=== PATIENT | male | born 1945 | race Caucasian/White ===

== ENCOUNTER → 2017-01-03 | Outpatient (CLI) | payer MEDICARE ==
--- NOTE | 2017-01-03 09:03 | MR ---
EXAMINATION TYPE: MR shoulder RT wo con DATE OF EXAM: 01/03/2017 7:31 AM COMPARISON: NONE HISTORY: Right shoulder pain TECHNIQUE: Multiplanar multispin echo imaging of the right shoulder was performed. FINDINGS: Rotator cuff : Heterogeneity and abnormal signal within the supraspinatus tendon. Full thickness part ial tear of the supraspinatus tendon near its humeral insertion. Also undersurface tear at the critic al zone. No evidence for retraction. Intrasubstance tear noted of the infraspinatus. Subscapularis te ndon is intact. Bursa: No bursal effusion or thickening is seen. Musculature: There is no muscular tear, contusion, or atrophy. Acromioclavicular joint : There are mild degenerative changes of the acromioclavicular joint. There is no anterior or lateral acromial downsloping. Osseous structures : There are no fractures or regions of abnormal bone marrow signal intensity. Long biceps tendon : The biceps tendon is normally situated within the bicipital groove. No complete or partial biceps tendon tear is present. Glenohumeral Joint fluid : Small effusion noted. Cartilage and Bone : No focal hyaline cartilage defects are noted. No Hill-Sachs, reverse Hill-Sachs, or bony Bankart lesions are seen. Labrum : Glenoid labral tears are noted to involve the superior posterior and inferior posterior rita oid labrum. OTHER FINDINGS : none IMPRESSION: 1. Tendinosis with associated tears of the supraspinatus and infraspinatus tendons. 2. Glenoid labral tears.
== END ==
LOC: RADMRIMAIN 06:28
PROVIDERS: ATTEND Orthopaedic Surgery
DX: M75.101 Unspecified rotator cuff tear or rupture of right shoulder, not specified as traumatic (principal); S43.401A Unspecified sprain of right shoulder joint, initial encounter; M75.91 Shoulder lesion, unspecified, right shoulder

== ENCOUNTER 2017-01-21 06:30 | Day surgery (SDC) | payer MEDICARE ==
[2017-01-18 11:24] VITALS: BMI 32.1
--- NOTE | 2017-01-19 09:02 | HP ---
DATE OF ADMISSION: CHIEF COMPLAINT: Right shoulder pain. HISTORY OF PRESENT ILLNESS: The patient is a 71-year-old right-handed dominant, semi-retired gentleman who presents with progressive right shoulder pain after an injury in October of 2016. He was carrying a table when he felt a pop in his shoulder. He continues to have pain with overhead use and at night, despite conservative measures. He has tried medications along with an injection and therapy. Past medical history is significant for coronary artery disease, hypertension, hyperlipidemia. Past surgical history is significant for cardiac catheterization along with right wrist surgery. CURRENT MEDICATIONS: 1. Aspirin. 2. Cholestyramine. 3. Dyazide. 4. Flomax. 5. Lopressor. 6. Niaspan. 7. Norvasc. 8. Ibuprofen. 9. Crestor. 10. Lisinopril. 11. Plavix. He notes allergies to PENICILLIN and ALEVE. FAMILY HISTORY: Significant for cancer and heart disease. SOCIAL HISTORY: Negative for current tobacco or alcohol use. A 16-point review of systems otherwise reviewed and is noncontributory. On examination, the patient is approximately 5 foot 8, 212 pounds of endomorphic habitus. HEENT exam is nonfocal. Neck is supple. On examination of his right shoulder, he is tender about the anterior subacromial space. He has moderate subacromial crepitus. Active range of motion, forward elevation 160 degrees, external rotation with arm at side 65 degrees, internal rotation to L1. Motor strength is 4+/5 for external rotation with the arm at the side and 4+/5 for abduction. Impingement, Neer and speed tests are positive. His distal neurovascular exam otherwise appears to be intact in the right upper extremity. MRI report from to 01/03/2017 shows evidence of a tear involving the supraspinatus tendon without significant retraction. IMPRESSION: 1. Right shoulder acute rotator cuff tear, symptomatic. 2. Right shoulder bicipital tendinitis. RECOMMENDATIONS: I talked to the patient at length regarding his treatment options. He remains symptomatic despite conservative measures. After thorough discussion, he opts to proceed with surgery. We will plan to proceed with arthroscopic evaluation with probable subacromial decompression, rotator cuff debridement versus repair, and possible biceps tenotomy. We will likely perform that as an outpatient procedure. Risks and benefits are discussed at length in layman's terms. We will have him resume his Plavix after the procedure.
[~2017-01-21 06:30] MED LIST: DEXAMETHASONE SOD PHOSPHATE 10 MG/ML 1 ML VIAL IV ONE; HYDROmorphone 1 MG/ML 1 ML SYRINGE IVP PRN; LACTATED RINGERS 1,000 ML IV SCH; MIDAZOLAM 2 MG/2 ML VIAL IV PRN; ONDANSETRON 4 MG/2 ML VIAL IVP ONE; ceFAZolin 2 GM in SODIUM CHLORIDE 0.9% 100 ML IVPB ONE
[2017-01-21] MEDS ORDERED: LIDOCAINE 1% 20 ML VIAL (10MG/ML) FOR IV START INTRADERMA ONE (07:15)
[2017-01-21] MEDS: fentaNYL (PF) 50 MCG/ML 2 ML AMP IV ONE ×2 (07:20→07:30)
[2017-01-21] MEDS ORDERED: ROCURONIUM BROMIDE 10 MG/ML 10 ML VIAL IV ONE (08:13)
[2017-01-21] MEDS ORDERED: LIDOCAINE 2%-EPI 1:100,000 20 ML VIAL ONE (08:13)
[2017-01-21] MEDS ORDERED: MIDAZOLAM 2 MG/2 ML VIAL ONE (08:13)
[2017-01-21] MEDS ORDERED: PROPOFOL 10 MG/ML 20 ML VIAL IV ONE (08:13)
[2017-01-21] MEDS ORDERED: fentaNYL (PF) 50 MCG/ML 2 ML AMP ONE (08:13)
[2017-01-21] MEDS ORDERED: SUCCINYLCHOLINE CHLORIDE 100 MG/5 ML SYR IV ONE (08:13)
[2017-01-21] MEDS ORDERED: ROPIVACAINE 5 MG/ML 30 ML VIAL ONE (08:13)
[2017-01-21] MEDS ORDERED: LIDOCAINE 1% INJ 10MG/ML (20 ML MDV) ONE (08:13)
[2017-01-21] MEDS ORDERED: GLYCOPYRROLATE 0.2 MG/ML 2 ML VIAL ONE (08:13)
[2017-01-21] MEDS ORDERED: NEOSTIGMINE 1 MG/ML 10 ML VIAL ONE (08:13)
[2017-01-21] MEDS ORDERED: LACTATED RINGERS 1,000 ML IV ONE (09:07)
[2017-01-21 09:45] VITALS: TEMP 98.5
--- NOTE | 2017-01-21 09:49 | P.OP ---
Date of Procedure: 01/21/17 Preoperative Diagnosis: Right shoulder symptomatic rotator cuff tear Postoperative Diagnosis: Right shoulder 1 cm supraspinatus tendon tear/grade 2 chondral injury central humeral head/superior labral tear/high-grade partial-thickness long head of the biceps tear. Procedure(s) Performed: Right shoulder arthroscopic subacromial decompression/rotator cuff repair/ biceps tenotomy/humeral head chondroplasty Implants: Arthrex 4.75 mm swivel lock anchor 1 Anesthesia: JONAS, regional Surgeon: Devan Childers Teacher Early Childhood Development #1: Huseyin Newton Estimated Blood Loss (ml): 20 Pathology: none sent Condition: stable Disposition: PACU Indications for Procedure: The patient's a 71-year-old male who presents with progressive right shoulder pain after previous injury despite conservative measures. A discussion of the risks and benefits of operative intervention versus continued conservative measures was made with the patient. He opted to proceed with surgery. Operative risks to include infection, neurovascular injury, development of blood clots, possible tendon rerupture, possible postoperative stiffness and need for subsequent procedures was discussed. Informed consent was obtained. Operative Findings: As below Description of Procedure: The patient was brought to the operating room, and after induction of general anesthesia was placed into a beachchair position. Bony prominences were appropriately padded. I examined the right shoulder. There is no gross block to passive motion. There was no gross glenohumeral instability. The right upper Jesus was prepped and draped in normal fashion. The bony outlines the acromion, distal clavicle, and coracoid process were outlined with a skin marker. The glenohumeral joint was inflated 50 mL of saline utilizing a spinal needle from posterior approach. A posterior portal was made through a 5 mm skin incision 1 cm medial and inferior to the posterior lateral border of the acromion. Diagnostic arthroscopy was performed. An anterior portal was made entering the joint above the subscapularis tendon just lateral to the coracoid process. The subscapularis tendon appear to be intact. The anterior labrum was intact. A high-grade partial-thickness tear involving the intra-articular portion of the long head of the biceps was noted. It was elected to proceed with tenotomy at this point. This was released from the superior labrum with electrocautery and allowed to retract to the bicipital groove. The superior labral attachment was also torn and debrided back to stable base with a motorized shaver. On inspection of the glenohumeral joint, a grade 2 chondral injury was noted involving the central portion of the humeral head. A loose chondral fragment was debrided back to stable base with a motorized shaver. The inferior recess was inspected. The posterior labrum was intact. The rotator cuff was inspected, and a full-thickness tear involving the anterior aspect the supraspinatus tendon was noted. The posterior portion the cuff was intact. The arthroscope was placed into the subacromial space. A lateral portal was made through a 5 mm skin incision 2 cm inferior to the anterior lateral border of the acromion. The soft tissue on the undersurface of the acromion was debrided with a motorized shaver and with electrocautery clearly defining the anterior medial and lateral borders as well as the distal clavicle. An anterior inferior acromioplasty is performed with a motorized poli starting anterolateral, then extending this posteriorly, then extending this medially. I was able to convert to a flat acromion. This was verified from the posterior and lateral viewing portals. The coracoacromial ligament was detached from the anterior acromion with electrocautery. Attention was then paid towards the rotator cuff. The tear in the supraspinatus was identified and the edges were debrided. The greater tuberosity was lightly decorticated utilizing a motorized poli. The tear measured approximately 1 cm. It was easily mobilized back to its footprint. A scorpion suture passer was then used to pass a #2 fiber tape through the edges of the tear. A #2 fiber link was also placed. A lateral anchor was then placed after appropriate soft tissue tensioning. A 4.75 mm swivel lock anchor was placed with good purchase. Final arthroscopic view showed adequate compression of the rotator cuff on the footprint. The portals were closed with Steri-Strips. A sterile dressing was applied in addition to an abductor brace. The patient was awoken from general anesthesia and transferred to recovery room in good condition. Blood loss was estimated 20 mL. No complications were incurred. Sponge and needle counts were correct at the end the case.
[2017-01-21 11:00] VITALS: RESP 16
[2017-01-21 11:54] VITALS: BP 137/73; PULSE 87
== END 2017-01-21 12:11 | disposition home health service (06) ==
LOC: OR 06:30
PROVIDERS: ATTEND Orthopaedic Surgery
DX: M75.101 Unspecified rotator cuff tear or rupture of right shoulder, not specified as traumatic (principal); S43.431A Superior glenoid labrum lesion of right shoulder, initial encounter; S46.111A Strain of muscle, fascia and tendon of long head of biceps, right arm, initial encounter; M24.111 Other articular cartilage disorders, right shoulder; X58.XXXA Exposure to other specified factors, initial encounter; I25.10 Atherosclerotic heart disease of native coronary artery without angina pectoris; I10 Essential (primary) hypertension; E78.5 Hyperlipidemia, unspecified; G47.33 Obstructive sleep apnea (adult) (pediatric); Z98.61 Coronary angioplasty status; Z79.02 Long term (current) use of antithrombotics/antiplatelets; Z79.82 Long term (current) use of aspirin; Z79.899 Other long term (current) drug therapy; Z88.0 Allergy status to penicillin; Z88.6 Allergy status to analgesic agent
CPT/HCPCS: 64415; 29827; 29826; C1713 ×3; C1894; J2250; J1100; J2710; J0690; J2405; J2001; J3010; J2795; J0330; J2704

== ENCOUNTER 2019-08-08 20:02 | Observation (INO) | payer MEDICARE ==
[2019-08-08 20:29] VITALS: RESP 18
[2019-08-08] MEDS ORDERED: NITROGLYCERIN SL TABS 0.4 MG TAB SUBLINGUAL PRN (21:32)
--- NOTE | 2019-08-08 21:44 | ED ---
Chest Pain HPI - General Chief Complaint: Chest Pain Stated Complaint: Dizziness Time Seen by Provider: 08/08/19 20:18 Source: patient, EMS Mode of arrival: EMS Limitations: no limitations - History of Present Illness Initial Comments: 74-year-old male patient with past history significant for coronary artery disease presents to the emergency department today as a transfer from [facility]. Patient has been having dizziness since awakening this morning. Patient states he becomes dizzy whenever he stands up. Patient states that he has been eating and drinking without difficulty. States it does feel like the room is spinning and he cannot walk straight. Patient denies any headache, blurred vision, or double vision. Patient states that he has had 8 stents placed, states that his symptoms usually include dizziness when they find an artery blockage. He denies any chest pain, shortness of breath, nausea, vomiting, or sweats. Denies any fever or chills. Denies any upper respiratory symptoms. Patient denies any recent rash, abdominal pain, diarrhea, constipation, back pain, numbness, tingling, hematuria, dysuria, urinary urgen cy, urinary frequency, or any other complaints. - Related Data Home Medications Medication Instructions Recorded Confirmed Losartan Potassium [Cozaar] 50 mg PO DAILY 11/20/15 08/08/19 Metoprolol Tartrate [Lopressor] 75 mg PO BID 11/20/15 08/08/19 Ubidecarenone [Co Q-10] 200 mg PO DAILY 11/20/15 08/08/19 amLODIPine [Norvasc] 10 mg PO DAILY 11/20/15 08/08/19 Aspirin EC [Ecotrin Low Dose] 81 mg PO DAILY 04/13/16 08/08/19 Tamsulosin [Flomax] 0.4 mg PO HS 01/18/17 08/08/19 Ezetimibe [Zetia] 10 mg PO DAILY 08/08/19 08/08/19 Furosemide [Lasix] 10 mg PO DAILY 08/08/19 08/08/19 Potassium Chloride [Klor-Con 10] 10 meq PO HS 08/08/19 08/08/19 Previous Rx's Medication Instructions Recorded Clopidogrel [Plavix] 75 mg PO DAILY #90 tab 04/16/16 Nitroglycerin Sl Tabs [Nitrostat] 0.4 mg SUBLINGUAL Q5M PRN #25 tab 04/16/16 Allergies Allergy/AdvReac Type Severity Reaction Status Date / Time naproxen sodium [From Aleve] Allergy Severe Anaphylaxis Verified 08/08/19 21:02 Penicillins Allergy Unknown Rash/Hives Verified 08/08/19 21:02 rosuvastatin [From Crestor] Allergy Rash/Hives Verified 08/08/19 21:02 Review of Systems ROS Statement: Those systems with pertinent positive or pertinent negative responses have been documented in the HPI. ROS Other: All systems not noted in ROS Statement are negative. EKG Findings - EKG Comments: EKG Findings:: EKG obtained at 2019 shows sinus bradycardia with a ventricular rate of 55, OH interval 146, QRS duration 88, QT 462, QTc 441. No evidence of ST elevation or depression. Past Medical History Past Medical History: Diabetes Mellitus, Hyperlipidemia, Hypertension, Sleep Apnea/CPAP/BIPAP Additional Past Medical History / Comment(s): HEMORRHOIDS, HX OF KIDNEY STONES, INNER EAR IMBALANCE, STATES HX OF " OCC BURNING FEELING IN LUNGS", DM type 2 new History of Any Multi-Drug Resistant Organisms: None Reported Past Surgical History: Heart Catheterization With Stent, Orthopedic Surgery Additional Past Surgical History / Comment(s): GANGLION CYST X2 RT WRIST, RIGHT ELBOW SURG, angioplasty and total 8 stents, RIGHT KNEE-ARTHROSCOPIC, , hemorrhoid surgery Past Anesthesia/Blood Transfusion Reactions: Motion Sickness Date of Last Stent Placement:: 04/2016 Past Psychological History: No Psychological Hx Reported Smoking Status: Never smoker Past Alcohol Use History: Occasional Past Drug Use History: None Reported - Past Family History Mother Family Medical History: Coronary Artery Disease (CAD) Additional Family Medical History / Comment(s): ALZHEIMERS Father Family Medical History: Cancer Additional Family Medical History / Comment(s): bone and lung General Exam Limitations: no limitations General appearance: alert, in no apparent distress, other (This is a well- developed, well-nourished elderly male patient in no acute distress. Vital signs upon presentation are temperature 98.2F, pulse 54, respirations 18, blood pressure 157/79, pulse ox 97% on room air.) Eye exam: Present: normal appearance, PERRL, EOMI. Absent: scleral icterus, conjunctival injection, periorbital swelling ENT exam: Present: normal exam, normal oropharynx, mucous membranes moist Respiratory exam: Present: normal lung sounds bilaterally. Absent: respiratory distress, wheezes, rales, rhonchi, stridor Cardiovascular Exam: Present: regular rate, normal rhythm, normal heart sounds. Absent: systolic murmur, diastolic murmur, rubs, gallop, clicks GI/Abdominal exam: Present: soft, normal bowel sounds. Absent: distended, tenderness, guarding, rebound, rigid Neurological exam: Present: alert, oriented X3, CN II-XII intact Psychiatric exam: Present: normal affect, normal mood Skin exam: Present: warm, dry, intact, normal color. Absent: rash Course Vital Signs 08/08/19 08/08/19 20:12 20:37 Pulse Rate 54 L Pulse Rate [ 56 L [employer] ] Respiratory 18 Rate Blood Pressure 157/79 O2 Sat by Pulse 97 Oximetry Chest Pain MDM - MDM 74-year-old male patient presented to the emergency department today for evaluation of dizziness. He was a transfer from [facility] for admission and evaluation by cardiology. Physical examination is unremarkable. He is neurologically intact with no focal deficits. Documents reviewed from [facility] including labs which showed no acute abdomen abnormality is, troponin negative. Did have a potassium of 3.4. Chest x-ray showed a normal chest with no changes read by Dr. Cintron. His EKG at their facility showed sinus bradycardia with a rate of 55. On the classroom monitor here in the emergency department he was between 50 and 55 bpm. Patient states this is a little lower than he usually runs. He will be admitted to the hospital for further evaluation. Dr. Mcneill is his primer supervisor, he has been consulted. Patient is agreeable this plan. Disposition Clinical Impression: Dizziness, Bradycardia Disposition: ADMITTED IP TO THIS [facility] Condition: Serious Referrals: Boni Contreras DO [Primary Care Provider] - 1-2 days Decision to Admit Reason: Admit from EC Decision Date: 08/08/19 Decision Time: 21:43
[2019-08-09] MEDS ORDERED: Potassium Replacement Protocol 1 EACH MISC MISCELLANE PRN ×2 (01:24→02:56)
[2019-08-09] MEDS ORDERED: POTASSIUM CHLORIDE ER 20 MEQ TAB.ER PO SCH (02:00)
[2019-08-09] MEDS: POTASSIUM CHLORIDE ER 20 MEQ TAB.ER PO SCH ×2 (03:31→04:40)
[2019-08-09] MEDS ORDERED: NITROGLYCERIN SL TABS 0.4 MG TAB SUBLINGUAL PRN (05:05)
[2019-08-09 05:10] LABS: Basophils % (A) 1 %; Eosinophils # (A) 0.2 k/uL (0-0.7); Eosinophils % (A) 3 %; HCT 39.7 % (39.0-53.0); HGB 14.2 gm/dL (13.0-17.5); Lymphocytes # (A) 1.4 k/uL (1.0-4.8); Lymphocytes % (A) 22 %; MCH 32.3 pg (25.0-35.0); MCHC 35.8 g/dL (31.0-37.0); MCV 90.2 fL (80.0-100.0); Mean Platelet Volume 7.1; Monocytes # (A) 0.5 k/uL (0-1.0); Monocytes % (A) 9 %; Neutrophils # (A) 3.9 k/uL (1.3-7.7); Neutrophils % (A) 63 %; Platelet Count 193 k/uL (150-450); RDW 14.4 % (11.5-15.5); WBC 6.1 k/uL (3.8-10.6)
[2019-08-09 05:20] LABS: INR 0.9 (<1.2); Partial Thromboplastin Time 23.5 sec (22.0-30.0)
[2019-08-09 05:29] LABS: ALT 13 U/L (21-72); AST 17 U/L (17-59); African American GFR (CKD) >90 (>60 ml/min/1.73 sqM); Albumin 3.9 g/dL (3.5-5.0); Alkaline Phosphatase 56 U/L (38-126); Anion Gap 10 mmol/L; Blood Urea Nitrogen 14 mg/dL (9-20); Calcium 9.4 mg/dL (8.4-10.2); Carbon Dioxide 24 mmol/L (22-30); Chloride 104 mmol/L (98-107); Cholesterol 186 mg/dL (<200); Glucose 127 mg/dL (74-99); HDL Cholesterol 30 mg/dL (40-60); Potassium 3.7 mmol/L (3.5-5.1); Sodium 138 mmol/L (137-145); Total Bilirubin 0.3 mg/dL (0.2-1.3); Triglycerides 416 mg/dL (<150)
[2019-08-09] MEDS ORDERED: MECLIZINE 25 MG TAB PO SCH ×2 (09:00→16:00)
[2019-08-09] MEDS ORDERED: FUROSEMIDE 10 MG TAB PO SCH (09:00)
[2019-08-09] MEDS ORDERED: NON FORMULARY DRUG (Ubidecarenone [Co Q-10] 200 MG) PO SCH (09:00)
[2019-08-09] MEDS ORDERED: ASPIRIN 325 MG TAB PO SCH (09:00)
[2019-08-09] MEDS ORDERED: amLODIPine 10 MG TAB PO SCH (09:00)
[2019-08-09] MEDS ORDERED: LOSARTAN 50 MG TAB PO SCH (09:00)
[2019-08-09] MEDS ORDERED: CLOPIDOGREL 75 MG TAB PO SCH (09:00)
[2019-08-09] MEDS ORDERED: EZETIMIBE 10 MG TAB PO SCH (09:00)
[2019-08-09] MEDS ORDERED: METOPROLOL TARTRATE 25 MG TAB PO SCH (09:00)
[2019-08-09] MEDS ORDERED: ASPIRIN 81 MG PO SCH (09:00)
--- NOTE | 2019-08-09 11:28 | P.CRDCN ---
History of Present Illness History of present illness: This is a pleasant 74-year-old male past medical history significant for coronary artery disease status post multiple angioplasties, hypertension, dyslipidemia intolerant to statins, newly diagnosed diet-controlled diabetes mellitus, sleep apnea and inner ear imbalance. He follows in the office with Dr. Mcneill. We have been asked to see him in consultation secondary to dizzin ess with a history of coronary artery disease and baseline bradycardia. He states yesterday while at work he became acutely dizzy. He states the room was spinning somewhat so that he had to hold onto the wall to brace himself from falling. He denies that he felt lightheaded like he was going to pass out just that the room was spinning. He denies chest discomfort, shortness of breath, palpitations, nausea, vomiting or diaphoresis. He also describes feeling increased fatigue over the previous couple of months. He has had quite an eventful summer suffering a fall causing a left orbital fracture, he had kidney stones and required lithotripsy and a hemorrhoidectomy. At the time of my exam he is seen and examined laying flat in bed in no acute distress. He has no active dizziness until I've asked him to sit up for my examination he starts to feel dizzy. He states earlier this morning he got up to walk to the bathroom and again the room started spinning. EKG on arrival revealed sinus bradycardia heart rate of [address] or T wave abnormalities noted. Laboratory data reviewed, CBC unremarkable, sodium 138, potassium 3.7, creatinine 0.96, cardiac enzymes negative 2, triglycerides 416. Current daily cardiac medications include aspirin 81 mg daily, Plavix 75 mg daily, steady at 10 mg daily, Lasix 10 mg daily, losartan 50 mg daily, Lopressor 75 mg twice a day and amlodipine 10 mg daily. Most recent echocardiogram obtained in the office December 2017 revealed preserved LV systolic function with normal ejection fraction, mild mitral regurgitation and mild tricuspid regurgitation. Most recent cardiac catheterization performed in 2015 at that time he underwent suc cessful stent placement to the mid RCA. Prior to that he underwent stent placement to the mid OM2, proximal OM1 and proximal circumflex in 2015, mid RCA 2005, mid RCA 1996 and proximal OM1 in 1995. At the time of my exam: CONSTITUTIONAL: Denies fever. Denies chills. EYES: Denies blurred vision. Denies vision changes. Denies eye pain. EARS, NOSE, MOUTH & THROAT: Denies headache. Denies sore throat. Denies ear pain. CARDIOVASCULAR: Denies chest pain. Denies shortness of breath. Denies orthopnea. Denies PND. Denies palpitations. RESPIRATORY: Denies cough. GASTROINTESTINAL: Denies abdominal pain. Denies diarrhea. Denies constipation. Denies nausea. Denies vomiting. MUSCULOSKELETAL: Denies myalgias. INTEGUMENTARY: Denies pruitis. Denies rash. NEUROLOGIC: Denies numbness. Denies tingling. Denies weakness. Complains of dizziness exertion or activity. PSYCHIATRIC: Denies anxiety. Denies depression. ENDOCRINE: Denies fatigue. Denies weight change. Denies polydipsia. Denies polyurina. GENITOURINARY: Denies burning, hematuria or urgency with micturation. HEMATOLOGIC: Denies history of anemia. Denies bleeding. Blood pressure 146/71 heart rate 58 afebrile maintaining oxygen saturation on room air GENERAL: This is a 74-year-old male in no apparent distress at the time of my examination. HEENT: Head is atraumatic, normocephalic. Pupils are equal, round. Sclerae anicteric. Conjunctivae are clear. Mucous membranes of the mouth are moist. Neck is supple. There is no jugular venous distention. No carotid bruit is heard. LUNGS: Clear to auscultation no wheezes, rales or rhonchi. No chest wall tenderness is noted on palpation or with deep breathing. HEART: Regular rate and rhythm without murmurs, rubs or gallops. S1 and S2 heard. ABDOMEN: Soft, nontender. Bowel sounds are heard. No organomegaly noted. EXTREMITIES: No evidence of peripheral edema and no calf tenderness noted. VASCULAR: Radial and dorsalis pedis pulses palpated, no evidence of clubbing. NEUROLOGIC: Patient is awake, alert and oriented x3. ASSESSMENT Dizziness suggestive of vertigo, not related to sinus bradycardia. Sinus bradycardia, Asymptomatic. No episodes of profound symptomatic bradycardia on telemetry. Coronary artery disease status post multiple angioplasties in the past Hypertension Dyslipidemia intolerant to statins Diabetes mellitus currently pursuing diet modification Obstructive sleep apnea History of inner ear disturbance in the past has followed with Dr. Finch PLAN Check for orthostatic changes. Suggest Antivert 25 mg 3 times a day. Consider possible evaluation with ENT or neurology. Obtain 2-D echocardiogram and Doppler study to assess cardiac structure and func tion. Ongoing evaluation per primary care team. Follow-up with Dr. Mcneill upon discharge. Thank you kindly for this consultation. Nurse Practitioner note has been reviewed, I agree with a documented findings and plan of care. Patient was seen and examined. Past Medical History Past Medical History: Diabetes Mellitus, Hyperlipidemia, Hypertension, Sleep Ap jhon/CPAP/BIPAP Additional Past Medical History / Comment(s): HEMORRHOIDS, HX OF KIDNEY STONES, INNER EAR IMBALANCE, STATES HX OF " OCC BURNING FEELING IN LUNGS", DM type 2 new History of Any Multi-Drug Resistant Organisms: None Reported Past Surgical History: Heart Catheterization With Stent, Orthopedic Surgery Additional Past Surgical History / Comment(s): GANGLION CYST X2 RT WRIST, RIGHT ELBOW SURG, angioplasty and total 8 stents, RIGHT KNEE-ARTHROSCOPIC, , hemorrhoid surgery Past Anesthesia/Blood Transfusion Reactions: Motion Sickness Date of Last Stent Placement:: 04/2016 Past Psychological History: No Psychological Hx Reported Smoking Status: Never smoker Past Alcohol Use History: Occasional Past Drug Use History: None Reported - Past Family History Mother Family Medical History: Coronary Artery Disease (CAD) Additional Family Medical History / Comment(s): ALZHEIMERS Father Family Medical History: Cancer Additional Family Medical History / Comment(s): bone and lung Medications and Allergies Home Medications Medication Instructions Recorded Confirmed Type Losartan Potassium [Cozaar] 50 mg PO DAILY 11/20/15 08/08/19 History Metoprolol Tartrate [Lopressor] 75 mg PO BID 11/20/15 08/08/19 History Ubidecarenone [Co Q-10] 200 mg PO DAILY 11/20/15 08/08/19 History amLODIPine [Norvasc] 10 mg PO DAILY 11/20/15 08/08/19 History Aspirin EC [Ecotrin Low Dose] 81 mg PO DAILY 04/13/16 08/08/19 History Clopidogrel [Plavix] 75 mg PO DAILY #90 tab 04/16/16 08/08/19 Rx Nitroglycerin Sl Tabs [Nitrostat] 0.4 mg SUBLINGUAL Q5M PRN #25 tab 04/16/16 08/08/19 Rx Tamsulosin [Flomax] 0.4 mg PO HS 01/18/17 08/08/19 History Ezetimibe [Zetia] 10 mg PO DAILY 08/08/19 08/08/19 History Furosemide [Lasix] 10 mg PO DAILY 08/08/19 08/08/19 History Potassium Chloride [Klor-Con 10] 10 meq PO HS 08/08/19 08/08/19 History Allergies Allergy/AdvReac Type Severity Reaction Status Date / Time naproxen sodium [From Aleve] Allergy Severe Anaphylaxis Verified 08/08/19 21:02 Penicillins Allergy Unknown Rash/Hives Verified 08/08/19 21:02 rosuvastatin [From Crestor] Allergy Rash/Hives Verified 08/08/19 21:02 Physical Exam Vitals: Vital Signs Temp Pulse Pulse Pulse Resp BP BP 08/09/19 09:00 18 08/09/19 07:54 98.6 F 50 L 18 102/78 08/09/19 04:40 98.3 F 48 L 18 113/61 08/09/19 03:30 18 08/08/19 22:47 98.4 F 53 L 18 163/84 08/08/19 21:30 50 L 18 138/74 08/08/19 21:00 52 L 18 159/82 08/08/19 20:37 56 L 08/08/19 20:30 58 L 18 139/94 08/08/19 20:12 54 L 18 157/79 Pulse Ox 08/09/19 09:00 08/09/19 07:54 96 08/09/19 04:40 97 08/09/19 03:30 08/08/19 22:47 98 08/08/19 21:30 99 08/08/19 21:00 98 08/08/19 20:37 08/08/19 20:30 99 08/08/19 20:12 97 Intake and Output 08/08/19 08/09/19 08/09/19 22:59 06:59 14:59 Intake Total 480 Balance 480 Intake: Oral 480 Other: Voiding Method Toilet # Voids 1 1 Weight 95.254 kg Results 08/09/19 04:25 08/09/19 04:25 Cardiac Enzymes 08/08/19 08/09/19 08/09/19 Range/Units 23:40 04:25 04:25 AST 17 (17-59) U/L Troponin I <0.012 <0.012 (0.000-0.034) ng/mL Coagulation 08/09/19 Range/Units 04:25 PT 10.0 (9.0-12.0) sec APTT 23.5 (22.0-30.0) sec Lipids 08/09/19 Range/Units 04:25 Triglycerides 416 H (<150) mg/dL Cholesterol 186 (<200) mg/dL HDL Cholesterol 30 L (40-60) mg/dL CBC 08/09/19 Range/Units 04:25 WBC 6.1 (3.8-10.6) k/uL RBC 4.40 (4.30-5.90) m/uL Hgb 14.2 (13.0-17.5) gm/dL Hct 39.7 (39.0-53.0) % Plt Count 193 (150-450) k/uL Comprehensive Metabolic Panel 08/09/19 Range/Units 04:25 Sodium 138 (137-145) mmol/L Potassium 3.7 (3.5-5.1) mmol/L Chloride 104 (98-107) mmol/L Carbon Dioxide 24 (22-30) mmol/L BUN 14 (9-20) mg/dL Creatinine 0.96 (0.66-1.25) mg/dL Glucose 127 H (74-99) mg/dL Calcium 9.4 (8.4-10.2) mg/dL AST 17 (17-59) U/L ALT 13 L (21-72) U/L Alkaline Phosphatase 56 (38-126) U/L Total Protein 6.0 L (6.3-8.2) g/dL Albumin 3.9 (3.5-5.0) g/dL Current Medications Generic Name Dose Route Start Last Admin Trade Name Freq PRN Reason Stop Dose Admin Amlodipine Besylate 10 mg 08/09/19 09:00 Norvasc PO DAILY COUNT INCLUDES THE [facility] Aspirin 81 mg 08/09/19 09:00 Aspirin PO DAILY COUNT INCLUDES THE [facility] Clopidogrel Bisulfate 75 mg 08/09/19 09:00 Plavix PO DAILY COUNT INCLUDES THE [facility] Ezetimibe 10 mg 08/09/19 09:00 Zetia PO DAILY COUNT INCLUDES THE [facility] Furosemide 10 mg 08/09/19 09:00 Lasix PO DAILY COUNT INCLUDES THE [facility] Losartan Potassium 50 mg 08/09/19 09:00 Cozaar PO DAILY COUNT INCLUDES THE [facility] Meclizine HCl 25 mg 08/09/19 09:00 Antivert PO DAILY [place] Metoprolol Tartrate 75 mg 08/09/19 09:00 Lopressor PO BID [place] Miscellaneous Information 1 each 08/09/19 02:56 Potassium Per Protocol MISCELLANE DAILY PRN Per Protocol Protocol Nitroglycerin 0.4 mg 08/08/19 21:32 Nitrostat SUBLINGUAL Q5M PRN Chest Pain Potassium Chloride 10 meq 08/10/19 09:00 K-Dur 10 PO HS [place] Tamsulosin HCl 0.4 mg 08/09/19 21:00 Flomax PO HS [place] Intake and Output 08/08/19 08/09/19 08/09/19 22:59 06:59 14:59 Intake Total 480 Balance 480 Intake: Oral 480 Other: Voiding Method Toilet # Voids 1 1 Weight 95.254 kg 08/09/19 04:25 08/09/19 04:25
--- NOTE | 2019-08-09 12:00 | ECHOF ---
Referral Reason: MEASUREMENTS -------- HEIGHT: 172.7 cm WEIGHT: 95.3 kg BP: 102/78 RVIDd: 2.9 cm (< 3.3) IVSd: 1.2 cm (0.6 - 1.1) LVIDd: 4.3 cm (3.9 - 5.3) LVPWd: 1.2 cm (0.6 - 1.1) IVSs: 1.8 cm LVIDs: 3.0 cm LVPWs: 1.6 cm LA Diam: 3.8 cm (2.7 - 3.8) LAESV Index (A-L): 28.27 ml/m Ao Diam: 3.2 cm (2.0 - 3.7) AV Cusp: 2.1 cm (1.5 - 2.6) MV EXCURSION: 14.967 mm (> 18.000) MV EF SLOPE: 109 mm/s (70 - 150) EPSS: 0.5 cm MV E Gerard: 0.77 m/s MV DecT: 244 ms MV A Gerard: 0.87 m/s MV E/A Ratio: 0.88 RAP: 5.00 mmHg RVSP: 28.84 mmHg TAPSE: 24.99 mm FINDINGS -------- Sinus rhythm. This was a technically adequate study. The left ventricular size is normal. There is borderline concentric left ventricular hypertrophy. Overall left ventricular systolic function is normal with, an EF between 60 - 65 %. The diastolic filling pattern is normal for the age of the patient 11.50. The right ventricle is normal in size. LA is midly dilated 29-33ml/m2. The right atrium is normal in size. 2 ml of Lumason was utilized for enhancement of images. Interatrial and interventricular septum intact. There is mild aortic valve sclerosis. Mild mitral annular calcification present. There is trace mitral regurgitation. Trace tricuspid regurgitation present. The aortic root size is normal. Normal inferior vena cava with normal inspiratory collapse consistent with estimated right atrial pre ssure of 5 mmHg. There is no pericardial effusion. CONCLUSIONS -------- 1. Sinus rhythm. 2. This was a technically adequate study. 3. The left ventricular size is normal. 4. There is borderline concentric left ventricular hypertrophy. 5. Overall left ventricular systolic function is normal with, an EF between 60 - 65 %. 6. The diastolic filling pattern is normal for the age of the patient 11.50 7. The right ventricle is normal in size. 8. LA is midly dilated 29-33ml/m2. 9. The right atrium is normal in size. 10. 2 ml of Lumason was utilized for enhancement of images. 11. Interatrial and interventricular septum intact. 12. There is mild aortic valve sclerosis. 13. Mild mitral annular calcification present. 14. There is trace mitral regurgitation. 15. Trace tricuspid regurgitation present. 16. The aortic root size is normal. 17. Normal inferior vena cava with normal inspiratory collapse consistent with estimated right atrial pressure of 5 mmHg. 18. There is no pericardial effusion. PHOTOGRAPHIC LABORATORY TECHNICIAN: Melissa Garcia RDCS
[2019-08-09 12:13] VITALS: BP 135/82; PULSE 51; TEMP 98.2
[2019-08-09 12:42] VITALS: BMI 31.9
[2019-08-09] MEDS ORDERED: TAMSULOSIN 0.4 MG CAP.ER.24H PO SCH (21:00)
[2019-08-10] MEDS ORDERED: POTASSIUM CHLORIDE ER 10 MEQ TAB.ER.PRT PO SCH (09:00)
--- NOTE | 2019-08-11 22:38 | P.HPIM ---
History of Present Illness H&P Date: 08/09/19 Chief Complaint: Dizzy with moving History of presenting complaint: This is a very pleasant [address] Auguste. Chronic stable medical conditions include diabetes, hypertension, hyperlipidemia, obstructive sleep apnea, coronary artery disease with a history of stent. 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 He had to sit down. He notices that every time he moved his head was spinning would occur. No change in vision. No nausea vomiting. No weakness on the pedicle side. No change in speech. No headache. The symptoms persisted and decided to come in. In the past patient had an episode of BPPV and had a maneuver done in Dr. Anguiano's office. After which he got better. No chest pain no palpitation. No new ear symptoms Review of systems: GEN.: None EYES: None HEENT: None NECK: None RESPIRATORY: None CARDIOVASCULAR: None GASTROINTESTINAL: None GENITOURINARY: None MUSCULOSKELETAL: Joint pains LYMPHATICS: None HEMATOLOGICAL: None PSYCHIATRY: None NEUROLOGICAL: As above Social history: Does not smoke. Alcohol occasionally. . Employed. Physical examination: VITAL SIGNS: Afebrile, 54, 18, 157/79, 97% room air GENERAL: BMI 31.9, laying in bed comfortable. EYES: Pupils equal. Conjunctiva normal. HEENT: External appearance of nose and ears normal, oral cavity grossly normal. NECK: JVD not raised; masses not palpable. HEART: First and second heart sounds are normal; no edema. LUNGS: Respiratory rate normal; clear to auscultation. ABDOMEN: Soft, nontender, liver spleen not palpable, no masses palpable. PSYCH: Alert and oriented x3; mood and affect normal. NEUROLOGICAL: Cranial nerves grossly intact; no facial asymmetry, power and sensation grossly intact, no nystagmus. LYMPHATICS: No lymph nodes palpable in the axilla and neck INVESTIGATIONS, reviewed in the clinical context: White count 6.1 hemoglobin 14.2 platelets 193 potassium 3.7 creatinine 0.96 EKG tracing personally reviewed by me-sinus bradycardia Assessment: -Patient presenting with classical symptoms of BPPV. Room is spinning. Very positional. No associated cerebellar signs. No other central size. No nystagmus. -Diabetes mellitus type 2 -Hyperlipidemia -Essential hypertension -Obstructive sleep apnea uses CPAP -Coronary artery disease and history of total of 8 stents stent - Plan: College he was consulted to make sure nothing else is causing her symptoms. Patient put on telemetry. Home medications resumed. Accu-Cheks are l followed. Care was discussed the patient at the bedside. Symptoms are not related to her bradycardia. Cardiology did order 2-D echocardiogram. Past Medical History Past Medical History: Diabetes Mellitus, Hyperlipidemia, Hypertension, Sleep Apnea/CPAP/BIPAP Additional Past Medical History / Comment(s): HEMORRHOIDS, HX OF KIDNEY STONES, INNER EAR IMBALANCE, STATES HX OF " OCC BURNING FEELING IN LUNGS", DM type 2 new History of Any Multi-Drug Resistant Organisms: None Reported Past Surgical History: Heart Catheterization With Stent, Orthopedic Surgery Additional Past Surgical History / Comment(s): GANGLION CYST X2 RT WRIST, RIGHT ELBOW SURG, angioplasty and total 8 stents, RIGHT KNEE-ARTHROSCOPIC, , hemorrhoid surgery Past Anesthesia/Blood Transfusion Reactions: Motion Sickness Date of Last Stent Placement:: 04/2016 Past Psychological History: No Psychological Hx Reported Smoking Status: Never smoker Past Alcohol Use History: Occasional Past Drug Use History: None Reported - Past Family History Mother Family Medical History: Coronary Artery Disease (CAD) Additional Family Medical History / Comment(s): ALZHEIMERS Father Family Medical History: Cancer Additional Family Medical History / Comment(s): bone and lung Medications and Allergies Home Medications Medication Instructions Recorded Confirmed Type Losartan Potassium [Cozaar] 50 mg PO DAILY 11/20/15 08/08/19 History Metoprolol Tartrate [Lopressor] 75 mg PO BID 11/20/15 08/08/19 History Ubidecarenone [Co Q-10] 200 mg PO DAILY 11/20/15 08/08/19 History amLODIPine [Norvasc] 10 mg PO DAILY 11/20/15 08/08/19 History Aspirin EC [Ecotrin Low Dose] 81 mg PO DAILY 04/13/16 08/08/19 History Clopidogrel [Plavix] 75 mg PO DAILY #90 tab 04/16/16 08/08/19 Rx Nitroglycerin Sl Tabs [Nitrostat] 0.4 mg SUBLINGUAL Q5M PRN #25 tab 04/16/16 08/08/19 Rx Tamsulosin [Flomax] 0.4 mg PO HS 01/18/17 08/08/19 History Ezetimibe [Zetia] 10 mg PO DAILY 08/08/19 08/08/19 History Furosemide [Lasix] 10 mg PO DAILY 08/08/19 08/08/19 History Potassium Chloride [Klor-Con 10] 10 meq PO HS 08/08/19 08/08/19 History Allergies Allergy/AdvReac Type Severity Reaction Status Date / Time naproxen sodium [From Aleve] Allergy Severe Anaphylaxis Verified 08/08/19 21:02 Penicillins Allergy Unknown Rash/Hives Verified 08/08/19 21:02 rosuvastatin [From Crestor] Allergy Rash/Hives Verified 08/08/19 21:02 Physical Exam Vitals: Vital Signs Temp Pulse Pulse Pulse Resp BP BP 08/09/19 09:00 18 08/09/19 07:54 98.6 F 50 L 18 102/78 08/09/19 04:40 98.3 F 48 L 18 113/61 08/09/19 03:30 18 08/08/19 22:47 98.4 F 53 L 18 163/84 08/08/19 21:30 50 L 18 138/74 08/08/19 21:00 52 L 18 159/82 08/08/19 20:37 56 L 08/08/19 20:30 58 L 18 139/94 08/08/19 20:12 54 L 18 157/79 Pulse Ox 08/09/19 09:00 08/09/19 07:54 96 08/09/19 04:40 97 08/09/19 03:30 08/08/19 22:47 98 08/08/19 21:30 99 08/08/19 21:00 98 08/08/19 20:37 08/08/19 20:30 99 08/08/19 20:12 97 Intake and Output 08/08/19 08/09/19 08/09/19 22:59 06:59 14:59 Intake Total 480 Balance 480 Intake: Oral 480 Other: Voiding Method Toilet # Voids 1 1 Weight 95.254 kg Results CBC & Chem 7: 08/09/19 04:25 08/09/19 04:25 Labs: Abnormal Lab Results - Last 24 Hours (Table) 08/09/19 Range/Units 04:25 Glucose 127 H (74-99) mg/dL ALT 13 L (21-72) U/L Total Protein 6.0 L (6.3-8.2) g/dL Triglycerides 416 H (<150) mg/dL HDL Cholesterol 30 L (40-60) mg/dL Thrombosis Risk Factor Assmnt - Choose All That Apply Other Risk Factors: (DM, Hyperlipidemia) Each Risk Factor Represents 2 Points: Age 61-74 years Thrombosis Risk Factor Assessment Total Risk Factor Score: 2 Thrombosis Risk Factor Assessment Level: Low Risk
--- NOTE | 2019-08-11 22:41 | P.DS ---
Providers Date of admission: 08/08/19 21:12 Expected date of discharge: 08/11/19 Attending physician: Rigoberto Ray Consults: 08/08/19 21:32 Consult Physician Urgent Consulting Provider: Tyrone Mcneill Consult Reason/Comments: Dizziness; Hx CAD; Bradycardia Do you want consulting provider notified?: Yes Primary care physician: Boni Aguirre [facility] Course: Chief Complaint: Dizzy with moving Hospital course: This is a very pleasant [address] Auguste . Chronic stable medical conditions include diabetes, hypertension, hyperlipidemia, obstructive sleep apnea, coronary artery disease with a history of stent. 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 He had to sit down. He notices that every time he moved his head was spinning would occur. No change in vision. No nausea vomiting. No weakness on the pedicle side. No change in speech. No headache. The symptoms persisted and decided to come in. In the past patient had an episode of BPPV and had a maneuver done in Dr. Anguiano's office. After which he got better. No chest pain no palpitation. No new ear symptoms Patient is felt to possible symptoms of BPPV. Hallpike maneuver was discussed. Due to the exercises at home. Symptoms are very much improved by the time of berta wheatley. Discussed with the and . Cleared by currently. Consultation: Dr. VC Beckman from cardiology Physical examination: VITAL SIGNS: Afebrile, 54, 18, 157/79, 97% room air GENERAL: BMI 31.9, laying in bed comfortable. EYES: Pupils equal. Conjunctiva normal. HEENT: External appearance of nose and ears normal, oral cavity grossly normal. NECK: JVD not raised; masses not palpable. HEART: First and second heart sounds are normal; no edema. LUNGS: Respiratory rate normal; clear to auscultation. ABDOMEN: Soft, nontender, liver spleen not palpable, no masses palpable. PSYCH: Alert and oriented x3; mood and affect normal. NEUROLOGICAL: Cranial nerves grossly intact; no facial asymmetry, power and sensation grossly intact, no nystagmus. INVESTIGATIONS, reviewed in the clinical context: White count 6.1 hemoglobin 14.2 platelets 193 potassium 3.7 creatinine 0.96 EKG tracing personally reviewed by nm-sinus bradycardia 2-D echo-EF 60-65%. Discharge diagnosis: -Patient presenting with classical symptoms of BPPV.. -Diabetes mellitus type 2 -Hyperlipidemia -Essential hypertension -Obstructive sleep apnea uses CPAP -Coronary artery disease and history of total of 8 stents - Disposition: Home Patient Condition at Discharge: Stable Plan - Discharge Summary Discharge Rx Participant: No New Discharge Prescriptions: Continue amLODIPine [Norvasc] 10 mg PO DAILY Metoprolol Tartrate [Lopressor] 75 mg PO BID Ubidecarenone [Co Q-10] 200 mg PO DAILY Losartan Potassium [Cozaar] 50 mg PO DAILY Aspirin EC [Ecotrin Low Dose] 81 mg PO DAILY Clopidogrel [Plavix] 75 mg PO DAILY #90 tab Nitroglycerin Sl Tabs [Nitrostat] 0.4 mg SUBLINGUAL Q5M PRN #25 tab PRN Reason: Chest Pain Tamsulosin [Flomax] 0.4 mg PO HS Ezetimibe [Zetia] 10 mg PO DAILY Potassium Chloride [Klor-Con 10] 10 meq PO HS Furosemide [Lasix] 10 mg PO DAILY Discharge Medication List Losartan Potassium [Cozaar] 50 mg PO DAILY 11/20/15 [History] Metoprolol Tartrate [Lopressor] 75 mg PO BID 11/20/15 [History] Ubidecarenone [Co Q-10] 200 mg PO DAILY 11/20/15 [History] amLODIPine [Norvasc] 10 mg PO DAILY 11/20/15 [History] Aspirin EC [Ecotrin Low Dose] 81 mg PO DAILY 04/13/16 [History] Clopidogrel [Plavix] 75 mg PO DAILY #90 tab 04/16/16 [Rx] Nitroglycerin Sl Tabs [Nitrostat] 0.4 mg SUBLINGUAL Q5M PRN #25 tab 04/16/16 [Rx] Tamsulosin [Flomax] 0.4 mg PO HS 01/18/17 [History] Ezetimibe [Zetia] 10 mg PO DAILY 08/08/19 [History] Furosemide [Lasix] 10 mg PO DAILY 08/08/19 [History] Potassium Chloride [Klor-Con 10] 10 meq PO HS 08/08/19 [History] Follow up Appointment(s)/Referral(s): Tyrone Mcneill MD [STAFF PHYSICIAN] - 2 Weeks Bacheldor,Boni Timothy, DO [Primary Care Provider] - 1-2 days Activity/Diet/Wound Care/Special Instructions: give print out for self exercise Drew dee
== END 2019-08-09 16:20 ==
LOC: EC 20:02 → 1SOBS 21:12
PROVIDERS: ADMIT Hospitalist; ATTEND Hospitalist
DX: R42 Dizziness and giddiness (principal); R00.1 Bradycardia, unspecified; I25.10 Atherosclerotic heart disease of native coronary artery without angina pectoris; I10 Essential (primary) hypertension; G47.33 Obstructive sleep apnea (adult) (pediatric); E78.5 Hyperlipidemia, unspecified; I08.1 Rheumatic disorders of both mitral and tricuspid valves; E11.9 Type 2 diabetes mellitus without complications; Z79.82 Long term (current) use of aspirin; Z79.02 Long term (current) use of antithrombotics/antiplatelets; Z79.899 Other long term (current) drug therapy; Z88.0 Allergy status to penicillin; Z88.6 Allergy status to analgesic agent; Z88.8 Allergy status to other drugs, medicaments and biological substances; Z99.89 Dependence on other enabling machines and devices; Z87.442 Personal history of urinary calculi; Z95.5 Presence of coronary angioplasty implant and graft; Z86.69 Personal history of other diseases of the nervous system and sense organs; Z87.81 Personal history of (healed) traumatic fracture; Z91.81 History of falling; Z87.19 Personal history of other diseases of the digestive system; Z82.49 Family history of ischemic heart disease and other diseases of the circulatory system; Z82.0 Family history of epilepsy and other diseases of the nervous system; Z80.1 Family history of malignant neoplasm of trachea, bronchus and lung; Z80.8 Family history of malignant neoplasm of other organs or systems
CPT/HCPCS: 99285; 93005; 80061; 80053; 84484 ×2; 85025; 85610; 85730; G0378 ×2; C8929; Q9950; 93306

== ENCOUNTER 2020-07-23 09:36 | Day surgery (SDC) | payer MEDICARE ==
[2020-07-21 11:52] VITALS: BMI 31.9
[~2020-07-23 09:36] MED LIST changes: +ALPRAZolam 0.25 MG TAB PO PRN; +ALPRAZolam 0.5 MG TAB PO PRN; +ASPIRIN 325 MG TAB PO STA; -DEXAMETHASONE SOD PHOSPHATE 10 MG/ML 1 ML VIAL IV ONE; -HYDROmorphone 1 MG/ML 1 ML SYRINGE IVP PRN; -LACTATED RINGERS 1,000 ML IV SCH; -MIDAZOLAM 2 MG/2 ML VIAL IV PRN; +NITROGLYCERIN SL TABS 0.4 MG TAB SUBLINGUAL PRN; -ONDANSETRON 4 MG/2 ML VIAL IVP ONE; +SODIUM CHLORIDE 0.9% 1,000 ML in EMPTY BAG 1 BAG IV ONE; -ceFAZolin 2 GM in SODIUM CHLORIDE 0.9% 100 ML IVPB ONE
[2020-07-23] MEDS ORDERED: SODIUM CHLORIDE 0.9% 1,000 ML IV ONE (10:11)
[2020-07-23 10:49] LABS: Basophils # (A) 0.1 k/uL (0-0.2); Basophils % (A) 1 %; Eosinophils # (A) 0.2 k/uL (0-0.7); Eosinophils % (A) 4 %; HCT 41.3 % (39.0-53.0); HGB 14.1 gm/dL (13.0-17.5); Lymphocytes # (A) 1.1 k/uL (1.0-4.8); Lymphocytes % (A) 20 %; MCH 32.1 pg (25.0-35.0); MCHC 34.3 g/dL (31.0-37.0); MCV 93.8 fL (80.0-100.0); Mean Platelet Volume 8.6; Monocytes # (A) 0.4 k/uL (0-1.0); Monocytes % (A) 8 %; Neutrophils # (A) 3.6 k/uL (1.3-7.7); Neutrophils % (A) 64 %; Platelet Count 189 k/uL (150-450); RDW 13.9 % (11.5-15.5); WBC 5.6 k/uL (3.8-10.6)
[2020-07-23] MEDS ORDERED: fentaNYL (PF) 50 MCG/ML 2 ML AMP ONE (11:58)
[2020-07-23] MEDS ORDERED: LIDOCAINE 1% INJ 10MG/ML (20 ML MDV) ONE (12:01)
[2020-07-23] MEDS ORDERED: fentaNYL (PF) 50 MCG/ML 2 ML AMP IV ONE (12:22)
[2020-07-23] MEDS ORDERED: IOPAMIDOL-370 125ML BTL INJ ONE (12:36)
[2020-07-23] MEDS ORDERED: RX INFO: IV CONTRAST WAS GIVEN 1 EACH MISC MISCELLANE PRN (12:54)
[2020-07-23] MEDS ORDERED: HEPARIN SODIUM,PORCINE 5,000 UNIT/ML 1 ML VIAL IV PRN (12:55)
[2020-07-23] MEDS ORDERED: SODIUM CHLORIDE 0.9% 1,000 ML IV SCH (13:00)
[2020-07-23] MEDS ORDERED: MD COMMUNICATION TO PHARMACY 1 EACH MISC PO ONE (13:02)
[2020-07-23 14:18] LABS: Basophils # (A) 0.1 k/uL (0-0.2); Basophils % (A) 2 %; Eosinophils # (A) 0.2 k/uL (0-0.7); Eosinophils % (A) 4 %; HCT 40.6 % (39.0-53.0); HGB 13.6 gm/dL (13.0-17.5); Lymphocytes # (A) 1.2 k/uL (1.0-4.8); Lymphocytes % (A) 23 %; MCH 31.1 pg (25.0-35.0); MCHC 33.6 g/dL (31.0-37.0); MCV 92.7 fL (80.0-100.0); Mean Platelet Volume 8.8; Monocytes # (A) 0.4 k/uL (0-1.0); Monocytes % (A) 8 %; Neutrophils # (A) 3.1 k/uL (1.3-7.7); Neutrophils % (A) 62 %; Platelet Count 171 k/uL (150-450); RBC 4.38 m/uL (4.30-5.90); RDW 13.6 % (11.5-15.5)
[2020-07-23 14:29] LABS: Partial Thromboplastin Time 22.5 sec (22.0-30.0); Prothrombin Time 10.4 sec (9.0-12.0)
[2020-07-23 14:42] LABS: Albumin 4.1 g/dL (3.5-5.0); Calcium 9.2 mg/dL (8.4-10.2); Total Bilirubin 0.7 mg/dL (0.2-1.3); Total Protein 6.3 g/dL (6.3-8.2)
--- NOTE | 2020-07-23 14:55 | US ---
EXAMINATION TYPE: US carotid duplex BILAT DATE OF EXAM: 07/23/2020 COMPARISON: NONE CLINICAL HISTORY: Pre-Op Cardiac Surgery. EXAM MEASUREMENTS: RIGHT: Peak Sylic Velocity (PSV) cm/sec ----- Right CCA: 77.6 ----- Right ICA: 88.6 ----- Right ECA: 93.0 ICA/CCA ratio: 1.1 RIGHT: End Diastole cm/sec ----- Right CCA: 18.2 ----- Right ICA: 23.7 ----- Right ECA: 11.7 LEFT: Peak Systolic Velocity (PSV) cm/sec ----- Left CCA: 83.1 ----- Left ICA: 99.6 ----- Left ECA: 91.9 ICA/CCA ratio: 1.2 LEFT: End Diastole cm/sec ----- Left CCA: 16.0 ----- Left ICA: 32.5 ----- Left ECA: 9.5 VERTEBRALS (direction of flow): Right Vertebral: Antegrade Left Vertebral: Antegrade Rhythm: Normal No significant stenosis seen. [id number] eccentric atherosclerotic changes bilaterally on the grayscale images. Velocity jorge urements and ratios remain within normal limits. IMPRESSION: No hemodynamically significant stenosis seen in either internal carotid artery. Criteria for Assigning % of Stenosis / Diameter reduction (Estimation based on the indirect measurements of the internal carotid artery velocities (ICA PSV). 1. Normal (no stenosis)=ICA PSV < 125 cm/s: ratio < 2.0: ICA EDV<40 cm/s. 2. Less than 50% stenosis=ICA PSV < 125 cm/s: ratio < 2.0: ICA EDV<40 cm/s. 3. 50 to 69% stenosis=ICA PSV of 125 to 230 cm/s: ration 2.0 ? 4.0: ICA EDV 40-100 cm/s. 4. Greater than 70% stenosis to near occlusion= ICA PSV > 230 cm/s: ratio > 4.0: ICA EDV > 100 cm/s. 5. Near occlusion= ICA PSV velocities may be low or undetectable: variable ratio and ICA EDV. 6. Total occlusion=unable to detect flow.
[2020-07-23] MEDS ORDERED: HEPARIN SOD,PORK IN 0.45% NACL 25,000 UNIT in 0.45% NACL 1 250ML.BAG IV SCH (16:00)
--- NOTE | 2020-07-23 16:01 | P.GSCN ---
<Abraham Ulrich - Last Filed: 07/23/20 15:55> History of Present Illness Consult date: 07/23/20 Reason for Consult: Symptomatic multivessel coronary artery disease, evaluation for myocardial bret scularization surgery. Requesting physician: Tyrone Mcneill History of present illness: This is a 75-year-old gentleman who is followed by Dr. Timothy Conrteras on an outpatient basis. He also follows with Dr. Mcneill from cardiology for his history of coronary artery disease with multiple stent placements. His past medical history is significant for coronary artery disease with multiple stent placements in 1995, 1996, 2005 and 2015, hypertension, hyperlipidemia, recently diagnosed diabetes mellitus type 2 which is diet-controlled and a recent he moglobin A1c of 6.2%, benign prostatic hypertrophy, kidney stones, elevated BUN and creatinine with the most recent BUN 24 and creatinine 1.28, vertigo, obstructive sleep apnea with home CPAP use, he is a never smoker and has a family history of early onset coronary artery disease with his mother having a coronary artery bypass grafting surgery in her 50s. Recently, he has been complaining of burning sensation to his chest with exercise and is associated with shortness of breath. The patient reports that the symptoms he is experiencing are very similar to his past symptoms related to his coronary artery disease. He denies any complaints of fever, nausea, vomiting, orthopnea, presyncope or syncope. He states he sometimes gets some pitting edema to his bilateral lower extremities and was recently started on Lasix 20 mg by mouth daily. Due to the above-mentioned symptoms he was evaluated by Dr. Mcneill and on 06/26/2020 he underwent a transthoracic 2-D echocardiogram which showed the left ventricle to be normal in size with a normal systolic function, with an ejection fraction of 55% with mild concentric hypertrophy, mild to moderate mitral valve regurgitation, mild tricuspid valve regurgitation and trace pulmonic valve regurgitation. Subsequently, because of the patient's history of coronary artery disease, and recent symptoms he was advised to undergo a cardiac catheterization. Today 07/23/2020 the patient underwent a cardiac catheterization which demonstrated a 20% stenosis to his left main coronary artery, a 95% stenosis to his right coronary artery, a 99% stenosis to his circumflex coronary artery and a 95% stenosis to his proximal left anterior descending coronary artery. Due to the findings on the cardiac catheterization a consult was placed to Dr. Yoseph Willett from cardiothoracic surgery for further evaluation and treatment recommendations including myocardial revascularization surgery. Review of Systems A 14 point review of systems was completed and was negative except as mentioned in the HPI. Past Medical History Past Medical History: Coronary Artery Disease (CAD) (History of multiple stent placement, 1995, 1996, 2005 and in April 2016.), Chest Pain / Angina, Diabetes Mellitus (Recently diagnosed in 2019, diet controlled), Hyperlipidemia, Hypertension, Prostate Disorder, Renal Disease (Elevated BUN and creatinine), Sleep Apnea/CPAP/BIPAP Additional Past Medical History / Comment(s): HX OF KIDNEY STONES, INNER EAR IMBALANCE, STATES HX OF " occasional BURNING FEELING to his chest with exercise and is associated with some shortness of breath", DM type 2 DIET CONTROL History of Any Multi-Drug Resistant Organisms: None Reported Past Surgical History: Heart Catheterization With Stent (Multiple cardiac c atheterizations with stent placement, in 1995, 1996, 2005 and 2015.), Orthopedic Surgery Additional Past Surgical History / Comment(s): GANGLION CYST X3 RT WRIST, RIGHT ELBOW SURG, angioplasty and total 8 stents, RIGHT KNEE-ARTHROSCOPIC, , hemorrhoid surgery, COLONOSCOPY Past Anesthesia/Blood Transfusion Reactions: Motion Sickness Date of Last Stent Placement:: 04/2016 with stent placement to his OM 2, circumflex coronary artery & OM1 Past Psychological History: No Psychological Hx Reported Smoking Status: Never smoker Past Alcohol Use History: None Reported Past Drug Use History: None Reported - Past Family History Mother Family Medical History: Coronary Artery Disease (CAD) (Early onset coronary artery disease, CABG surgery in her early 50s.) Additional Family Medical History / Comment(s): ALZHEIMERS Father Family Medical History: Cancer Additional Family Medical History / Comment(s): bone and lung Medications and Allergies Home Medications Medication Instructions Recorded Confirmed Type Losartan Potassium [Cozaar] 50 mg PO DAILY 11/20/15 07/23/20 History Metoprolol Tartrate [Lopressor] 75 mg PO BID 11/20/15 07/23/20 History Ubidecarenone [Co Q-10] 200 mg PO DAILY 11/20/15 07/21/20 History amLODIPine [Norvasc] 10 mg PO DAILY 11/20/15 07/21/20 History Aspirin EC [Ecotrin Low Dose] 81 mg PO DAILY 04/13/16 07/23/20 History Nitroglycerin Sl Tabs [Nitrostat] 0.4 mg SUBLINGUAL Q5M PRN #25 tab 04/16/16 07/21/20 Rx Tamsulosin [Flomax] 0.4 mg PO HS 01/18/17 07/21/20 History Ezetimibe [Zetia] 10 mg PO DAILY 08/08/19 07/23/20 History Furosemide [Lasix] 20 mg PO DAILY 08/08/19 07/23/20 History Potassium Chloride [Klor-Con 10] 10 meq PO HS 08/08/19 07/23/20 History Fenofibrate Nanocrystallized 145 mg PO DAILY 07/21/20 07/23/20 History [Fenofibrate] Psyllium Husk [Metamucil] 0.8 gm PO BID 07/21/20 07/21/20 History Allergies Allergy/AdvReac Type Severity Reaction Status Date / Time naproxen sodium [From Aleve] Allergy Severe Anaphylaxis Verified 07/23/20 10:01 Penicillins Allergy Unknown Rash/Hives Verified 07/23/20 10:01 rosuvastatin [From Crestor] Allergy Rash/Hives Verified 07/23/20 10:01 Surgical - Exam Vital Signs Temp Resp BP Pulse Ox 98.2 F 16 142/70 97 07/23/20 10:18 07/23/20 10:18 07/23/20 10:18 07/23/20 10:18 - General well developed, well nourished, no distress, no pain, obese - Eyes PERRL, normal ocular movement - ENT normal pinna, normal nares, normal mucosa, no hearing loss, no congestion - Neck Neck is supple, no lymphadenopathy. no masses, no bruits, trachea midline, no venous distension - Respiratory Lung sounds essentially clear throughout. No wheezes, rhonchi or crackles. Respirations are symmetrical and nonlabored. - Cardiovascular Regular rhythm and rate. S1 and S2 present, negative for S3, or gallop. Systolic murmur 2/6 heard best at the base. No edema present. - Abdomen Abdomen is soft, nontender and nondistended. No guarding or rigidity. No organomegaly appreciated. - Genitourinary Deferred - Rectum Deferred - Integumentary no rash, no growths, no abnormal pigmentation - Neurologic Cranial nerves II through XII intact. normal coordination, normal sensation - Musculoskeletal normal gait, normal posture - Psychiatric oriented to time, oriented to person, oriented to place, speech is normal, memory intact Results - Labs 07/23/20 13:59 07/23/20 13:59 - Imaging Additional studies: Carotid duplex study results reviewed which showed no hemodynamically significant stenosis seen in either internal carotid artery. Vein mapping results reviewed. Assessment and Plan Assessment: 1. Multivessel coronary artery disease 2. Chest pain on exertion, suggestive of angina 3. Hypertension 4. History of coronary artery disease with multiple stent placement in 1995, 1996, 2005 and in April 2016 5. Hyperlipidemia 6. Recently diagnosed diabetes mellitus type 2, diet-controlled and recent hemoglobin A1c of 6.2% 7. Elevated BUN and creatinine, on 07/12/2020 BUN 24, creatinine 1.28 8. Obstructive sleep apnea with home CPAP use 9. History of kidney stones 10. Family history of early onset coronary artery disease with his mother having a coronary artery bypass grafting surgery in her early 50s 11. History of vertigo 12. Benign prostatic hypertrophy Plan: The patient was seen and examined at his bedside on the cardiac observation unit. His chart and diagnostics were reviewed. The usual preoperative course of myocardial revascularization surgery was discussed in detail with the patient, his and his friend accompanying him at his bedside, all questions were answered. His case was discussed in detail with Dr. Yoseph Willett from cardiothoracic surgery. Preoperative testing was initiated as well as preoperat porsha teaching, the patient was given a binder heart surgery: Road to a healthy heart for further teaching. Due to the findings of mild to moderate mitral valve regurgitation on his transthoracic 2-D echocardiogram, recommend the patient to undergo a transesophageal echocardiogram to further evaluate his mitral valve. This was discussed with Dr. Mcneill from cardiology and the patient will be scheduled by Dr. Mcneill. Continue to maximize medical therapy with aspirin, statin, ARB, fenofibrate and ezetimibe. Once the patient is able to ambulate we will complete a 5 meter walk test. Once his preoperative testing has been completed a STS risk score will be calculated and discussed with the patient. Timing of surgery to be determined once preoperative testing has been completed. Thank you Dr. Mcneill for this consult, we look for to working with you in the care of this patient. Time with Patient: Greater than 30 <Rafi Logan - Last Filed: 07/24/20 08:29> Surgical - Exam Vital Signs Temp Resp BP Pulse Ox 98.2 F 16 142/70 97 07/23/20 10:18 07/23/20 10:18 07/23/20 10:18 07/23/20 10:18 Results - Labs 07/24/20 06:21 07/24/20 06:21 Abnormal Lab Results - Last 24 Hours (Table) 07/23/20 07/23/20 07/24/20 Range/Units 13:59 13:59 06:21 RBC 4.23 L (4.30-5.90) m/uL Plt Count 148 L (150-450) k/uL APTT (22.0-30.0) sec Sodium (137-145) mmol/L Chloride (98-107) mmol/L Carbon Dioxide (22-30) mmol/L Glucose 102 H (74-99) mg/dL Hemoglobin A1c 6.4 H (4.0-6.0) % Triglycerides 210 H (<150) mg/dL LDL Cholesterol, Calc 104 H (0-99) mg/dL HDL Cholesterol 39 L (40-60) mg/dL 07/24/20 07/24/20 Range/Units 06:21 06:21 RBC (4.30-5.90) m/uL Plt Count (150-450) k/uL APTT 45.9 H (22.0-30.0) sec Sodium 136 L (137-145) mmol/L Chloride 109 H (98-107) mmol/L Carbon Dioxide 20 L (22-30) mmol/L Glucose 118 H (74-99) mg/dL Hemoglobin A1c (4.0-6.0) % Triglycerides (<150) mg/dL LDL Cholesterol, Calc (0-99) mg/dL HDL Cholesterol (40-60) mg/dL Microbiology - Last 24 Hours (Table) 07/23/20 16:10 Nasal Screen MRSA/MSSA - Preliminary Nasopharyngeal Swab Diabetes panel 07/23/20 07/23/20 07/24/20 Range/Units 13:59 13:59 06:21 Sodium 138 136 L (137-145) mmol/L Potassium 4.0 4.3 (3.5-5.1) mmol/L Chloride 106 109 H (98-107) mmol/L Carbon Dioxide 25 20 L (22-30) mmol/L BUN 20 18 (9-20) mg/dL Creatinine 1.05 1.02 (0.66-1.25) mg/dL Glucose 102 H 118 H (74-99) mg/dL Hemoglobin A1c 6.4 H (4.0-6.0) % Calcium 9.2 9.2 (8.4-10.2) mg/dL AST 21 (17-59) U/L ALT 18 (4-49) U/L Alkaline Phosphatase 41 (38-126) U/L Total Protein 6.3 (6.3-8.2) g/dL Albumin 4.1 (3.5-5.0) g/dL Triglycerides 210 H (<150) mg/dL HDL Cholesterol 39 L (40-60) mg/dL Thyroid panel 07/23/20 Range/Units 13:59 TSH 3.010 (0.465-4.680) mIU/L Calcium panel 07/23/20 07/24/20 Range/Units 13:59 06:21 Calcium 9.2 9.2 (8.4-10.2) mg/dL Albumin 4.1 (3.5-5.0) g/dL Pituitary panel 07/23/20 07/24/20 Range/Units 13:59 06:21 Sodium 138 136 L (137-145) mmol/L Potassium 4.0 4.3 (3.5-5.1) mmol/L Chloride 106 109 H (98-107) mmol/L Carbon Dioxide 25 20 L (22-30) mmol/L BUN 20 18 (9-20) mg/dL Creatinine 1.05 1.02 (0.66-1.25) mg/dL Glucose 102 H 118 H (74-99) mg/dL Calcium 9.2 9.2 (8.4-10.2) mg/dL TSH 3.010 (0.465-4.680) mIU/L Adrenal panel 07/23/20 07/24/20 Range/Units 13:59 06:21 Sodium 138 136 L (137-145) mmol/L Potassium 4.0 4.3 (3.5-5.1) mmol/L Chloride 106 109 H (98-107) mmol/L Carbon Dioxide 25 20 L (22-30) mmol/L BUN 20 18 (9-20) mg/dL Creatinine 1.05 1.02 (0.66-1.25) mg/dL Glucose 102 H 118 H (74-99) mg/dL Calcium 9.2 9.2 (8.4-10.2) mg/dL Total Bilirubin 0.7 (0.2-1.3) mg/dL AST 21 (17-59) U/L ALT 18 (4-49) U/L Alkaline Phosphatase 41 (38-126) U/L Total Protein 6.3 (6.3-8.2) g/dL Albumin 4.1 (3.5-5.0) g/dL Assessment and Plan Assessment: Class 1 exertional AP. CP with heavy exertion, relieved with rest. Mild dyspnea associated with CP episodes. ZEKE reveals max 2+ central MR c/w ischemic/functional MR. No prolapse/flail present. Recommend CABG. Plan surgery Jul [address] Shields. Indications for surgery, risks vs benefits, possible complications outlined, us ual post operative course reviewed. STS mortality risk <1%.
--- NOTE | 2020-07-23 17:35 | CC ---
CARDIAC CATHETERIZATION REPORT Mr. Cisneros is a 75-year-old male with a known history of coronary artery disease, status post multivessel stenting on multiple occasions, history of hypertension, hyperlipidemia and diabetes mellitus who has been complaining of recent onset of exertional chest discomfort. In view of that, recommendation was made regarding cardiac catheterization. The procedure, its risks and complications were discussed with the patient, who was in full understanding and agreement. PROCEDURE DESCRIPTION: The patient was brought to the slab polisher in a fasting, semi-sedated state after receiving fentanyl and Benadryl and achieving a moderate conscious sedated state. Using Xylocaine anesthesia and Seldinger technique, a 6-Jamaican sheath was introduced in the right femoral artery. Selective right and left coronary angiography was performed using 6-Jamaican right and left Umair catheters. Multiple views were taken of the coronary arteries, including hemiaxial views. Following that, a 6-Jamaican tight pigtail catheter was introduced in the left ventricle and pressures were calculated. Following that, catheter and sheath were removed. Hemostasis was obtained with deployment of an Angio-Seal. There was no immediate complication. Patient was returned to his room in stable condition. There was no immediate complication. FINDINGS: FLUOROSCOPY: There was severe calcification involving all the coronary arteries. LEFT MAIN: This is a short-sized vessel bifurcating into left anterior descending coronary artery and left circumflex. Left main coronary artery has a 10% to 20% stenosis. LEFT ANTERIOR DESCENDING CORONARY ARTERY: This is a large-sized vessel reaching toward the apex with a wrap around the apex segment. At the takeoff of the first diagonal branch there is a 95% lesion. The rest of the vessel has no high-grade stenosis. The first diagonal branch has a 90% tubular lesion proximally. LEFT CIRCUMFLEX: This is a nondominant vessel giving rise to 2 obtuse marginal branches. The stented segment in the first obtuse marginal branch is patent. After the stented segment, there is a 99% stenosis. The rest of the vessel has no high-grade stenosis. RIGHT CORONARY ARTERY: This is a large dominant vessel bifurcating distally into PDA and posterolateral segment and branches, heavily calcified. The stented segment in the mid right coronary artery is patent. After the takeoff of the acute marginal branch and after the stented segment, there is an eccentric 95% to 99% stenosis. The rest of the vessel has no high-grade stenosis. LEFT VENTRICULOGRAM: Left ventriculogram was not performed. HEMODYNAMICS: There was no gradient across the aortic valve. The left ventricular end- diastolic pressure was 10-12 mmHg. CONCLUSION: 1. Calcified coronary arteries. 2. Severe triple-vessel coronary artery disease. RECOMMENDATIONS: In view of findings and anatomy, I have recommended proceeding with angioplasty and stenting. In view of his history of diabetes and his anatomy, the findings as well as recommendations were discussed with the patient and his family. They are in full understanding and agreement. Duration of the sedation was 17 minutes. MMODL / IJN: [id number] /
--- NOTE | 2020-07-23 19:12 | XR ---
EXAMINATION TYPE: XR chest 2V DATE OF EXAM: 07/23/2020 COMPARISON: NONE HISTORY: Cardiac surgery TECHNIQUE: 2 views FINDINGS: Heart is normal. Lungs are clear of infiltrate. There is no heart failure. There are no hil ar masses. IMPRESSION: No active cardiopulmonary disease. Normal heart.
[2020-07-23 20:15] LABS: Hemoglobin A1C 6.4 % (4.0-6.0)
[2020-07-23] MEDS: METOPROLOL TARTRATE 25 MG TAB PO SCH (20:20)
[2020-07-23] MEDS: PSYLLIUM HUSK 100% 6 GM PACKET PO SCH (20:20)
[2020-07-23] MEDS ORDERED: TAMSULOSIN 0.4 MG CAP.ER.24H PO SCH (21:00)
[2020-07-23] MEDS ORDERED: POTASSIUM CHLORIDE ER 10 MEQ TAB.ER.PRT PO SCH (21:00)
[2020-07-23 22:23] LABS: Hepatitis A Antibody IgM Non-Reactive (Non-Reactive); Hepatitis B Core IgM Non-Reactive (Non-Reactive); Hepatitis B Surface Antigen Non-Reactive (Non-Reactive); Hepatitis C IgG Antibody Non-Reactive (Non-Reactive)
[2020-07-24 06:46] LABS: Basophils % (A) 1 %; Eosinophils # (A) 0.2 k/uL (0-0.7); Eosinophils % (A) 3 %; HCT 39.7 % (39.0-53.0); HGB 13.2 gm/dL (13.0-17.5); Lymphocytes # (A) 1.2 k/uL (1.0-4.8); Lymphocytes % (A) 24 %; MCH 31.3 pg (25.0-35.0); MCHC 33.3 g/dL (31.0-37.0); MCV 93.9 fL (80.0-100.0); Mean Platelet Volume 8.5; Monocytes # (A) 0.5 k/uL (0-1.0); Monocytes % (A) 9 %; Neutrophils # (A) 2.9 k/uL (1.3-7.7); Neutrophils % (A) 60 %; Platelet Count 148 k/uL (150-450); RBC 4.23 m/uL (4.30-5.90); RDW 13.7 % (11.5-15.5); WBC 4.8 k/uL (3.8-10.6)
[2020-07-24] MEDS ORDERED: IV FLUID CONTINUATION 1,000 ML IV ONE (07:00)
[2020-07-24] MEDS ORDERED: fentaNYL (PF) 50 MCG/ML 2 ML AMP ONE (07:03)
[2020-07-24 07:12] VITALS: RESP 16
[2020-07-24] MEDS ORDERED: BENZOCAINE SPRAY 1 CAN MUCOUS MEM ONE (07:12)
[2020-07-24] MEDS ORDERED: fentaNYL (PF) 50 MCG/ML 2 ML AMP IVP ONE (07:14)
[2020-07-24] MEDS ORDERED: MIDAZOLAM 2 MG/2 ML VIAL IVP ONE ×2 (07:14→07:16)
[2020-07-24 07:26] LABS: Calcium 9.2 mg/dL (8.4-10.2); Potassium 4.3 mmol/L (3.5-5.1)
[2020-07-24] MEDS ORDERED: SODIUM CHLORIDE 0.9% 1,000 ML IV SCH (07:45)
[2020-07-24 08:20] VITALS: TEMP 97.7
[2020-07-24] MEDS ORDERED: ASPIRIN 81 MG PO SCH (09:00)
[2020-07-24] MEDS ORDERED: FENOFIBRATE 160 MG TAB PO SCH (09:00)
[2020-07-24] MEDS ORDERED: FUROSEMIDE 20 MG TAB PO SCH (09:00)
[2020-07-24] MEDS ORDERED: amLODIPine 10 MG TAB PO SCH (09:00)
[2020-07-24] MEDS ORDERED: EZETIMIBE 10 MG TAB PO SCH (09:00)
[2020-07-24] MEDS ORDERED: ISOSORBIDE MONONITRATE ER 30 MG TAB.ER.24H PO SCH (09:00)
[2020-07-24] MEDS ORDERED: LOSARTAN 50 MG TAB PO SCH (09:00)
[2020-07-24] MEDS: METOPROLOL TARTRATE 25 MG TAB PO SCH (09:02)
[2020-07-24] MEDS: PSYLLIUM HUSK 100% 6 GM PACKET PO SCH (09:03)
--- NOTE | 2020-07-24 09:22 | ECHOT ---
TRANSESOPHAGEAL ECHOCARDIOGRAM INDICATION: Evaluation of mitral valve. PROCEDURE: After explaining the procedure to the patient, its risks and complications, his blood pressure, heart rate, O2 saturation was monitored. The throat was sprayed with Cetacaine. He received 3 mg intravenous Versed, 50 mcg intravenous fentanyl. The probe was introduced into the esophagus without difficulty. Images were obtained. From that, the probe was removed. There was no immediate complication. FINDINGS: Left atrial size is mildly dilated. Left atrial appendage is normal. Left ventricular size and systolic function normal. The aortic valve and the mitral valve and tricuspid valve are normal. Descending thoracic aorta revealed mild atherosclerotic changes. No pericardial effusion was noted. Contrast bubble study revealed no evidence of shunting across the interatrial septum with Valsalva maneuver. Doppler pulse wave and color Doppler obtained, revealed moderate central and mitral regurgitation with mild tricuspid regurgitation. There was no shunting by color Doppler study. CONCLUSION: 1. Mildly dilated left atrium with normal appearance left atrial appendage. 2. Moderate central mitral regurgitation. 3. Normal left ventricular size and systolic function. 4. Mild tricuspid regurgitation. 5. Mild atherosclerotic changes of the descending thoracic aorta. 6. No shunting across the interatrial septum. MMODL / IJN: [id number] /
--- NOTE | 2020-07-24 09:31 | PN ---
PROGRESS NOTE Mr. Cisneros is a 75-year-old male with a known history of coronary artery disease, history of hypertension, hyperlipidemia, diabetes mellitus, who presented with symptoms of new onset angina pectoris, underwent cardiac catheterization, was found to have severe triple coronary artery disease. He underwent a transthoracic echocardiogram today to evaluate his left atrial flutter his mitral valve apparatus and was found to have moderate regurgitation with normal left ventricular size and systolic function. He has been evaluated by the surgical team for coronary bypass grafting. He denies any symptoms of chest pain. He denies any dizziness, palpitation. He denies any nausea and vomiting. He continues to be at this time on aspirin once a day, heparin, amlodipine 10 mg daily, Zetia 10 mg daily, fenofibrate 1 tab daily, Lasix 20 mg daily, losartan 50 mg daily, metoprolol tartrate 75 mg twice a day. PHYSICAL EXAMINATION: Blood pressure 113/60 with a heart rate in the 50s. LUNGS: Clear, regular rate and rhythm. HEART: S1, S2. No S3. No rub with a systolic murmur. ABDOMEN: Soft, nontender. EXTREMITIES: No edema. RIGHT GROIN: No hematoma. LAB DATA: Revealed BUN and creatinine 18 and 1.02, potassium 4.3. Hemoglobin of 13.2. IMPRESSION: 1. Coronary artery disease. Triple-vessel coronary disease with new onset angina pectoris. 2. Moderate mitral regurgitation. 3. Hypertension. 4. Hyperlipidemia. 5. Diabetes mellitus. RECOMMENDATION: Patient will be evaluated by the surgical team to undergo coronary bypass grafting hopefully soon. Those findings and recommendations were discussed with the patient who is in full understanding and agreement. MMODL / IJN: [id number] /
[2020-07-24 09:56] LABS: Appearance,Urine Clear (Clear); Bilirubin,Urine Negative (Negative); Blood,Urine Negative (Negative); Color,Urine Yellow; Glucose,Urine (UA) Negative (Negative); Ketones,Urine Negative (Negative); Leukocyte Esterase,Urine Negative (Negative); Nitrite,Urine Negative (Negative); Protein,Urine Negative (Negative); Specific Gravity,Urine 1.018 (1.001-1.035); Urobilinogen,Urine <2.0 mg/dL (<2.0)
--- NOTE | 2020-07-24 11:16 | P.PN ---
Subjective Progress Note Date: 07/24/20 Principal diagnosis: Symptomatic multivessel coronary artery disease. Past medical history is significant for coronary artery disease with multiple stent placements in 1995, 1996, 2005 and 2016, hypertension, hyperlipidemia, recently diagnosed diabetes mellitus type 2 which is diet-controlled and a recent hemoglobin A1c of 6.2%, benign prostatic hypertrophy, kidney stones, history of elevated BUN and creatinine with the recent BUN 24 and creatinine 1.28 July 12/2020, vertigo, obstructive sleep apnea with home CPAP use, he is a never smoker and has a family history of early onset coronary artery disease with his mother having a coronary artery bypass grafting surgery in her 50s. The patient was seen in follow up today on 07/24/2020 at his bedside on the cardiac observation unit. He is sitting up to his bedside edge, he is alert, oriented x 3, and is in no acute distress. Denies and further complaints of chest pain/burning or shortness of breath. A transesophageal echocardiogram was completed this morning, performed by Dr. Mcneill which demonstrated moderate cent ral mitral valve regurgitstion, mild tricuspid valve regurgitation and normal left vertricular size and systolic function. Dr. Logan from cardiothoracic surgery evaluated the patient at his bedside, discussed the findings on the cardiac cath films and ZEKE results. Treatment options were discussed with the patient, risks and benefits of myocardial revascularization surgery, including the STS risk score. Understanding the risks and benefits of the surgical option, the patient wishes to proceed with surgery and will be scheduled for myocardial revascularization surgery on Tuesday, July 28, 2020 to be performed by Dr. Rylan Shields. Objective - Vital Signs Vital signs: Vital Signs Temp 97.7 F 07/24/20 08:17 Pulse 69 07/24/20 08:45 Resp 16 07/24/20 09:00 BP 144/68 07/24/20 08:45 Pulse Ox 97 07/24/20 08:17 Intake & Output 07/23/20 07/24/20 07/24/20 18:59 06:59 18:59 Intake Total 300 514.5 381 Output Total 700 Balance -400 514.5 381 Weight 95.9 kg Intake: IV 300 281 Heparin Sod,Pork in 0.45% 96 NaCl 25,000 unit In 0.45 % NaCl 1 250ml.bag @ 10. 428 UNITS/KG/HR 10 mls/hr IV .Q24H [facility] Rx#: [id number] Sodium Chloride 0.9% 1, 160 000 ml @ 20 mls/hr IV . Q24H [facility] Rx#:[id number] Intake, IV Titration 64.5 Amount Heparin Sod,Pork in 0.45% 64.5 NaCl 25,000 unit In 0.45 % NaCl 1 250ml.bag @ 10. 428 UNITS/KG/HR 10 mls/hr IV .Q24H [facility] Rx#: [id number] Oral 450 100 Output: Urine 700 Other: Voiding Method Toilet Toilet # Voids 2 - Constitutional General appearance: Present: cooperative, no acute distress, obese - EENT Eyes: Present: PERRLA, dentition normal, normal appearance. Absent: scleral icterus ENT: Present: hearing grossly normal - Neck Details: Neck is supple, no JVD. - Respiratory Details: Lung sounds essentially clear throughout. No wheezes, rhonchi, or crackles. Respirations even and unlabored. - Cardiovascular Details: regular rhythm and rate. S1, S2 present, negative for S3 or gallop. positive systolic murmur 2/6 to the base. No edema present. - Gastrointestinal Gastrointestinal Comment(s): Abdomen is soft, nontender and nondistended. Active bowel sounds to all four abdominal quadrants. No guarding or rigidity. - Genitourinary Genitourinary Comment(s): Continues to void - Integumentary Integumentary Comment(s): Skin is warm and dry. No clubbing or cyanosis. Integumentary: Present: normal, normal turgor. Absent: cellulitis, cyanotic, jaundiced, rash - Neurologic Neurologic: Present: CNII-XII intact - Musculoskeletal Musculoskeletal: Present: gait normal, strength equal bilaterally - Psychiatric Psychiatric: Present: A&O x's 3, appropriate affect, intact judgment & insight - Allied health notes Allied health notes reviewed: nursing - Labs CBC & Chem 7: 07/24/20 06:21 07/24/20 06:21 Labs: Abnormal Lab Results - Last 24 Hours (Table) 07/23/20 07/23/20 07/23/20 Range/Units 13:59 13:59 13:59 RBC (4.30-5.90) m/uL Plt Count (150-450) k/uL APTT (22.0-30.0) sec Sodium (137-145) mmol/L Chloride (98-107) mmol/L Carbon Dioxide (22-30) mmol/L Glucose 102 H (74-99) mg/dL Hemoglobin A1c 6.4 H (4.0-6.0) % Triglycerides 210 H (<150) mg/dL LDL Cholesterol, Calc 104 H (0-99) mg/dL HDL Cholesterol 39 L (40-60) mg/dL Crossmatch See Detail 07/24/20 07/24/20 07/24/20 Range/Units 06:21 06:21 06:21 RBC 4.23 L (4.30-5.90) m/uL Plt Count 148 L (150-450) k/uL APTT 45.9 H (22.0-30.0) sec Sodium 136 L (137-145) mmol/L Chloride 109 H (98-107) mmol/L Carbon Dioxide 20 L (22-30) mmol/L Glucose 118 H (74-99) mg/dL Hemoglobin A1c (4.0-6.0) % Triglycerides (<150) mg/dL LDL Cholesterol, Calc (0-99) mg/dL HDL Cholesterol (40-60) mg/dL Crossmatch Microbiology - Last 24 Hours (Table) 07/23/20 16:10 Nasal Screen MRSA/MSSA - Preliminary Nasopharyngeal Swab - Imaging and Cardiology Chest x-ray: report reviewed, image reviewed Assessment and Plan Assessment: 1. Multivessel coronary artery disease 2. Chest pain on exertion, suggestive of angina 3. Hypertension 4. History of coronary artery disease with multiple stent placement in 1995, 1996, 2005 and in April 2016 5. Hyperlipidemia 6. Recently diagnosed diabetes mellitus type 2, diet-controlled and recent hemoglobin A1c of 6.2% 7. History of elevated with BUN and creatinine, on 07/12/2020 BUN 24, creatinine 1.28 8. Obstructive sleep apnea with home CPAP use 9. History of kidney stones 10. Family history of early onset coronary artery disease with his mother having a coronary artery bypass grafting surgery in her early 50s 11. History of vertigo 12. Benign prostatic hypertrophy Plan: 1. The patient will be scheduled for myocardial revascularization surgery, with left internal mammary artery, endoscopic vein harvest, and intraoperative ZEKE on Tuesday, July 28, 2020 to be performed by Dr. Rylan Shields. 2. The STS risk score was calculated and discussed with the patient by Dr. Rafi Logan. 3. 5 M walk test was completed by cardiac rehab. Time 1: 3.53 seconds, Time 2: 3.63 seconds, Time 3: 3.74 seconds. 4. Continue to maximize medical therapy with aspirin, beta cleopatra, fenofibrate and ezetimibe. 5. Preoperative teaching reinforced with the patient, questions were answered to the best of my ability. 6. Per the cardiothoracic surgery standpoint, the patient can be discharged home when ok with Dr. Mcneill and be admitted on Tuesday, July 28/2020 for an elective myocardial revascularization surgery. Time with Patient: Greater than 30
[2020-07-24 11:35] VITALS: BP 107/65
[2020-07-24 11:37] VITALS: PULSE 54
== END 2020-07-24 12:16 | disposition home or self-care (01) ==
LOC: CATHCVL 09:36 → 3NCARDOBS 13:02 → CATHCVL 07-24 12:16
PROVIDERS: ATTEND Internal Medicine Interventional Cardiology
DX: I25.110 Atherosclerotic heart disease of native coronary artery with unstable angina pectoris (principal); I08.1 Rheumatic disorders of both mitral and tricuspid valves; I70.0 Atherosclerosis of aorta; I10 Essential (primary) hypertension; E11.9 Type 2 diabetes mellitus without complications; E78.2 Mixed hyperlipidemia; G47.33 Obstructive sleep apnea (adult) (pediatric); N40.0 Benign prostatic hyperplasia without lower urinary tract symptoms; Z79.82 Long term (current) use of aspirin; Z79.899 Other long term (current) drug therapy; Z95.5 Presence of coronary angioplasty implant and graft; Z87.442 Personal history of urinary calculi; Z82.49 Family history of ischemic heart disease and other diseases of the circulatory system; Z88.0 Allergy status to penicillin; Z88.6 Allergy status to analgesic agent; Z88.8 Allergy status to other drugs, medicaments and biological substances; Z87.19 Personal history of other diseases of the digestive system
CPT/HCPCS: 94150; 93312; 93325; 93458; 80061; 80053; 80048; 80074; 84443; 83735; 85025 ×3; 85610; 85730 ×4; 81003; 87070; 83036; 71046; 93930; 93970; 93922 ×2; 93880; C1769 ×2; C1760; C1894; U0003; J2250; J1644 ×2; J3010 ×2; Q9967

== ENCOUNTER 2020-07-28 08:00 | Inpatient (IN) | payer MEDICARE ==
[2020-07-29] MEDS ORDERED: ALBUMIN HUMAN 25% 50 ML IV ONE (05:00)
[2020-07-29] MEDS ORDERED: ASPIRIN 325 MG TAB PO ONE (05:00)
[2020-07-29] MEDS ORDERED: NITROGLYCERIN-D5W PMX 50 MG in DEXTROSE/WATER 1 250ML.BAG IV ONE (05:00)
[2020-07-29] MEDS ORDERED: propofoL 1,000 MG/100 ML VIAL IV ONE (05:00)
[2020-07-29] MEDS ORDERED: CHLORHEXIDINE GLUCONATE 15 ML CUP MUCOUS MEM ONE (05:00)
[2020-07-29] MEDS ORDERED: HEPARIN SODIUM,PORCINE 5,000 UNIT in SODIUM CHLORIDE 0.9% 500 ML 500 ML IV ONE (05:00)
[2020-07-29] MEDS ORDERED: NITROGLYCERIN-D5W PMX 25 MG/250 ML BTL IV ONE (05:00)
[2020-07-29] MEDS ORDERED: VANCOMYCIN 1,000 MG VIAL MISCELLANE ONE (05:00)
[2020-07-29] MEDS ORDERED: LACTATED RINGERS 1,000 ML IV ONE (05:00)
[2020-07-29] MEDS ORDERED: DEXTROSE 5% IN WATER 1,000 ML with POTASSIUM CHLORIDE 110 MEQ, MAGNESIUM SULFATE 16 MEQ... IV ONE ×5 (05:00)
[2020-07-29] MEDS ORDERED: CLEVIDIPINE BUTYRATE 25 MG in EMPTY BAG 1 BAG IV ONE (05:00)
[2020-07-29] MEDS ORDERED: SODIUM CHLORIDE 0.9% 1,000 ML IV ONE (05:00)
[2020-07-29] MEDS ORDERED: NOREPINEPHRINE 4 MG in SODIUM CHLORIDE 0.9% 250 ML IV ONE (05:00)
[2020-07-29] MEDS ORDERED: PROTAMINE SULFATE 250 MG in EMPTY BAG 1 BAG IV ONE (05:00)
[2020-07-29] MEDS ORDERED: ceFAZolin 1,000 MG in SODIUM CHLORIDE 0.9% IRRIGATIO 1,000 ML IRRIGATION ONE (05:00)
[2020-07-29] MEDS ORDERED: METOPROLOL TARTRATE 12.5 MG TAB PO ONE (05:00)
[2020-07-29] MEDS ORDERED: HEPARIN SODIUM 1,000 UN/ML (10ML VL) IV ONE (05:00)
[2020-07-29] MEDS ORDERED: TRANEXAMIC ACID 2,000 MG in SODIUM CHLORIDE 0.9% 80 ML IV ONE (05:00)
[2020-07-29] MEDS ORDERED: INSULIN REGULAR 100 UNIT in SODIUM CHLORIDE 0.9% 100 ML IV ONE (05:00)
[2020-07-29] MEDS ORDERED: DILTIAZEM 125 MG in SODIUM CHLORIDE 0.9% 100 ML IV SCH (05:00)
[2020-07-29] MEDS ORDERED: SODIUM BICARB 8.4% 50 ML SYR (1 MEQ/ML) IV ONE (05:00)
[2020-07-29] MEDS ORDERED: ceFAZolin 2,000 MG in SODIUM CHLORIDE 0.9% 30 ML IVPB ONE ×4 (05:00)
[2020-07-29] MEDS ORDERED: PHENYLEPHRINE 40 MG in SODIUM CHLORIDE 0.9% 250 ML IV ONE (05:00)
[2020-07-29] MEDS ORDERED: MANNITOL 25% 12.5 GM/50 ML VIAL IV ONE (05:00)
[2020-07-29] MEDS ORDERED: PHENYLEPHRINE 10 MG/ML VIAL IV ONE (05:00)
[2020-07-29] MEDS ORDERED: CALCIUM CHLORIDE 100 MG/ML 10 ML SYRINGE IV ONE (05:00)
[2020-07-29] MEDS ORDERED: DEXTROSE 5% IN WATER 1,000 ML with POTASSIUM CHLORIDE 25 MEQ, SODIUM CHLORIDE 2.5MEQ/ML... IRRIGATION ONE ×6 (05:00)
[2020-07-29] MEDS ORDERED: MAGNESIUM SULFATE MG 500 MG/ML IV ONE (05:00)
[2020-07-29] MEDS ORDERED: PAPAVERINE 360 MG in SODIUM CHLORIDE 0.9% 90 ML IV ONE (05:00)
[2020-07-29] MEDS ORDERED: ATORVASTATIN 10 MG TAB PO ONE (05:00)
[2020-07-29] MEDS ORDERED: PROTAMINE SULFATE 10 MG/ML 25 ML VIAL IV ONE ×2 (05:00→07:47)
[2020-07-29] MEDS ORDERED: ALBUMIN HUMAN 5% 500 ML IVPB ONE (05:00)
[2020-07-29 06:21] LABS: Glucose,Whole Blood 134 mg/dL (75-99)
[2020-07-29] MEDS ORDERED: MIDAZOLAM 2 MG/2 ML VIAL ONE (07:47)
[2020-07-29] MEDS ORDERED: CALCIUM CHLORIDE 100 MG/ML 10 ML SYRINGE ONE (07:47)
[2020-07-29] MEDS ORDERED: LIDOCAINE 2% SYG (PF) 100 MG/5 ML ONE (07:47)
[2020-07-29] MEDS ORDERED: SODIUM CHLORIDE 0.9% 250 ML BAG ONE (07:47)
[2020-07-29] MEDS ORDERED: GLYCOPYRROLATE 0.2 MG/ML 2 ML VIAL ONE (07:47)
[2020-07-29] MEDS ORDERED: SUCCINYLCHOLINE CHLORIDE 100 MG/5 ML SYR IV ONE (07:47)
[2020-07-29] MEDS ORDERED: TRANEXAMIC ACID 1,000 MG/10 ML VIAL ONE (07:47)
[2020-07-29] MEDS ORDERED: SUFentanil 50 MCG/ML 1 ML AMP IV ONE (07:47)
[2020-07-29] MEDS ORDERED: HEPARIN SODIUM,PORCINE 10,000 UNIT/ML 1 ML VIAL ONE (07:47)
[2020-07-29] MEDS ORDERED: SODIUM CHLORIDE 0.9% IRRIG 1,000 ML BTL IRRIGATION ONE (07:47)
[2020-07-29] MEDS ORDERED: fentaNYL (PF) 50 MCG/ML 50 ML VIAL ONE (07:47)
[2020-07-29] MEDS ORDERED: INSULIN REGULAR 100 UNIT/ML VIAL ONE (07:47)
[2020-07-29] MEDS ORDERED: MAGNESIUM SULFATE 4 MEQ/ML 10ML VIAL ONE (07:47)
[2020-07-29] MEDS ORDERED: ALBUMIN HUMAN 5% (25gm) 500 ML VIAL IVPB ONE (07:47)
[2020-07-29] MEDS ORDERED: VECURONIUM 10 MG VIAL IV ONE (07:47)
[2020-07-29] MEDS ORDERED: ELECTROLYTE-R (PH 7.4) 1,000 ML IV.SOLN IV ONE (07:47)
[2020-07-29] MEDS ORDERED: PROPOFOL 10 MG/ML 20 ML VIAL IV ONE (07:47)
[2020-07-29] MEDS ORDERED: NITROGLYCERIN-D5W PMX 50 MG/250 ML BOTTLE IV ONE (07:47)
[2020-07-29 08:52] LABS: ABG Base Excess -1.2 mmol/L; ABG Glucose Whole Blood 105 mg/dL (75-99); ABG HCO3 24 mmol/L (21-25); ABG Hematocrit 39 % (34.0-46.0); ABG Ionized Calcium 4.6 mg/dL (4.5-5.3); ABG Oxygen Saturation 99.1 % (94-97); ABG PCO2 39 mmHg (35-45); ABG PH 7.39 (7.35-7.45); ABG PO2 139 mmHg (83-108); ABG Potassium Whole Blood 3.9 mmol/L (3.4-4.5); ABG TCO2 25 mmol/L (19-24)
--- NOTE | 2020-07-29 09:54 | P.ANPRN ---
Procedure Note - Anesthesia - ZEKE Intraop Pre Bypass ZEKE Intraop - Anesthesia Indication: CABG Date of Procedure: 07/29/20 Pre-operative Diagnosis: CAD Post-operative Diagnosis: CAD Ejection Fraction: Normal Regional Wall Motion Abnormalities: None Left Ventricle Hypertrophy: No R. Ventricle Function: Normal Anatomy: Trileaflet Aortic Stenosis: None Aortic Regurgitation: None Mitral Stenosis: None Mitral Regurgitation: Moderate Tricuspid Stenosis: None Tricuspid Regurgitation: None Pulmonic Stenosis: None Pulmonic Regurgitation: None R. Atrial Dilation: No L. Atrial Dilation: No Aortic Dissection: No Aortic Calcification: None Plural Effusion: None
[2020-07-29 11:00] LABS: ABG Base Excess -1.9 mmol/L; ABG Glucose Whole Blood 115 mg/dL (75-99); ABG HCO3 24 mmol/L (21-25); ABG Hematocrit 35 % (34.0-46.0); ABG Ionized Calcium 4.7 mg/dL (4.5-5.3); ABG Lactic Acid Whole Blood 1.3 mmol/L (0.5-1.6); ABG Oxygen Saturation 99.1 % (94-97); ABG PCO2 47 mmHg (35-45); ABG PH 7.32 (7.35-7.45); ABG PO2 149 mmHg (83-108); ABG Sodium Whole Blood 137 mmol/L (135-146); ABG TCO2 26 mmol/L (19-24)
[2020-07-29 12:35] LABS: ABG Base Excess 0.4 mmol/L; ABG Glucose Whole Blood 170 mg/dL (75-99); ABG HCO3 26 mmol/L (21-25); ABG Hematocrit 25 % (34.0-46.0); ABG Ionized Calcium 4.2 mg/dL (4.5-5.3); ABG Oxygen Saturation 99.9 % (94-97); ABG PCO2 42 mmHg (35-45); ABG PH 7.39 (7.35-7.45); ABG PO2 269 mmHg (83-108); ABG Potassium Whole Blood 4.7 mmol/L (3.4-4.5); ABG Sodium Whole Blood 136 mmol/L (135-146); ABG TCO2 27 mmol/L (19-24)
[2020-07-29 13:04] LABS: ABG Base Excess 0.1 mmol/L; ABG Glucose Whole Blood 190 mg/dL (75-99); ABG HCO3 25 mmol/L (21-25); ABG Hematocrit 25 % (34.0-46.0); ABG Ionized Calcium 4.2 mg/dL (4.5-5.3); ABG Oxygen Saturation 99.9 % (94-97); ABG PCO2 41 mmHg (35-45); ABG PO2 268 mmHg (83-108); ABG Potassium Whole Blood 4.3 mmol/L (3.4-4.5); ABG Sodium Whole Blood 136 mmol/L (135-146); ABG TCO2 26 mmol/L (19-24)
[2020-07-29 13:35] LABS: ABG Glucose Whole Blood 182 mg/dL (75-99); ABG HCO3 25 mmol/L (21-25); ABG Hematocrit 26 % (34.0-46.0); ABG Ionized Calcium 4.3 mg/dL (4.5-5.3); ABG Oxygen Saturation 99.7 % (94-97); ABG PCO2 41 mmHg (35-45); ABG PH 7.39 (7.35-7.45); ABG PO2 209 mmHg (83-108); ABG Sodium Whole Blood 136 mmol/L (135-146); ABG TCO2 26 mmol/L (19-24)
[2020-07-29 15:09] LABS: ABG Base Excess 0.2 mmol/L; ABG Glucose Whole Blood 120 mg/dL (75-99); ABG HCO3 25 mmol/L (21-25); ABG Hematocrit 29 % (34.0-46.0); ABG Ionized Calcium 4.3 mg/dL (4.5-5.3); ABG Oxygen Saturation 99.4 % (94-97); ABG PCO2 42 mmHg (35-45); ABG PH 7.39 (7.35-7.45); ABG PO2 164 mmHg (83-108); ABG Potassium Whole Blood 3.8 mmol/L (3.4-4.5); ABG Sodium Whole Blood 138 mmol/L (135-146); ABG TCO2 27 mmol/L (19-24)
[2020-07-29 15:30] LABS: ABG Lactic Acid Whole Blood 1.6 mmol/L (0.5-1.6); ABG Sodium Whole Blood 138 mmol/L (135-146)
[2020-07-29 15:32] LABS: ABG Lactic Acid Whole Blood 2.2 mmol/L (0.5-1.6)
[2020-07-29 15:33] LABS: ABG Lactic Acid Whole Blood 2.2 mmol/L (0.5-1.6)
[2020-07-29 15:33] LABS: ABG Lactic Acid Whole Blood 2.2 mmol/L (0.5-1.6)
[2020-07-29] MEDS: NITROGLYCERIN-D5W PMX 50 MG in DEXTROSE/WATER 1 250ML.BAG IV SCH (15:48)
[2020-07-29] MEDS ORDERED: CLEVIDIPINE BUTYRATE 25 MG in EMPTY BAG 1 BAG IV SCH (16:04)
[2020-07-29] MEDS ORDERED: METOCLOPRAMIDE 5 MG/ML 2 ML VIAL IVP PRN (16:04)
[2020-07-29] MEDS ORDERED: Phosphorus Replacement Protoco 1 EACH MISC MISCELLANE PRN (16:04)
[2020-07-29] MEDS ORDERED: IPRATROPIUM-ALBUTEROL 3 ML NEB INHALATION PRN (16:04)
[2020-07-29] MEDS ORDERED: Potassium Replacement Protocol 1 EACH MISC MISCELLANE PRN (16:04)
[2020-07-29] MEDS ORDERED: BENZOCAINE/MENTHOL LOZENG 1 EACH LOZENGE MUCOUS MEM PRN (16:04)
[2020-07-29] MEDS ORDERED: DEXMEDETOMIDINE/0.9% NACL(PMX) 400 MCG in EMPTY BAG 1 BAG IV SCH (16:04)
[2020-07-29] MEDS ORDERED: AMIODARONE 300 MG in DEXTROSE 5% IN WATER 250 ML IV PRN ×2 (16:04)
[2020-07-29] MEDS ORDERED: AMIODARONE 360 MG in DEXTROSE 5% IN WATER 200 ML IV PRN ×2 (16:04)
[2020-07-29] MEDS ORDERED: ALBUMIN HUMAN 5% 250 ML in EMPTY BAG 1 BAG IVPB PRN (16:04)
[2020-07-29] MEDS ORDERED: MORPHINE SULFATE 2 MG/ML SYRINGE IVP PRN (16:04)
[2020-07-29] MEDS ORDERED: CALCIUM GLUCONATE 2 GM in SODIUM CHLORIDE 0.9% 100 ML IVPB PRN (16:04)
[2020-07-29] MEDS ORDERED: hydrALAZINE HCL 20 MG/ML 1 ML VIAL IVP PRN (16:04)
[2020-07-29] MEDS ORDERED: Magnesium Replacement Protocol 1 EACH MISC MISCELLANE PRN (16:04)
[2020-07-29 16:08] LABS: Glucose,Whole Blood 106 mg/dL (75-99)
--- NOTE | 2020-07-29 16:16 | P.CNPUL ---
History of Present Illness Consult date: 07/29/20 Requesting physician: Rylan Shields Reason for consult: other (Status post CABG postoperative day #0) Chief complaint: Status post CABG History of present illness: This is a 75-year-old white male primarily a patient of Dr. Cedeño , patient is known to have history of coronary artery disease and multiple stent placements. Patient had stents placed in 1995, 1996, 2005, and 2015. Normally sees Dr. Mcneill as his stiff leg operator. Patient is also known to have history of type 2 diabetes, hypertension, dyslipidemia, benign prostatic hypertrophy, nephrolithiasis, obstructive sleep apnea syndrome, on CPAP, patient was seen recently in the hospital with intermittent episodes of chest pains with exercise, underwent transthoracic echocardiogram on 07/24/20 showed normal LV function, mild concentric hypertrophy, [id number] mitral valve regurgitation, and his cardiac catheterization showed 95% stenosis in his right coronary artery 99% stenosis in his circumflex coronary artery and 95% stenosis of the proximal left anterior descending coronary artery. Patient underwent elective myocardial revascularization today, postoperatively I saw him as soon as he arrived to the ICU, and he was on mechanical ventilation. His ventilator settings are assist control rate of 18 tidal volume is 500 FiO2 of 100% and PEEP of 5. His initial ABG is pending. Patient is hemodynamically stable, and sedated. Chest x-ray is also pending Review of Systems ROS unobtainable: due to endotracheal tube Past Medical History Past Medical History: Coronary Artery Disease (CAD), Chest Pain / Angina, Diabetes Mellitus, Hyperlipidemia, Hypertension, Prostate Disorder, Renal Disease, Sleep Apnea/CPAP/BIPAP Additional Past Medical History / Comment(s): HX OF KIDNEY STONES, INNER EAR IMBALANCE, STATES HX OF " occasional BURNING FEELING to his chest with exercise and is associated with some shortness of breath", DM type 2 DIET CONTROL History of Any Multi-Drug Resistant Organisms: None Reported Past Surgical History: Heart Catheterization With Stent, Orthopedic Surgery Additional Past Surgical History / Comment(s): GANGLION CYST X3 RT WRIST, RIGHT ELBOW SURG, angioplasty and total 8 stents, RIGHT KNEE-ARTHROSCOPIC, , h emorrhoid surgery, COLONOSCOPY, recent cardiac cath. Past Anesthesia/Blood Transfusion Reactions: Motion Sickness Date of Last Stent Placement:: 04/2016 with stent placement to his OM 2, circumflex coronary artery & OM1 Smoking Status: Never smoker - Past Family History Mother Family Medical History: Coronary Artery Disease (CAD) (Early onset coronary artery disease, CABG surgery in her early 50s.) Additional Family Medical History / Comment(s): ALZHEIMERS Father Family Medical History: Cancer Additional Family Medical History / Comment(s): bone and lung Medications and Allergies Home Medications Medication Instructions Recorded Confirmed Type Losartan Potassium [Cozaar] 50 mg PO DAILY 11/20/15 07/29/20 History Metoprolol Tartrate [Lopressor] 75 mg PO BID 11/20/15 07/29/20 History Ubidecarenone [Co Q-10] 200 mg PO DAILY 11/20/15 07/29/20 History amLODIPine [Norvasc] 10 mg PO DAILY 11/20/15 07/29/20 History Aspirin EC [Ecotrin Low Dose] 81 mg PO DAILY 04/13/16 07/29/20 History Nitroglycerin Sl Tabs [Nitrostat] 0.4 mg SUBLINGUAL Q5M PRN #25 tab 04/16/16 07/29/20 Rx Tamsulosin [Flomax] 0.4 mg PO HS 01/18/17 07/29/20 History Ezetimibe [Zetia] 10 mg PO DAILY 08/08/19 07/29/20 History Furosemide [Lasix] 20 mg PO DAILY 08/08/19 07/29/20 History Potassium Chloride [Klor-Con 10] 10 meq PO HS 08/08/19 07/29/20 History Fenofibrate Nanocrystallized 145 mg PO DAILY 07/21/20 07/29/20 History [Fenofibrate] Psyllium Husk [Metamucil] 0.8 gm PO BID 07/21/20 07/29/20 History Isosorbide Mononitrate ER [Imdur] 30 mg PO DAILY 07/28/20 07/29/20 History Allergies Allergy/AdvReac Type Severity Reaction Status Date / Time naproxen sodium [From Aleve] Allergy Severe Anaphylaxis Verified 07/29/20 06:33 Penicillins Allergy Unknown Rash/Hives Verified 07/29/20 06:33 rosuvastatin [From Crestor] Allergy Rash/Hives Verified 07/29/20 06:33 Physical Exam Vitals: Vital Signs Temp Pulse Resp BP BP Pulse Ox 07/29/20 06:09 97.3 F L 63 16 154/82 151/91 98 Intake and Output 07/29/20 07/29/20 07/29/20 06:59 14:59 22:59 Intake Total 100 34 Output Total 2140 Balance 100 -2106 Intake: IV 100 34 Output: Urine 940 Estimated Blood Loss 1200 Other: Weight 95.3 kg Physical Exam: Revealed 75-year-old white male, intubated, mechanically ventilated, in no distress. Head: Atraumatic, normocephalic. Endotracheal tube and orogastric tube are intact HEENT:[Neck is supple.] [No neck masses.] [No thyromegaly.] [No JVD.] Chest: [Crackles at the bases, no rhonchi no wheezes. Cardiac Exam: [Normal S1 and S2, no S3 gallop, 2/6 systolic murmur thought the precordium, positive pericardial. Abdomen: [Soft, nontender, no megaly, no rebound, no guarding, normal bowel sounds.] Extremities: [No clubbing, no edema, no cyanosis.] Neurological Exam: Could not be assessed, patient is sedated just came out of the operating room. Psychiatric: Could not be assessed. Skin: No rashes. Results - Laboratory Findings ABG ABG pH 7.39 (7.35-7.45) 07/29/20 15:13 ABG pCO2 42 mmHg (35-45) 07/29/20 15:13 ABG pO2 164 mmHg (83-108) H 07/29/20 15:13 ABG O2 Saturation 99.4 % (94-97) H 07/29/20 15:13 Abnormal lab findings: Abnormal Labs 07/23/20 07/29/20 07/29/20 13:59 06:15 08:57 ABG pH ABG pCO2 ABG pO2 139 H ABG HCO3 ABG Total CO2 25 H ABG O2 Saturation 99.1 H ABG Hematocrit ABG Potassium ABG Ionized Calcium ABG Glucose 105 H ABG Lactic Acid Hemoglobin 12.6 L POC Glucose (mg/dL) 134 H Arterial Blood Potassium Arterial Blood Glucose 105 H Crossmatch See Detail 07/29/20 07/29/20 07/29/20 11:05 12:40 13:09 ABG pH 7.32 L ABG pCO2 47 H ABG pO2 149 H 269 H 268 H ABG HCO3 26 H ABG Total CO2 26 H 27 H 26 H ABG O2 Saturation 99.1 H 99.9 H 99.9 H ABG Hematocrit 25 L 25 L ABG Potassium 4.7 H ABG Ionized Calcium 4.2 L 4.2 L ABG Glucose 115 H 170 H 190 H ABG Lactic Acid 2.2 H* 2.2 H* Hemoglobin 11.3 L 8.2 L 8.3 L POC Glucose (mg/dL) Arterial Blood Potassium 4.7 H Arterial Blood Glucose 115 H 170 H 190 H Crossmatch 07/29/20 07/29/20 13:40 15:13 ABG pH ABG pCO2 ABG pO2 209 H 164 H ABG HCO3 ABG Total CO2 26 H 27 H ABG O2 Saturation 99.7 H 99.4 H ABG Hematocrit 26 L 29 L ABG Potassium ABG Ionized Calcium 4.3 L 4.3 L ABG Glucose 182 H 120 H ABG Lactic Acid 2.2 H* 2.0 H Hemoglobin 8.4 L 9.4 L POC Glucose (mg/dL) Arterial Blood Potassium Arterial Blood Glucose 182 H 120 H Crossmatch Assessment and Plan Assessment: Impression: Status post CABG for multivessel coronary artery disease, postoperative day #0. Multivessel coronary artery disease as noted on his recent cardiac catheterization. And history of multiple stents placed. Benign essential hypertension. Type 2 diabetes. Obstructive sleep apnea syndrome. History of nephrolithiasis. Family history of premature coronary artery disease. Benign prostatic hypertrophy. Recommendation: Continue ventilatory support. ABG is pending on the ventilator settings will be adjusted accordingly. Continue hemodynamic support. GI and DVT prophylaxis. Will likely wean and extubate later this evening. We will continue to follow. Time with Patient: Greater than 30
[2020-07-29 16:19] LABS: Basophils % (A) 0 %; Eosinophils # (A) 0.1 k/uL (0-0.7); Eosinophils % (A) 1 %; HCT 27.5 % (39.0-53.0); Lymphocytes # (A) 0.5 k/uL (1.0-4.8); Lymphocytes % (A) 7 %; MCH 31.3 pg (25.0-35.0); MCHC 33.5 g/dL (31.0-37.0); MCV 93.4 fL (80.0-100.0); Monocytes # (A) 0.5 k/uL (0-1.0); Monocytes % (A) 7 %; Neutrophils # (A) 6.1 k/uL (1.3-7.7); Neutrophils % (A) 84 %; RBC 2.94 m/uL (4.30-5.90); RDW 13.6 % (11.5-15.5); WBC 7.3 k/uL (3.8-10.6)
[2020-07-29 16:21] LABS: HGB 9.2 gm/dL (13.0-17.5); Platelet Count 96 k/uL (150-450)
[2020-07-29 16:22] LABS: Ionized Calcium 4.4 mg/dL (4.5-5.3)
[2020-07-29 16:25] LABS: ABG Base Excess 0.4 mmol/L; ABG HCO3 25 mmol/L (21-25); ABG Oxygen Saturation 99.6 % (94-97); ABG PCO2 40 mmHg (35-45); ABG PH 7.41 (7.35-7.45); ABG PO2 229 mmHg (83-108); ABG TCO2 26 mmol/L (19-24); Allen Test Performed? Yes
--- NOTE | 2020-07-29 16:32 | XR ---
EXAMINATION TYPE: XR chest 1V portable DATE OF EXAM: 07/29/2020 COMPARISON: 07/23/2020 HISTORY: Postop TECHNIQUE: Single frontal view of the chest is obtained. FINDINGS: ET tube approximately 2.4 cm above the jose manuel. Willis-Bri catheter seen with the tip overly ing the proximal pulmonary outflow tract. Chest tubes and mediastinal drains noted. No sizable pneumo thorax. Bilateral consolidation small effusion. Postoperative changes are seen in the heart size is s table. No overt failure. NG tube seen extending into the upper abdomen. IMPRESSION: 1. Postoperative change with suspected postoperative atelectasis and tiny effusions.
[2020-07-29 16:34] LABS: INR 1.3 (<1.2); Partial Thromboplastin Time 33.3 sec (22.0-30.0); Prothrombin Time 12.8 sec (9.0-12.0)
[2020-07-29 16:42] LABS: ALT 11 U/L (4-49); AST 36 U/L (17-59); African American GFR (CKD) 87 (>60 ml/min/1.73 sqM); Albumin 2.7 g/dL (3.5-5.0); Alkaline Phosphatase <20 U/L (38-126); Anion Gap 1 mmol/L; Blood Urea Nitrogen 17 mg/dL (9-20); Calcium 7.5 mg/dL (8.4-10.2); Carbon Dioxide 26 mmol/L (22-30); Chloride 107 mmol/L (98-107); Glucose 100 mg/dL (74-99); Magnesium 2.4 mg/dL (1.6-2.3); Non-African American GFR(CKD) 75 (>60 ml/min/1.73 sqM); Potassium 4.8 mmol/L (3.5-5.1); Sodium 134 mmol/L (137-145); Total Bilirubin 0.6 mg/dL (0.2-1.3); Total Protein 4.2 g/dL (6.3-8.2)
[2020-07-29 16:59] LABS: Glucose,Whole Blood 105 mg/dL (75-99)
[2020-07-29] MEDS: SODIUM CHLORIDE 0.9% 1,000 ML IV SCH (17:09)
[2020-07-29 18:12] LABS: Glucose,Whole Blood 153 mg/dL (75-99)
[2020-07-29] MEDS: INSULIN REGULAR 100 UNIT in SODIUM CHLORIDE 0.9% 100 ML IV SCH (18:21)
[2020-07-29 18:24] LABS: Basophils % (A) 0 %; Eosinophils % (A) 1 %; HCT 29.5 % (39.0-53.0); HGB 10.1 gm/dL (13.0-17.5); Lymphocytes # (A) 0.6 k/uL (1.0-4.8); Lymphocytes % (A) 7 %; MCH 32.3 pg (25.0-35.0); MCHC 34.4 g/dL (31.0-37.0); Mean Platelet Volume 9.2; Monocytes # (A) 0.7 k/uL (0-1.0); Monocytes % (A) 8 %; Neutrophils # (A) 7.8 k/uL (1.3-7.7); Neutrophils % (A) 84 %; Platelet Count 131 k/uL (150-450); RBC 3.13 m/uL (4.30-5.90); RDW 13.8 % (11.5-15.5); WBC 9.2 k/uL (3.8-10.6)
[2020-07-29] MEDS: ACETAMINOPHEN IV (For NPO) 1,000 MG in EMPTY BAG 1 BAG IVPB SCH ×2 (18:28→23:38)
[2020-07-29 18:58] LABS: Glucose,Whole Blood 156 mg/dL (75-99)
[2020-07-29 19:57] LABS: Glucose,Whole Blood 144 mg/dL (75-99)
[2020-07-29] MEDS: IPRATROPIUM-ALBUTEROL 3 ML NEB INHALATION SCH ×3 (20:08)
[2020-07-29 20:48] LABS: Glucose,Whole Blood 151 mg/dL (75-99)
[2020-07-29 20:49] LABS: ABG Base Excess -2.8 mmol/L; ABG HCO3 23 mmol/L (21-25); ABG Oxygen Saturation 99.1 % (94-97); ABG PCO2 40 mmHg (35-45); ABG PH 7.36 (7.35-7.45); ABG PO2 148 mmHg (83-108); ABG TCO2 24 mmol/L (19-24); Allen Test Performed? Yes
--- NOTE | 2020-07-29 20:52 | OP ---
OPERATIVE REPORT DATE OF THE SURGERY: 07/29/2020. SURGEON: Dr. Shields. DENTAL SCHEDULING COORDINATOR: Rudi Ulrich and Bolivar Mata NP. PREOPERATIVE DIAGNOSES: 1. Triple-vessel coronary artery disease. 2. Preserved systolic function. 3. Tjbq-qt-arfbawme mitral valve regurgitation. 4. Prior coronary stenting. 5. Hypertension. 6. Hyperlipidemia. 7. Diabetes. 8. Obstructive sleep apnea. POSTOPERATIVE DIAGNOSES: 1. Triple-vessel coronary artery disease. 2. Preserved systolic function. 3. Kkog-jv-yvknwbxe mitral valve regurgitation. 4. Prior coronary stenting. 5. Hypertension. 6. Hyperlipidemia. 7. Diabetes. 8. Obstructive sleep apnea. PROCEDURE PERFORMED: 1. Quadruple coronary artery bypass grafting using the left internal mammary artery to the left anterior descending artery, the left radial artery from the aorta to the obtuse marginal artery, reverse saphenous vein graft from the aorta to the ramus intermedius artery, reverse saphenous vein graft from the aorta to the posterior descending artery. 2. Endoscopic harvesting of the left radial artery. 3. Endoscopic harvesting of left greater saphenous vein. 4. Intraoperative graft flow measurements using the Editorially-Stim system. 5. Intraoperative transesophageal echocardiogram and epiaortic scanning. INDICATION FOR SURGERY: The patient is a 75-year-old gentleman with the above risk factor with prior stenting to his right coronary artery and circumflex system who was worked up for recurrent dyspnea on exertion and angina and found to have triple-vessel disease. His 2D echo and ZEKE showed evidence of what seems to be mild to moderate mitral valve regurgitation with mild dilatation of the left atrium. No signs of congestive heart failure. Decision was made to proceed with coronary artery revascularization only. The STS risk was discussed with him. He understood it and agreed to proceed. PROCEDURE DETAILS: Patient in the preoperative holding area. Right internal jugular Cos Cob-Bri catheter and right radial arterial line were placed. The patient had normal PA pressure and good cardiac index. Subsequently, he was brought to the operating room where general endotracheal anesthesia was induced uneventfully. A Loaiza catheter was inserted. The chest, abdomen and both lower extremities and the left upper extremity were prepped and draped using ChloraPrep. Ioban was used to cover the skin. Patient received 2 g of cefazolin intravenously. Transesophageal echocardiogram confirmed the preoperative finding of jpip-om-lqnnlgom mitral valve regurgitation. We increased the mean pressure to around 95 and the mitral regurgitation appeared to be jdys-mu-uirgiott with vena contract of 0.3 cm and central. Decision was made as planned not to pursue mitral valve repair. Midline sternotomy was performed and very minimal bone wax was used. The left hemisternum was elevated and the left internal mammary artery was harvested in a somewhat skeletonized fashion. The left pleura was intentionally opened in this process and drained with a 19-Marshallese Son drain. The right pleura was also inadvertently opened and was drained with another 19-Marshallese Son drain. In the same setting, the left radial artery was initially exposed at the wrist and clamping trial revealed preserved signal at the left index saturation probe. The artery was subsequently harvested endoscopically without using a tourniquet and a drain was used after closing the forearm incision. The radial artery was prepared by incising the fascia all along its volar aspect and clipping all the branches. It was of excellent diameter around 3-4 mm with very minimal wall disease in it. Also in the same setting, the left greater saphenous vein was harvested endoscopically from groin to mid lower leg level. The vein appeared to be thin-walled a little on the smaller size around 3.5 mm with a good segment at the thigh and slightly less good quality segment below the knee. Mediastinal fat was transected between 2 ties and epiaortic scanning revealed no protruding atheroma in the ascending aorta. Pericardium was opened in an inverted T- fashion and a pericardial cradle was created. Findings included the short soft aorta and a mildly enlarged heart with evidence of old fibrotic changes at the inferior wall. The heart was covered with a fatty pericardial surface. After systemic heparinization, after placement of respective pledgeted pursestring aortic cannulation with a 21-Marshallese soft flow cannula and venous cannulation via the right atrial appendage was performed. Antegrade as well as retrograde cardioplegia catheter were placed. The mammary artery was clipped distally and transected, had an excellent pulsatile flow in it and was around 1.7 mm in diameter. Cardioplegia bypass was initiated and patient temperature was allowed to drift down to 34 degrees Celsius. With the heart empty and beating, we looked at the target. The PDA appeared to be totally intra myocardial as well as the right coronary artery. The LAD was identified in its distal 3rd, as well as the ramus intermedius artery, which was deep in the fat and the obtuse marginal artery which was also part of a fibrotic area changes. Aorta was clamped and during aortic clamping, myocardial protection was achieved. An initial dose of 1 L of antegrade cold blood cardioplegia with good arrest at 200 mL followed by dose of retrograde cold blood cardioplegia. All subsequent doses were given retrograde at 15 minutes interval. The last dose was 1 L of blood via the retrograde route. The 1st distal anastomosis was between a segment of reverse saphenous vein graft of good quality and the posterior descending artery which was uncovered at a takeoff from the RCA, deep intra epicardial behind the posterior vein using a Prolene 7-0 in continuous fashion. The 2nd distal anastomosis was between the radial artery and the 1st obtuse marginal artery which was a good quality vessel and this was done after the stenosis seen on catheterization in its distal aspect using Prolene 7-0 in continuous fashion. The diameter of this artery was around 1.75 mm. The 3rd distal anastomosis was between another segment of vein slightly less good quality and the ramus intermedius artery was a diffusely diseased vessel intra myocardial using Prolene 7-0 in continuous fashion. The size was around 1.5 mm in diameter. The fourth and last distal anastomosis was between the left internal mammary artery that passed in a groove in the left pleuropericardial fat and anastomosed to the distal 3rd of the left anterior descending artery which was around 1.7 mm in diameter using Prolene 7-0 in continuous fashion. The mammary veins were affixed to the epicardium on either side with Prolene 6-0 suture. Satisfied with the distal anastomosis, rewarming was started as we punched out 3 buttons of the ascending aorta and performed the pre proximal anastomosis of the 2 vein graft and the radial artery. The patient was given lidocaine and magnesium. De-airing maneuvers were done. The patient in Trendelenburg position. Aortic root aorta maximum. We unclamped the aorta. He regained spontaneous sinus rhythm. After a period of reperfusion and after a preliminary graft checking showing patent graft, weaned off bypass without the need of any inotropic or vasopressor support. At this point, we proceeded at a graft flow measurement. The flow into the vein to the posterior descending artery was 35 mL/minute, pulsatility index of 2.9, diastolic, filling of 55%, showing a good functioning graft. The flow into the vein to the diagonal artery was 30 mL/minute, pulsatility index of 3.3, diastolic filling 74% also showing excellent graft. The flow into the radial artery to the obtuse marginal artery was 56 mL/minute, pulsatility index of 2.2, diastolic filling of 74%, showing excellent graft. The flow into the ARELLANO to the LAD was 20 mL/minute, pulsatility index of 3.5, diastolic filling of 79% showing excellent functioning graft. With that, all pump suckers were stopped and test was then full dose protamine was given. Decannulation followed. Two monopolar atrial pacing wires were affixed to the respective pursing of the right atrium. No ventricular pacing wire was placed. Two 19-Marshallese Son drains were left substernally. Pericardial fat was approximated over the heart and the aorta. After ensuring adequate hemostasis, hemodynamic and after correct sponge, instrument, and needle count, the sternum was closed using 5 onfvvc-pb-opzep pineal cable using fibular between the sternal edges. The rest of the closure proceeded in layers. Skin glue was applied. Patient did not receive any blood bank product, received 500 mL of Cell Saver blood. Was returned to the ICU in stable condition with an excellent index of 3, PA pressure of 25 and 10, mean artery pressure of 86. The patient ZEKE at the end showed mild to moderate mitral valve regurgitation. MMODL / IJN: [id number] / VEE
[2020-07-29 20:56] LABS: Basophils % (A) 0 %; Eosinophils % (A) 0 %; HCT 27.3 % (39.0-53.0); Lymphocytes # (A) 0.5 k/uL (1.0-4.8); Lymphocytes % (A) 5 %; MCH 31.2 pg (25.0-35.0); MCHC 32.9 g/dL (31.0-37.0); MCV 94.6 fL (80.0-100.0); Mean Platelet Volume 9.7; Monocytes # (A) 0.7 k/uL (0-1.0); Monocytes % (A) 7 %; Neutrophils # (A) 8.4 k/uL (1.3-7.7); Neutrophils % (A) 87 %; Platelet Count 146 k/uL (150-450); RBC 2.89 m/uL (4.30-5.90); RDW 13.7 % (11.5-15.5); WBC 9.7 k/uL (3.8-10.6)
[2020-07-29] MEDS: KETOROLAC 15 MG/ML 1 ML VIAL IVP SCH (21:49)
[2020-07-29] MEDS: HEPARIN SODIUM,PORCINE 5,000 UNIT/ML 1 ML VIAL SQ SCH (21:49)
[2020-07-29 21:59] LABS: Glucose,Whole Blood 141 mg/dL (75-99)
[2020-07-29] MEDS: MUPIROCIN 2% OINT 22 GM TUBE NASAL SCH (22:18)
[2020-07-29] MEDS: TAMSULOSIN 0.4 MG CAP.ER.24H PO SCH (22:31)
[2020-07-29 22:57] LABS: Glucose,Whole Blood 119 mg/dL (75-99)
[2020-07-29 23:56] LABS: Glucose,Whole Blood 124 mg/dL (75-99)
[2020-07-30 00:59] LABS: Glucose,Whole Blood 122 mg/dL (75-99)
[2020-07-30] MEDS: ONDANSETRON 4 MG/2 ML VIAL IVP PRN (01:57)
[2020-07-30 02:07] LABS: Glucose,Whole Blood 131 mg/dL (75-99)
[2020-07-30] MEDS: KETOROLAC 15 MG/ML 1 ML VIAL IVP SCH ×5 (02:55→23:52)
[2020-07-30 03:05] LABS: Glucose,Whole Blood 132 mg/dL (75-99)
[2020-07-30 04:07] LABS: Glucose,Whole Blood 120 mg/dL (75-99)
[2020-07-30 04:44] LABS: Basophils % (A) 0 %; Eosinophils % (A) 1 %; HCT 24.3 % (39.0-53.0); Lymphocytes # (A) 0.4 k/uL (1.0-4.8); Lymphocytes % (A) 6 %; MCV 93.8 fL (80.0-100.0); Mean Platelet Volume 9.6; Monocytes # (A) 0.6 k/uL (0-1.0); Monocytes % (A) 8 %; Neutrophils # (A) 5.8 k/uL (1.3-7.7); Neutrophils % (A) 84 %; Platelet Count 115 k/uL (150-450); RBC 2.59 m/uL (4.30-5.90); RDW 13.8 % (11.5-15.5); WBC 6.8 k/uL (3.8-10.6)
[2020-07-30 04:53] LABS: Ionized Calcium 4.5 mg/dL (4.5-5.3)
[2020-07-30 04:56] LABS: Glucose,Whole Blood 113 mg/dL (75-99)
[2020-07-30 05:02] LABS: ALT 11 U/L (4-49); AST 39 U/L (17-59); African American GFR (CKD) >90 (>60 ml/min/1.73 sqM); Alkaline Phosphatase 21 U/L (38-126); Anion Gap 2 mmol/L; Blood Urea Nitrogen 14 mg/dL (9-20); Calcium 7.9 mg/dL (8.4-10.2); Carbon Dioxide 25 mmol/L (22-30); Chloride 106 mmol/L (98-107); Glucose 124 mg/dL (74-99); Magnesium 2.2 mg/dL (1.6-2.3); Non-African American GFR(CKD) 85 (>60 ml/min/1.73 sqM); Potassium 4.3 mmol/L (3.5-5.1); Sodium 133 mmol/L (137-145); Total Bilirubin 0.5 mg/dL (0.2-1.3); Total Protein 4.5 g/dL (6.3-8.2)
[2020-07-30 06:05] LABS: Glucose,Whole Blood 148 mg/dL (75-99)
[2020-07-30 07:00] LABS: Glucose,Whole Blood 150 mg/dL (75-99)
--- NOTE | 2020-07-30 07:46 | P.CRDCN ---
History of Present Illness Consult date: 07/30/20 Chief complaint: Status post open heart surgery History of present illness: This is a very pleasant 75-year-old gentleman who sees Dr. Mcneill in the office on regular basis with a past medical history significant for diabetes and hypertension and dyslipidemia as well as obstructive sleep apnea who was admitted to the hospital yesterday and underwent an elective coronary artery bypass grafting where he received quadruple bypasses with ARELLANO to LAD and left radial artery to OM and reverse SVG to ramus intermedius as well as reverse SVG to PDA. The patient is known to have coronary artery disease and in the past he underwent stenting of the RCA as well as left circumflex but he was experiencing symptoms of chest discomfort and shortness of breath with exertion and he underwent a heart catheterization recently and that revealed severe triple- vessel coronary artery disease. Because of that he was referred for surgery. He was seen today. This is postoperative patient #1. The patient was extubated yesterday on the same day of the surgery. Currently he is more than 90 stable. He has been maintaining normal sinus mechanism. His urine output has been within normal limits. He is on maximize medical treatment including dual antip latelet therapy along with metoprolol. He is not on statin because he has a statin intolerance. Currently he is on Zetia. Overall he seems to be stable from a cardiac vascular standpoint overview. When he was seen this morning he was sitting in the chair and seems to be very comfortable. The blood work was reviewed and showed a hemoglobin of 8.0. The GFR continues to be above 60. The chest x-ray also was reviewed with and showed small bilateral pleural effusion. Past Medical History Past Medical History: Coronary Artery Disease (CAD), Chest Pain / Angina, Diabetes Mellitus, Hyperlipidemia, Hypertension, Prostate Disorder, Renal Disease, Sleep Apnea/CPAP/BIPAP Additional Past Medical History / Comment(s): HX OF KIDNEY STONES, INNER EAR IMBALANCE, STATES HX OF " occasional BURNING FEELING to his chest with exercise and is associated with some shortness of breath", DM type 2 DIET CONTROL History of Any Multi-Drug Resistant Organisms: None Reported Past Surgical History: Heart Catheterization With Stent, Orthopedic Surgery Additional Past Surgical History / Comment(s): GANGLION CYST X3 RT WRIST, RIGHT ELBOW SURG, angioplasty and total 8 stents, RIGHT KNEE-ARTHROSCOPIC, , hemorrhoid surgery, COLONOSCOPY, recent cardiac cath. Past Anesthesia/Blood Transfusion Reactions: Motion Sickness Date of Last Stent Placement:: 04/2016 with stent placement to his OM 2, circumflex coronary artery & OM1 Smoking Status: Never smoker - Past Family History Mother Family Medical History: Coronary Artery Disease (CAD) (Early onset coronary artery disease, CABG surgery in her early 50s.) Additional Family Medical History / Comment(s): ALZHEIMERS Father Family Medical History: Cancer Additional Family Medical History / Comment(s): bone and lung Medications and Allergies Home Medications Medication Instructions Recorded Confirmed Type Losartan Potassium [Cozaar] 50 mg PO DAILY 11/20/15 07/29/20 History Metoprolol Tartrate [Lopressor] 75 mg PO BID 11/20/15 07/29/20 History Ubidecarenone [Co Q-10] 200 mg PO DAILY 11/20/15 07/29/20 History amLODIPine [Norvasc] 10 mg PO DAILY 11/20/15 07/29/20 History Aspirin EC [Ecotrin Low Dose] 81 mg PO DAILY 04/13/16 07/29/20 History Nitroglycerin Sl Tabs [Nitrostat] 0.4 mg SUBLINGUAL Q5M PRN #25 tab 04/16/16 07/29/20 Rx Tamsulosin [Flomax] 0.4 mg PO HS 01/18/17 07/29/20 History Ezetimibe [Zetia] 10 mg PO DAILY 08/08/19 07/29/20 History Furosemide [Lasix] 20 mg PO DAILY 08/08/19 07/29/20 History Potassium Chloride [Klor-Con 10] 10 meq PO HS 08/08/19 07/29/20 History Fenofibrate Nanocrystallized 145 mg PO DAILY 07/21/20 07/29/20 History [Fenofibrate] Psyllium Husk [Metamucil] 0.8 gm PO BID 07/21/20 07/29/20 History Isosorbide Mononitrate ER [Imdur] 30 mg PO DAILY 07/28/20 07/29/20 History Allergies Allergy/AdvReac Type Severity Reaction Status Date / Time naproxen sodium [From Aleve] Allergy Severe Anaphylaxis Verified 07/29/20 06:33 Penicillins Allergy Unknown Rash/Hives Verified 07/29/20 06:33 rosuvastatin [From Crestor] Allergy Rash/Hives Verified 07/29/20 06:33 Physical Exam Vitals: Vital Signs Temp Pulse Resp BP Pulse Ox 07/30/20 07:00 99 20 107/60 93 L 07/30/20 06:30 90 18 107/60 93 L 07/30/20 06:00 90 23 92 L 07/30/20 05:30 96 22 94 L 07/30/20 05:00 89 17 134/76 94 L 07/30/20 04:30 87 19 94 L 07/30/20 04:00 98.8 F 90 17 125/68 94 L 07/30/20 03:30 85 19 95 07/30/20 03:00 87 17 95 07/30/20 02:30 91 18 95 07/30/20 02:00 93 17 126/68 94 L 07/30/20 01:30 87 22 96 07/30/20 01:00 88 18 96 07/30/20 00:30 86 22 126/71 95 07/30/20 00:00 98.7 F 97 20 93 L 07/29/20 23:30 89 26 H 96 07/29/20 23:04 89 24 97 07/29/20 23:00 90 20 111/71 96 07/29/20 22:30 96 24 97 07/29/20 22:00 90 17 119/68 99 07/29/20 21:31 96 07/29/20 21:30 102 H 26 H 97 07/29/20 21:25 96 07/29/20 21:00 86 20 99 07/29/20 20:30 87 18 98 07/29/20 20:20 96 07/29/20 20:11 85 07/29/20 20:00 98.9 F 82 17 99 07/29/20 19:30 83 18 99 07/29/20 19:00 99.3 F 87 14 128/106 99 07/29/20 18:50 80 30 H 94/67 07/29/20 18:40 73 18 94/67 99 07/29/20 18:30 73 18 94/67 99 07/29/20 18:20 71 25 H 94/67 99 07/29/20 18:10 73 18 94/67 98 07/29/20 18:00 99.1 F 73 19 94/67 97 07/29/20 17:50 70 18 97 07/29/20 17:40 71 21 96 07/29/20 17:30 73 23 94 L 07/29/20 17:20 72 21 93 L 07/29/20 17:10 75 22 110/83 94 L 07/29/20 17:00 80 26 H 110/83 99 07/29/20 16:50 73 24 110/83 100 07/29/20 16:40 68 21 110/83 99 07/29/20 16:30 66 18 93/60 100 07/29/20 16:20 13 93/60 100 07/29/20 16:10 70 0 L 93/60 100 07/29/20 16:00 72 0 L 100 07/29/20 15:53 42 H Intake and Output 07/29/20 07/30/20 07/30/20 22:59 06:59 14:59 Intake Total 1148.768 809.360 90.5 Output Total 1875 1004 60 Balance -726.232 -194.640 30.5 Intake: IV 455 632 89 0.9 @ 10 10 0.9 @10 10 CO/CI 90 160 30 Pressure bags 45 72 9 Sodium Chloride 0.9% 1, 300 400 50 000 ml @ 20 mls/hr IV . Q24H [facility] Rx#:[id number] Intake, IV Titration 693.768 177.360 1.5 Amount ACETAMINOPHEN IV (For NPO 100 100 ) 1,000 mg In Empty Bag 1 bag @ 400 mls/hr IVPB Q6HR [facility] Rx#:[id number] Albumin Human 5% 250 ml 500 In Empty Bag 1 bag @ 250 mls/hr IVPB Q1HR PRN Rx#: [id number] Clevidipine Butyrate 25 6.667 mg In Empty Bag 1 bag @ 1 MG/HR 2 mls/hr IV .Q24H [place] Rx#:[id number] Insulin Regular 100 unit 12.601 15.360 In Sodium Chloride 0.9% 100 ml @ Per Protocol IV .Q0M [facility] Rx#:[id number] Nitroglycerin-D5w Pmx 50 4.5 12.0 1.5 mg In Dextrose/Water 1 250ml.bag @ 5 MCG/MIN 1.5 mls/hr IV .Q24H [place] Rx#: [id number] ceFAZolin 2 gm In Sodium 50 50 Chloride 0.9% 50 ml @ 100 mls/hr IVPB Q8H [facility] Rx#: [id number] propofoL 1,000 mg In 20 Empty Bag 1 bag @ Titrate IV .Q0M [facility] Rx#: [id number] Output: Chest Tube Drainage 620 184 10 Bilateral Mediastinal 295 140 0 Left Lateral Chest 240 30 10 Right Lateral Chest 85 14 0 Drainage 685 15 Left Arm 5 Left Lower Calf 685 10 Urine 570 820 35 Other: Voiding Method Indwelling Catheter Indwelling Catheter Weight 100.2 kg ABP, PAP, CO, CI - Last 8 Hours Arterial Blood Pressure 100/47 Arterial Blood Pressure 109/48 Arterial Blood Pressure 124/60 Arterial Blood Pressure 128/63 Arterial Blood Pressure 137/56 Arterial Blood Pressure 131/53 Arterial Blood Pressure 134/55 Arterial Blood Pressure 132/53 Arterial Blood Pressure 135/52 Arterial Blood Pressure 134/56 Arterial Blood Pressure 122/55 Arterial Blood Pressure 120/49 Arterial Blood Pressure 129/56 Arterial Blood Pressure 132/56 Arterial Blood Pressure 128/63 Pulmonary Artery Pressure 33/13 Pulmonary Artery Pressure 25/10 Pulmonary Artery Pressure 25/7 Pulmonary Artery Pressure 36/16 Pulmonary Artery Pressure 29/11 Pulmonary Artery Pressure 27/12 Pulmonary Artery Pressure 26/12 Pulmonary Artery Pressure 28/11 Pulmonary Artery Pressure 27/11 Pulmonary Artery Pressure 30/11 Pulmonary Artery Pressure 29/11 Pulmonary Artery Pressure 26/11 Pulmonary Artery Pressure 27/10 Pulmonary Artery Pressure 26/9 Pulmonary Artery Pressure 37/19 Cardiac Output 5.9 Cardiac Output 6.5 Cardiac Output 6.5 Cardiac Output 6.5 Cardiac Output 5.9 Cardiac Output 5.5 Cardiac Output 5.5 Cardiac Output 5.5 Cardiac Output 5.5 Cardiac Output 5.6 Cardiac Index 2.8 Cardiac Index 3.1 Cardiac Index 3.1 Cardiac Index 3.1 Cardiac Index 2.8 Cardiac Index 2.6 Cardiac Index 2.6 Cardiac Index 2.6 Cardiac Index 2.6 Cardiac Index 2.7 - Constitutional General appearance: no acute distress - Respiratory Respiratory: bilateral: diminished - Cardiovascular Rhythm: regular Heart sounds: normal: S1, S2 Results 07/30/20 04:35 07/30/20 04:35 Cardiac Enzymes 07/29/20 07/30/20 Range/Units 16:07 04:35 AST 36 39 (17-59) U/L Coagulation 07/29/20 Range/Units 16:07 PT 12.8 H (9.0-12.0) sec APTT 33.3 H (22.0-30.0) sec CBC 07/29/20 07/29/20 07/29/20 Range/Units 16:07 18:05 20:45 WBC 7.3 9.2 9.7 (3.8-10.6) k/uL RBC 2.94 L 3.13 L 2.89 L (4.30-5.90) m/uL Hgb 9.2 L D 10.1 L 9.0 L (13.0-17.5) gm/dL Hct 27.5 L 29.5 L 27.3 L (39.0-53.0) % Plt Count 96 L 131 L 146 L (150-450) k/uL 07/30/20 Range/Units 04:35 WBC 6.8 (3.8-10.6) k/uL RBC 2.59 L (4.30-5.90) m/uL Hgb 8.0 L (13.0-17.5) gm/dL Hct 24.3 L (39.0-53.0) % Plt Count 115 L (150-450) k/uL Comprehensive Metabolic Panel 07/29/20 07/30/20 Range/Units 16:07 04:35 Sodium 134 L 133 L (137-145) mmol/L Potassium 4.8 4.3 (3.5-5.1) mmol/L Chloride 107 106 (98-107) mmol/L Carbon Dioxide 26 25 (22-30) mmol/L BUN 17 14 (9-20) mg/dL Creatinine 0.99 0.89 (0.66-1.25) mg/dL Glucose 100 H 124 H (74-99) mg/dL Calcium 7.5 L 7.9 L (8.4-10.2) mg/dL AST 36 39 (17-59) U/L ALT 11 11 (4-49) U/L Alkaline Phosphatase <20 L 21 L (38-126) U/L Total Protein 4.2 L 4.5 L (6.3-8.2) g/dL Albumin 2.7 L 3.0 L (3.5-5.0) g/dL Current Medications Generic Name Dose Route Start Last Admin Trade Name Freq PRN Reason Stop Dose Admin Hydrocodone Bitart/Acetaminophen 2 each 07/30/20 02:59 Hydrocodone/Apap 5-325mg 1 Each Tab PO Q4HR PRN Severe Pain Hydrocodone Bitart/Acetaminophen 1 each 07/30/20 02:59 Hydrocodone/Apap 5-325mg 1 Each Tab PO Q4HR PRN Moderate Pain Albuterol/Ipratropium 3 ml 07/29/20 16:04 Ipratropium-Albuterol 3 Ml Neb INHALATION RT-Q2H PRN Shortness Of Breath Or Wheezing Albuterol/Ipratropium 3 ml 07/29/20 21:02 07/29/20 20:08 Ipratropium-Albuterol 3 Ml Neb INHALATION Not Given RT-QID [facility] Amlodipine Besylate 2.5 mg 07/30/20 09:00 Amlodipine 2.5 Mg Tab PO DAILY [facility] Aspirin 325 mg 07/30/20 09:00 Aspirin 325 Mg Tab PO DAILY [facility] Benzocaine/Menthol 1 each 07/29/20 16:04 Benzocaine/Menthol Lozeng 1 Each Lozenge MUCOUS MEM Q2H PRN Sore Throat Bisacodyl 10 mg 07/30/20 09:00 Bisacodyl 10 Mg Supp RECTAL DAILY PRN Constipation Clopidogrel Bisulfate 75 mg 07/30/20 09:00 Clopidogrel 75 Mg Tab PO DAILY [facility] Ezetimibe 10 mg 07/30/20 09:00 Ezetimibe 10 Mg Tab PO DAILY [facility] Fenofibrate 160 mg 07/30/20 09:00 Fenofibrate 160 Mg Tab PO DAILY [facility] Heparin Sodium (Porcine) 5,000 unit 07/29/20 23:00 07/29/20 21:49 Heparin Sodium,Porcine 5,000 Unit/Ml 1 Ml Vial SQ 5,000 unit Q8HR [facility] Administration Hydralazine HCl 10 mg 07/29/20 16:04 Hydralazine Hcl 20 Mg/Ml 1 Ml Vial IVP Q1H PRN Blood Pressure - High Amiodarone HCl 150 mg/ 103 mls @ 618 mls/hr 07/29/20 16:04 Dextrose/Water IV .Q10M PRN A.FIB/FLUTTER Protocol Amiodarone HCl 360 mg/ 200 mls @ 33.333 mls/hr 07/29/20 16:04 Dextrose/Water IV .Q6H PRN A.FIB/FLUTTER Protocol 1 MG/MIN Amiodarone HCl 300 mg/ 250 mls @ 25 mls/hr 07/29/20 16:04 Dextrose/Water IV .Q10H PRN A.FIB/FLUTTER Protocol 0.5 MG/MIN Albumin Human 250 ml/ IV 250 mls @ 250 mls/hr 07/29/20 16:04 07/29/20 22:26 Solution IVPB 07/31/20 16:05 250 mls/hr Q1HR PRN Administration For Volume Cefazolin Sodium 2 gm/ Sodium 50 mls @ 100 mls/hr 07/29/20 17:00 07/30/20 01:11 Chloride IVPB 07/30/20 09:29 100 mls/hr Q8H [facility] Administration Calcium Gluconate 2 gm/ Sodium 120 mls @ 100 mls/hr 07/29/20 16:04 Chloride IVPB 08/04/20 23:00 ONCE PRN Ionized Calcium less than 4.4 Nitroglycerin/Dextrose 50 mg/ 250 mls @ 1.5 mls/hr 07/29/20 16:04 07/29/20 15:48 IV Solution IV 5 mcg/min .Q24H [place] 1.5 mls/hr Administration 5 MCG/MIN Insulin Human Regular 100 unit 101 mls @ 0 mls/hr 07/29/20 16:04 07/30/20 06:59 / Sodium Chloride IV 3 units/hr .Q0M [facility] 3.03 mls/hr Titration Protocol Per Protocol Sodium Chloride 1,000 mls @ 20 mls/hr 07/29/20 16:04 07/29/20 17:09 Saline 0.9% IV 50 mls/hr .Q24H [facility] Administration Ketorolac Tromethamine 15 mg 07/29/20 18:00 07/30/20 07:04 Ketorolac 15 Mg/Ml 1 Ml Vial IVP 08/01/20 17:17 15 mg Q6HR [facility] Administration Magnesium Hydroxide 2,400 mg 07/30/20 09:00 Magnesium Hydroxide 2,400 Mg/10 Ml Cup PO BID PRN Constipation Metoclopramide HCl 10 mg 07/29/20 16:04 Metoclopramide 5 Mg/Ml 2 Ml Vial IVP Q4H PRN Nausea And Vomiting Metoprolol Tartrate 25 mg 07/30/20 09:00 07/30/20 07:36 Metoprolol Tartrate 25 Mg Tab PO 25 mg BID [facility] Administration Miscellaneous Information 1 each 07/29/20 16:04 Potassium Replacement Protocol 1 Each Misc MISCELLANE DAILY PRN Per Protocol Protocol Miscellaneous Information 1 each 07/29/20 16:04 Magnesium Replacement Protocol 1 Each Misc MISCELLANE DAILY PRN Per Protocol Protocol Miscellaneous Information 1 each 07/29/20 16:04 Phosphorus Replacement Protoco 1 Each Misc MISCELLANE DAILY PRN Per Protocol Protocol Mupirocin 1 applic 07/29/20 21:00 07/29/20 22:18 Mupirocin 2% Oint 22 Gm Tube NASAL 08/01/20 21:01 1 applic BID [facility] Administration Ondansetron HCl 4 mg 07/29/20 16:04 07/30/20 01:57 Ondansetron 4 Mg/2 Ml Vial IVP 4 mg Q6HR PRN Administration Nausea And Vomiting Pantoprazole Sodium 40 mg 07/30/20 07:30 Pantoprazole 40 Mg Tablet PO AC-BRKFST [place] Senna/Docusate Sodium 2 each 07/30/20 21:00 Sennosides-Docusate Sodium 1 Each Tab PO HS [facility] Sodium Chloride 10 ml 07/29/20 21:00 07/29/20 21:38 Sodium Chloride 0.9% Flush 10 Ml Syringe IV Not Given BID [facility] Tamsulosin HCl 0.4 mg 07/29/20 21:00 07/29/20 22:31 Tamsulosin 0.4 Mg Cap.Er.24h PO Not Given HS [facility] Intake and Output 07/29/20 07/30/20 07/30/20 22:59 06:59 14:59 Intake Total 1148.768 809.360 90.5 Output Total 1875 1004 60 Balance -726.232 -194.640 30.5 Intake: IV 455 632 89 0.9 @ 10 10 0.9 @10 10 CO/CI 90 160 30 Pressure bags 45 72 9 Sodium Chloride 0.9% 1, 300 400 50 000 ml @ 20 mls/hr IV . Q24H [facility] Rx#:[id number] Intake, IV Titration 693.768 177.360 1.5 Amount ACETAMINOPHEN IV (For NPO 100 100 ) 1,000 mg In Empty Bag 1 bag @ 400 mls/hr IVPB Q6HR [facility] Rx#:[id number] Albumin Human 5% 250 ml 500 In Empty Bag 1 bag @ 250 mls/hr IVPB Q1HR [facility]N Rx#: [id number] Clevidipine Butyrate 25 6.667 mg In Empty Bag 1 bag @ 1 MG/HR 2 mls/hr IV .Q24H [facility] Rx#:[id number] Insulin Regular 100 unit 12.601 15.360 In Sodium Chloride 0.9% 100 ml @ Per Protocol IV .Q0M [facility] Rx#:[id number] Nitroglycerin-D5w Pmx 50 4.5 12.0 1.5 mg In Dextrose/Water 1 250ml.bag @ 5 MCG/MIN 1.5 mls/hr IV .Q24H [facility] Rx#: [id number] ceFAZolin 2 gm In Sodium 50 50 Chloride 0.9% 50 ml @ 100 mls/hr IVPB Q8H [facility] Rx#: [id number] propofoL 1,000 mg In 20 Empty Bag 1 bag @ Titrate IV .Q0M [facility] Rx#: [id number] Output: Chest Tube Drainage 620 184 10 Bilateral Mediastinal 295 140 0 Left Lateral Chest 240 30 10 Right Lateral Chest 85 14 0 Drainage 685 15 Left Arm 5 Left Lower Calf 685 10 Urine 570 820 35 Other: Voiding Method Indwelling Catheter Indwelling Catheter Weight 100.2 kg 07/30/20 04:35 07/30/20 04:35 Assessment and Plan Assessment: Assessment #1 severe triple-vessel CAD and status post CABG 4 #2 diabetes type 2 #3 hypertension #4 dyslipidemia Plan #1 continue the current medical regimen including antiplatelet and anti-ischemic medication #2 the patient is intolerant to statin currently on [place] #3 continue monitor urine output #4 continue monitor the rhythm #5 monitor the kidney function and electrolytes #6 follow-up with the patient
[2020-07-30] MEDS: IPRATROPIUM-ALBUTEROL 3 ML NEB INHALATION SCH ×4 (08:03→20:12)
--- NOTE | 2020-07-30 08:03 | XR ---
EXAMINATION TYPE: XR chest 1V portable DATE OF EXAM: 07/30/2020 COMPARISON: 07/27/2020 INDICATION: Postoperative cardiac surgery TECHNIQUE: Single frontal view of the chest is obtained. FINDINGS: The heart size is mildly prominent. Sternotomy wires are present. The pulmonary vasculature is normal. There is a mild infiltrate at the left base. Correlate for atelectasis. [place]-Bri catheter is in tip in the right main pulmonary artery region. Bilateral chest tubes are pre sent. No pneumothorax is evident. Mediastinal chest tubes are present in the midline. IMPRESSION: 1. Mild infiltrate at the left base. Correlate for atelectasis. 2. Multiple lines and catheters discussed above.
[2020-07-30] MEDS: ASPIRIN 325 MG TAB PO SCH (08:23)
[2020-07-30] MEDS: EZETIMIBE 10 MG TAB PO SCH (08:23)
[2020-07-30] MEDS: CLOPIDOGREL 75 MG TAB PO SCH (08:23)
[2020-07-30] MEDS: PANTOPRAZOLE 40 MG TABLET PO SCH (08:24)
[2020-07-30] MEDS: MUPIROCIN 2% OINT 22 GM TUBE NASAL SCH ×2 (08:24→19:58)
[2020-07-30] MEDS: HEPARIN SODIUM,PORCINE 5,000 UNIT/ML 1 ML VIAL SQ SCH ×3 (08:24→23:52)
[2020-07-30] MEDS: FENOFIBRATE 160 MG TAB PO SCH (08:24)
[2020-07-30] MEDS: HYDROcodone/APAP 5-325MG 1 EACH TAB PO PRN ×2 (08:29→16:05)
[2020-07-30 08:34] LABS: Glucose,Whole Blood 137 mg/dL (75-99)
[2020-07-30] MEDS ORDERED: METOPROLOL TARTRATE 12.5 MG TAB PO SCH (09:00)
[2020-07-30] MEDS ORDERED: amLODIPine 2.5 MG TAB PO SCH (09:00)
[2020-07-30] MEDS ORDERED: bisacodyL 10 MG SUPP RECTAL PRN (09:00)
[2020-07-30] MEDS ORDERED: PANTOPRAZOLE 40 MG/10 ML VIAL IVP SCH (09:00)
[2020-07-30] MEDS ORDERED: METOPROLOL TARTRATE 25 MG TAB PO SCH (09:00)
[2020-07-30] MEDS ORDERED: MAGNESIUM HYDROXIDE 2,400 MG/10 ML CUP PO PRN (09:00)
--- NOTE | 2020-07-30 09:09 | P.PN ---
Subjective Progress Note Date: 07/30/20 Principal diagnosis: Symptomatic multivessel coronary artery disease, preserved systolic function, [id number] mitral valve regurgitation. Past medical history significant for coronary artery disease with prior multiple stents placement in 1995, 1996, 2005 and 2015, hypertension, hyperlipidemia, recent diagnosis of diabetes mellitus type 2, diet-controlled with recent hemoglobin A1c of 6.4%, benign prostatic hypertrophy, history of nephrolithiasis, history of elevated BUN and creatinine with a BUN preoperatively of 24 and creatinine 1.28, vertigo, obstructive sleep apnea with home CPAP use, family history of early onset coronary artery disease with his mother having a coronary artery bypass grafting surgery in her 50s. POD #1 quadruple coronary artery bypass grafting using the left internal mammary artery to left anterior descending coronary artery, the left radial artery from the aorta to the obtuse marginal coronary artery, a reverse greater saphenous vein graft from the aorta to the ramus intermedius coronary artery, and a reverse greater saphenous vein graft from the aorta to the posterior descending coronary artery. Endoscopic harvesting of the left radial artery. Endoscopic harvesting of the left greater saphenous vein. Intraoperative graft flow measurement using the [employer] system. Intraoperative transesophageal echocardiogram and epi-aortic scanning. The patient was seen in follow-up today 07/30/2020 at his bedside in the intensive care unit. Currently he is sitting up to the bedside chair, he is awake, alert and oriented 3 and is in no acute distress. He is hemodynamically stable and is currently on no inotropic or pressor support. Right IJ Cordis with [place]-Bri catheter is in place with current hemodynamics showing a cardiac output of 5.9, cardiac index 2.8, PA pressures 28/11 and CVP pressure of 3 mmHg. Denies any complaints of shortness of breath although is complaining of some surgical type pain to his chest tube insertion sites. He was successfully extubated last night at 21:25 PM. Oxygen saturation are 94% on 2 L nasal cannula and he is achieving 3643-3520 mL on his incentive spirometry. Mediastinal/left and right pleural chest tubes remain in place to low continuous wall suction -20 cm H2O. No air leak is present. They continue to drain thin serosanguineous drainage. Mediastinal chest tubes drained 140 mL output in the last 8 hours, and 430 mL output since surgery. Left pleural chest tube drained 40 mL output last 8 hours, 95 mL output since surgery. Right pleural chest tube drained 15 mL output in the last 8 hours, and 280 mL output since surgery. Bedside telemetry showing normal sinus rhythm with occasional PACs heart rate 99. Objective - Vital Signs Vital signs: Vital Signs Temp 98.8 F 07/30/20 04:00 Pulse 93 07/30/20 08:18 Resp 20 07/30/20 07:00 BP 107/60 07/30/20 07:00 Pulse Ox 93 L 07/30/20 07:00 Intake & Output 07/29/20 07/30/20 07/30/20 18:59 06:59 18:59 Intake Total 937.463 5890.461 95.247 Output Total 3362 1657 60 Balance -2769.333 -257.539 35.247 Weight 100.2 kg Intake: IV 166 955 89 0.9 @ 10 10 0.9 @10 10 CO/CI 250 30 Pressure bags 12 105 9 Sodium Chloride 0.9% 1, 100 600 50 000 ml @ 20 mls/hr IV . Q24H [place] Rx#:[id number] Intake, IV Titration 426.667 444.461 6.247 Amount ACETAMINOPHEN IV (For NPO 100 100 ) 1,000 mg In Empty Bag 1 bag @ 400 mls/hr IVPB Q6HR [place] Rx#:[id number] Albumin Human 5% 250 ml 250 250 In Empty Bag 1 bag @ 250 mls/hr IVPB Q1HR PRN Rx#: [id number] Clevidipine Butyrate 25 6.667 mg In Empty Bag 1 bag @ 1 MG/HR 2 mls/hr IV .Q24H [place] Rx#:[id number] Insulin Regular 100 unit 27.961 4.747 In Sodium Chloride 0.9% 100 ml @ Per Protocol IV .Q0M [place] Rx#:[id number] Nitroglycerin-D5w Pmx 50 16.5 1.5 mg In Dextrose/Water 1 250ml.bag @ 5 MCG/MIN 1.5 mls/hr IV .Q24H [place] Rx#: [id number] ceFAZolin 2 gm In Sodium 50 50 Chloride 0.9% 50 ml @ 100 mls/hr IVPB Q8H [place] Rx#: [id number] propofoL 1,000 mg In 20 Empty Bag 1 bag @ Titrate IV .Q0M [place] Rx#: [id number] Output: Chest Tube Drainage 482 322 10 Bilateral Mediastinal 215 220 0 Left Lateral Chest 220 50 10 Right Lateral Chest 47 52 0 Drainage 370 315 15 Left Arm 5 Left Lower Calf 370 315 10 Urine 1310 1020 35 Estimated Blood Loss 1200 Other: Voiding Method Indwelling Catheter Indwelling Catheter ABP, PAP, CO, CI - Last Documented Arterial Blood Pressure 100/47 Pulmonary Artery Pressure 33/13 Cardiac Output 5.9 Cardiac Index 2.8 - Constitutional General appearance: Present: cooperative, no acute distress, obese - EENT Eyes: Present: PERRLA, normal appearance. Absent: scleral icterus ENT: Present: hearing grossly normal - Neck Details: Neck is supple, no JVD, no lymphadenopathy. - Respiratory Details: Lungs sounds essentially clear throughout, diminished to his bilateral bases. No wheezes, crackles or rhonchi. Respirations are symmetrical and nonlabored. Oxygen saturation are 94% on 2 L nasal cannula. Achieving 4602-9059 mL on his incentive spirometry. Mediastinal/left and right pleural chest tubes remain in place to low continuous wall suction -20 cm H2O. No air leak is present. They continue to drain thin serosanguineous drainage. Mediastinal chest tubes drained 140 mL output in the last 8 hours, and 430 mL output since surgery. Left pleural chest tube drained 40 mL output last 8 hours, 95 mL output since surgery. Right pleural chest tube drained 15 mL output in the last 8 hours, and 280 mL output since surgery. - Cardiovascular Details: Regular rhythm and rate. S1 and S2 present, negative for S3, gallop or murmur. Sternum is stable. Atrial epicardial pacemaker wires in place and connected the backup bedside pacemaker generator on an AAI of 50. Heart hugger is in place and he is demonstrating appropriate use. Right IJ Cordis with [place]-Bri catheter in place with current hemodynamics showing a cardiac output of 5.9, cardiac index 2.8, PA pressures 28/11 and CVP pressure of 3 mmHg. knee-high MELISSA hose and sequential compression devices in place was bilateral lower extremities. No edema present. - Gastrointestinal Gastrointestinal Comment(s): Abdomen is soft, nontender and nondistended. Hypoactive bowel sounds present all 4 abdominal quadrants. No guarding or rigidity. No organomegaly appreciated. Tolerating oral intake. - Genitourinary Genitourinary Comment(s): Loaiza catheter for accurate I&O. Draining clear yellow urine. 820 mL output in the last 8 hours. - Integumentary Integumentary Comment(s): Skin is warm and dry. No clubbing or cyanosis is present. Midline sternal incision is clean, dry and well approximated. Dressing is clean, dry and intact. Left radial artery harvest sites are clean, dry and well approximated. GORAN drain in place with minimal thin serosanguineous drainage. Left lower extremity EVH site is clean, dry and approximated. No drainage or redness is present. GORAN drain in place with minimal thin serosanguineous drainage. - Neurologic Neurologic: Present: CNII-XII intact - Musculoskeletal Musculoskeletal: Present: gait normal, generalized weakness, strength equal bilaterally - Psychiatric Psychiatric: Present: A&O x's 3, appropriate affect, intact judgment & insight - Allied health notes Allied health notes reviewed: nursing - Labs CBC & Chem 7: 07/30/20 04:35 07/30/20 04:35 Labs: Abnormal Lab Results - Last 24 Hours (Table) 07/23/20 07/29/20 07/29/20 Range/Units 13:59 08:57 11:05 RBC (4.30-5.90) m/uL Hgb (13.0-17.5) gm/dL Hct (39.0-53.0) % Plt Count (150-450) k/uL Neutrophils # (1.3-7.7) k/uL Lymphocytes # (1.0-4.8) k/uL PT (9.0-12.0) sec INR (<1.2) APTT (22.0-30.0) sec ABG pH 7.32 L (7.35-7.45) ABG pCO2 47 H (35-45) mmHg ABG pO2 139 H 149 H (83-108) mmHg ABG HCO3 (21-25) mmol/L ABG Total CO2 25 H 26 H (19-24) mmol/L ABG O2 Saturation 99.1 H 99.1 H (94-97) % ABG Hematocrit (34.0-46.0) % ABG Potassium (3.4-4.5) mmol/L ABG Ionized Calcium (4.5-5.3) mg/dL ABG Glucose 105 H 115 H (75-99) mg/dL ABG Lactic Acid (0.5-1.6) mmol/L Hemoglobin 12.6 L 11.3 L (13.0-17.5) gm/dL Sodium (137-145) mmol/L Glucose (74-99) mg/dL POC Glucose (mg/dL) (75-99) mg/dL Calcium (8.4-10.2) mg/dL Ionized Calcium Gregory (4.5-5.3) mg/dL Magnesium (1.6-2.3) mg/dL Alkaline Phosphatase (38-126) U/L Total Protein (6.3-8.2) g/dL Albumin (3.5-5.0) g/dL Arterial Blood Potassium (3.4-4.5) mmol/L Arterial Blood Glucose 105 H 115 H (75-99) mg/dL Crossmatch See Detail 07/29/20 07/29/20 07/29/20 Range/Units 12:40 13:09 13:40 RBC (4.30-5.90) m/uL Hgb (13.0-17.5) gm/dL Hct (39.0-53.0) % Plt Count (150-450) k/uL Neutrophils # (1.3-7.7) k/uL Lymphocytes # (1.0-4.8) k/uL PT (9.0-12.0) sec INR (<1.2) APTT (22.0-30.0) sec ABG pH (7.35-7.45) ABG pCO2 (35-45) mmHg ABG pO2 269 H 268 H 209 H (83-108) mmHg ABG HCO3 26 H (21-25) mmol/L ABG Total CO2 27 H 26 H 26 H (19-24) mmol/L ABG O2 Saturation 99.9 H 99.9 H 99.7 H (94-97) % ABG Hematocrit 25 L 25 L 26 L (34.0-46.0) % ABG Potassium 4.7 H (3.4-4.5) mmol/L ABG Ionized Calcium 4.2 L 4.2 L 4.3 L (4.5-5.3) mg/dL ABG Glucose 170 H 190 H 182 H (75-99) mg/dL ABG Lactic Acid 2.2 H* 2.2 H* 2.2 H* (0.5-1.6) mmol/L Hemoglobin 8.2 L 8.3 L 8.4 L (13.0-17.5) gm/dL Sodium (137-145) mmol/L Glucose (74-99) mg/dL POC Glucose (mg/dL) (75-99) mg/dL Calcium (8.4-10.2) mg/dL Ionized Calcium Gregory (4.5-5.3) mg/dL Magnesium (1.6-2.3) mg/dL Alkaline Phosphatase (38-126) U/L Total Protein (6.3-8.2) g/dL Albumin (3.5-5.0) g/dL Arterial Blood Potassium 4.7 H (3.4-4.5) mmol/L Arterial Blood Glucose 170 H 190 H 182 H (75-99) mg/dL Crossmatch 07/29/20 07/29/20 07/29/20 Range/Units 15:13 16:06 16:07 RBC 2.94 L (4.30-5.90) m/uL Hgb 9.2 L D (13.0-17.5) gm/dL Hct 27.5 L (39.0-53.0) % Plt Count 96 L (150-450) k/uL Neutrophils # (1.3-7.7) k/uL Lymphocytes # 0.5 L (1.0-4.8) k/uL PT (9.0-12.0) sec INR (<1.2) APTT (22.0-30.0) sec ABG pH (7.35-7.45) ABG pCO2 (35-45) mmHg ABG pO2 164 H (83-108) mmHg ABG HCO3 (21-25) mmol/L ABG Total CO2 27 H (19-24) mmol/L ABG O2 Saturation 99.4 H (94-97) % ABG Hematocrit 29 L (34.0-46.0) % ABG Potassium (3.4-4.5) mmol/L ABG Ionized Calcium 4.3 L (4.5-5.3) mg/dL ABG Glucose 120 H (75-99) mg/dL ABG Lactic Acid 2.0 H (0.5-1.6) mmol/L Hemoglobin 9.4 L (13.0-17.5) gm/dL Sodium (137-145) mmol/L Glucose (74-99) mg/dL POC Glucose (mg/dL) 106 H (75-99) mg/dL Calcium (8.4-10.2) mg/dL Ionized Calcium Gregory (4.5-5.3) mg/dL Magnesium (1.6-2.3) mg/dL Alkaline Phosphatase (38-126) U/L Total Protein (6.3-8.2) g/dL Albumin (3.5-5.0) g/dL Arterial Blood Potassium (3.4-4.5) mmol/L Arterial Blood Glucose 120 H (75-99) mg/dL Crossmatch 07/29/20 07/29/20 07/29/20 Range/Units 16:07 16:07 16:24 RBC (4.30-5.90) m/uL Hgb (13.0-17.5) gm/dL Hct (39.0-53.0) % Plt Count (150-450) k/uL Neutrophils # (1.3-7.7) k/uL Lymphocytes # (1.0-4.8) k/uL PT 12.8 H (9.0-12.0) sec INR 1.3 H (<1.2) APTT 33.3 H (22.0-30.0) sec ABG pH (7.35-7.45) ABG pCO2 (35-45) mmHg ABG pO2 229 H (83-108) mmHg ABG HCO3 (21-25) mmol/L ABG Total CO2 26 H (19-24) mmol/L ABG O2 Saturation 99.6 H (94-97) % ABG Hematocrit (34.0-46.0) % ABG Potassium (3.4-4.5) mmol/L ABG Ionized Calcium (4.5-5.3) mg/dL ABG Glucose (75-99) mg/dL ABG Lactic Acid (0.5-1.6) mmol/L Hemoglobin (13.0-17.5) gm/dL Sodium 134 L (137-145) mmol/L Glucose 100 H (74-99) mg/dL POC Glucose (mg/dL) (75-99) mg/dL Calcium 7.5 L (8.4-10.2) mg/dL Ionized Calcium Gregory 4.4 L (4.5-5.3) mg/dL Magnesium 2.4 H (1.6-2.3) mg/dL Alkaline Phosphatase <20 L (38-126) U/L Total Protein 4.2 L (6.3-8.2) g/dL Albumin 2.7 L (3.5-5.0) g/dL Arterial Blood Potassium (3.4-4.5) mmol/L Arterial Blood Glucose (75-99) mg/dL Crossmatch 07/29/20 07/29/20 07/29/20 Range/Units 16:39 18:05 18:08 RBC 3.13 L (4.30-5.90) m/uL Hgb 10.1 L (13.0-17.5) gm/dL Hct 29.5 L (39.0-53.0) % Plt Count 131 L (150-450) k/uL Neutrophils # 7.8 H (1.3-7.7) k/uL Lymphocytes # 0.6 L (1.0-4.8) k/uL PT (9.0-12.0) sec INR (<1.2) APTT (22.0-30.0) sec ABG pH (7.35-7.45) ABG pCO2 (35-45) mmHg ABG pO2 (83-108) mmHg ABG HCO3 (21-25) mmol/L ABG Total CO2 (19-24) mmol/L ABG O2 Saturation (94-97) % ABG Hematocrit (34.0-46.0) % ABG Potassium (3.4-4.5) mmol/L ABG Ionized Calcium (4.5-5.3) mg/dL ABG Glucose (75-99) mg/dL ABG Lactic Acid (0.5-1.6) mmol/L Hemoglobin (13.0-17.5) gm/dL Sodium (137-145) mmol/L Glucose (74-99) mg/dL POC Glucose (mg/dL) 105 H 153 H (75-99) mg/dL Calcium (8.4-10.2) mg/dL Ionized Calcium Gregory (4.5-5.3) mg/dL Magnesium (1.6-2.3) mg/dL Alkaline Phosphatase (38-126) U/L Total Protein (6.3-8.2) g/dL Albumin (3.5-5.0) g/dL Arterial Blood Potassium (3.4-4.5) mmol/L Arterial Blood Glucose (75-99) mg/dL Crossmatch 07/29/20 07/29/20 07/29/20 Range/Units 18:55 19:56 20:45 RBC (4.30-5.90) m/uL Hgb (13.0-17.5) gm/dL Hct (39.0-53.0) % Plt Count (150-450) k/uL Neutrophils # (1.3-7.7) k/uL Lymphocytes # (1.0-4.8) k/uL PT (9.0-12.0) sec INR (<1.2) APTT (22.0-30.0) sec ABG pH (7.35-7.45) ABG pCO2 (35-45) mmHg ABG pO2 148 H (83-108) mmHg ABG HCO3 (21-25) mmol/L ABG Total CO2 (19-24) mmol/L ABG O2 Saturation 99.1 H (94-97) % ABG Hematocrit (34.0-46.0) % ABG Potassium (3.4-4.5) mmol/L ABG Ionized Calcium (4.5-5.3) mg/dL ABG Glucose (75-99) mg/dL ABG Lactic Acid (0.5-1.6) mmol/L Hemoglobin (13.0-17.5) gm/dL Sodium (137-145) mmol/L Glucose (74-99) mg/dL POC Glucose (mg/dL) 156 H 144 H (75-99) mg/dL Calcium (8.4-10.2) mg/dL Ionized Calcium Gregory (4.5-5.3) mg/dL Magnesium (1.6-2.3) mg/dL Alkaline Phosphatase (38-126) U/L Total Protein (6.3-8.2) g/dL Albumin (3.5-5.0) g/dL Arterial Blood Potassium (3.4-4.5) mmol/L Arterial Blood Glucose (75-99) mg/dL Crossmatch 07/29/20 07/29/20 07/29/20 Range/Units 20:45 20:47 21:57 RBC 2.89 L (4.30-5.90) m/uL Hgb 9.0 L (13.0-17.5) gm/dL Hct 27.3 L (39.0-53.0) % Plt Count 146 L (150-450) k/uL Neutrophils # 8.4 H (1.3-7.7) k/uL Lymphocytes # 0.5 L (1.0-4.8) k/uL PT (9.0-12.0) sec INR (<1.2) APTT (22.0-30.0) sec ABG pH (7.35-7.45) ABG pCO2 (35-45) mmHg ABG pO2 (83-108) mmHg ABG HCO3 (21-25) mmol/L ABG Total CO2 (19-24) mmol/L ABG O2 Saturation (94-97) % ABG Hematocrit (34.0-46.0) % ABG Potassium (3.4-4.5) mmol/L ABG Ionized Calcium (4.5-5.3) mg/dL ABG Glucose (75-99) mg/dL ABG Lactic Acid (0.5-1.6) mmol/L Hemoglobin (13.0-17.5) gm/dL Sodium (137-145) mmol/L Glucose (74-99) mg/dL POC Glucose (mg/dL) 151 H 141 H (75-99) mg/dL Calcium (8.4-10.2) mg/dL Ionized Calcium Gregory (4.5-5.3) mg/dL Magnesium (1.6-2.3) mg/dL Alkaline Phosphatase (38-126) U/L Total Protein (6.3-8.2) g/dL Albumin (3.5-5.0) g/dL Arterial Blood Potassium (3.4-4.5) mmol/L Arterial Blood Glucose (75-99) mg/dL Crossmatch 07/29/20 07/29/20 07/30/20 Range/Units 22:55 23:54 00:57 RBC (4.30-5.90) m/uL Hgb (13.0-17.5) gm/dL Hct (39.0-53.0) % Plt Count (150-450) k/uL Neutrophils # (1.3-7.7) k/uL Lymphocytes # (1.0-4.8) k/uL PT (9.0-12.0) sec INR (<1.2) APTT (22.0-30.0) sec ABG pH (7.35-7.45) ABG pCO2 (35-45) mmHg ABG pO2 (83-108) mmHg ABG HCO3 (21-25) mmol/L ABG Total CO2 (19-24) mmol/L ABG O2 Saturation (94-97) % ABG Hematocrit (34.0-46.0) % ABG Potassium (3.4-4.5) mmol/L ABG Ionized Calcium (4.5-5.3) mg/dL ABG Glucose (75-99) mg/dL ABG Lactic Acid (0.5-1.6) mmol/L Hemoglobin (13.0-17.5) gm/dL Sodium (137-145) mmol/L Glucose (74-99) mg/dL POC Glucose (mg/dL) 119 H 124 H 122 H (75-99) mg/dL Calcium (8.4-10.2) mg/dL Ionized Calcium Gregory (4.5-5.3) mg/dL Magnesium (1.6-2.3) mg/dL Alkaline Phosphatase (38-126) U/L Total Protein (6.3-8.2) g/dL Albumin (3.5-5.0) g/dL Arterial Blood Potassium (3.4-4.5) mmol/L Arterial Blood Glucose (75-99) mg/dL Crossmatch 07/30/20 07/30/20 07/30/20 Range/Units 02:05 03:04 04:05 RBC (4.30-5.90) m/uL Hgb (13.0-17.5) gm/dL Hct (39.0-53.0) % Plt Count (150-450) k/uL Neutrophils # (1.3-7.7) k/uL Lymphocytes # (1.0-4.8) k/uL PT (9.0-12.0) sec INR (<1.2) APTT (22.0-30.0) sec ABG pH (7.35-7.45) ABG pCO2 (35-45) mmHg ABG pO2 (83-108) mmHg ABG HCO3 (21-25) mmol/L ABG Total CO2 (19-24) mmol/L ABG O2 Saturation (94-97) % ABG Hematocrit (34.0-46.0) % ABG Potassium (3.4-4.5) mmol/L ABG Ionized Calcium (4.5-5.3) mg/dL ABG Glucose (75-99) mg/dL ABG Lactic Acid (0.5-1.6) mmol/L Hemoglobin (13.0-17.5) gm/dL Sodium (137-145) mmol/L Glucose (74-99) mg/dL POC Glucose (mg/dL) 131 H 132 H 120 H (75-99) mg/dL Calcium (8.4-10.2) mg/dL Ionized Calcium Gregory (4.5-5.3) mg/dL Magnesium (1.6-2.3) mg/dL Alkaline Phosphatase (38-126) U/L Total Protein (6.3-8.2) g/dL Albumin (3.5-5.0) g/dL Arterial Blood Potassium (3.4-4.5) mmol/L Arterial Blood Glucose (75-99) mg/dL Crossmatch 07/30/20 07/30/20 07/30/20 Range/Units 04:35 04:35 04:55 RBC 2.59 L (4.30-5.90) m/uL Hgb 8.0 L (13.0-17.5) gm/dL Hct 24.3 L (39.0-53.0) % Plt Count 115 L (150-450) k/uL Neutrophils # (1.3-7.7) k/uL Lymphocytes # 0.4 L (1.0-4.8) k/uL PT (9.0-12.0) sec INR (<1.2) APTT (22.0-30.0) sec ABG pH (7.35-7.45) ABG pCO2 (35-45) mmHg ABG pO2 (83-108) mmHg ABG HCO3 (21-25) mmol/L ABG Total CO2 (19-24) mmol/L ABG O2 Saturation (94-97) % ABG Hematocrit (34.0-46.0) % ABG Potassium (3.4-4.5) mmol/L ABG Ionized Calcium (4.5-5.3) mg/dL ABG Glucose (75-99) mg/dL ABG Lactic Acid (0.5-1.6) mmol/L Hemoglobin (13.0-17.5) gm/dL Sodium 133 L (137-145) mmol/L Glucose 124 H (74-99) mg/dL POC Glucose (mg/dL) 113 H (75-99) mg/dL Calcium 7.9 L (8.4-10.2) mg/dL Ionized Calcium Gregory (4.5-5.3) mg/dL Magnesium (1.6-2.3) mg/dL Alkaline Phosphatase 21 L (38-126) U/L Total Protein 4.5 L (6.3-8.2) g/dL Albumin 3.0 L (3.5-5.0) g/dL Arterial Blood Potassium (3.4-4.5) mmol/L Arterial Blood Glucose (75-99) mg/dL Crossmatch 07/30/20 07/30/20 07/30/20 Range/Units 06:04 06:58 08:33 RBC (4.30-5.90) m/uL Hgb (13.0-17.5) gm/dL Hct (39.0-53.0) % Plt Count (150-450) k/uL Neutrophils # (1.3-7.7) k/uL Lymphocytes # (1.0-4.8) k/uL PT (9.0-12.0) sec INR (<1.2) APTT (22.0-30.0) sec ABG pH (7.35-7.45) ABG pCO2 (35-45) mmHg ABG pO2 (83-108) mmHg ABG HCO3 (21-25) mmol/L ABG Total CO2 (19-24) mmol/L ABG O2 Saturation (94-97) % ABG Hematocrit (34.0-46.0) % ABG Potassium (3.4-4.5) mmol/L ABG Ionized Calcium (4.5-5.3) mg/dL ABG Glucose (75-99) mg/dL ABG Lactic Acid (0.5-1.6) mmol/L Hemoglobin (13.0-17.5) gm/dL Sodium (137-145) mmol/L Glucose (74-99) mg/dL POC Glucose (mg/dL) 148 H 150 H 137 H (75-99) mg/dL Calcium (8.4-10.2) mg/dL Ionized Calcium Gregory (4.5-5.3) mg/dL Magnesium (1.6-2.3) mg/dL Alkaline Phosphatase (38-126) U/L Total Protein (6.3-8.2) g/dL Albumin (3.5-5.0) g/dL Arterial Blood Potassium (3.4-4.5) mmol/L Arterial Blood Glucose (75-99) mg/dL Crossmatch - Imaging and Cardiology Chest x-ray: report reviewed, image reviewed Assessment and Plan Assessment: 1. Symptomatic multivessel coronary artery disease, status post four-vessel CABG 2. Mild to moderate mitral valve regurgitation, Preserved systolic function 3. Hypertension 4. History of coronary artery disease with prior multiple stent placement in 1995, 1996, 2005 and in April 2016 5. Hyperlipidemia 6. Recently diagnosed diabetes mellitus type 2, diet-controlled and preoper ative hemoglobin A1c of 6.4% 7. History of preoperative elevation of his BUN and creatinine, on 07/12/2020 BUN 24, creatinine 1.28 8. Obstructive sleep apnea with home CPAP use 9. History of nephrolithiasis 10. Family history of early onset coronary artery disease with his mother having a coronary artery bypass grafting surgery in her early 50s 11. History of vertigo 12. Benign prostatic hypertrophy Plan: 1. Continue aspirin, zetia, lofibra, Plavix, beta cleopatra. The patient is statin intolerant. Will increase metoprolol tartrate 25 mg by mouth twice a day. 2. Discontinue IV nitro. Add Norvasc 2.5 mg by mouth daily for radial artery spasm prophylaxis. Please do not discontinue Norvasc without discussing with cardiac surgery. 3. Wean O2 as tolerated. Encourage incentive spirometry use 10 times every hour while awake. Bronchodilators per pulmonology/critical care medicine. 4. Increase activity, ambulate as tolerated. PT/OT/cardiac rehab consulted. 5. Will monitor daily labs and chest x-rays. Electrolyte replacement per protocol. 6. GI/DVT prophylaxis. 7. Pain control with current medication regimen. 8. Discontinue [place]. Connect Cordis to continuous CVP monitoring. 9. Discontinue GORAN drains. 10. Continue chest tubes for another 24 hours. 11. Continue Loaiza cath for another 24 hours for strict accurate intake and output. 12. Insulin management per primary care service. Preoperative hemoglobin A1c 6.4% 13. More recommendations to follow based on patient's based on patient's clinical course. Time with Patient: Greater than 30
[2020-07-30 09:48] LABS: Glucose,Whole Blood 152 mg/dL (75-99)
[2020-07-30 11:02] LABS: Glucose,Whole Blood 149 mg/dL (75-99)
[2020-07-30 12:16] LABS: Glucose,Whole Blood 157 mg/dL (75-99)
[2020-07-30 13:29] LABS: Glucose,Whole Blood 171 mg/dL (75-99)
[2020-07-30 14:49] LABS: Glucose,Whole Blood 151 mg/dL (75-99)
--- NOTE | 2020-07-30 14:54 | P.PN ---
Subjective Progress Note Date: 07/30/20 Principal diagnosis: Status post quadruple coronary artery bypass grafting postoperative day #1 This is a 75-year-old white male primarily a patient of Dr. Cedeño , patient is known to have history of coronary artery disease and multiple stent placements. Patient had stents placed in 1995, 1996, 2005, and 2015. Normally sees Dr. Mcneill as his host and hostess. Patient is also known to have history of type 2 diabetes, hypertension, dyslipidemia, benign prostatic hypertrophy, nephrolithiasis, obstructive sleep apnea syndrome, on CPAP, patient was seen recently in the hospital with intermittent episodes of chest pains with exercise, underwent transthoracic echocardiogram on 07/24/20 showed normal LV function, mild concentric hypertrophy, [id number] mitral valve re gurgitation, and his cardiac catheterization showed 95% stenosis in his right coronary artery 99% stenosis in his circumflex coronary artery and 95% stenosis of the proximal left anterior descending coronary artery. Patient underwent elective myocardial revascularization today, postoperatively I saw him as soon as he arrived to the ICU, and he was on mechanical ventilation. His ventilator settings are assist control rate of 18 tidal volume is 500 FiO2 of 100% and PEEP of 5. His initial ABG is pending. Patient is hemodynamically stable, and sedated. Chest x-ray is also pending Patient was reevaluated today on 07/30/20, patient was successfully extubated at 21:25 PM yesterday. Tolerated the extubation well, patient is doing great today. Sitting at a bedside chair, relatively asymptomatic, not requiring any pressors or any inotropes. He is hemodynamically stable, doing fairly well with incentive spirometry achieving over 1000 mL. Chest x-ray showed mostly postoperative atelectasis, no significant unusual findings. CBC is unremarkable hemoglobin is 8, basic metabolic profile and renal profile are normal. Objective - Vital Signs Vital signs: Vital Signs Temp 98.1 F 07/30/20 12:00 Pulse 99 07/30/20 14:00 Resp 16 07/30/20 14:00 BP 105/63 07/30/20 14:00 Pulse Ox 92 L 07/30/20 14:00 Intake & Output 07/29/20 07/30/20 07/30/20 18:59 06:59 18:59 Intake Total 682.014 0758.461 675.023 Output Total 3362 1657 615 Balance -2769.333 -257.539 60.023 Weight 100.2 kg 100.2 kg Intake: IV 166 955 268 0.9 @ 10 10 0.9 @10 10 CO/CI 250 50 Pressure bags 12 105 48 Sodium Chloride 0.9% 1, 100 600 170 000 ml @ 20 mls/hr IV . Q24H [place] Rx#:[id number] Intake, IV Titration 426.667 444.461 67.023 Amount ACETAMINOPHEN IV (For NPO 100 100 ) 1,000 mg In Empty Bag 1 bag @ 400 mls/hr IVPB Q6HR [place] Rx#:[id number] Albumin Human 5% 250 ml 250 250 In Empty Bag 1 bag @ 250 mls/hr IVPB Q1HR PRN Rx#: [id number] Clevidipine Butyrate 25 6.667 mg In Empty Bag 1 bag @ 1 MG/HR 2 mls/hr IV .Q24H [place] Rx#:[id number] Insulin Regular 100 unit 27.961 14.023 In Sodium Chloride 0.9% 100 ml @ Per Protocol IV .Q0M [place] Rx#:[id number] Nitroglycerin-D5w Pmx 50 16.5 3.0 mg In Dextrose/Water 1 250ml.bag @ 5 MCG/MIN 1.5 mls/hr IV .Q24H [place] Rx#: [id number] ceFAZolin 2 gm In Sodium 50 50 50 Chloride 0.9% 50 ml @ 100 mls/hr IVPB Q8H [place] Rx#: [id number] propofoL 1,000 mg In 20 Empty Bag 1 bag @ Titrate IV .Q0M [place] Rx#: [id number] Oral 340 Output: Chest Tube Drainage 482 322 230 Bilateral Mediastinal 215 220 120 Left Lateral Chest 220 50 110 Right Lateral Chest 47 52 0 Drainage 370 315 55 Left Arm 25 Left Lower Calf 370 315 30 Urine 1310 1020 330 Estimated Blood Loss 1200 Other: Voiding Method Indwelling Catheter Indwelling Catheter Indwelling Catheter ABP, PAP, CO, CI - Last Documented Arterial Blood Pressure 106/63 Pulmonary Artery Pressure 28/12 Cardiac Output 6.8 Cardiac Index 3.3 - Exam Physical Exam: Revealed 75-year-old white male, on nasal cannula, in no distress. Head: Atraumatic, normocephalic. HEENT:[Neck is supple.] [No neck masses.] [No thyromegaly.] [No JVD.] Chest: Impression breath sounds at the bases no crackles or rhonchi or wheezes.Mediastinal/left and right pleural chest tubes remain in place to low continuous wall suction -20 cm H2O. No air leak is present. They continue to drain thin serosanguineous drainage. Mediastinal chest tubes drained 140 mL output in the last 8 hours, and 430 mL output since surgery. Left pleural chest tube drained 40 mL output last 8 hours, 95 mL output since surgery. Right pleural chest tube drained 15 mL output in the last 8 hours, and 280 mL output since surgery. Cardiac Exam: [Normal S1 and S2, no S3 gallop, 2/6 systolic murmur thought the precordium, positive pericardial.Sternum is stable. Atrial epicardial pacemaker wires in place and connected the backup bedside pacemaker generator on an AAI of 50. Heart hugger is in place and he is demonstrating appropriate use. Right IJ Cordis with Morrow-Bri catheter in place with current hemodynamics showing a cardiac output of 5.9, cardiac index 2.8, PA pressures 28/11 and CVP pressure of 3 mmHg. knee-high MELISSA hose and sequential compression devices in place was bilateral lower extremities. No edema present. Abdomen: [Soft, nontender, no megaly, no rebound, no guarding, normal bowel sounds.] Extremities: [No clubbing, no edema, no cyanosis.] Neurological Exam: Alert and oriented 3 focal deficits. Psychiatric: Normal mood, affect and normal mental status examination Skin: No rashes. - Labs CBC & Chem 7: 07/30/20 04:35 07/30/20 04:35 Labs: Abnormal Lab Results - Last 24 Hours (Table) 07/23/20 07/29/20 07/29/20 Range/Units 13:59 08:57 11:05 RBC (4.30-5.90) m/uL Hgb (13.0-17.5) gm/dL Hct (39.0-53.0) % Plt Count (150-450) k/uL Neutrophils # (1.3-7.7) k/uL Lymphocytes # (1.0-4.8) k/uL PT (9.0-12.0) sec INR (<1.2) APTT (22.0-30.0) sec ABG pH 7.32 L (7.35-7.45) ABG pCO2 47 H (35-45) mmHg ABG pO2 139 H 149 H (83-108) mmHg ABG HCO3 (21-25) mmol/L ABG Total CO2 25 H 26 H (19-24) mmol/L ABG O2 Saturation 99.1 H 99.1 H (94-97) % ABG Hematocrit (34.0-46.0) % ABG Potassium (3.4-4.5) mmol/L ABG Ionized Calcium (4.5-5.3) mg/dL ABG Glucose 105 H 115 H (75-99) mg/dL ABG Lactic Acid (0.5-1.6) mmol/L Hemoglobin 12.6 L 11.3 L (13.0-17.5) gm/dL Sodium (137-145) mmol/L Glucose (74-99) mg/dL POC Glucose (mg/dL) (75-99) mg/dL Calcium (8.4-10.2) mg/dL Ionized Calcium Gregory (4.5-5.3) mg/dL Magnesium (1.6-2.3) mg/dL Alkaline Phosphatase (38-126) U/L Total Protein (6.3-8.2) g/dL Albumin (3.5-5.0) g/dL Arterial Blood Potassium (3.4-4.5) mmol/L Arterial Blood Glucose 105 H 115 H (75-99) mg/dL Crossmatch See Detail 07/29/20 07/29/20 07/29/20 Range/Units 12:40 13:09 13:40 RBC (4.30-5.90) m/uL Hgb (13.0-17.5) gm/dL Hct (39.0-53.0) % Plt Count (150-450) k/uL Neutrophils # (1.3-7.7) k/uL Lymphocytes # (1.0-4.8) k/uL PT (9.0-12.0) sec INR (<1.2) APTT (22.0-30.0) sec ABG pH (7.35-7.45) ABG pCO2 (35-45) mmHg ABG pO2 269 H 268 H 209 H (83-108) mmHg ABG HCO3 26 H (21-25) mmol/L ABG Total CO2 27 H 26 H 26 H (19-24) mmol/L ABG O2 Saturation 99.9 H 99.9 H 99.7 H (94-97) % ABG Hematocrit 25 L 25 L 26 L (34.0-46.0) % ABG Potassium 4.7 H (3.4-4.5) mmol/L ABG Ionized Calcium 4.2 L 4.2 L 4.3 L (4.5-5.3) mg/dL ABG Glucose 170 H 190 H 182 H (75-99) mg/dL ABG Lactic Acid 2.2 H* 2.2 H* 2.2 H* (0.5-1.6) mmol/L Hemoglobin 8.2 L 8.3 L 8.4 L (13.0-17.5) gm/dL Sodium (137-145) mmol/L Glucose (74-99) mg/dL POC Glucose (mg/dL) (75-99) mg/dL Calcium (8.4-10.2) mg/dL Ionized Calcium Gregory (4.5-5.3) mg/dL Magnesium (1.6-2.3) mg/dL Alkaline Phosphatase (38-126) U/L Total Protein (6.3-8.2) g/dL Albumin (3.5-5.0) g/dL Arterial Blood Potassium 4.7 H (3.4-4.5) mmol/L Arterial Blood Glucose 170 H 190 H 182 H (75-99) mg/dL Crossmatch 07/29/20 07/29/20 07/29/20 Range/Units 15:13 16:06 16:07 RBC 2.94 L (4.30-5.90) m/uL Hgb 9.2 L D (13.0-17.5) gm/dL Hct 27.5 L (39.0-53.0) % Plt Count 96 L (150-450) k/uL Neutrophils # (1.3-7.7) k/uL Lymphocytes # 0.5 L (1.0-4.8) k/uL PT (9.0-12.0) sec INR (<1.2) APTT (22.0-30.0) sec ABG pH (7.35-7.45) ABG pCO2 (35-45) mmHg ABG pO2 164 H (83-108) mmHg ABG HCO3 (21-25) mmol/L ABG Total CO2 27 H (19-24) mmol/L ABG O2 Saturation 99.4 H (94-97) % ABG Hematocrit 29 L (34.0-46.0) % ABG Potassium (3.4-4.5) mmol/L ABG Ionized Calcium 4.3 L (4.5-5.3) mg/dL ABG Glucose 120 H (75-99) mg/dL ABG Lactic Acid 2.0 H (0.5-1.6) mmol/L Hemoglobin 9.4 L (13.0-17.5) gm/dL Sodium (137-145) mmol/L Glucose (74-99) mg/dL POC Glucose (mg/dL) 106 H (75-99) mg/dL Calcium (8.4-10.2) mg/dL Ionized Calcium Gregory (4.5-5.3) mg/dL Magnesium (1.6-2.3) mg/dL Alkaline Phosphatase (38-126) U/L Total Protein (6.3-8.2) g/dL Albumin (3.5-5.0) g/dL Arterial Blood Potassium (3.4-4.5) mmol/L Arterial Blood Glucose 120 H (75-99) mg/dL Crossmatch 07/29/20 07/29/20 07/29/20 Range/Units 16:07 16:07 16:24 RBC (4.30-5.90) m/uL Hgb (13.0-17.5) gm/dL Hct (39.0-53.0) % Plt Count (150-450) k/uL Neutrophils # (1.3-7.7) k/uL Lymphocytes # (1.0-4.8) k/uL PT 12.8 H (9.0-12.0) sec INR 1.3 H (<1.2) APTT 33.3 H (22.0-30.0) sec ABG pH (7.35-7.45) ABG pCO2 (35-45) mmHg ABG pO2 229 H (83-108) mmHg ABG HCO3 (21-25) mmol/L ABG Total CO2 26 H (19-24) mmol/L ABG O2 Saturation 99.6 H (94-97) % ABG Hematocrit (34.0-46.0) % ABG Potassium (3.4-4.5) mmol/L ABG Ionized Calcium (4.5-5.3) mg/dL ABG Glucose (75-99) mg/dL ABG Lactic Acid (0.5-1.6) mmol/L Hemoglobin (13.0-17.5) gm/dL Sodium 134 L (137-145) mmol/L Glucose 100 H (74-99) mg/dL POC Glucose (mg/dL) (75-99) mg/dL Calcium 7.5 L (8.4-10.2) mg/dL Ionized Calcium Gregory 4.4 L (4.5-5.3) mg/dL Magnesium 2.4 H (1.6-2.3) mg/dL Alkaline Phosphatase <20 L (38-126) U/L Total Protein 4.2 L (6.3-8.2) g/dL Albumin 2.7 L (3.5-5.0) g/dL Arterial Blood Potassium (3.4-4.5) mmol/L Arterial Blood Glucose (75-99) mg/dL Crossmatch 07/29/20 07/29/20 07/29/20 Range/Units 16:39 18:05 18:08 RBC 3.13 L (4.30-5.90) m/uL Hgb 10.1 L (13.0-17.5) gm/dL Hct 29.5 L (39.0-53.0) % Plt Count 131 L (150-450) k/uL Neutrophils # 7.8 H (1.3-7.7) k/uL Lymphocytes # 0.6 L (1.0-4.8) k/uL PT (9.0-12.0) sec INR (<1.2) APTT (22.0-30.0) sec ABG pH (7.35-7.45) ABG pCO2 (35-45) mmHg ABG pO2 (83-108) mmHg ABG HCO3 (21-25) mmol/L ABG Total CO2 (19-24) mmol/L ABG O2 Saturation (94-97) % ABG Hematocrit (34.0-46.0) % ABG Potassium (3.4-4.5) mmol/L ABG Ionized Calcium (4.5-5.3) mg/dL ABG Glucose (75-99) mg/dL ABG Lactic Acid (0.5-1.6) mmol/L Hemoglobin (13.0-17.5) gm/dL Sodium (137-145) mmol/L Glucose (74-99) mg/dL POC Glucose (mg/dL) 105 H 153 H (75-99) mg/dL Calcium (8.4-10.2) mg/dL Ionized Calcium Gregory (4.5-5.3) mg/dL Magnesium (1.6-2.3) mg/dL Alkaline Phosphatase (38-126) U/L Total Protein (6.3-8.2) g/dL Albumin (3.5-5.0) g/dL Arterial Blood Potassium (3.4-4.5) mmol/L Arterial Blood Glucose (75-99) mg/dL Crossmatch 07/29/20 07/29/20 07/29/20 Range/Units 18:55 19:56 20:45 RBC (4.30-5.90) m/uL Hgb (13.0-17.5) gm/dL Hct (39.0-53.0) % Plt Count (150-450) k/uL Neutrophils # (1.3-7.7) k/uL Lymphocytes # (1.0-4.8) k/uL PT (9.0-12.0) sec INR (<1.2) APTT (22.0-30.0) sec ABG pH (7.35-7.45) ABG pCO2 (35-45) mmHg ABG pO2 148 H (83-108) mmHg ABG HCO3 (21-25) mmol/L ABG Total CO2 (19-24) mmol/L ABG O2 Saturation 99.1 H (94-97) % ABG Hematocrit (34.0-46.0) % ABG Potassium (3.4-4.5) mmol/L ABG Ionized Calcium (4.5-5.3) mg/dL ABG Glucose (75-99) mg/dL ABG Lactic Acid (0.5-1.6) mmol/L Hemoglobin (13.0-17.5) gm/dL Sodium (137-145) mmol/L Glucose (74-99) mg/dL POC Glucose (mg/dL) 156 H 144 H (75-99) mg/dL Calcium (8.4-10.2) mg/dL Ionized Calcium Gregory (4.5-5.3) mg/dL Magnesium (1.6-2.3) mg/dL Alkaline Phosphatase (38-126) U/L Total Protein (6.3-8.2) g/dL Albumin (3.5-5.0) g/dL Arterial Blood Potassium (3.4-4.5) mmol/L Arterial Blood Glucose (75-99) mg/dL Crossmatch 07/29/20 07/29/20 07/29/20 Range/Units 20:45 20:47 21:57 RBC 2.89 L (4.30-5.90) m/uL Hgb 9.0 L (13.0-17.5) gm/dL Hct 27.3 L (39.0-53.0) % Plt Count 146 L (150-450) k/uL Neutrophils # 8.4 H (1.3-7.7) k/uL Lymphocytes # 0.5 L (1.0-4.8) k/uL PT (9.0-12.0) sec INR (<1.2) APTT (22.0-30.0) sec ABG pH (7.35-7.45) ABG pCO2 (35-45) mmHg ABG pO2 (83-108) mmHg ABG HCO3 (21-25) mmol/L ABG Total CO2 (19-24) mmol/L ABG O2 Saturation (94-97) % ABG Hematocrit (34.0-46.0) % ABG Potassium (3.4-4.5) mmol/L ABG Ionized Calcium (4.5-5.3) mg/dL ABG Glucose (75-99) mg/dL ABG Lactic Acid (0.5-1.6) mmol/L Hemoglobin (13.0-17.5) gm/dL Sodium (137-145) mmol/L Glucose (74-99) mg/dL POC Glucose (mg/dL) 151 H 141 H (75-99) mg/dL Calcium (8.4-10.2) mg/dL Ionized Calcium Gregory (4.5-5.3) mg/dL Magnesium (1.6-2.3) mg/dL Alkaline Phosphatase (38-126) U/L Total Protein (6.3-8.2) g/dL Albumin (3.5-5.0) g/dL Arterial Blood Potassium (3.4-4.5) mmol/L Arterial Blood Glucose (75-99) mg/dL Crossmatch 07/29/20 07/29/20 07/30/20 Range/Units 22:55 23:54 00:57 RBC (4.30-5.90) m/uL Hgb (13.0-17.5) gm/dL Hct (39.0-53.0) % Plt Count (150-450) k/uL Neutrophils # (1.3-7.7) k/uL Lymphocytes # (1.0-4.8) k/uL PT (9.0-12.0) sec INR (<1.2) APTT (22.0-30.0) sec ABG pH (7.35-7.45) ABG pCO2 (35-45) mmHg ABG pO2 (83-108) mmHg ABG HCO3 (21-25) mmol/L ABG Total CO2 (19-24) mmol/L ABG O2 Saturation (94-97) % ABG Hematocrit (34.0-46.0) % ABG Potassium (3.4-4.5) mmol/L ABG Ionized Calcium (4.5-5.3) mg/dL ABG Glucose (75-99) mg/dL ABG Lactic Acid (0.5-1.6) mmol/L Hemoglobin (13.0-17.5) gm/dL Sodium (137-145) mmol/L Glucose (74-99) mg/dL POC Glucose (mg/dL) 119 H 124 H 122 H (75-99) mg/dL Calcium (8.4-10.2) mg/dL Ionized Calcium Gregory (4.5-5.3) mg/dL Magnesium (1.6-2.3) mg/dL Alkaline Phosphatase (38-126) U/L Total Protein (6.3-8.2) g/dL Albumin (3.5-5.0) g/dL Arterial Blood Potassium (3.4-4.5) mmol/L Arterial Blood Glucose (75-99) mg/dL Crossmatch 07/30/20 07/30/20 07/30/20 Range/Units 02:05 03:04 04:05 RBC (4.30-5.90) m/uL Hgb (13.0-17.5) gm/dL Hct (39.0-53.0) % Plt Count (150-450) k/uL Neutrophils # (1.3-7.7) k/uL Lymphocytes # (1.0-4.8) k/uL PT (9.0-12.0) sec INR (<1.2) APTT (22.0-30.0) sec ABG pH (7.35-7.45) ABG pCO2 (35-45) mmHg ABG pO2 (83-108) mmHg ABG HCO3 (21-25) mmol/L ABG Total CO2 (19-24) mmol/L ABG O2 Saturation (94-97) % ABG Hematocrit (34.0-46.0) % ABG Potassium (3.4-4.5) mmol/L ABG Ionized Calcium (4.5-5.3) mg/dL ABG Glucose (75-99) mg/dL ABG Lactic Acid (0.5-1.6) mmol/L Hemoglobin (13.0-17.5) gm/dL Sodium (137-145) mmol/L Glucose (74-99) mg/dL POC Glucose (mg/dL) 131 H 132 H 120 H (75-99) mg/dL Calcium (8.4-10.2) mg/dL Ionized Calcium Gregory (4.5-5.3) mg/dL Magnesium (1.6-2.3) mg/dL Alkaline Phosphatase (38-126) U/L Total Protein (6.3-8.2) g/dL Albumin (3.5-5.0) g/dL Arterial Blood Potassium (3.4-4.5) mmol/L Arterial Blood Glucose (75-99) mg/dL Crossmatch 07/30/20 07/30/20 07/30/20 Range/Units 04:35 04:35 04:55 RBC 2.59 L (4.30-5.90) m/uL Hgb 8.0 L (13.0-17.5) gm/dL Hct 24.3 L (39.0-53.0) % Plt Count 115 L (150-450) k/uL Neutrophils # (1.3-7.7) k/uL Lymphocytes # 0.4 L (1.0-4.8) k/uL PT (9.0-12.0) sec INR (<1.2) APTT (22.0-30.0) sec ABG pH (7.35-7.45) ABG pCO2 (35-45) mmHg ABG pO2 (83-108) mmHg ABG HCO3 (21-25) mmol/L ABG Total CO2 (19-24) mmol/L ABG O2 Saturation (94-97) % ABG Hematocrit (34.0-46.0) % ABG Potassium (3.4-4.5) mmol/L ABG Ionized Calcium (4.5-5.3) mg/dL ABG Glucose (75-99) mg/dL ABG Lactic Acid (0.5-1.6) mmol/L Hemoglobin (13.0-17.5) gm/dL Sodium 133 L (137-145) mmol/L Glucose 124 H (74-99) mg/dL POC Glucose (mg/dL) 113 H (75-99) mg/dL Calcium 7.9 L (8.4-10.2) mg/dL Ionized Calcium Gregory (4.5-5.3) mg/dL Magnesium (1.6-2.3) mg/dL Alkaline Phosphatase 21 L (38-126) U/L Total Protein 4.5 L (6.3-8.2) g/dL Albumin 3.0 L (3.5-5.0) g/dL Arterial Blood Potassium (3.4-4.5) mmol/L Arterial Blood Glucose (75-99) mg/dL Crossmatch 07/30/20 07/30/20 07/30/20 Range/Units 06:04 06:58 08:33 RBC (4.30-5.90) m/uL Hgb (13.0-17.5) gm/dL Hct (39.0-53.0) % Plt Count (150-450) k/uL Neutrophils # (1.3-7.7) k/uL Lymphocytes # (1.0-4.8) k/uL PT (9.0-12.0) sec INR (<1.2) APTT (22.0-30.0) sec ABG pH (7.35-7.45) ABG pCO2 (35-45) mmHg ABG pO2 (83-108) mmHg ABG HCO3 (21-25) mmol/L ABG Total CO2 (19-24) mmol/L ABG O2 Saturation (94-97) % ABG Hematocrit (34.0-46.0) % ABG Potassium (3.4-4.5) mmol/L ABG Ionized Calcium (4.5-5.3) mg/dL ABG Glucose (75-99) mg/dL ABG Lactic Acid (0.5-1.6) mmol/L Hemoglobin (13.0-17.5) gm/dL Sodium (137-145) mmol/L Glucose (74-99) mg/dL POC Glucose (mg/dL) 148 H 150 H 137 H (75-99) mg/dL Calcium (8.4-10.2) mg/dL Ionized Calcium Gregory (4.5-5.3) mg/dL Magnesium (1.6-2.3) mg/dL Alkaline Phosphatase (38-126) U/L Total Protein (6.3-8.2) g/dL Albumin (3.5-5.0) g/dL Arterial Blood Potassium (3.4-4.5) mmol/L Arterial Blood Glucose (75-99) mg/dL Crossmatch 07/30/20 07/30/20 07/30/20 Range/Units 09:46 11:01 12:14 RBC (4.30-5.90) m/uL Hgb (13.0-17.5) gm/dL Hct (39.0-53.0) % Plt Count (150-450) k/uL Neutrophils # (1.3-7.7) k/uL Lymphocytes # (1.0-4.8) k/uL PT (9.0-12.0) sec INR (<1.2) APTT (22.0-30.0) sec ABG pH (7.35-7.45) ABG pCO2 (35-45) mmHg ABG pO2 (83-108) mmHg ABG HCO3 (21-25) mmol/L ABG Total CO2 (19-24) mmol/L ABG O2 Saturation (94-97) % ABG Hematocrit (34.0-46.0) % ABG Potassium (3.4-4.5) mmol/L ABG Ionized Calcium (4.5-5.3) mg/dL ABG Glucose (75-99) mg/dL ABG Lactic Acid (0.5-1.6) mmol/L Hemoglobin (13.0-17.5) gm/dL Sodium (137-145) mmol/L Glucose (74-99) mg/dL POC Glucose (mg/dL) 152 H 149 H 157 H (75-99) mg/dL Calcium (8.4-10.2) mg/dL Ionized Calcium Gregory (4.5-5.3) mg/dL Magnesium (1.6-2.3) mg/dL Alkaline Phosphatase (38-126) U/L Total Protein (6.3-8.2) g/dL Albumin (3.5-5.0) g/dL Arterial Blood Potassium (3.4-4.5) mmol/L Arterial Blood Glucose (75-99) mg/dL Crossmatch 07/30/20 Range/Units 13:27 RBC (4.30-5.90) m/uL Hgb (13.0-17.5) gm/dL Hct (39.0-53.0) % Plt Count (150-450) k/uL Neutrophils # (1.3-7.7) k/uL Lymphocytes # (1.0-4.8) k/uL PT (9.0-12.0) sec INR (<1.2) APTT (22.0-30.0) sec ABG pH (7.35-7.45) ABG pCO2 (35-45) mmHg ABG pO2 (83-108) mmHg ABG HCO3 (21-25) mmol/L ABG Total CO2 (19-24) mmol/L ABG O2 Saturation (94-97) % ABG Hematocrit (34.0-46.0) % ABG Potassium (3.4-4.5) mmol/L ABG Ionized Calcium (4.5-5.3) mg/dL ABG Glucose (75-99) mg/dL ABG Lactic Acid (0.5-1.6) mmol/L Hemoglobin (13.0-17.5) gm/dL Sodium (137-145) mmol/L Glucose (74-99) mg/dL POC Glucose (mg/dL) 171 H (75-99) mg/dL Calcium (8.4-10.2) mg/dL Ionized Calcium Gregory (4.5-5.3) mg/dL Magnesium (1.6-2.3) mg/dL Alkaline Phosphatase (38-126) U/L Total Protein (6.3-8.2) g/dL Albumin (3.5-5.0) g/dL Arterial Blood Potassium (3.4-4.5) mmol/L Arterial Blood Glucose (75-99) mg/dL Crossmatch Assessment and Plan Assessment: Impression: Status post quadruple bypass surgery, postoperative day #1. Multivessel coronary artery disease as noted on his recent cardiac catheterization. And history of multiple stents placed. History of moderate mitral regurgitation with preserved systolic function. Benign essential hypertension. Type 2 diabetes. Obstructive sleep apnea syndrome. History of nephrolithiasis. Family history of premature coronary artery disease. Benign prostatic hypertrophy. Recommendation: Continue aspirin beta blockers Plavix therapy for dyslipidemia. Patient cannot tolerate statins. Increase beta blockers as tolerated. Continue incentive spirometry Continue bronchodilators Early ambulation Discontinue unnecessary catheters GI and DVT prophylaxis We'll continue to follow Time with Patient: Less than 30
[2020-07-30] MEDS: SODIUM CHLORIDE 0.9% 1,000 ML IV SCH (14:57)
[2020-07-30 16:11] LABS: Glucose,Whole Blood 117 mg/dL (75-99)
[2020-07-30] MEDS: NITROGLYCERIN-D5W PMX 50 MG in DEXTROSE/WATER 1 250ML.BAG IV SCH (16:56)
[2020-07-30] MEDS: METOPROLOL TARTRATE 25 MG TAB PO SCH ×2 (16:56→19:56)
[2020-07-30 17:25] LABS: Glucose,Whole Blood 143 mg/dL (75-99)
[2020-07-30 18:35] LABS: Glucose,Whole Blood 169 mg/dL (75-99)
--- NOTE | 2020-07-30 19:43 | P.CONS ---
History of Present Illness - Reason for Consult Consult date: 07/30/20 Medical management Requesting physician: Rylan Shields - Chief Complaint Coronary bypass - History of Present Illness History of presenting complaint: This is a very pleasant [address] Christine. Chronic stable medical conditions include diabetes, hypertension, hyperlipidemia, obstructive sleep apnea, coronary artery disease with a history of stent. Patient underwent quadruple coronary bypass. Was extubated yesterday evening. Chest tubes are in place. Has a Loaiza catheter. Sitting up in a chair. Unclear liquids. Podiatry walk a few steps today. Some shortness of breath. No fever no chills. Review of systems: GEN.: Tired EYES: None HEENT: None NECK: None RESPIRATORY: Shortness of breath CARDIOVASCULAR: None GASTROINTESTINAL: None GENITOURINARY: None MUSCULOSKELETAL: Joint pains LYMPHATICS: None HEMATOLOGICAL: None PSYCHIATRY: None NEUROLOGICAL: As above Social history: Does not smoke. Alcohol occasionally. . Employed. Physical examination: VITAL SIGNS: 98.1, 96, 26, 118/67, 93% on 2 L GENERAL: BMI 33.6 sitting up to chair, tired, awake. EYES: Pupils equal. Conjunctiva normal. HEENT: External appearance of nose and ears normal, oral cavity grossly normal. NECK: JVD not raised; masses not palpable. HEART: First and second heart sounds are normal; no edema. LUNGS: Respiratory rate increased, decreased breath sounds. ABDOMEN: Soft, nontender, liver spleen not palpable, no masses palpable. PSYCH: Alert and oriented x3; mood and affect normal. NEUROLOGICAL: Cranial nerves grossly intact; no facial asymmetry, power and sensation grossly intact, no nystagmus. LYMPHATICS: No lymph nodes palpable in the axilla and neck INVESTIGATIONS, reviewed in the clinical context: White count 6.8 hemoglobin 8 platelets 115 potassium 4.3 creatinine 0.89 Accu-Cheks 113, 148 Assessment: -Quadruple coronary bypass -Acute postprocedure blood loss anemia expected from surgery -Thrombocytopenia, dilutional -Diabetes mellitus type 2 -Hyperlipidemia -Essential hypertension -Obstructive sleep apnea uses CPAP -Coronary artery disease history of stents - Plan: Patient did receive amiodarone. Also was on insulin drip. Medications reviewed. Care was discussed with the patient. Questions answered. Accu-Cheks to be followed. Thank you Dr. Cunha Past Medical History Past Medical History: Coronary Artery Disease (CAD), Chest Pain / Angina, Diabetes Mellitus, Hyperlipidemia, Hypertension, Prostate Disorder, Renal Disease, Sleep Apnea/CPAP/BIPAP Additional Past Medical History / Comment(s): HX OF KIDNEY STONES, INNER EAR IMBALANCE, STATES HX OF " occasional BURNING FEELING to his chest with exercise and is associated with some shortness of breath", DM type 2 DIET CONTROL History of Any Multi-Drug Resistant Organisms: None Reported Past Surgical History: Heart Catheterization With Stent, Orthopedic Surgery Additional Past Surgical History / Comment(s): GANGLION CYST X3 RT WRIST, RIGHT ELBOW SURG, angioplasty and total 8 stents, RIGHT KNEE-ARTHROSCOPIC, , hemorrhoid surgery, COLONOSCOPY, recent cardiac cath. Past Anesthesia/Blood Transfusion Reactions: Motion Sickness Date of Last Stent Placement:: 04/2016 with stent placement to his OM 2, circumflex coronary artery & OM1 Smoking Status: Never smoker - Past Family History Mother Family Medical History: Coronary Artery Disease (CAD) (Early onset coronary artery disease, CABG surgery in her early 50s.) Additional Family Medical History / Comment(s): ALZHEIMERS Father Family Medical History: Cancer Additional Family Medical History / Comment(s): bone and lung Medications and Allergies Home Medications Medication Instructions Recorded Confirmed Type Losartan Potassium [Cozaar] 50 mg PO DAILY 11/20/15 07/29/20 History Metoprolol Tartrate [Lopressor] 75 mg PO BID 11/20/15 07/29/20 History Ubidecarenone [Co Q-10] 200 mg PO DAILY 11/20/15 07/29/20 History amLODIPine [Norvasc] 10 mg PO DAILY 11/20/15 07/29/20 History Aspirin EC [Ecotrin Low Dose] 81 mg PO DAILY 04/13/16 07/29/20 History Nitroglycerin Sl Tabs [Nitrostat] 0.4 mg SUBLINGUAL Q5M PRN #25 tab 04/16/16 07/29/20 Rx Tamsulosin [Flomax] 0.4 mg PO HS 01/18/17 07/29/20 History Ezetimibe [Zetia] 10 mg PO DAILY 08/08/19 07/29/20 History Furosemide [Lasix] 20 mg PO DAILY 08/08/19 07/29/20 History Potassium Chloride [Klor-Con 10] 10 meq PO HS 08/08/19 07/29/20 History Fenofibrate Nanocrystallized 145 mg PO DAILY 07/21/20 07/29/20 History [Fenofibrate] Psyllium Husk [Metamucil] 0.8 gm PO BID 07/21/20 07/29/20 History Isosorbide Mononitrate ER [Imdur] 30 mg PO DAILY 07/28/20 07/29/20 History Allergies Allergy/AdvReac Type Severity Reaction Status Date / Time naproxen sodium [From Aleve] Allergy Severe Anaphylaxis Verified 07/29/20 06:33 Penicillins Allergy Unknown Rash/Hives Verified 07/29/20 06:33 rosuvastatin [From Crestor] Allergy Rash/Hives Verified 07/29/20 06:33 Physical Exam Vitals: Vital Signs Temp Pulse Resp BP Pulse Ox 07/30/20 08:18 93 07/30/20 08:03 97 07/30/20 07:00 99 20 107/60 93 L 07/30/20 06:30 90 18 107/60 93 L 07/30/20 06:00 90 23 92 L 07/30/20 05:30 96 22 94 L 07/30/20 05:00 89 17 134/76 94 L 07/30/20 04:30 87 19 94 L 07/30/20 04:00 98.8 F 90 17 125/68 94 L 07/30/20 03:30 85 19 95 07/30/20 03:00 87 17 95 07/30/20 02:30 91 18 95 07/30/20 02:00 93 17 126/68 94 L 07/30/20 01:30 87 22 96 07/30/20 01:00 88 18 96 07/30/20 00:30 86 22 126/71 95 07/30/20 00:00 98.7 F 97 20 93 L 07/29/20 23:30 89 26 H 96 07/29/20 23:04 89 24 97 07/29/20 23:00 90 20 111/71 96 07/29/20 22:30 96 24 97 07/29/20 22:00 90 17 119/68 99 07/29/20 21:31 96 07/29/20 21:30 102 H 26 H 97 07/29/20 21:25 96 07/29/20 21:00 86 20 99 07/29/20 20:30 87 18 98 07/29/20 20:20 96 07/29/20 20:11 85 07/29/20 20:00 98.9 F 82 17 99 07/29/20 19:30 83 18 99 07/29/20 19:00 99.3 F 87 14 128/106 99 07/29/20 18:50 80 30 H 94/67 07/29/20 18:40 73 18 94/67 99 07/29/20 18:30 73 18 94/67 99 07/29/20 18:20 71 25 H 94/67 99 07/29/20 18:10 73 18 94/67 98 07/29/20 18:00 99.1 F 73 19 94/67 97 07/29/20 17:50 70 18 97 07/29/20 17:40 71 21 96 07/29/20 17:30 73 23 94 L 07/29/20 17:20 72 21 93 L 07/29/20 17:10 75 22 110/83 94 L 07/29/20 17:00 80 26 H 110/83 99 07/29/20 16:50 73 24 110/83 100 07/29/20 16:40 68 21 110/83 99 07/29/20 16:30 66 18 93/60 100 07/29/20 16:20 13 93/60 100 07/29/20 16:10 70 0 L 93/60 100 07/29/20 16:00 72 0 L 100 07/29/20 15:53 42 H Intake and Output 07/29/20 07/30/20 07/30/20 22:59 06:59 14:59 Intake Total 1148.768 809.360 97.217 Output Total 1875 1004 60 Balance -726.232 -194.640 37.217 Intake: IV 455 632 89 0.9 @ 10 10 0.9 @10 10 CO/CI 90 160 30 Pressure bags 45 72 9 Sodium Chloride 0.9% 1, 300 400 50 000 ml @ 20 mls/hr IV . Q24H [facility] Rx#:[id number] Intake, IV Titration 693.768 177.360 8.217 Amount ACETAMINOPHEN IV (For NPO 100 100 ) 1,000 mg In Empty Bag 1 bag @ 400 mls/hr IVPB Q6HR [facility] Rx#:[id number] Albumin Human 5% 250 ml 500 In Empty Bag 1 bag @ 250 mls/hr IVPB Q1HR PRN Rx#: [id number] Clevidipine Butyrate 25 6.667 mg In Empty Bag 1 bag @ 1 MG/HR 2 mls/hr IV .Q24H [facility] Rx#:[id number] Insulin Regular 100 unit 12.601 15.360 6.717 In Sodium Chloride 0.9% 100 ml @ Per Protocol IV .Q0M [facility] Rx#:[id number] Nitroglycerin-D5w Pmx 50 4.5 12.0 1.5 mg In Dextrose/Water 1 250ml.bag @ 5 MCG/MIN 1.5 mls/hr IV .Q24H [place] Rx#: [id number] ceFAZolin 2 gm In Sodium 50 50 Chloride 0.9% 50 ml @ 100 mls/hr IVPB Q8H [facility] Rx#: [id number] propofoL 1,000 mg In 20 Empty Bag 1 bag @ Titrate IV .Q0M [facility] Rx#: [id number] Output: Chest Tube Drainage 620 184 10 Bilateral Mediastinal 295 140 0 Left Lateral Chest 240 30 10 Right Lateral Chest 85 14 0 Drainage 685 15 Left Arm 5 Left Lower Calf 685 10 Urine 570 820 35 Other: Voiding Method Indwelling Catheter Indwelling Catheter Weight 100.2 kg ABP, PAP, CO, CI - Last 8 Hours Arterial Blood Pressure 100/47 Arterial Blood Pressure 109/48 Arterial Blood Pressure 124/60 Arterial Blood Pressure 128/63 Arterial Blood Pressure 137/56 Arterial Blood Pressure 131/53 Arterial Blood Pressure 134/55 Arterial Blood Pressure 132/53 Arterial Blood Pressure 135/52 Arterial Blood Pressure 134/56 Pulmonary Artery Pressure 33/13 Pulmonary Artery Pressure 25/10 Pulmonary Artery Pressure 25/7 Pulmonary Artery Pressure 36/16 Pulmonary Artery Pressure 29/11 Pulmonary Artery Pressure 27/12 Pulmonary Artery Pressure 26/12 Pulmonary Artery Pressure 28/11 Pulmonary Artery Pressure 27/11 Pulmonary Artery Pressure 30/11 Cardiac Output 5.9 Cardiac Output 6.5 Cardiac Output 6.5 Cardiac Output 6.5 Cardiac Output 5.9 Cardiac Output 5.5 Cardiac Index 2.8 Cardiac Index 3.1 Cardiac Index 3.1 Cardiac Index 3.1 Cardiac Index 2.8 Cardiac Index 2.6 Results CBC & Chem 7: 07/30/20 04:35 07/30/20 04:35 Labs: Abnormal Lab Results - Last 24 Hours (Table) 07/23/20 07/29/20 07/29/20 Range/Units 13:59 08:57 11:05 RBC (4.30-5.90) m/uL Hgb (13.0-17.5) gm/dL Hct (39.0-53.0) % Plt Count (150-450) k/uL Neutrophils # (1.3-7.7) k/uL Lymphocytes # (1.0-4.8) k/uL PT (9.0-12.0) sec INR (<1.2) APTT (22.0-30.0) sec ABG pH 7.32 L (7.35-7.45) ABG pCO2 47 H (35-45) mmHg ABG pO2 139 H 149 H (83-108) mmHg ABG HCO3 (21-25) mmol/L ABG Total CO2 25 H 26 H (19-24) mmol/L ABG O2 Saturation 99.1 H 99.1 H (94-97) % ABG Hematocrit (34.0-46.0) % ABG Potassium (3.4-4.5) mmol/L ABG Ionized Calcium (4.5-5.3) mg/dL ABG Glucose 105 H 115 H (75-99) mg/dL ABG Lactic Acid (0.5-1.6) mmol/L Hemoglobin 12.6 L 11.3 L (13.0-17.5) gm/dL Sodium (137-145) mmol/L Glucose (74-99) mg/dL POC Glucose (mg/dL) (75-99) mg/dL Calcium (8.4-10.2) mg/dL Ionized Calcium Gregory (4.5-5.3) mg/dL Magnesium (1.6-2.3) mg/dL Alkaline Phosphatase (38-126) U/L Total Protein (6.3-8.2) g/dL Albumin (3.5-5.0) g/dL Arterial Blood Potassium (3.4-4.5) mmol/L Arterial Blood Glucose 105 H 115 H (75-99) mg/dL Crossmatch See Detail 07/29/20 07/29/20 07/29/20 Range/Units 12:40 13:09 13:40 RBC (4.30-5.90) m/uL Hgb (13.0-17.5) gm/dL Hct (39.0-53.0) % Plt Count (150-450) k/uL Neutrophils # (1.3-7.7) k/uL Lymphocytes # (1.0-4.8) k/uL PT (9.0-12.0) sec INR (<1.2) APTT (22.0-30.0) sec ABG pH (7.35-7.45) ABG pCO2 (35-45) mmHg ABG pO2 269 H 268 H 209 H (83-108) mmHg ABG HCO3 26 H (21-25) mmol/L ABG Total CO2 27 H 26 H 26 H (19-24) mmol/L ABG O2 Saturation 99.9 H 99.9 H 99.7 H (94-97) % ABG Hematocrit 25 L 25 L 26 L (34.0-46.0) % ABG Potassium 4.7 H (3.4-4.5) mmol/L ABG Ionized Calcium 4.2 L 4.2 L 4.3 L (4.5-5.3) mg/dL ABG Glucose 170 H 190 H 182 H (75-99) mg/dL ABG Lactic Acid 2.2 H* 2.2 H* 2.2 H* (0.5-1.6) mmol/L Hemoglobin 8.2 L 8.3 L 8.4 L (13.0-17.5) gm/dL Sodium (137-145) mmol/L Glucose (74-99) mg/dL POC Glucose (mg/dL) (75-99) mg/dL Calcium (8.4-10.2) mg/dL Ionized Calcium Gregory (4.5-5.3) mg/dL Magnesium (1.6-2.3) mg/dL Alkaline Phosphatase (38-126) U/L Total Protein (6.3-8.2) g/dL Albumin (3.5-5.0) g/dL Arterial Blood Potassium 4.7 H (3.4-4.5) mmol/L Arterial Blood Glucose 170 H 190 H 182 H (75-99) mg/dL Crossmatch 07/29/20 07/29/20 07/29/20 Range/Units 15:13 16:06 16:07 RBC 2.94 L (4.30-5.90) m/uL Hgb 9.2 L D (13.0-17.5) gm/dL Hct 27.5 L (39.0-53.0) % Plt Count 96 L (150-450) k/uL Neutrophils # (1.3-7.7) k/uL Lymphocytes # 0.5 L (1.0-4.8) k/uL PT (9.0-12.0) sec INR (<1.2) APTT (22.0-30.0) sec ABG pH (7.35-7.45) ABG pCO2 (35-45) mmHg ABG pO2 164 H (83-108) mmHg ABG HCO3 (21-25) mmol/L ABG Total CO2 27 H (19-24) mmol/L ABG O2 Saturation 99.4 H (94-97) % ABG Hematocrit 29 L (34.0-46.0) % ABG Potassium (3.4-4.5) mmol/L ABG Ionized Calcium 4.3 L (4.5-5.3) mg/dL ABG Glucose 120 H (75-99) mg/dL ABG Lactic Acid 2.0 H (0.5-1.6) mmol/L Hemoglobin 9.4 L (13.0-17.5) gm/dL Sodium (137-145) mmol/L Glucose (74-99) mg/dL POC Glucose (mg/dL) 106 H (75-99) mg/dL Calcium (8.4-10.2) mg/dL Ionized Calcium Gregory (4.5-5.3) mg/dL Magnesium (1.6-2.3) mg/dL Alkaline Phosphatase (38-126) U/L Total Protein (6.3-8.2) g/dL Albumin (3.5-5.0) g/dL Arterial Blood Potassium (3.4-4.5) mmol/L Arterial Blood Glucose 120 H (75-99) mg/dL Crossmatch 07/29/20 07/29/20 07/29/20 Range/Units 16:07 16:07 16:24 RBC (4.30-5.90) m/uL Hgb (13.0-17.5) gm/dL Hct (39.0-53.0) % Plt Count (150-450) k/uL Neutrophils # (1.3-7.7) k/uL Lymphocytes # (1.0-4.8) k/uL PT 12.8 H (9.0-12.0) sec INR 1.3 H (<1.2) APTT 33.3 H (22.0-30.0) sec ABG pH (7.35-7.45) ABG pCO2 (35-45) mmHg ABG pO2 229 H (83-108) mmHg ABG HCO3 (21-25) mmol/L ABG Total CO2 26 H (19-24) mmol/L ABG O2 Saturation 99.6 H (94-97) % ABG Hematocrit (34.0-46.0) % ABG Potassium (3.4-4.5) mmol/L ABG Ionized Calcium (4.5-5.3) mg/dL ABG Glucose (75-99) mg/dL ABG Lactic Acid (0.5-1.6) mmol/L Hemoglobin (13.0-17.5) gm/dL Sodium 134 L (137-145) mmol/L Glucose 100 H (74-99) mg/dL POC Glucose (mg/dL) (75-99) mg/dL Calcium 7.5 L (8.4-10.2) mg/dL Ionized Calcium Gregory 4.4 L (4.5-5.3) mg/dL Magnesium 2.4 H (1.6-2.3) mg/dL Alkaline Phosphatase <20 L (38-126) U/L Total Protein 4.2 L (6.3-8.2) g/dL Albumin 2.7 L (3.5-5.0) g/dL Arterial Blood Potassium (3.4-4.5) mmol/L Arterial Blood Glucose (75-99) mg/dL Crossmatch 07/29/20 07/29/20 07/29/20 Range/Units 16:39 18:05 18:08 RBC 3.13 L (4.30-5.90) m/uL Hgb 10.1 L (13.0-17.5) gm/dL Hct 29.5 L (39.0-53.0) % Plt Count 131 L (150-450) k/uL Neutrophils # 7.8 H (1.3-7.7) k/uL Lymphocytes # 0.6 L (1.0-4.8) k/uL PT (9.0-12.0) sec INR (<1.2) APTT (22.0-30.0) sec ABG pH (7.35-7.45) ABG pCO2 (35-45) mmHg ABG pO2 (83-108) mmHg ABG HCO3 (21-25) mmol/L ABG Total CO2 (19-24) mmol/L ABG O2 Saturation (94-97) % ABG Hematocrit (34.0-46.0) % ABG Potassium (3.4-4.5) mmol/L ABG Ionized Calcium (4.5-5.3) mg/dL ABG Glucose (75-99) mg/dL ABG Lactic Acid (0.5-1.6) mmol/L Hemoglobin (13.0-17.5) gm/dL Sodium (137-145) mmol/L Glucose (74-99) mg/dL POC Glucose (mg/dL) 105 H 153 H (75-99) mg/dL Calcium (8.4-10.2) mg/dL Ionized Calcium Gregory (4.5-5.3) mg/dL Magnesium (1.6-2.3) mg/dL Alkaline Phosphatase (38-126) U/L Total Protein (6.3-8.2) g/dL Albumin (3.5-5.0) g/dL Arterial Blood Potassium (3.4-4.5) mmol/L Arterial Blood Glucose (75-99) mg/dL Crossmatch 07/29/20 07/29/20 07/29/20 Range/Units 18:55 19:56 20:45 RBC (4.30-5.90) m/uL Hgb (13.0-17.5) gm/dL Hct (39.0-53.0) % Plt Count (150-450) k/uL Neutrophils # (1.3-7.7) k/uL Lymphocytes # (1.0-4.8) k/uL PT (9.0-12.0) sec INR (<1.2) APTT (22.0-30.0) sec ABG pH (7.35-7.45) ABG pCO2 (35-45) mmHg ABG pO2 148 H (83-108) mmHg ABG HCO3 (21-25) mmol/L ABG Total CO2 (19-24) mmol/L ABG O2 Saturation 99.1 H (94-97) % ABG Hematocrit (34.0-46.0) % ABG Potassium (3.4-4.5) mmol/L ABG Ionized Calcium (4.5-5.3) mg/dL ABG Glucose (75-99) mg/dL ABG Lactic Acid (0.5-1.6) mmol/L Hemoglobin (13.0-17.5) gm/dL Sodium (137-145) mmol/L Glucose (74-99) mg/dL POC Glucose (mg/dL) 156 H 144 H (75-99) mg/dL Calcium (8.4-10.2) mg/dL Ionized Calcium Gregory (4.5-5.3) mg/dL Magnesium (1.6-2.3) mg/dL Alkaline Phosphatase (38-126) U/L Total Protein (6.3-8.2) g/dL Albumin (3.5-5.0) g/dL Arterial Blood Potassium (3.4-4.5) mmol/L Arterial Blood Glucose (75-99) mg/dL Crossmatch 07/29/20 07/29/20 07/29/20 Range/Units 20:45 20:47 21:57 RBC 2.89 L (4.30-5.90) m/uL Hgb 9.0 L (13.0-17.5) gm/dL Hct 27.3 L (39.0-53.0) % Plt Count 146 L (150-450) k/uL Neutrophils # 8.4 H (1.3-7.7) k/uL Lymphocytes # 0.5 L (1.0-4.8) k/uL PT (9.0-12.0) sec INR (<1.2) APTT (22.0-30.0) sec ABG pH (7.35-7.45) ABG pCO2 (35-45) mmHg ABG pO2 (83-108) mmHg ABG HCO3 (21-25) mmol/L ABG Total CO2 (19-24) mmol/L ABG O2 Saturation (94-97) % ABG Hematocrit (34.0-46.0) % ABG Potassium (3.4-4.5) mmol/L ABG Ionized Calcium (4.5-5.3) mg/dL ABG Glucose (75-99) mg/dL ABG Lactic Acid (0.5-1.6) mmol/L Hemoglobin (13.0-17.5) gm/dL Sodium (137-145) mmol/L Glucose (74-99) mg/dL POC Glucose (mg/dL) 151 H 141 H (75-99) mg/dL Calcium (8.4-10.2) mg/dL Ionized Calcium Gregory (4.5-5.3) mg/dL Magnesium (1.6-2.3) mg/dL Alkaline Phosphatase (38-126) U/L Total Protein (6.3-8.2) g/dL Albumin (3.5-5.0) g/dL Arterial Blood Potassium (3.4-4.5) mmol/L Arterial Blood Glucose (75-99) mg/dL Crossmatch 07/29/20 07/29/20 07/30/20 Range/Units 22:55 23:54 00:57 RBC (4.30-5.90) m/uL Hgb (13.0-17.5) gm/dL Hct (39.0-53.0) % Plt Count (150-450) k/uL Neutrophils # (1.3-7.7) k/uL Lymphocytes # (1.0-4.8) k/uL PT (9.0-12.0) sec INR (<1.2) APTT (22.0-30.0) sec ABG pH (7.35-7.45) ABG pCO2 (35-45) mmHg ABG pO2 (83-108) mmHg ABG HCO3 (21-25) mmol/L ABG Total CO2 (19-24) mmol/L ABG O2 Saturation (94-97) % ABG Hematocrit (34.0-46.0) % ABG Potassium (3.4-4.5) mmol/L ABG Ionized Calcium (4.5-5.3) mg/dL ABG Glucose (75-99) mg/dL ABG Lactic Acid (0.5-1.6) mmol/L Hemoglobin (13.0-17.5) gm/dL Sodium (137-145) mmol/L Glucose (74-99) mg/dL POC Glucose (mg/dL) 119 H 124 H 122 H (75-99) mg/dL Calcium (8.4-10.2) mg/dL Ionized Calcium Gregory (4.5-5.3) mg/dL Magnesium (1.6-2.3) mg/dL Alkaline Phosphatase (38-126) U/L Total Protein (6.3-8.2) g/dL Albumin (3.5-5.0) g/dL Arterial Blood Potassium (3.4-4.5) mmol/L Arterial Blood Glucose (75-99) mg/dL Crossmatch 07/30/20 07/30/20 07/30/20 Range/Units 02:05 03:04 04:05 RBC (4.30-5.90) m/uL Hgb (13.0-17.5) gm/dL Hct (39.0-53.0) % Plt Count (150-450) k/uL Neutrophils # (1.3-7.7) k/uL Lymphocytes # (1.0-4.8) k/uL PT (9.0-12.0) sec INR (<1.2) APTT (22.0-30.0) sec ABG pH (7.35-7.45) ABG pCO2 (35-45) mmHg ABG pO2 (83-108) mmHg ABG HCO3 (21-25) mmol/L ABG Total CO2 (19-24) mmol/L ABG O2 Saturation (94-97) % ABG Hematocrit (34.0-46.0) % ABG Potassium (3.4-4.5) mmol/L ABG Ionized Calcium (4.5-5.3) mg/dL ABG Glucose (75-99) mg/dL ABG Lactic Acid (0.5-1.6) mmol/L Hemoglobin (13.0-17.5) gm/dL Sodium (137-145) mmol/L Glucose (74-99) mg/dL POC Glucose (mg/dL) 131 H 132 H 120 H (75-99) mg/dL Calcium (8.4-10.2) mg/dL Ionized Calcium Gregory (4.5-5.3) mg/dL Magnesium (1.6-2.3) mg/dL Alkaline Phosphatase (38-126) U/L Total Protein (6.3-8.2) g/dL Albumin (3.5-5.0) g/dL Arterial Blood Potassium (3.4-4.5) mmol/L Arterial Blood Glucose (75-99) mg/dL Crossmatch 07/30/20 07/30/20 07/30/20 Range/Units 04:35 04:35 04:55 RBC 2.59 L (4.30-5.90) m/uL Hgb 8.0 L (13.0-17.5) gm/dL Hct 24.3 L (39.0-53.0) % Plt Count 115 L (150-450) k/uL Neutrophils # (1.3-7.7) k/uL Lymphocytes # 0.4 L (1.0-4.8) k/uL PT (9.0-12.0) sec INR (<1.2) APTT (22.0-30.0) sec ABG pH (7.35-7.45) ABG pCO2 (35-45) mmHg ABG pO2 (83-108) mmHg ABG HCO3 (21-25) mmol/L ABG Total CO2 (19-24) mmol/L ABG O2 Saturation (94-97) % ABG Hematocrit (34.0-46.0) % ABG Potassium (3.4-4.5) mmol/L ABG Ionized Calcium (4.5-5.3) mg/dL ABG Glucose (75-99) mg/dL ABG Lactic Acid (0.5-1.6) mmol/L Hemoglobin (13.0-17.5) gm/dL Sodium 133 L (137-145) mmol/L Glucose 124 H (74-99) mg/dL POC Glucose (mg/dL) 113 H (75-99) mg/dL Calcium 7.9 L (8.4-10.2) mg/dL Ionized Calcium Gregory (4.5-5.3) mg/dL Magnesium (1.6-2.3) mg/dL Alkaline Phosphatase 21 L (38-126) U/L Total Protein 4.5 L (6.3-8.2) g/dL Albumin 3.0 L (3.5-5.0) g/dL Arterial Blood Potassium (3.4-4.5) mmol/L Arterial Blood Glucose (75-99) mg/dL Crossmatch 07/30/20 07/30/20 07/30/20 Range/Units 06:04 06:58 08:33 RBC (4.30-5.90) m/uL Hgb (13.0-17.5) gm/dL Hct (39.0-53.0) % Plt Count (150-450) k/uL Neutrophils # (1.3-7.7) k/uL Lymphocytes # (1.0-4.8) k/uL PT (9.0-12.0) sec INR (<1.2) APTT (22.0-30.0) sec ABG pH (7.35-7.45) ABG pCO2 (35-45) mmHg ABG pO2 (83-108) mmHg ABG HCO3 (21-25) mmol/L ABG Total CO2 (19-24) mmol/L ABG O2 Saturation (94-97) % ABG Hematocrit (34.0-46.0) % ABG Potassium (3.4-4.5) mmol/L ABG Ionized Calcium (4.5-5.3) mg/dL ABG Glucose (75-99) mg/dL ABG Lactic Acid (0.5-1.6) mmol/L Hemoglobin (13.0-17.5) gm/dL Sodium (137-145) mmol/L Glucose (74-99) mg/dL POC Glucose (mg/dL) 148 H 150 H 137 H (75-99) mg/dL Calcium (8.4-10.2) mg/dL Ionized Calcium Gregory (4.5-5.3) mg/dL Magnesium (1.6-2.3) mg/dL Alkaline Phosphatase (38-126) U/L Total Protein (6.3-8.2) g/dL Albumin (3.5-5.0) g/dL Arterial Blood Potassium (3.4-4.5) mmol/L Arterial Blood Glucose (75-99) mg/dL Crossmatch 07/30/20 Range/Units 09:46 RBC (4.30-5.90) m/uL Hgb (13.0-17.5) gm/dL Hct (39.0-53.0) % Plt Count (150-450) k/uL Neutrophils # (1.3-7.7) k/uL Lymphocytes # (1.0-4.8) k/uL PT (9.0-12.0) sec INR (<1.2) APTT (22.0-30.0) sec ABG pH (7.35-7.45) ABG pCO2 (35-45) mmHg ABG pO2 (83-108) mmHg ABG HCO3 (21-25) mmol/L ABG Total CO2 (19-24) mmol/L ABG O2 Saturation (94-97) % ABG Hematocrit (34.0-46.0) % ABG Potassium (3.4-4.5) mmol/L ABG Ionized Calcium (4.5-5.3) mg/dL ABG Glucose (75-99) mg/dL ABG Lactic Acid (0.5-1.6) mmol/L Hemoglobin (13.0-17.5) gm/dL Sodium (137-145) mmol/L Glucose (74-99) mg/dL POC Glucose (mg/dL) 152 H (75-99) mg/dL Calcium (8.4-10.2) mg/dL Ionized Calcium Gregory (4.5-5.3) mg/dL Magnesium (1.6-2.3) mg/dL Alkaline Phosphatase (38-126) U/L Total Protein (6.3-8.2) g/dL Albumin (3.5-5.0) g/dL Arterial Blood Potassium (3.4-4.5) mmol/L Arterial Blood Glucose (75-99) mg/dL Crossmatch
[2020-07-30 19:53] LABS: Glucose,Whole Blood 164 mg/dL (75-99)
[2020-07-30] MEDS: TAMSULOSIN 0.4 MG CAP.ER.24H PO SCH (19:56)
[2020-07-30] MEDS: SENNOSIDES-DOCUSATE SODIUM 1 EACH TAB PO SCH (19:56)
[2020-07-30 20:57] LABS: Glucose,Whole Blood 135 mg/dL (75-99)
[2020-07-30 22:12] LABS: Glucose,Whole Blood 114 mg/dL (75-99)
[2020-07-30 23:07] LABS: Glucose,Whole Blood 116 mg/dL (75-99)
[2020-07-31 00:03] LABS: Glucose,Whole Blood 137 mg/dL (75-99)
[2020-07-31 00:59] LABS: Glucose,Whole Blood 132 mg/dL (75-99)
[2020-07-31 01:55] LABS: Glucose,Whole Blood 117 mg/dL (75-99)
[2020-07-31 03:03] LABS: Glucose,Whole Blood 115 mg/dL (75-99)
[2020-07-31] MEDS: INSULIN REGULAR 100 UNIT in SODIUM CHLORIDE 0.9% 100 ML IV SCH (03:05)
[2020-07-31 04:07] LABS: Glucose,Whole Blood 126 mg/dL (75-99)
[2020-07-31 04:15] LABS: Basophils % (A) 0 %; Eosinophils % (A) 0 %; HCT 20.6 % (39.0-53.0); Lymphocytes # (A) 0.7 k/uL (1.0-4.8); Lymphocytes % (A) 9 %; MCH 31.8 pg (25.0-35.0); MCHC 33.7 g/dL (31.0-37.0); MCV 94.5 fL (80.0-100.0); Monocytes # (A) 0.6 k/uL (0-1.0); Monocytes % (A) 7 %; Neutrophils # (A) 6.1 k/uL (1.3-7.7); Neutrophils % (A) 82 %; Platelet Count 104 k/uL (150-450); RBC 2.19 m/uL (4.30-5.90); RDW 14.2 % (11.5-15.5); WBC 7.4 k/uL (3.8-10.6)
[2020-07-31 04:24] LABS: Ionized Calcium 4.7 mg/dL (4.5-5.3)
[2020-07-31 04:31] LABS: Albumin 2.8 g/dL (3.5-5.0); Calcium 8.1 mg/dL (8.4-10.2); Potassium 4.5 mmol/L (3.5-5.1); Total Bilirubin 0.6 mg/dL (0.2-1.3); Total Protein 4.5 g/dL (6.3-8.2)
[2020-07-31 05:03] LABS: Glucose,Whole Blood 110 mg/dL (75-99)
[2020-07-31] MEDS: PANTOPRAZOLE 40 MG TABLET PO SCH (06:02)
[2020-07-31] MEDS: KETOROLAC 15 MG/ML 1 ML VIAL IVP SCH ×4 (06:02→23:46)
[2020-07-31 06:09] LABS: Glucose,Whole Blood 111 mg/dL (75-99)
[2020-07-31 06:52] LABS: Appearance,Urine Clear (Clear); Bilirubin,Urine Negative (Negative); Blood,Urine Negative (Negative); Color,Urine Yellow; Glucose,Urine (UA) Negative (Negative); Ketones,Urine Negative (Negative); Leukocyte Esterase,Urine Negative (Negative); Nitrite,Urine Negative (Negative); PH, Urine 5.5 (5.0-8.0); Protein,Urine Negative (Negative); Specific Gravity,Urine 1.021 (1.001-1.035); Urobilinogen,Urine <2.0 mg/dL (<2.0)
[2020-07-31 06:53] LABS: Glucose,Whole Blood 134 mg/dL (75-99)
[2020-07-31] MEDS: IPRATROPIUM-ALBUTEROL 3 ML NEB INHALATION SCH ×4 (07:56→19:35)
--- NOTE | 2020-07-31 08:01 | P.PN ---
Subjective Progress Note Date: 07/31/20 Principal diagnosis: Status post coronary artery bypass grafting his is a very pleasant 75-year-old gentleman who sees Dr. Mcneill in the office on regular basis with a past medical history significant for diabetes and hypertension and dyslipidemia as well as obstructive sleep apnea who was admitted to the hospital yesterday and underwent an elective coronary artery bypass grafting where he received quadruple bypasses with ARELLANO to LAD and left radial artery to OM and reverse SVG to ramus intermedius as well as reverse SVG to PDA. The patient is known to have coronary artery disease and in the past he underwent stenting of the RCA as well as left circumflex but he was experiencing symptoms of chest discomfort and shortness of breath with exertion and he underwent a heart catheterization recently and that revealed severe triple- vessel coronary artery disease. Because of that he was referred for surgery. The patient was seen today July [id number]. He this is postoperative elevation day #2. The patient is doing. From the cardiovascular standpoint overview. He has been maintaining normal sinus mechanism. He has been hemodynamically stable. He is on maximize medical treatment. On examination he is a slightly erythematous. He is going to be given a dose of Lasix. The hemoglobin is marginal at 7. We'll continue monitor the kidney function and gloria ctrolytes and continue following up with the patient Objective - Vital Signs Vital signs: Vital Signs Temp 98.5 F 07/31/20 04:00 Pulse 105 H 07/31/20 07:56 Resp 24 07/31/20 07:00 BP 111/57 07/31/20 07:00 Pulse Ox 92 L 07/31/20 07:00 Intake & Output 07/30/20 07/31/20 07/31/20 18:59 06:59 18:59 Intake Total 1159.399 351.483 26 Output Total 915 645 70 Balance 244.399 -293.517 -44 Weight 100.2 kg 103.4 kg Intake: IV 398 312 26 CO/CI 50 Pressure bags 78 72 6 Sodium Chloride 0.9% 1, 270 240 20 000 ml @ 20 mls/hr IV . Q24H [facility] Rx#:[id number] Intake, IV Titration 81.399 39.483 0 Amount Insulin Regular 100 unit 28.399 39.483 0 In Sodium Chloride 0.9% 100 ml @ Per Protocol IV .Q0M [facility] Rx#:[id number] Nitroglycerin-D5w Pmx 50 3.0 mg In Dextrose/Water 1 250ml.bag @ 5 MCG/MIN 1.5 mls/hr IV .Q24H [facility] Rx#: [id number] ceFAZolin 2 gm In Sodium 50 Chloride 0.9% 50 ml @ 100 mls/hr IVPB Q8H [facility] Rx#: [id number] Oral 580 Tube Feeding 100 Output: Chest Tube Drainage 340 250 30 Bilateral Mediastinal 130 50 20 Left Lateral Chest 210 190 10 Right Lateral Chest 0 10 0 Drainage 75 Left Arm 35 Left Lower Calf 40 Urine 500 395 40 Other: Voiding Method Indwelling Catheter Indwelling Catheter ABP, PAP, CO, CI - Last Documented Arterial Blood Pressure 119/51 Pulmonary Artery Pressure 28/12 Cardiac Output 6.8 Cardiac Index 3.3 - Constitutional General appearance: Present: no acute distress - Respiratory Respiratory: bilateral: diminished - Cardiovascular Rhythm: regular Heart sounds: normal: S1, S2 - Labs CBC & Chem 7: 07/31/20 04:00 07/31/20 04:00 Labs: Abnormal Lab Results - Last 24 Hours (Table) 07/30/20 07/30/20 07/30/20 Range/Units 08:33 09:46 11:01 RBC (4.30-5.90) m/uL Hgb (13.0-17.5) gm/dL Hct (39.0-53.0) % Plt Count (150-450) k/uL Lymphocytes # (1.0-4.8) k/uL Sodium (137-145) mmol/L Glucose (74-99) mg/dL POC Glucose (mg/dL) 137 H 152 H 149 H (75-99) mg/dL Calcium (8.4-10.2) mg/dL Alkaline Phosphatase (38-126) U/L Total Protein (6.3-8.2) g/dL Albumin (3.5-5.0) g/dL 07/30/20 07/30/20 07/30/20 Range/Units 12:14 13:27 14:48 RBC (4.30-5.90) m/uL Hgb (13.0-17.5) gm/dL Hct (39.0-53.0) % Plt Count (150-450) k/uL Lymphocytes # (1.0-4.8) k/uL Sodium (137-145) mmol/L Glucose (74-99) mg/dL POC Glucose (mg/dL) 157 H 171 H 151 H (75-99) mg/dL Calcium (8.4-10.2) mg/dL Alkaline Phosphatase (38-126) U/L Total Protein (6.3-8.2) g/dL Albumin (3.5-5.0) g/dL 07/30/20 07/30/20 07/30/20 Range/Units 16:08 17:23 18:31 RBC (4.30-5.90) m/uL Hgb (13.0-17.5) gm/dL Hct (39.0-53.0) % Plt Count (150-450) k/uL Lymphocytes # (1.0-4.8) k/uL Sodium (137-145) mmol/L Glucose (74-99) mg/dL POC Glucose (mg/dL) 117 H 143 H 169 H (75-99) mg/dL Calcium (8.4-10.2) mg/dL Alkaline Phosphatase (38-126) U/L Total Protein (6.3-8.2) g/dL Albumin (3.5-5.0) g/dL 07/30/20 07/30/20 07/30/20 Range/Units 19:52 20:56 22:11 RBC (4.30-5.90) m/uL Hgb (13.0-17.5) gm/dL Hct (39.0-53.0) % Plt Count (150-450) k/uL Lymphocytes # (1.0-4.8) k/uL Sodium (137-145) mmol/L Glucose (74-99) mg/dL POC Glucose (mg/dL) 164 H 135 H 114 H (75-99) mg/dL Calcium (8.4-10.2) mg/dL Alkaline Phosphatase (38-126) U/L Total Protein (6.3-8.2) g/dL Albumin (3.5-5.0) g/dL 07/30/20 07/31/20 07/31/20 Range/Units 23:06 00:01 00:57 RBC (4.30-5.90) m/uL Hgb (13.0-17.5) gm/dL Hct (39.0-53.0) % Plt Count (150-450) k/uL Lymphocytes # (1.0-4.8) k/uL Sodium (137-145) mmol/L Glucose (74-99) mg/dL POC Glucose (mg/dL) 116 H 137 H 132 H (75-99) mg/dL Calcium (8.4-10.2) mg/dL Alkaline Phosphatase (38-126) U/L Total Protein (6.3-8.2) g/dL Albumin (3.5-5.0) g/dL 07/31/20 07/31/20 07/31/20 Range/Units 01:53 03:01 04:00 RBC 2.19 L (4.30-5.90) m/uL Hgb 7.0 L (13.0-17.5) gm/dL Hct 20.6 L (39.0-53.0) % Plt Count 104 L (150-450) k/uL Lymphocytes # 0.7 L (1.0-4.8) k/uL Sodium (137-145) mmol/L Glucose (74-99) mg/dL POC Glucose (mg/dL) 117 H 115 H (75-99) mg/dL Calcium (8.4-10.2) mg/dL Alkaline Phosphatase (38-126) U/L Total Protein (6.3-8.2) g/dL Albumin (3.5-5.0) g/dL 07/31/20 07/31/20 07/31/20 Range/Units 04:00 04:06 05:01 RBC (4.30-5.90) m/uL Hgb (13.0-17.5) gm/dL Hct (39.0-53.0) % Plt Count (150-450) k/uL Lymphocytes # (1.0-4.8) k/uL Sodium 133 L (137-145) mmol/L Glucose 115 H (74-99) mg/dL POC Glucose (mg/dL) 126 H 110 H (75-99) mg/dL Calcium 8.1 L (8.4-10.2) mg/dL Alkaline Phosphatase 24 L (38-126) U/L Total Protein 4.5 L (6.3-8.2) g/dL Albumin 2.8 L (3.5-5.0) g/dL 07/31/20 07/31/20 Range/Units 06:07 06:52 RBC (4.30-5.90) m/uL Hgb (13.0-17.5) gm/dL Hct (39.0-53.0) % Plt Count (150-450) k/uL Lymphocytes # (1.0-4.8) k/uL Sodium (137-145) mmol/L Glucose (74-99) mg/dL POC Glucose (mg/dL) 111 H 134 H (75-99) mg/dL Calcium (8.4-10.2) mg/dL Alkaline Phosphatase (38-126) U/L Total Protein (6.3-8.2) g/dL Albumin (3.5-5.0) g/dL Assessment and Plan Assessment: Assessment #1 severe triple-vessel CAD and status post CABG 4 #2 diabetes type 2 #3 hypertension #4 dyslipidemia Plan #1 continue the current medical regimen including antiplatelet and anti-ischemic medication #2 the patient is intolerant to statin currently on Kaylynn #3 continue monitor urine output #4 continue monitor the rhythm #5 monitor the kidney function and electrolytes #6 follow-up with the patient
[2020-07-31 08:04] LABS: Glucose,Whole Blood 187 mg/dL (75-99)
[2020-07-31] MEDS: METOPROLOL TARTRATE 50 MG TAB PO SCH ×2 (08:12→21:12)
[2020-07-31] MEDS: FENOFIBRATE 160 MG TAB PO SCH (08:12)
[2020-07-31] MEDS: HYDROcodone/APAP 5-325MG 1 EACH TAB PO PRN ×2 (08:12→21:43)
[2020-07-31] MEDS: EZETIMIBE 10 MG TAB PO SCH (08:13)
[2020-07-31] MEDS: ASPIRIN 325 MG TAB PO SCH (08:13)
[2020-07-31] MEDS: CLOPIDOGREL 75 MG TAB PO SCH (08:13)
[2020-07-31] MEDS: ASCORBIC ACID 500 MG TAB PO SCH ×2 (08:13→17:32)
[2020-07-31] MEDS: HEPARIN SODIUM,PORCINE 5,000 UNIT/ML 1 ML VIAL SQ SCH ×3 (08:13→23:46)
[2020-07-31] MEDS: FERROUS SULFATE 325 MG TAB PO SCH ×2 (08:13→17:32)
[2020-07-31] MEDS: INSULN ASP PRT/INSULIN ASPART 100 UNIT/ML 10 ML VIAL SQ SCH (08:20)
[2020-07-31] MEDS: INSULIN ASPART (NovoLOG) 100 UNIT/ML VIAL SQ SCH ×4 (08:21→21:12)
--- NOTE | 2020-07-31 08:35 | XR ---
EXAMINATION TYPE: XR chest 1V portable DATE OF EXAM: 07/31/2020 CLINICAL HISTORY: Postoperative cardiac surgery TECHNIQUE: Portable semiupright view of the chest COMPARISON: 07/30/2020 FINDINGS: Sternotomy wires. Mediastinal drain and bilateral chest tubes redemonstrated. There is int erval removal of right internal jugular [place]-Bri catheter with persistent right internal jugular [place]-Bri sheath. Cardiomegaly. Redemonstrated airspace opacity at the left lung base. Small bilateral p leural effusions. No pneumothorax. IMPRESSION: Redemonstrated left basilar airspace opacity. New small bilateral pleural effusions.
[2020-07-31] MEDS ORDERED: FUROSEMIDE 10 MG/ML 2 ML VIAL IV ONE (08:45)
--- NOTE | 2020-07-31 09:23 | P.PN ---
Subjective Progress Note Date: 07/31/20 Principal diagnosis: Symptomatic multivessel coronary artery disease, preserved systolic function, [id number] mitral valve regurgitation. Previous medical history of coronary artery disease with prior multiple stents placement, hypertension, hyperlipidemia, recent diagnosis of diet controlled diabetes mellitus type 2 with recent hemoglobin A1c of 6.4%, obstructive sleep apnea with home CPAP use, benign prostatic hypertrophy, nephrolithiasis, vertigo, and family history of premature coronary artery disease POD #2 quadruple coronary artery bypass grafting using the left internal mammary artery to left anterior descending coronary artery, the left radial artery from the aorta to the obtuse marginal coronary artery, reverse greater saphenous vein graft from the aorta to the ramus intermedius coronary artery, reverse greater saphenous vein graft from the aorta to the posterior descending coronary artery, endoscopic harvesting of the left radial artery, endoscopic harvesting of the left greater saphenous vein from the groin to the mid lower leg level, intraoper ative graft flow measurement using the [employer] system, intraoperative transesophageal echocardiogram and epi-aortic scanning. Postoperative acute blood loss anemia and thrombocytopenia, expected, dilutional The patient is currently sitting up in a recliner in the intensive care unit in no acute distress. States pain is controlled on current medication regimen, denies shortness of breath. Remains in normal sinus rhythm and hemodynamically stable on no inotropes or pressors. Right internal jugular Cordis, right radial arterial line, mediastinal/left/right pleural chest tubes remain. No new concerns. Objective - Vital Signs Vital signs: Vital Signs Temp 98.5 F 07/31/20 04:00 Pulse 105 H 07/31/20 07:56 Resp 24 07/31/20 07:00 BP 111/57 07/31/20 07:00 Pulse Ox 95 07/31/20 08:01 Intake & Output 07/30/20 07/31/20 07/31/20 18:59 06:59 18:59 Intake Total 1159.399 351.483 175.99 Output Total 915 645 100 Balance 244.399 -293.517 75.99 Weight 100.2 kg 103.4 kg Intake: IV 398 312 52 CO/CI 50 Pressure bags 78 72 12 Sodium Chloride 0.9% 1, 270 240 40 000 ml @ 20 mls/hr IV . Q24H [facility] Rx#:[id number] Intake, IV Titration 81.399 39.483 3.99 Amount Insulin Regular 100 unit 28.399 39.483 3.99 In Sodium Chloride 0.9% 100 ml @ Per Protocol IV .Q0M [facility] Rx#:[id number] Nitroglycerin-D5w Pmx 50 3.0 mg In Dextrose/Water 1 250ml.bag @ 5 MCG/MIN 1.5 mls/hr IV .Q24H [facility] Rx#: [id number] ceFAZolin 2 gm In Sodium 50 Chloride 0.9% 50 ml @ 100 mls/hr IVPB Q8H [facility] Rx#: [id number] Oral 580 120 Tube Feeding 100 Output: Chest Tube Drainage 340 250 30 Bilateral Mediastinal 130 50 20 Left Lateral Chest 210 190 10 Right Lateral Chest 0 10 0 Drainage 75 Left Arm 35 Left Lower Calf 40 Urine 500 395 70 Other: Voiding Method Indwelling Catheter Indwelling Catheter ABP, PAP, CO, CI - Last Documented Arterial Blood Pressure 119/51 Pulmonary Artery Pressure 28/12 Cardiac Output 6.8 Cardiac Index 3.3 - Constitutional General appearance: Present: cooperative, no acute distress - Respiratory Details: Lungs sounds diminished bilaterally. Respirations even, nonlabored. Currently on 2 L nasal cannula with oxygen saturation 92%. Able to achieve 1000 mL on his incentive spirometry. Strong productive cough. Mediastinal, left pleural, right pleural chest tubes all connected to continuous wall suction, no air leaks present. Mediastinal with 20 mL serosanguineous drainage overnight, 150 mL in the last 24 hours. Left pleural with 110 mL serosanguineous drainage overnight, 400 mL in the last 24 hours. Right pleural chest tube with 10 mL serosanguineous drainage in the last 24 hours. - Cardiovascular Details: S1, S2 present. Regular rate and rhythm, sinus rhythm on telemetry. Sternum stable. Atrial epicardial wires present, connected to generator, AAI mode with backup rate 50 bpm. Right internal jugular Cordis, right radial arterial line present. Palpable peripheral pulses bilaterally. Trace generalized edema present. No calf pain or tenderness noted. Heart hugger in place with patient demonstrating appropriate use. Antiembolism stockings, SCDs present. - Gastrointestinal Gastrointestinal Comment(s): Abdomen soft, nontender, nondistended. Hypoactive bowel sounds present 4 quadrants. Tolerating diet. Positive flatus, negative bowel movement. - Genitourinary Genitourinary Comment(s): Loaiza present draining clear, yellow urine. Output 15-55 mL/h overnight, mostly in the 30-40 mL per hour range. - Integumentary Integumentary Comment(s): Skin is warm and dry with evidence of good perfusion. Anterior chest incision well approximated and covered with dry intact dressing. Left radial artery harvest site well approximated without redness or drainage, good cap refill, patient able to wiggle all fingers and manager pipeline appropriately. Left lower extremity EVH site well approximated without redness or drainage - Neurologic Neurologic: Present: CNII-XII intact - Musculoskeletal Musculoskeletal: Present: gait normal, strength equal bilaterally - Psychiatric Psychiatric: Present: A&O x's 3, appropriate affect, intact judgment & insight - Allied health notes Allied health notes reviewed: nursing - Labs CBC & Chem 7: 07/31/20 04:00 07/31/20 04:00 Labs: Abnormal Lab Results - Last 24 Hours (Table) 07/30/20 07/30/20 07/30/20 Range/Units 09:46 11:01 12:14 RBC (4.30-5.90) m/uL Hgb (13.0-17.5) gm/dL Hct (39.0-53.0) % Plt Count (150-450) k/uL Lymphocytes # (1.0-4.8) k/uL Sodium (137-145) mmol/L Glucose (74-99) mg/dL POC Glucose (mg/dL) 152 H 149 H 157 H (75-99) mg/dL Calcium (8.4-10.2) mg/dL Alkaline Phosphatase (38-126) U/L Total Protein (6.3-8.2) g/dL Albumin (3.5-5.0) g/dL 07/30/20 07/30/20 07/30/20 Range/Units 13:27 14:48 16:08 RBC (4.30-5.90) m/uL Hgb (13.0-17.5) gm/dL Hct (39.0-53.0) % Plt Count (150-450) k/uL Lymphocytes # (1.0-4.8) k/uL Sodium (137-145) mmol/L Glucose (74-99) mg/dL POC Glucose (mg/dL) 171 H 151 H 117 H (75-99) mg/dL Calcium (8.4-10.2) mg/dL Alkaline Phosphatase (38-126) U/L Total Protein (6.3-8.2) g/dL Albumin (3.5-5.0) g/dL 07/30/20 07/30/20 07/30/20 Range/Units 17:23 18:31 19:52 RBC (4.30-5.90) m/uL Hgb (13.0-17.5) gm/dL Hct (39.0-53.0) % Plt Count (150-450) k/uL Lymphocytes # (1.0-4.8) k/uL Sodium (137-145) mmol/L Glucose (74-99) mg/dL POC Glucose (mg/dL) 143 H 169 H 164 H (75-99) mg/dL Calcium (8.4-10.2) mg/dL Alkaline Phosphatase (38-126) U/L Total Protein (6.3-8.2) g/dL Albumin (3.5-5.0) g/dL 07/30/20 07/30/20 07/30/20 Range/Units 20:56 22:11 23:06 RBC (4.30-5.90) m/uL Hgb (13.0-17.5) gm/dL Hct (39.0-53.0) % Plt Count (150-450) k/uL Lymphocytes # (1.0-4.8) k/uL Sodium (137-145) mmol/L Glucose (74-99) mg/dL POC Glucose (mg/dL) 135 H 114 H 116 H (75-99) mg/dL Calcium (8.4-10.2) mg/dL Alkaline Phosphatase (38-126) U/L Total Protein (6.3-8.2) g/dL Albumin (3.5-5.0) g/dL 07/31/20 07/31/20 07/31/20 Range/Units 00:01 00:57 01:53 RBC (4.30-5.90) m/uL Hgb (13.0-17.5) gm/dL Hct (39.0-53.0) % Plt Count (150-450) k/uL Lymphocytes # (1.0-4.8) k/uL Sodium (137-145) mmol/L Glucose (74-99) mg/dL POC Glucose (mg/dL) 137 H 132 H 117 H (75-99) mg/dL Calcium (8.4-10.2) mg/dL Alkaline Phosphatase (38-126) U/L Total Protein (6.3-8.2) g/dL Albumin (3.5-5.0) g/dL 07/31/20 07/31/20 07/31/20 Range/Units 03:01 04:00 04:00 RBC 2.19 L (4.30-5.90) m/uL Hgb 7.0 L (13.0-17.5) gm/dL Hct 20.6 L (39.0-53.0) % Plt Count 104 L (150-450) k/uL Lymphocytes # 0.7 L (1.0-4.8) k/uL Sodium 133 L (137-145) mmol/L Glucose 115 H (74-99) mg/dL POC Glucose (mg/dL) 115 H (75-99) mg/dL Calcium 8.1 L (8.4-10.2) mg/dL Alkaline Phosphatase 24 L (38-126) U/L Total Protein 4.5 L (6.3-8.2) g/dL Albumin 2.8 L (3.5-5.0) g/dL 07/31/20 07/31/20 07/31/20 Range/Units 04:06 05:01 06:07 RBC (4.30-5.90) m/uL Hgb (13.0-17.5) gm/dL Hct (39.0-53.0) % Plt Count (150-450) k/uL Lymphocytes # (1.0-4.8) k/uL Sodium (137-145) mmol/L Glucose (74-99) mg/dL POC Glucose (mg/dL) 126 H 110 H 111 H (75-99) mg/dL Calcium (8.4-10.2) mg/dL Alkaline Phosphatase (38-126) U/L Total Protein (6.3-8.2) g/dL Albumin (3.5-5.0) g/dL 07/31/20 07/31/20 Range/Units 06:52 08:02 RBC (4.30-5.90) m/uL Hgb (13.0-17.5) gm/dL Hct (39.0-53.0) % Plt Count (150-450) k/uL Lymphocytes # (1.0-4.8) k/uL Sodium (137-145) mmol/L Glucose (74-99) mg/dL POC Glucose (mg/dL) 134 H 187 H (75-99) mg/dL Calcium (8.4-10.2) mg/dL Alkaline Phosphatase (38-126) U/L Total Protein (6.3-8.2) g/dL Albumin (3.5-5.0) g/dL - Imaging and Cardiology Chest x-ray: report reviewed, image reviewed Assessment and Plan Assessment: 1. Symptomatic multivessel coronary artery disease, status post 4 vessel bypass 2. Preserved systolic function, [id number] mitral valve regurgitation 3. History of coronary artery disease with prior multiple stents placemen 4. Hypertension 5. Hyperlipidemia 6. Newly diagnosed diet controlled diabetes mellitus type 2 with hemoglobin A1c of 6.4% 7. Obstructive sleep apnea with home CPAP use 8. Benign prostatic hypertrophy 9. Family history of premature coronary artery disease 10. Postoperative acute blood loss anemia and thrombocytopenia Plan: 1. Continue aspirin, zetia (intolerant to statins), lofibra, Plavix, beta cleopatra. Will increase beta cleopatra as tolerated, increased to 50 mg twice daily today 2. Continue Norvasc for radial artery spasm prophylaxis. Please do not discontinue CCB without discussing with cardiac surgery. 3. Wean O2 as tolerated. Encourage incentive spirometry use 10 times every hour while awake. Bronchodilators per pulmonology/critical care medicine. 4. Increase activity, ambulate as tolerated. PT/OT/cardiac rehab following 5. Will monitor daily labs and chest x-rays. Electrolyte replacement per protocol. No transfusion at this point. We will order type and screen for tomorrow morning in case the patient's hemoglobin is less than 7 and he is symptomatic 6. GI/DVT prophylaxis. 7. Pain control with current medication regimen. 8. Will give 20 mg IV Lasix today 9. Will discontinue Cordis, arterial line, mediastinal and right pleural chest tubes 10. Atrial epicardial wires discontinued without incident. Patient to remain on bedrest for 1 hour post-removal 11. Discontinue Loaiza catheter. May bladder scan and straight cath for greater than 300 mL residual. Continue Flomax 12. Insulin management per primary care service. Preoperative hemoglobin A1c 6.4% 13. Will place transfer orders for 3 separate cardiac stepdown unit. May transfer when bed available 14. Discharge planning in progress. Anticipate discharge to home with home care in 48-72 hours 15. More recommendations to follow based on patient's based on patient's clinical course. Time with Patient: Greater than 30
[2020-07-31 11:57] LABS: Glucose,Whole Blood 133 mg/dL (75-99)
[2020-07-31] MEDS: amLODIPine 2.5 MG TAB PO SCH (12:06)
[2020-07-31] MEDS: SODIUM CHLORIDE 0.9% 1,000 ML IV SCH (12:07)
--- NOTE | 2020-07-31 12:58 | P.PN ---
Subjective Progress Note Date: 07/31/20 Principal diagnosis: Status post quadruple coronary artery bypass grafting postoperative day #2 This is a 75-year-old white male primarily a patient of Dr. Cedeño , patient is known to have history of coronary artery disease and multiple stent placements. Patient had stents placed in 1995, 1996, 2005, and 2015. Normally sees Dr. Mcneill as his applied technologist. Patient is also known to have history of type 2 diabetes, hypertension, dyslipidemia, benign prostatic hypertrophy, nephrolithiasis, obstructive sleep apnea syndrome, on CPAP, patient was seen recently in the hospital with intermittent episodes of chest pains with exercise, underwent transthoracic echocardiogram on 07/24/20 showed normal LV function, mild concentric hypertrophy, [id number] mitral valve re gurgitation, and his cardiac catheterization showed 95% stenosis in his right coronary artery 99% stenosis in his circumflex coronary artery and 95% stenosis of the proximal left anterior descending coronary artery. Patient underwent elective myocardial revascularization today, postoperatively I saw him as soon as he arrived to the ICU, and he was on mechanical ventilation. His ventilator settings are assist control rate of 18 tidal volume is 500 FiO2 of 100% and PEEP of 5. His initial ABG is pending. Patient is hemodynamically stable, and sedated. Chest x-ray is also pending Patient was reevaluated today on 07/30/20, patient was successfully extubated at 21:25 PM yesterday. Tolerated the extubation well, patient is doing great today. Sitting at a bedside chair, relatively asymptomatic, not requiring any pressors or any inotropes. He is hemodynamically stable, doing fairly well with incentive spirometry achieving over 1000 mL. Chest x-ray showed mostly postoperative atelectasis, no significant unusual findings. CBC is unremarkable hemoglobin is 8, basic metabolic profile and renal profile are normal. Reevaluated today on 07/27/20, patient is postoperative day #2. Patient is doing great, sitting at a bedside chair, relatively asymptomatic, denies any shortness of breath or cough or wheezing. Remains in normal sinus rhythm, hemodynamically stable, not requiring any inotropes or process. Continues to have right internal jugular Cordis, right radial arterial line, mediastinal left and right pleural chest tubes in place. Chest x-ray showed minimal postoperative yunior nges/atelectasis, expected. Hemoglobin is 7.0 WBC count is 7.4. Electrolytes are normal renal profile is normal slight increase in creatinine noted up to 1.08 from 0.89 yesterday Objective - Vital Signs Vital signs: Vital Signs Temp 99.1 F 07/31/20 08:00 Pulse 86 07/31/20 11:44 Resp 20 07/31/20 11:05 BP 108/54 07/31/20 11:05 Pulse Ox 94 L 07/31/20 11:05 Intake & Output 07/30/20 07/31/20 07/31/20 18:59 06:59 18:59 Intake Total 1159.399 351.483 267.99 Output Total 915 645 620 Balance 244.399 -293.517 -352.01 Weight 100.2 kg 103.4 kg Intake: IV 398 312 144 CO/CI 50 Pressure bags 78 72 24 Sodium Chloride 0.9% 1, 270 240 120 000 ml @ 20 mls/hr IV . Q24H [place] Rx#:[id number] Intake, IV Titration 81.399 39.483 3.99 Amount Insulin Regular 100 unit 28.399 39.483 3.99 In Sodium Chloride 0.9% 100 ml @ Per Protocol IV .Q0M [place] Rx#:[id number] Nitroglycerin-D5w Pmx 50 3.0 mg In Dextrose/Water 1 250ml.bag @ 5 MCG/MIN 1.5 mls/hr IV .Q24H [place] Rx#: [id number] ceFAZolin 2 gm In Sodium 50 Chloride 0.9% 50 ml @ 100 mls/hr IVPB Q8H [place] Rx#: [id number] Oral 580 120 Tube Feeding 100 Output: Chest Tube Drainage 340 250 80 Bilateral Mediastinal 130 50 20 Left Lateral Chest 210 190 60 Right Lateral Chest 0 10 0 Drainage 75 Left Arm 35 Left Lower Calf 40 Urine 500 395 540 Other: Voiding Method Indwelling Catheter Indwelling Catheter Indwelling Catheter ABP, PAP, CO, CI - Last Documented Arterial Blood Pressure 126/47 Pulmonary Artery Pressure 28/12 Cardiac Output 6.8 Cardiac Index 3.3 - Exam Physical Exam: Revealed 75-year-old white male, on nasal cannula, in no distress. Head: Atraumatic, normocephalic. HEENT:[Neck is supple.] [No neck masses.] [No thyromegaly.] [No JVD.] Chest: Impression breath sounds at the bases no crackles or rhonchi or wheezes.Mediastinal, left pleural, right pleural chest tubes all connected to continuous wall suction, no air leaks present. Mediastinal with 20 mL serosangu ineous drainage overnight, 150 mL in the last 24 hours. Left pleural with 110 mL serosanguineous drainage overnight, 400 mL in the last 24 hours. Right pleural chest tube with 10 mL serosanguineous drainage in the last 24 hours. Cardiac Exam: [Normal S1 and S2, no S3 gallop, 2/6 systolic murmur thought the precordium, Sternum stable. Atrial epicardial wires present, connected to generator, AAI mode with backup rate 50 bpm. Right internal jugular Cordis, right radial arterial line present. Palpable peripheral pulses bilaterally. Trace generalized edema present. No calf pain or tenderness noted. Heart hugger in place with patient demonstrating appropriate use. Antiembolism stockings, SCDs present. Abdomen: [Soft, nontender, no megaly, no rebound, no guarding, normal bowel sounds.] Extremities: [No clubbing, no edema, no cyanosis.] Neurological Exam: Alert and oriented 3 focal deficits. Psychiatric: Normal mood, affect and normal mental status examination Skin: No rashes. - Labs CBC & Chem 7: 07/31/20 04:00 07/31/20 04:00 Labs: Abnormal Lab Results - Last 24 Hours (Table) 07/30/20 07/30/20 07/30/20 Range/Units 13:27 14:48 16:08 RBC (4.30-5.90) m/uL Hgb (13.0-17.5) gm/dL Hct (39.0-53.0) % Plt Count (150-450) k/uL Lymphocytes # (1.0-4.8) k/uL Sodium (137-145) mmol/L Glucose (74-99) mg/dL POC Glucose (mg/dL) 171 H 151 H 117 H (75-99) mg/dL Calcium (8.4-10.2) mg/dL Alkaline Phosphatase (38-126) U/L Total Protein (6.3-8.2) g/dL Albumin (3.5-5.0) g/dL 07/30/20 07/30/20 07/30/20 Range/Units 17:23 18:31 19:52 RBC (4.30-5.90) m/uL Hgb (13.0-17.5) gm/dL Hct (39.0-53.0) % Plt Count (150-450) k/uL Lymphocytes # (1.0-4.8) k/uL Sodium (137-145) mmol/L Glucose (74-99) mg/dL POC Glucose (mg/dL) 143 H 169 H 164 H (75-99) mg/dL Calcium (8.4-10.2) mg/dL Alkaline Phosphatase (38-126) U/L Total Protein (6.3-8.2) g/dL Albumin (3.5-5.0) g/dL 07/30/20 07/30/20 07/30/20 Range/Units 20:56 22:11 23:06 RBC (4.30-5.90) m/uL Hgb (13.0-17.5) gm/dL Hct (39.0-53.0) % Plt Count (150-450) k/uL Lymphocytes # (1.0-4.8) k/uL Sodium (137-145) mmol/L Glucose (74-99) mg/dL POC Glucose (mg/dL) 135 H 114 H 116 H (75-99) mg/dL Calcium (8.4-10.2) mg/dL Alkaline Phosphatase (38-126) U/L Total Protein (6.3-8.2) g/dL Albumin (3.5-5.0) g/dL 07/31/20 07/31/20 07/31/20 Range/Units 00:01 00:57 01:53 RBC (4.30-5.90) m/uL Hgb (13.0-17.5) gm/dL Hct (39.0-53.0) % Plt Count (150-450) k/uL Lymphocytes # (1.0-4.8) k/uL Sodium (137-145) mmol/L Glucose (74-99) mg/dL POC Glucose (mg/dL) 137 H 132 H 117 H (75-99) mg/dL Calcium (8.4-10.2) mg/dL Alkaline Phosphatase (38-126) U/L Total Protein (6.3-8.2) g/dL Albumin (3.5-5.0) g/dL 07/31/20 07/31/20 07/31/20 Range/Units 03:01 04:00 04:00 RBC 2.19 L (4.30-5.90) m/uL Hgb 7.0 L (13.0-17.5) gm/dL Hct 20.6 L (39.0-53.0) % Plt Count 104 L (150-450) k/uL Lymphocytes # 0.7 L (1.0-4.8) k/uL Sodium 133 L (137-145) mmol/L Glucose 115 H (74-99) mg/dL POC Glucose (mg/dL) 115 H (75-99) mg/dL Calcium 8.1 L (8.4-10.2) mg/dL Alkaline Phosphatase 24 L (38-126) U/L Total Protein 4.5 L (6.3-8.2) g/dL Albumin 2.8 L (3.5-5.0) g/dL 07/31/20 07/31/20 07/31/20 Range/Units 04:06 05:01 06:07 RBC (4.30-5.90) m/uL Hgb (13.0-17.5) gm/dL Hct (39.0-53.0) % Plt Count (150-450) k/uL Lymphocytes # (1.0-4.8) k/uL Sodium (137-145) mmol/L Glucose (74-99) mg/dL POC Glucose (mg/dL) 126 H 110 H 111 H (75-99) mg/dL Calcium (8.4-10.2) mg/dL Alkaline Phosphatase (38-126) U/L Total Protein (6.3-8.2) g/dL Albumin (3.5-5.0) g/dL 07/31/20 07/31/20 07/31/20 Range/Units 06:52 08:02 11:55 RBC (4.30-5.90) m/uL Hgb (13.0-17.5) gm/dL Hct (39.0-53.0) % Plt Count (150-450) k/uL Lymphocytes # (1.0-4.8) k/uL Sodium (137-145) mmol/L Glucose (74-99) mg/dL POC Glucose (mg/dL) 134 H 187 H 133 H (75-99) mg/dL Calcium (8.4-10.2) mg/dL Alkaline Phosphatase (38-126) U/L Total Protein (6.3-8.2) g/dL Albumin (3.5-5.0) g/dL Assessment and Plan Assessment: Impression: Status post quadruple bypass surgery, postoperative day #2 Multivessel coronary artery disease as noted on his recent cardiac catheterization. And history of multiple stents placed. History of moderate mitral regurgitation with preserved systolic function. Benign essential hypertension. Type 2 diabetes. Obstructive sleep apnea syndrome. History of nephrolithiasis. Family history of premature coronary artery disease. Benign prostatic hypertrophy. Recommendation: Continue aspirin beta blockers Plavix therapy for dyslipidemia. Patient cannot tolerate statins. Continue incentive spirometry Continue bronchodilators Ambulate Discontinue unnecessary catheters GI and DVT prophylaxis We'll continue to follow Time with Patient: Less than 30
[2020-07-31 17:09] LABS: Glucose,Whole Blood 140 mg/dL (75-99)
--- NOTE | 2020-07-31 17:23 | P.PN ---
Progress Note - Text Progress Note Date: 07/31/20 - Chief Complaint Coronary bypass History of presenting complaint: This is a very pleasant [address] Christine. Chronic stable medical conditions include diabetes, hypertension, hyperlipidemia, obstructive sleep apnea, coronary artery disease with a history of stent. Patient underwent quadruple coronary bypass. Today-doing well. Sitting up in a chair. Did tolerate a diet. One chest tube in place. Loaiza catheter is out. Had a bowel movement. Did walk in the hallway. Breathing better. Review of systems: Was done for constitutional, cardiovascular, GI, pulmonary. relevant finding as above Active Medications Acetaminophen (Acetaminophen Tab 500 Mg Tab) 1,000 mg PO Q6HR PRN PRN Reason: Fever and/ or Pain Hydrocodone Bitart/Acetaminophen (Hydrocodone/Apap 5-325mg 1 Each Tab) 1 each PO Q4HR PRN PRN Reason: Moderate Pain Albuterol/Ipratropium (Ipratropium-Albuterol 3 Ml Neb) 3 ml INHALATION RT-Q2H PRN PRN Reason: Shortness Of Breath Or Wheezing Albuterol/Ipratropium (Ipratropium-Albuterol 3 Ml Neb) 3 ml INHALATION RT-QID [facility] Last Admin: 07/31/20 15:09 Dose: 3 ml Documented by: Amlodipine Besylate (Amlodipine 2.5 Mg Tab) 2.5 mg PO DAILY@1200 [facility] Last Admin: 07/31/20 12:06 Dose: 2.5 mg Documented by: Ascorbic Acid (Ascorbic Acid 500 Mg Tab) 500 mg PO BID-W/MEALS [facility] Last Admin: 07/31/20 08:13 Dose: 500 mg Documented by: Aspirin (Aspirin 325 Mg Tab) 325 mg PO DAILY [facility] Last Admin: 07/31/20 08:13 Dose: 325 mg Documented by: Benzocaine/Menthol (Benzocaine/Menthol Lozeng 1 Each Lozenge) 1 each MUCOUS MEM Q2H PRN PRN Reason: Sore Throat Bisacodyl (Bisacodyl 10 Mg Supp) 10 mg RECTAL DAILY PRN PRN Reason: Constipation Clopidogrel Bisulfate (Clopidogrel 75 Mg Tab) 75 mg PO DAILY [facility] Last Admin: 07/31/20 08:13 Dose: 75 mg Documented by: Ezetimibe (Ezetimibe 10 Mg Tab) 10 mg PO DAILY [facility] Last Admin: 07/31/20 08:13 Dose: 10 mg Documented by: Fenofibrate (Fenofibrate 160 Mg Tab) 160 mg PO DAILY [facility] Last Admin: 07/31/20 08:12 Dose: 160 mg Documented by: Ferrous Sulfate (Ferrous Sulfate 325 Mg Tab) 325 mg PO BID-W/MEALS [facility] Last Admin: 07/31/20 08:13 Dose: 325 mg Documented by: Heparin Sodium (Porcine) (Heparin Sodium,Porcine 5,000 Unit/Ml 1 Ml Vial) 5,000 unit SQ Q8HR [facility] Last Admin: 07/31/20 15:50 Dose: 5,000 unit Documented by: Amiodarone HCl 150 mg/ (Dextrose/Water) 103 mls @ 618 mls/hr IV .Q10M PRN; Protocol PRN Reason: A.FIB/FLUTTER Amiodarone HCl 360 mg/ (Dextrose/Water) 200 mls @ 33.333 mls/hr IV .Q6H PRN; Protocol PRN Reason: A.FIB/FLUTTER Amiodarone HCl 300 mg/ (Dextrose/Water) 250 mls @ 25 mls/hr IV .Q10H PRN; Protocol PRN Reason: A.FIB/FLUTTER Insulin Aspart (Insulin Aspart (Novolog) 100 Unit/Ml Vial) 0 unit SQ [id number] SCH; Protocol Last Admin: 07/31/20 12:06 Dose: 1 unit Documented by: Insulin Aspart (Insuln Asp Prt/Insulin Aspart 100 Unit/Ml 10 Ml Vial) 21 unit 0.2 unit/kg (21 unit) SQ AC-BRKFST [facility] Last Admin: 07/31/20 08:20 Dose: 21 unit Documented by: Insulin Human NPH (Insulin Nph 300 Unit/3 Ml Vial) 10 unit 0.1 unit/kg (10 unit) SQ [facility] Ketorolac Tromethamine (Ketorolac 15 Mg/Ml 1 Ml Vial) 15 mg IVP Q6HR [facility] Stop: 08/01/20 17:17 Last Admin: 07/31/20 12:05 Dose: 15 mg Documented by: Magnesium Hydroxide (Magnesium Hydroxide 2,400 Mg/10 Ml Cup) 2,400 mg PO BID PRN PRN Reason: Constipation Metoclopramide HCl (Metoclopramide 5 Mg/Ml 2 Ml Vial) 10 mg IVP Q4H PRN PRN Reason: Nausea And Vomiting Metoprolol Tartrate (Metoprolol Tartrate 50 Mg Tab) 50 mg PO BID [facility] Last Admin: 07/31/20 08:12 Dose: 50 mg Documented by: Miscellaneous Information (Potassium Replacement Protocol 1 Each Misc) 1 each MISCELLANE DAILY PRN; Protocol PRN Reason: Per Protocol Miscellaneous Information (Magnesium Replacement Protocol 1 Each [facility]) 1 each MISCELLANE DAILY PRN; Protocol PRN Reason: Per Protocol Miscellaneous Information (Phosphorus Replacement Protoco 1 Each Mis) 1 each MISCELLANE DAILY PRN; Protocol PRN Reason: Per Protocol Ondansetron HCl (Ondansetron 4 Mg/2 Ml Vial) 4 mg IVP Q6HR PRN PRN Reason: Nausea And Vomiting Last Admin: 07/30/20 01:57 Dose: 4 mg Documented by: Pantoprazole Sodium (Pantoprazole 40 Mg Tablet) 40 mg PO -BRKFST [facility] Last Admin: 07/31/20 06:02 Dose: 40 mg Documented by: Senna/Docusate Sodium (Sennosides-Docusate Sodium 1 Each Tab) 2 each PO [facility] Last Admin: 07/30/20 19:56 Dose: 2 each Documented by: Sodium Chloride (Sodium Chloride 0.9% Flush 10 Ml Syringe) 10 ml IV BID [facility] Last Admin: 07/31/20 09:00 Dose: 10 ml Documented by: Tamsulosin HCl (Tamsulosin 0.4 Mg Cap.Er.24h) 0.4 mg PO [facility] Last Admin: 07/30/20 19:56 Dose: 0.4 mg Documented by: Physical examination: VITAL SIGNS: 98.9, 83, 18, 105/56, 94% 2 L GENERAL: Sitting up in a chair, awake, comfortable EYES: Pupils equal. Conjunctiva normal. HEENT: External appearance of nose and ears normal, oral cavity grossly normal. NECK: JVD not raised; masses not palpable. HEART: First and second heart sounds are normal; no edema. LUNGS: Respiratory rate increased, decreased breath sounds. ABDOMEN: Soft, nontender, liver spleen not palpable, no masses palpable. PSYCH: Alert and oriented x3; mood and affect normal. INVESTIGATIONS, reviewed in the clinical context: White count 7.4 hemoglobin 7 platelets 104 potassium 4.5 creatinine 1.08 Previous testing White count 6.8 hemoglobin 8 platelets 115 potassium 4.3 creatinine 0.89 Accu-Cheks 113, 148 Assessment: -Quadruple coronary bypass -Acute postprocedure blood loss anemia expected from surgery -Thrombocytopenia, dilutional -Diabetes mellitus type 2 -Hyperlipidemia -Essential hypertension -Obstructive sleep apnea uses CPAP -Coronary artery disease history of stents - Plan: Discussed with the patient. To use his incentive spirometry. Continue current medication and treatment plan. Thank you Dr. Shields
[2020-07-31 20:53] LABS: Glucose,Whole Blood 150 mg/dL (75-99)
[2020-07-31] MEDS: SENNOSIDES-DOCUSATE SODIUM 1 EACH TAB PO SCH (21:12)
[2020-07-31] MEDS: TAMSULOSIN 0.4 MG CAP.ER.24H PO SCH (21:12)
[2020-07-31] MEDS: INSULIN NPH 300 UNIT/3 ML VIAL SQ SCH (21:12)
[2020-08-01] MEDS: INSULIN ASPART (NovoLOG) 100 UNIT/ML VIAL SQ SCH ×5 (02:21→21:27)
[2020-08-01 04:32] LABS: MCH 32.5 pg (25.0-35.0); MCHC 34.2 g/dL (31.0-37.0); MCV 94.9 fL (80.0-100.0); Mean Platelet Volume 8.9; Platelet Count 118 k/uL (150-450); RBC 2.04 m/uL (4.30-5.90); RDW 14.5 % (11.5-15.5); WBC 7.8 k/uL (3.8-10.6)
[2020-08-01 04:33] LABS: Calcium 8.4 mg/dL (8.4-10.2); Magnesium 2.5 mg/dL (1.6-2.3); Potassium 4.4 mmol/L (3.5-5.1)
[2020-08-01 04:37] LABS: HCT 19.4 % (39.0-53.0); HGB 6.6 gm/dL (13.0-17.5)
[2020-08-01] MEDS ORDERED: MAGNESIUM HYDROXIDE 2,400 MG/10 ML CUP PO STA (07:02)
[2020-08-01] MEDS: INSULN ASP PRT/INSULIN ASPART 100 UNIT/ML 10 ML VIAL SQ SCH (07:02)
[2020-08-01 07:03] LABS: Glucose,Whole Blood 127 mg/dL (75-99)
[2020-08-01] MEDS: FERROUS SULFATE 325 MG TAB PO SCH ×2 (07:03→17:31)
[2020-08-01] MEDS: PANTOPRAZOLE 40 MG TABLET PO SCH (07:03)
[2020-08-01] MEDS: ASCORBIC ACID 500 MG TAB PO SCH ×2 (07:03→17:31)
--- NOTE | 2020-08-01 07:30 | P.PN ---
Subjective Progress Note Date: 08/01/20 Principal diagnosis: Symptomatic multivessel coronary artery disease, preserved systolic function, [id number] mitral valve regurgitation. Previous medical history of coronary artery disease with prior multiple stents placement, hypertension, hyperlipidemia, recent diagnosis of diet controlled diabetes mellitus type 2 with recent hemoglobin A1c of 6.4%, obstructive sleep apnea with home CPAP use, benign prostatic hypertrophy, nephrolithiasis, vertigo, and family history of premature coronary artery disease POD #3 quadruple coronary artery bypass grafting using the left internal mammary artery to left anterior descending coronary artery, the left radial artery from the aorta to the obtuse marginal coronary artery, reverse greater saphenous vein graft from the aorta to the ramus intermedius coronary artery, reverse greater saphenous vein graft from the aorta to the posterior descending coronary artery, endoscopic harvesting of the left radial artery, endoscopic harvesting of the left greater saphenous vein from the groin to the mid lower leg level, intraoper ative graft flow measurement using the Medistim system, intraoperative transesophageal echocardiogram and epi-aortic scanning. Postoperative acute blood loss anemia and thrombocytopenia, expected, dilutional The patient is currently sitting up in a recliner in the intensive care unit in no acute distress. States pain is controlled on current medication regimen, denies shortness of breath. Remains in normal sinus rhythm. Left pleural chest tube remains. Hemoglobin 6.6 this morning, patient is mentating appropriately, does not feel weak, has been ambulating in the hallway, heart rate has been in the mid 90s to low 100s, blood pressure was in the 90s over 50s last night, currently one teens over 50s with means in the 70s. He was unable to void yesterday and did have to be straight cathed this morning 1. He did receive Lasix yesterday with bump in BUN and creatinine. Objective - Vital Signs Vital signs: Vital Signs Temp 99 F 08/01/20 05:00 Pulse 96 08/01/20 06:00 Resp 22 08/01/20 06:00 BP 111/55 08/01/20 05:00 Pulse Ox 96 08/01/20 05:00 Intake & Output 07/31/20 08/01/20 08/01/20 18:59 06:59 18:59 Intake Total 507.99 200 Output Total 700 1020 Balance -192.01 -820 Intake: IV 144 Pressure bags 24 Sodium Chloride 0.9% 1, 120 000 ml @ 20 mls/hr IV . Q24H [place] Rx#:[id number] Intake, IV Titration 3.99 Amount Insulin Regular 100 unit 3.99 In Sodium Chloride 0.9% 100 ml @ Per Protocol IV .Q0M [place] Rx#:[id number] Oral 360 200 Output: Chest Tube Drainage 80 70 Bilateral Mediastinal 20 Left Lateral Chest 60 70 Right Lateral Chest 0 Urine 620 950 Straight 475 Other: Voiding Method Indwelling Catheter # Voids 0 ABP, PAP, CO, CI - Last Documented Arterial Blood Pressure 126/47 Pulmonary Artery Pressure 28/12 Cardiac Output 6.8 Cardiac Index 3.3 - Constitutional General appearance: Present: cooperative, no acute distress - Respiratory Details: Lungs sounds diminished bilaterally. Respirations even, nonlabored. Currently on 2 L nasal cannula with oxygen saturation 95%. Able to achieve 1500 mL on his incentive spirometry. Strong productive cough. Left pleural chest tube connected to continuous wall suction, no air leak present, 50 mL serosanguineous drainage overnight, 150 mL in the last 24 hours. - Cardiovascular Details: S1, S2 present. Regular rate and rhythm, sinus rhythm on telemetry. Sternum stable. Palpable peripheral pulses bilaterally. Trace generalized edema present. No calf pain or tenderness noted. Heart hugger in place with patient demonstrating appropriate use. Antiembolism stockings, SCDs present. - Gastrointestinal Gastrointestinal Comment(s): Abdomen soft, nontender, nondistended. Active bowel sounds present 4 quadrants. Tolerating diet. Positive flatus, negative bowel movement. - Genitourinary Genitourinary Comment(s): Loaiza discontinued yesterday, excellent diuresis after IV Lasix given. Patient unable to void after removal of Loaiza, straight cathed this morning at 2 AM for 475 mL residual. - Integumentary Integumentary Comment(s): Skin is warm and dry with evidence of good perfusion. Anterior chest incision well approximated and covered with dry intact dressing. Left radial artery harvest site well approximated without redness or drainage, good cap refill, patient able to wiggle all fingers and flight line service attendant appropriately. Left lower extremity EVH site well approximated without redness or drainage - Neurologic Neurologic: Present: CNII-XII intact - Musculoskeletal Musculoskeletal: Present: gait normal, strength equal bilaterally - Psychiatric Psychiatric: Present: A&O x's 3, appropriate affect, intact judgment & insight - Allied health notes Allied health notes reviewed: nursing - Labs CBC & Chem 7: 08/01/20 03:52 08/01/20 03:52 Labs: Abnormal Lab Results - Last 24 Hours (Table) 07/31/20 07/31/20 07/31/20 Range/Units 08:02 11:55 17:07 RBC (4.30-5.90) m/uL Hgb (13.0-17.5) gm/dL Hct (39.0-53.0) % Plt Count (150-450) k/uL Sodium (137-145) mmol/L BUN (9-20) mg/dL Creatinine (0.66-1.25) mg/dL Glucose (74-99) mg/dL POC Glucose (mg/dL) 187 H 133 H 140 H (75-99) mg/dL Magnesium (1.6-2.3) mg/dL 07/31/20 08/01/20 08/01/20 Range/Units 20:51 03:52 03:52 RBC 2.04 L (4.30-5.90) m/uL Hgb 6.6 L* (13.0-17.5) gm/dL Hct 19.4 L* (39.0-53.0) % Plt Count 118 L (150-450) k/uL Sodium 132 L (137-145) mmol/L BUN 27 H (9-20) mg/dL Creatinine 1.37 H (0.66-1.25) mg/dL Glucose 132 H (74-99) mg/dL POC Glucose (mg/dL) 150 H (75-99) mg/dL Magnesium 2.5 H (1.6-2.3) mg/dL 08/01/20 Range/Units 07:01 RBC (4.30-5.90) m/uL Hgb (13.0-17.5) gm/dL Hct (39.0-53.0) % Plt Count (150-450) k/uL Sodium (137-145) mmol/L BUN (9-20) mg/dL Creatinine (0.66-1.25) mg/dL Glucose (74-99) mg/dL POC Glucose (mg/dL) 127 H (75-99) mg/dL Magnesium (1.6-2.3) mg/dL - Imaging and Cardiology Chest x-ray: image reviewed Assessment and Plan Assessment: 1. Symptomatic multivessel coronary artery disease, status post 4 vessel bypass 2. Preserved systolic function, [id number] mitral valve regurgitation 3. History of coronary artery disease with prior multiple stents placemen 4. Hypertension 5. Hyperlipidemia 6. Newly diagnosed diet controlled diabetes mellitus type 2 with hemoglobin A1c of 6.4% 7. Obstructive sleep apnea with home CPAP use 8. Benign prostatic hypertrophy 9. Family history of premature coronary artery disease 10. Postoperative acute blood loss anemia and thrombocytopenia Plan: 1. Continue aspirin, zetia (intolerant to statins), lofibra, Plavix, beta cleopatra. Will increase beta cleopatra as tolerated 2. Continue Norvasc for radial artery spasm prophylaxis. Please do not discontinue CCB without discussing with cardiac surgery. 3. Wean O2 as tolerated. Encourage incentive spirometry use 10 times every hour while awake. Bronchodilators per pulmonology/critical care medicine. 4. Increase activity, ambulate as tolerated. PT/OT/cardiac rehab following 5. Will monitor daily labs and chest x-rays. Electrolyte replacement per protocol. Will transfuse 1 unit PRBCs today, likely will give IV lasix after PRBC 6. GI/DVT prophylaxis. 7. Pain control with current medication regimen. Toradol discontinued secon stephanie to increase in BUN, creatinine 8. Will discontinue left pleural chest tube today 9. May bladder scan and straight cath for greater than 300 mL residual. Continue Flomax. If need to straight cath more than twice daily Loaiza catheter in and will consult urology 10. Insulin management per primary care service. Preoperative hemoglobin A1c 6.4% 11. Transfer orders for placed for [address] [place] [address] cardiac stepdown unit. May transfer when bed available 12. Discharge planning in progress. Anticipate discharge to home with home care this weekend 13. More recommendations to follow based on patient's based on patient's clinical course. Time with Patient: Greater than 30
[2020-08-01] MEDS: IPRATROPIUM-ALBUTEROL 3 ML NEB INHALATION SCH ×4 (08:16→20:16)
--- NOTE | 2020-08-01 08:31 | P.PN ---
Subjective Progress Note Date: 08/01/20 Principal diagnosis: Status post coronary artery bypass grafting his is a very pleasant 75-year-old gentleman who sees Dr. Mcneill in the office on regular basis with a past medical history significant for diabetes and hypertension and dyslipidemia as well as obstructive sleep apnea who was admitted to the hospital yesterday and underwent an elective coronary artery bypass grafting where he received quadruple bypasses with ARELLANO to LAD and left radial artery to OM and reverse SVG to ramus intermedius as well as reverse SVG to PDA. The patient is known to have coronary artery disease and in the past he underwent stenting of the RCA as well as left circumflex but he was experiencing symptoms of chest discomfort and shortness of breath with exertion and he underwent a heart catheterization recently and that revealed severe triple- vessel coronary artery disease. Because of that he was referred for surgery. The patient was seen today August [id number]. This is postoperative patient day #3. He is in sinus tachycardia with a resting heart rate above 100 beats pe r minutes. His hemoglobin this morning came in to be 6.6. I advised to give the patient one unit of packed RBC and continue monitor the kidney function as well as a hemoglobin. Beside that he is on maximize medical treatment. The chest x-ray as well as a blood work were reviewed. Objective - Vital Signs Vital signs: Vital Signs Temp 99 F 08/01/20 05:00 Pulse 96 08/01/20 06:00 Resp 22 08/01/20 06:00 BP 111/55 08/01/20 05:00 Pulse Ox 96 08/01/20 05:00 Intake & Output 07/31/20 08/01/20 08/01/20 18:59 06:59 18:59 Intake Total 507.99 200 Output Total 700 1020 Balance -192.01 -820 Intake: IV 144 Pressure bags 24 Sodium Chloride 0.9% 1, 120 000 ml @ 20 mls/hr IV . Q24H [place] Rx#:[id number] Intake, IV Titration 3.99 Amount Insulin Regular 100 unit 3.99 In Sodium Chloride 0.9% 100 ml @ Per Protocol IV .Q0M [place] Rx#:[id number] Oral 360 200 Output: Chest Tube Drainage 80 70 Bilateral Mediastinal 20 Left Lateral Chest 60 70 Right Lateral Chest 0 Urine 620 950 Straight 475 Other: Voiding Method Indwelling Catheter # Voids 0 ABP, PAP, CO, CI - Last Documented Arterial Blood Pressure 126/47 Pulmonary Artery Pressure 28/12 Cardiac Output 6.8 Cardiac Index 3.3 - Constitutional General appearance: Present: no acute distress - Respiratory Respiratory: bilateral: diminished - Cardiovascular Rhythm: regular Heart sounds: normal: S1, S2 - Labs CBC & Chem 7: 08/01/20 03:52 08/01/20 03:52 Labs: Abnormal Lab Results - Last 24 Hours (Table) 07/31/20 07/31/20 07/31/20 Range/Units 11:55 17:07 20:51 RBC (4.30-5.90) m/uL Hgb (13.0-17.5) gm/dL Hct (39.0-53.0) % Plt Count (150-450) k/uL Sodium (137-145) mmol/L BUN (9-20) mg/dL Creatinine (0.66-1.25) mg/dL Glucose (74-99) mg/dL POC Glucose (mg/dL) 133 H 140 H 150 H (75-99) mg/dL Magnesium (1.6-2.3) mg/dL Crossmatch 08/01/20 08/01/20 08/01/20 Range/Units 03:52 03:52 03:52 RBC 2.04 L (4.30-5.90) m/uL Hgb 6.6 L* (13.0-17.5) gm/dL Hct 19.4 L* (39.0-53.0) % Plt Count 118 L (150-450) k/uL Sodium 132 L (137-145) mmol/L BUN 27 H (9-20) mg/dL Creatinine 1.37 H (0.66-1.25) mg/dL Glucose 132 H (74-99) mg/dL POC Glucose (mg/dL) (75-99) mg/dL Magnesium 2.5 H (1.6-2.3) mg/dL Crossmatch See Detail 08/01/20 Range/Units 07:01 RBC (4.30-5.90) m/uL Hgb (13.0-17.5) gm/dL Hct (39.0-53.0) % Plt Count (150-450) k/uL Sodium (137-145) mmol/L BUN (9-20) mg/dL Creatinine (0.66-1.25) mg/dL Glucose (74-99) mg/dL POC Glucose (mg/dL) 127 H (75-99) mg/dL Magnesium (1.6-2.3) mg/dL Crossmatch Assessment and Plan Assessment: Assessment #1 severe triple-vessel CAD and status post CABG 4 #2 diabetes type 2 #3 hypertension #4 dyslipidemia Plan #1 continue the current medical regimen #2 I advise give the patient one unit of packed RBC. His hemoglobin this morning 6.6 #3 continue monitor the hemoglobin as well as a kidney function #4 follow-up with the patient
--- NOTE | 2020-08-01 08:53 | XR ---
EXAMINATION TYPE: XR chest 1V portable DATE OF EXAM: 08/01/2020 COMPARISON: Prior chest x-ray 07/31/2020 HISTORY: Status post cardiac surgery TECHNIQUE: Single frontal view of the chest is obtained. FINDINGS: Patient is post median sternotomy. Median sternal drains are no longer seen. Left chest tu be remains in place. Right chest tube has been removed. No evident pneumothorax. Patchy bibasilar den sity persists. Heart size is stable. Aorta is dense. IMPRESSION: No evident complication status post chest tube removal. Expiratory exam, basilar subsegm ental atelectatic changes are suspected.
[2020-08-01] MEDS: ASPIRIN 325 MG TAB PO SCH (09:21)
[2020-08-01] MEDS: CLOPIDOGREL 75 MG TAB PO SCH (09:21)
[2020-08-01] MEDS: HEPARIN SODIUM,PORCINE 5,000 UNIT/ML 1 ML VIAL SQ SCH ×2 (09:21→17:31)
[2020-08-01] MEDS: METOPROLOL TARTRATE 50 MG TAB PO SCH ×2 (09:21→18:18)
[2020-08-01] MEDS: EZETIMIBE 10 MG TAB PO SCH (09:22)
[2020-08-01] MEDS: FENOFIBRATE 160 MG TAB PO SCH (09:22)
[2020-08-01] MEDS: HYDROcodone/APAP 5-325MG 1 EACH TAB PO PRN ×2 (09:36→14:54)
[2020-08-01] MEDS ORDERED: FUROSEMIDE 10 MG/ML 2 ML VIAL IV ONE (11:38)
[2020-08-01 12:13] LABS: Glucose,Whole Blood 115 mg/dL (75-99)
[2020-08-01] MEDS: amLODIPine 2.5 MG TAB PO SCH (12:17)
--- NOTE | 2020-08-01 13:07 | P.PN ---
Subjective Progress Note Date: 08/01/20 Principal diagnosis: Status post quadruple coronary artery bypass grafting postoperative day #3 This is a 75-year-old white male primarily a patient of Dr. Cedeño , patient is known to have history of coronary artery disease and multiple stent placements. Patient had stents placed in 1995, 1996, 2005, and 2015. 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 Patient is also known to have history of type 2 diabetes, hypertension, dyslipidemia, benign prostatic hypertrophy, nephrolithiasis, obstructive sleep apnea syndrome, on CPAP, patient was seen recently in the hospital with intermittent episodes of chest pains with exercise, underwent transthoracic echocardiogram on 07/24/20 showed normal LV function, mild concentric hypertrophy, [id number] mitral valve re gurgitation, and his cardiac catheterization showed 95% stenosis in his right coronary artery 99% stenosis in his circumflex coronary artery and 95% stenosis of the proximal left anterior descending coronary artery. Patient underwent elective myocardial revascularization today, postoperatively I saw him as soon as he arrived to the ICU, and he was on mechanical ventilation. His ventilator settings are assist control rate of 18 tidal volume is 500 FiO2 of 100% and PEEP of 5. His initial ABG is pending. Patient is hemodynamically stable, and sedated. Chest x-ray is also pending Patient was reevaluated today on 07/30/20, patient was successfully extubated at 21:25 PM yesterday. Tolerated the extubation well, patient is doing great today. Sitting at a bedside chair, relatively asymptomatic, not requiring any pressors or any inotropes. He is hemodynamically stable, doing fairly well with incentive spirometry achieving over 1000 mL. Chest x-ray showed mostly postoperative atelectasis, no significant unusual findings. CBC is unremarkable hemoglobin is 8, basic metabolic profile and renal profile are normal. Reevaluated today on 07/31/20, patient is postoperative day #2. Patient is doing great, sitting at a bedside chair, relatively asymptomatic, denies any shortness of breath or cough or wheezing. Remains in normal sinus rhythm, hemodynamically stable, not requiring any inotropes or process. Continues to have right internal jugular Cordis, right radial arterial line, mediastinal left and right pleural chest tubes in place. Chest x-ray showed minimal postoperative yunior nges/atelectasis, expected. Hemoglobin is 7.0 WBC count is 7.4. Electrolytes are normal renal profile is normal slight increase in creatinine noted up to 1.08 from 0.89 yesterday Reevaluated today on 08/01/20, patient is postoperative day #3. Didn't sleep much last night, woke up at 3 AM, couldn't sleep again. Patient has been ambulating in the hallway. He is on 2 L nasal cannula, feels generally weak. Hemoglobin is 6.6 today, he is scheduled to receive a unit of packed RBCs for low hemoglobin of 6.6, and that will likely improve his symptoms of weakness and fatigue. Continues to have a chest tube in place, and significant bloody drainage noted in the left sided chest tube. Patient is achieving 1000 mL in his incentive spirometer. He is not requiring any pressors or any inotropes. He is in sinus rhythm heart rate of 107. Chest x-ray showed minimal basilar atelectasis. Patient was unable to void yesterday, and didn't receive straight cathed this morning 1 Objective - Vital Signs Vital signs: Vital Signs Temp 98.6 F 08/01/20 12:20 Pulse 86 08/01/20 12:20 Resp 14 08/01/20 12:20 BP 130/69 08/01/20 12:20 Pulse Ox 93 L 08/01/20 12:00 Intake & Output 07/31/20 08/01/20 08/01/20 18:59 06:59 18:59 Intake Total 507.99 200 510 Output Total 700 1020 0 Balance -192.01 -820 510 Intake: IV 144 Pressure bags 24 Sodium Chloride 0.9% 1, 120 000 ml @ 20 mls/hr IV . Q24H [place] Rx#:[id number] Intake, IV Titration 3.99 Amount Insulin Regular 100 unit 3.99 In Sodium Chloride 0.9% 100 ml @ Per Protocol IV .Q0M [place] Rx#:[id number] Oral 360 200 200 Blood Product 310 Rc As-1 Unit 310 [id number] Output: Chest Tube Drainage 80 70 Bilateral Mediastinal 20 Left Lateral Chest 60 70 Right Lateral Chest 0 Urine 620 950 0 Straight 475 Other: Voiding Method Indwelling Catheter Indwelling Catheter # Voids 0 ABP, PAP, CO, CI - Last Documented Arterial Blood Pressure 126/47 Pulmonary Artery Pressure 28/12 Cardiac Output 6.8 Cardiac Index 3.3 - Exam Physical Exam: Revealed 75-year-old white male, on nasal cannula, in no distress. Head: Atraumatic, normocephalic. HEENT:[Neck is supple.] [No neck masses.] [No thyromegaly.] [No JVD.] Chest: Diminished breath sounds at the bases no crackles or rhonchi or wheezes, Left pleural chest tube connected to continuous wall suction, no air leak present, 50 mL serosanguineous drainage overnight, 150 mL in the last 24 hours. Cardiac Exam: [Normal S1 and S2, no S3 gallop, 2/6 systolic murmur thought the precordium, Sternum stable. Abdomen: [Soft, nontender, no megaly, no rebound, no guarding, normal bowel sounds.] Extremities: [No clubbing, no edema, no cyanosis.] Neurological Exam: Alert and oriented 3 focal deficits. Psychiatric: Normal mood, affect and normal mental status examination Skin: No rashes. - Labs CBC & Chem 7: 08/01/20 03:52 08/01/20 03:52 Labs: Abnormal Lab Results - Last 24 Hours (Table) 07/31/20 07/31/20 08/01/20 Range/Units 17:07 20:51 03:52 RBC (4.30-5.90) m/uL Hgb (13.0-17.5) gm/dL Hct (39.0-53.0) % Plt Count (150-450) k/uL Sodium (137-145) mmol/L BUN (9-20) mg/dL Creatinine (0.66-1.25) mg/dL Glucose (74-99) mg/dL POC Glucose (mg/dL) 140 H 150 H (75-99) mg/dL Magnesium (1.6-2.3) mg/dL Crossmatch See Detail 08/01/20 08/01/20 08/01/20 Range/Units 03:52 03:52 07:01 RBC 2.04 L (4.30-5.90) m/uL Hgb 6.6 L* (13.0-17.5) gm/dL Hct 19.4 L* (39.0-53.0) % Plt Count 118 L (150-450) k/uL Sodium 132 L (137-145) mmol/L BUN 27 H (9-20) mg/dL Creatinine 1.37 H (0.66-1.25) mg/dL Glucose 132 H (74-99) mg/dL POC Glucose (mg/dL) 127 H (75-99) mg/dL Magnesium 2.5 H (1.6-2.3) mg/dL Crossmatch 08/01/20 Range/Units 12:12 RBC (4.30-5.90) m/uL Hgb (13.0-17.5) gm/dL Hct (39.0-53.0) % Plt Count (150-450) k/uL Sodium (137-145) mmol/L BUN (9-20) mg/dL Creatinine (0.66-1.25) mg/dL Glucose (74-99) mg/dL POC Glucose (mg/dL) 115 H (75-99) mg/dL Magnesium (1.6-2.3) mg/dL Crossmatch Assessment and Plan Assessment: Impression: Status post quadruple bypass surgery, postoperative day #3 Multivessel coronary artery disease as noted on his recent cardiac catheterization. And history of multiple stents placed. History of moderate mitral regurgitation with preserved systolic function. Benign essential hypertension. Type 2 diabetes. Obstructive sleep apnea syndrome. History of nephrolithiasis. Family history of premature coronary artery disease. Benign prostatic hypertrophy. Postoperative blood loss anemia requiring blood transfusion, expected. Hemoglobin today is 6.6, and the patient will receive a unit of packed RBCs. Recommendation: Agree with transfusion of 1 unit of packed RBCs this morning. Continue aspirin beta blockers Plavix therapy for dyslipidemia. Patient cannot tolerate statins. Continue incentive spirometry Continue bronchodilators Ambulate GI and DVT prophylaxis Anticipate discharge over the weekend. We'll continue to follow Time with Patient: Less than 30
[2020-08-01] MEDS: SERTRALINE 50 MG TAB PO SCH (14:55)
[2020-08-01 17:00] LABS: Glucose,Whole Blood 157 mg/dL (75-99)
--- NOTE | 2020-08-01 18:04 | P.PN ---
Progress Note - Text Progress Note Date: 08/01/20 - Chief Complaint Coronary bypass History of presenting complaint: This is a very pleasant [address] Christine. Chronic stable medical conditions include diabetes, hypertension, hyperlipidemia, obstructive sleep apnea, coronary artery disease with a history of stent. Patient underwent quadruple coronary bypass. Today-left chest tube be removed today. Oral intake code. Has been walking. Using the incentive spirometry. feeling better.hemoglobin dropped to 6.6. 1 unit of blood given. Review of systems: Was done for constitutional, cardiovascular, GI, pulmonary. relevant finding as above Active Medications Acetaminophen (Acetaminophen Tab 500 Mg Tab) 1,000 mg PO Q6HR PRN PRN Reason: Fever and/ or Pain Hydrocodone Bitart/Acetaminophen (Hydrocodone/Apap 5-325mg 1 Each Tab) 1 each PO Q4HR PRN PRN Reason: Moderate Pain Last Admin: 08/01/20 14:54 Dose: 1 each Documented by: Albuterol/Ipratropium (Ipratropium-Albuterol 3 Ml Neb) 3 ml INHALATION RT-Q2H PRN PRN Reason: Shortness Of Breath Or Wheezing Albuterol/Ipratropium (Ipratropium-Albuterol 3 Ml Neb) 3 ml INHALATION RT-QID [facility] Last Admin: 08/01/20 15:43 Dose: 3 ml Documented by: Amlodipine Besylate (Amlodipine 2.5 Mg Tab) 2.5 mg PO DAILY@1200 [facility] Last Admin: 08/01/20 12:17 Dose: 2.5 mg Documented by: Ascorbic Acid (Ascorbic Acid 500 Mg Tab) 500 mg PO BID-W/MEALS [facility] Last Admin: 08/01/20 17:31 Dose: 500 mg Documented by: Aspirin (Aspirin 325 Mg Tab) 325 mg PO DAILY [facility] Last Admin: 08/01/20 09:21 Dose: 325 mg Documented by: Benzocaine/Menthol (Benzocaine/Menthol Lozeng 1 Each Lozenge) 1 each MUCOUS MEM Q2H PRN PRN Reason: Sore Throat Bisacodyl (Bisacodyl 10 Mg Supp) 10 mg RECTAL DAILY PRN PRN Reason: Constipation Clopidogrel Bisulfate (Clopidogrel 75 Mg Tab) 75 mg PO DAILY [facility] Last Admin: 08/01/20 09:21 Dose: 75 mg Documented by: Ezetimibe (Ezetimibe 10 Mg Tab) 10 mg PO DAILY [facility] Last Admin: 08/01/20 09:22 Dose: 10 mg Documented by: Fenofibrate (Fenofibrate 160 Mg Tab) 160 mg PO DAILY [facility] Last Admin: 08/01/20 09:22 Dose: 160 mg Documented by: Ferrous Sulfate (Ferrous Sulfate 325 Mg Tab) 325 mg PO BID-W/MEALS [facility] Last Admin: 08/01/20 17:31 Dose: 325 mg Documented by: Heparin Sodium (Porcine) (Heparin Sodium,Porcine 5,000 Unit/Ml 1 Ml Vial) 5,000 unit SQ Q8HR [facility] Last Admin: 08/01/20 17:31 Dose: 5,000 unit Documented by: Amiodarone HCl 150 mg/ (Dextrose/Water) 103 mls @ 618 mls/hr IV .Q10M PRN; Protocol PRN Reason: A.FIB/FLUTTER Amiodarone HCl 360 mg/ (Dextrose/Water) 200 mls @ 33.333 mls/hr IV .Q6H PRN; Protocol PRN Reason: A.FIB/FLUTTER Amiodarone HCl 300 mg/ (Dextrose/Water) 250 mls @ 25 mls/hr IV .Q10H PRN; Protocol PRN Reason: A.FIB/FLUTTER Insulin Aspart (Insulin Aspart (Novolog) 100 Unit/Ml Vial) 0 unit SQ [id number] [facility]; Protocol Last Admin: 08/01/20 17:31 Dose: 2 unit Documented by: Insulin Aspart (Insuln Asp Prt/Insulin Aspart 100 Unit/Ml 10 Ml Vial) 21 unit 0.2 unit/kg (21 unit) SQ AC-BRKFST [facility] Last Admin: 08/01/20 07:02 Dose: 21 unit Documented by: Insulin Human NPH (Insulin Nph 300 Unit/3 Ml Vial) 10 unit 0.1 unit/kg (10 unit) SQ HS [facility] Last Admin: 07/31/20 21:12 Dose: 10 unit Documented by: Magnesium Hydroxide (Magnesium Hydroxide 2,400 Mg/10 Ml Cup) 2,400 mg PO BID PRN PRN Reason: Constipation Metoclopramide HCl (Metoclopramide 5 Mg/Ml 2 Ml Vial) 10 mg IVP Q4H PRN PRN Reason: Nausea And Vomiting Metoprolol Tartrate (Metoprolol Tartrate 50 Mg Tab) 50 mg PO BID [facility] Last Admin: 08/01/20 09:21 Dose: 50 mg Documented by: Miscellaneous Information (Potassium Replacement Protocol 1 Each Misc) 1 each MISCELLANE DAILY PRN; Protocol PRN Reason: Per Protocol Miscellaneous Information (Magnesium Replacement Protocol 1 Each Misc) 1 each MISCELLANE DAILY PRN; Protocol PRN Reason: Per Protocol Miscellaneous Information (Phosphorus Replacement Protoco 1 Each Misc) 1 each MISCELLANE DAILY PRN; Protocol PRN Reason: Per Protocol Ondansetron HCl (Ondansetron 4 Mg/2 Ml Vial) 4 mg IVP Q6HR PRN PRN Reason: Nausea And Vomiting Last Admin: 07/30/20 01:57 Dose: 4 mg Documented by: Pantoprazole Sodium (Pantoprazole 40 Mg Tablet) 40 mg PO AC-BRKFST [facility] Last Admin: 08/01/20 07:03 Dose: 40 mg Documented by: Senna/Docusate Sodium (Sennosides-Docusate Sodium 1 Each Tab) 2 each PO [facility] Last Admin: 07/31/20 21:12 Dose: 2 each Documented by: Sertraline HCl (Sertraline 50 Mg Tab) 50 mg PO DAILY [facility] Last Admin: 08/01/20 14:55 Dose: 50 mg Documented by: Sodium Chloride (Sodium Chloride 0.9% Flush 10 Ml Syringe) 10 ml IV BID [facility] Last Admin: 08/01/20 09:22 Dose: 10 ml Documented by: Tamsulosin HCl (Tamsulosin 0.4 Mg Cap.Er.24h) 0.4 mg PO [facility] Last Admin: 07/31/20 21:12 Dose: 0.4 mg Documented by: Physical examination: VITAL SIGNS: 98.6, 86, 14, 130/ 69, 93% on 2 L GENERAL: Sitting up in a chair, awake, comfortable EYES: Pupils equal. Conjunctiva normal. HEENT: External appearance of nose and ears normal, oral cavity grossly normal. NECK: JVD not raised; masses not palpable. HEART: First and second heart sounds are normal; no edema. LUNGS: Respiratory rate increased, decreased breath sounds. ABDOMEN: Soft, nontender, liver spleen not palpable, no masses palpable. PSYCH: Alert and oriented x3; mood and affect normal. INVESTIGATIONS, reviewed in the clinical context: white count 7.8 hemoglobin 6.6 platelets 118 creatinine 1.37 Previous testing White count 6.8 hemoglobin 8 platelets 115 potassium 4.3 creatinine 0.89 Accu-Cheks 113, 148 Assessment: -Quadruple coronary bypass -Acute postprocedure blood loss anemia expected from surgery-being transfused 1 unit of blood today. -Thrombocytopenia, dilutional -Diabetes mellitus type 2 -Hyperlipidemia -Essential hypertension -Obstructive sleep apnea uses CPAP -Coronary artery disease history of stents - Plan: continue current medication treatment plan.creatinine going up. Repeat in the morning. Thank you Dr. Shields
[2020-08-01] MEDS: DEXTROSE 5% IN WATER 100 ML with AMIODARONE 150 MG IV PRN (18:56)
[2020-08-01] MEDS: ONDANSETRON 4 MG/2 ML VIAL IVP PRN (20:19)
[2020-08-01 21:26] LABS: Glucose,Whole Blood 150 mg/dL (75-99)
[2020-08-01] MEDS: TAMSULOSIN 0.4 MG CAP.ER.24H PO SCH (21:27)
[2020-08-01] MEDS: SENNOSIDES-DOCUSATE SODIUM 1 EACH TAB PO SCH (21:27)
[2020-08-01] MEDS: INSULIN NPH 300 UNIT/3 ML VIAL SQ SCH (21:28)
[2020-08-02] MEDS: HEPARIN SODIUM,PORCINE 5,000 UNIT/ML 1 ML VIAL SQ SCH ×4 (00:13→23:25)
[2020-08-02] MEDS: DEXTROSE 5% IN WATER 100 ML with AMIODARONE 150 MG IV PRN (01:01)
[2020-08-02 03:18] LABS: Glucose,Whole Blood 142 mg/dL (75-99)
[2020-08-02] MEDS: INSULIN ASPART (NovoLOG) 100 UNIT/ML VIAL SQ SCH ×5 (03:21→20:37)
[2020-08-02 04:13] LABS: HCT 22.3 % (39.0-53.0); HGB 7.2 gm/dL (13.0-17.5); MCHC 32.3 g/dL (31.0-37.0); Mean Platelet Volume 8.7; Platelet Count 158 k/uL (150-450); RDW 14.8 % (11.5-15.5); WBC 8.4 k/uL (3.8-10.6)
[2020-08-02 04:25] LABS: Potassium 4.4 mmol/L (3.5-5.1)
--- NOTE | 2020-08-02 07:16 | P.PN ---
Subjective Progress Note Date: 08/02/20 Principal diagnosis: Status post coronary artery bypass grafting his is a very pleasant 75-year-old gentleman who sees Dr. Mcneill in the office on regular basis with a past medical history significant for diabetes and hypertension and dyslipidemia as well as obstructive sleep apnea who was admitted to the hospital yesterday and underwent an elective coronary artery bypass grafting where he received quadruple bypasses with ARELLANO to LAD and left radial artery to OM and reverse SVG to ramus intermedius as well as reverse SVG to PDA. The patient is known to have coronary artery disease and in the past he underwent stenting of the RCA as well as left circumflex but he was experiencing symptoms of chest discomfort and shortness of breath with exertion and he underwent a heart catheterization recently and that revealed severe triple- vessel coronary artery disease. Because of that he was referred for surgery. The patient was seen today 08/02/2020. This is post operation day #4. Early this morning. Have an episode of narrow complex tachycardia seems to be in atrial tachycardia with a differential diagnosis of atrial flutter. He was given a bolus of amiodarone IV but no drip was ordered. Otherwise a hemoglobin this morning is above 7. He received one unit of packed RBC yesterday. I agree about changing [facility][1] to [facility] Objective - Vital Signs Vital signs: Vital Signs Temp 98.2 F 08/02/20 04:00 Pulse 85 08/02/20 04:00 Resp 16 08/02/20 04:00 BP 124/68 08/02/20 04:00 Pulse Ox 95 08/02/20 04:00 Intake & Output 08/01/20 08/02/20 08/02/20 18:59 06:59 18:59 Intake Total 510 Output Total 400 750 Balance 110 -750 Intake: Oral 200 Blood Product 310 Rc As-1 Unit 310 [id number] Output: Urine 400 750 Other: Voiding Method Indwelling Catheter # Voids 0 ABP, PAP, CO, CI - Last Documented Arterial Blood Pressure 126/47 Pulmonary Artery Pressure 28/12 Cardiac Output 6.8 Cardiac Index 3.3 - Constitutional General appearance: Present: no acute distress - Respiratory Respiratory: bilateral: diminished - Cardiovascular Rhythm: regular Heart sounds: normal: S1, S2 - Labs CBC & Chem 7: 08/02/20 03:34 08/02/20 03:34 Labs: Abnormal Lab Results - Last 24 Hours (Table) 08/01/20 08/01/20 08/01/20 Range/Units 03:52 12:12 16:58 RBC (4.30-5.90) m/uL Hgb (13.0-17.5) gm/dL Hct (39.0-53.0) % Sodium (137-145) mmol/L BUN (9-20) mg/dL Glucose (74-99) mg/dL POC Glucose (mg/dL) 115 H 157 H (75-99) mg/dL Calcium (8.4-10.2) mg/dL Magnesium (1.6-2.3) mg/dL Crossmatch See Detail 08/01/20 08/02/20 08/02/20 Range/Units 21:14 03:16 03:34 RBC 2.40 L (4.30-5.90) m/uL Hgb 7.2 L (13.0-17.5) gm/dL Hct 22.3 L (39.0-53.0) % Sodium (137-145) mmol/L BUN (9-20) mg/dL Glucose (74-99) mg/dL POC Glucose (mg/dL) 150 H 142 H (75-99) mg/dL Calcium (8.4-10.2) mg/dL Magnesium (1.6-2.3) mg/dL Crossmatch 08/02/20 08/02/20 Range/Units 03:34 03:34 RBC (4.30-5.90) m/uL Hgb (13.0-17.5) gm/dL Hct (39.0-53.0) % Sodium 132 L (137-145) mmol/L BUN 24 H (9-20) mg/dL Glucose 122 H (74-99) mg/dL POC Glucose (mg/dL) (75-99) mg/dL Calcium 8.0 L (8.4-10.2) mg/dL Magnesium 2.5 H (1.6-2.3) mg/dL Crossmatch Assessment and Plan Assessment: Assessment #1 severe triple-vessel CAD and status post CABG 4 #2 diabetes type 2 #3 hypertension #4 dyslipidemia Plan #1 change the Norvasc to Cardizem #2 continue the current medical regimen #3 follow-up with the patient
[2020-08-02 07:34] LABS: Glucose,Whole Blood 151 mg/dL (75-99)
[2020-08-02] MEDS: ASCORBIC ACID 500 MG TAB PO SCH ×2 (07:53→17:04)
[2020-08-02] MEDS: FERROUS SULFATE 325 MG TAB PO SCH ×2 (07:53→17:03)
[2020-08-02] MEDS: PANTOPRAZOLE 40 MG TABLET PO SCH (07:53)
[2020-08-02] MEDS: INSULN ASP PRT/INSULIN ASPART 100 UNIT/ML 10 ML VIAL SQ SCH (07:54)
[2020-08-02] MEDS: IPRATROPIUM-ALBUTEROL 3 ML NEB INHALATION SCH ×4 (08:05→21:19)
[2020-08-02] MEDS ORDERED: FUROSEMIDE 10 MG/ML 2 ML VIAL IV ONE (08:38)
--- NOTE | 2020-08-02 08:50 | P.PN ---
Subjective Progress Note Date: 08/02/20 Principal diagnosis: Symptomatic multivessel coronary artery disease, preserved systolic function, [id number] mitral valve regurgitation. Previous medical history of coronary artery disease with prior multiple stents placement, hypertension, hyperlipidemia, recent diagnosis of diet controlled diabetes mellitus type 2 with recent hemoglobin A1c of 6.4%, obstructive sleep apnea with home CPAP use, benign prostatic hypertrophy, nephrolithiasis, vertigo, and family history of premature coronary artery disease POD #4 quadruple coronary artery bypass grafting using the left internal mammary artery to left anterior descending coronary artery, the left radial artery from the aorta to the obtuse marginal coronary artery, reverse greater saphenous vein graft from the aorta to the ramus intermedius coronary artery, reverse greater saphenous vein graft from the aorta to the posterior descending coronary artery, endoscopic harvesting of the left radial artery, endoscopic harvesting of the left greater saphenous vein from the groin to the mid lower leg level, intraoper ative graft flow measurement using the Medistim system, intraoperative transesophageal echocardiogram and epi-aortic scanning. Postoperative acute blood loss anemia and thrombocytopenia, expected, dilutional The patient is currently sitting up in a wheelchair in the intensive care unit in no acute distress eating breakfast and waiting to go down for his chest x- ray. States pain is controlled on current medication regimen, denies shortness of breath. Remains in normal sinus rhythm, was in atrial tachycardia possibly atrial flutter with rapid rate yesterday evening, received 2 boluses of IV amiodarone. Hemoglobin 6.6 yesterday, received 1 unit packed red blood cells, hemoglobin 7.2 this morning. He has been able to void on his own without needing to be straight cathed. He was a bit tearful yesterday, started on Zoloft. Objective - Vital Signs Vital signs: Vital Signs Temp 98.2 F 08/02/20 04:00 Pulse 88 08/02/20 08:20 Resp 16 08/02/20 04:00 BP 124/68 08/02/20 04:00 Pulse Ox 95 08/02/20 04:00 Intake & Output 08/01/20 08/02/20 08/02/20 18:59 06:59 18:59 Intake Total 510 Output Total 1300 750 Balance -790 -750 Weight 98 kg Intake: Oral 200 Blood Product 310 Rc As-1 Unit 310 [id number] Output: Urine 1300 750 Other: Voiding Method Indwelling Catheter # Voids 0 ABP, PAP, CO, CI - Last Documented Arterial Blood Pressure 126/47 Pulmonary Artery Pressure 28/12 Cardiac Output 6.8 Cardiac Index 3.3 - Constitutional General appearance: Present: cooperative, no acute distress - Respiratory Details: Lungs sounds diminished bilaterally. Respirations even, nonlabored. Currently on 4 L nasal cannula with oxygen saturation 95%. Able to achieve 1250 mL on his incentive spirometry. Strong productive cough. - Cardiovascular Details: S1, S2 present. Currently regular rate and rhythm, sinus rhythm on telemetry. Sternum stable. Palpable peripheral pulses bilaterally. Trace generalized edema present. No calf pain or tenderness noted. Heart hugger in place with patient demonstrating appropriate use. Antiembolism stockings, SCDs present. - Gastrointestinal Gastrointestinal Comment(s): Abdomen soft, nontender, nondistended. Active bowel sounds present 4 quadrants. Tolerating diet. Positive large bowel movement yesterday. - Genitourinary Genitourinary Comment(s): Continues to void clear, yellow urine. - Integumentary Integumentary Comment(s): Skin is warm and dry with evidence of good perfusion. Anterior chest incision well approximated and covered with dry intact dressing. 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 Left lower extremity EVH site well approximated without redness or drainage - Neurologic Neurologic: Present: CNII-XII intact - Musculoskeletal Musculoskeletal: Present: gait normal, strength equal bilaterally - Psychiatric Psychiatric: Present: A&O x's 3, appropriate affect, intact judgment & insight - Allied health notes Allied health notes reviewed: nursing - Labs CBC & Chem 7: 08/02/20 03:34 08/02/20 03:34 Labs: Abnormal Lab Results - Last 24 Hours (Table) 08/01/20 08/01/20 08/01/20 Range/Units 03:52 12:12 16:58 RBC (4.30-5.90) m/uL Hgb (13.0-17.5) gm/dL Hct (39.0-53.0) % Sodium (137-145) mmol/L BUN (9-20) mg/dL Glucose (74-99) mg/dL POC Glucose (mg/dL) 115 H 157 H (75-99) mg/dL Calcium (8.4-10.2) mg/dL Magnesium (1.6-2.3) mg/dL Crossmatch See Detail 08/01/20 08/02/20 08/02/20 Range/Units 21:14 03:16 03:34 RBC 2.40 L (4.30-5.90) m/uL Hgb 7.2 L (13.0-17.5) gm/dL Hct 22.3 L (39.0-53.0) % Sodium (137-145) mmol/L BUN (9-20) mg/dL Glucose (74-99) mg/dL POC Glucose (mg/dL) 150 H 142 H (75-99) mg/dL Calcium (8.4-10.2) mg/dL Magnesium (1.6-2.3) mg/dL Crossmatch 08/02/20 08/02/20 08/02/20 Range/Units 03:34 03:34 07:32 RBC (4.30-5.90) m/uL Hgb (13.0-17.5) gm/dL Hct (39.0-53.0) % Sodium 132 L (137-145) mmol/L BUN 24 H (9-20) mg/dL Glucose 122 H (74-99) mg/dL POC Glucose (mg/dL) 151 H (75-99) mg/dL Calcium 8.0 L (8.4-10.2) mg/dL Magnesium 2.5 H (1.6-2.3) mg/dL Crossmatch - Imaging and Cardiology Chest x-ray: pending Assessment and Plan Assessment: 1. Symptomatic multivessel coronary artery disease, status post 4 vessel bypass 2. Preserved systolic function, [id number] mitral valve regurgitation 3. History of coronary artery disease with prior multiple stents placemen 4. Hypertension 5. Hyperlipidemia 6. Newly diagnosed diet controlled diabetes mellitus type 2 with hemoglobin A1c of 6.4% 7. Obstructive sleep apnea with home CPAP use 8. Benign prostatic hypertrophy 9. Family history of premature coronary artery disease 10. Postoperative acute blood loss anemia and thrombocytopenia Plan: 1. Continue aspirin, zetia (intolerant to statins), lofibra, Plavix, beta cleopatra. Will increase beta cleopatra as tolerated 2. Discontinue Norvasc, will initiate Cardizem for radial artery spasm prophylaxis as well as assistance with heart rate control. Please do not discontinue CCB without discussing with cardiac surgery. 3. Wean O2 as tolerated. Encourage incentive spirometry use 10 times every hour while awake. Bronchodilators per pulmonology/critical care medicine. 4. Increase activity, ambulate as tolerated. PT/OT/cardiac rehab following 5. Will monitor daily labs and chest x-rays. Electrolyte replacement per protocol. No transfusion today. We will give IV Lasix today 6. GI/DVT prophylaxis. 7. Pain control with current medication regimen. 8. May bladder scan and straight cath for greater than 300 mL residual. Continue Flomax. 9. Insulin management per primary care service. Preoperative hemoglobin A1c 6.4% 10. Transfer orders for placed for [address] [place] [address] cardiac stepdown unit. May transfer when bed available 11. Discharge planning in progress. Anticipate discharge to home with home care soon 12. More recommendations to follow based on patient's based on patient's clinical course. Time with Patient: Greater than 30
--- NOTE | 2020-08-02 08:58 | XR ---
EXAMINATION TYPE: XR chest 2V DATE OF EXAM: 08/02/2020 COMPARISON: Chest x-ray from one day earlier and older studies. HISTORY: Post open cardiac surgery. TECHNIQUE: Frontal and lateral views of the chest are obtained. FINDINGS: Overlying sternal wires and mediastinal clips redemonstrated. Interval removal of left-anmol ed chest tube. No left-sided pneumothorax noted. Persistent cardiomegaly with small bilateral pleural effusions and mild interstitial edema. Osseous structures are intact. IMPRESSION: There is cardiomegaly with small bilateral pleural effusions and mild interstitial edema redemonstrated, no significant interval change from one day earlier. Correlate for fluid overload st ate or CHF exacerbation. No left-sided pneumothorax after interval left-sided chest tube removal.
[2020-08-02] MEDS: DILTIAZEM ORAL 30 MG TAB PO SCH ×3 (09:34→23:25)
[2020-08-02] MEDS: ASPIRIN 325 MG TAB PO SCH (09:35)
[2020-08-02] MEDS: CLOPIDOGREL 75 MG TAB PO SCH (09:35)
[2020-08-02] MEDS: EZETIMIBE 10 MG TAB PO SCH (09:35)
[2020-08-02] MEDS: FENOFIBRATE 160 MG TAB PO SCH (09:36)
[2020-08-02] MEDS: SERTRALINE 50 MG TAB PO SCH (09:36)
[2020-08-02] MEDS: METOPROLOL TARTRATE 50 MG TAB PO SCH ×2 (09:36→21:40)
[2020-08-02 11:51] LABS: Glucose,Whole Blood 129 mg/dL (75-99)
--- NOTE | 2020-08-02 12:29 | P.PN ---
Subjective Progress Note Date: 08/02/20 Principal diagnosis: Status post quadruple coronary artery bypass grafting postoperative day #4 This is a 75-year-old white male primarily a patient of Dr. Cedeño , patient is known to have history of coronary artery disease and multiple stent placements. Patient had stents placed in 1995, 1996, 2005, and 2015. 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 Patient is also known to have history of type 2 diabetes, hypertension, dyslipidemia, benign prostatic hypertrophy, nephrolithiasis, obstructive sleep apnea syndrome, on CPAP, patient was seen recently in the hospital with intermittent episodes of chest pains with exercise, underwent transthoracic echocardiogram on 07/24/20 showed normal LV function, mild concentric hypertrophy, [id number] mitral valve re gurgitation, and his cardiac catheterization showed 95% stenosis in his right coronary artery 99% stenosis in his circumflex coronary artery and 95% stenosis of the proximal left anterior descending coronary artery. Patient underwent elective myocardial revascularization today, postoperatively I saw him as soon as he arrived to the ICU, and he was on mechanical ventilation. His ventilator settings are assist control rate of 18 tidal volume is 500 FiO2 of 100% and PEEP of 5. His initial ABG is pending. Patient is hemodynamically stable, and sedated. Chest x-ray is also pending Patient was reevaluated today on 07/30/20, patient was successfully extubated at 21:25 PM yesterday. Tolerated the extubation well, patient is doing great today. Sitting at a bedside chair, relatively asymptomatic, not requiring any pressors or any inotropes. He is hemodynamically stable, doing fairly well with incentive spirometry achieving over 1000 mL. Chest x-ray showed mostly postoperative atelectasis, no significant unusual findings. CBC is unremarkable hemoglobin is 8, basic metabolic profile and renal profile are normal. Reevaluated today on 07/31/20, patient is postoperative day #2. Patient is doing great, sitting at a bedside chair, relatively asymptomatic, denies any shortness of breath or cough or wheezing. Remains in normal sinus rhythm, hemodynamically stable, not requiring any inotropes or process. Continues to have right internal jugular Cordis, right radial arterial line, mediastinal left and right pleural chest tubes in place. Chest x-ray showed minimal postoperative yunior nges/atelectasis, expected. Hemoglobin is 7.0 WBC count is 7.4. Electrolytes are normal renal profile is normal slight increase in creatinine noted up to 1.08 from 0.89 yesterday Reevaluated today on 08/01/20, patient is postoperative day #3. Didn't sleep much last night, woke up at 3 AM, couldn't sleep again. Patient has been ambulating in the hallway. He is on 2 L nasal cannula, feels generally weak. Hemoglobin is 6.6 today, he is scheduled to receive a unit of packed RBCs for low hemoglobin of 6.6, and that will likely improve his symptoms of weakness and fatigue. Continues to have a chest tube in place, and significant bloody drainage noted in the left sided chest tube. Patient is achieving 1000 mL in his incentive spirometer. He is not requiring any pressors or any inotropes. He is in sinus rhythm heart rate of 107. Chest x-ray showed minimal basilar atelectasis. Patient was unable to void yesterday, and didn't receive straight cathed this morning 1 Reevaluated today on 08/02/20, patient is postoperative day #4. Patient had an episode of atrial flutter last evening, received 2 boluses of amiodarone. And yesterday he received a unit of packed RBCs for low hemoglobin of 6.6. Patient seems to be doing fairly well this morning, feels a bit tired, sitting in a bed side chair. Patient was tearful apparently yesterday and he was started on Zoloft. Electrolytes are normal renal profile is normal hemoglobin is 7.2 this morning. Chest x-ray showed very tiny pleural effusions, and minimal atelectasis. Doubt interstitial edema as noted by the radiologist Objective - Vital Signs Vital signs: Vital Signs Temp 98.4 F 08/02/20 08:00 Pulse 77 08/02/20 11:52 Resp 25 H 08/02/20 09:00 BP 134/66 08/02/20 09:00 Pulse Ox 98 08/02/20 09:00 Intake & Output 08/01/20 08/02/20 08/02/20 18:59 06:59 18:59 Intake Total 510 Output Total 2980 781 5059 Balance -790 750 -1000 Weight 98 kg Intake: Oral 200 Blood Product 310 Rc As-1 Unit 310 [id number] Output: Urine 8085 599 6454 Other: Voiding Method Indwelling Catheter Indwelling Catheter # Voids 0 ABP, PAP, CO, CI - Last Documented Arterial Blood Pressure 126/47 Pulmonary Artery Pressure 28/12 Cardiac Output 6.8 Cardiac Index 3.3 - Exam Physical Exam: Revealed 75-year-old white male, on 4 L nasal cannula, in no distress. Head: Atraumatic, normocephalic. HEENT:[Neck is supple.] [No neck masses.] [No thyromegaly.] [No JVD.] Chest: Diminished breath sounds at the bases no crackles or rhonchi or wheezes, Cardiac Exam: [Normal S1 and S2, no S3 gallop, 2/6 systolic murmur thought the precordium, Sternum stable. Abdomen: [Soft, nontender, no megaly, no rebound, no guarding, normal bowel sounds.] Extremities: [No clubbing, no edema, no cyanosis.] Neurological Exam: Alert and oriented 3 focal deficits. Psychiatric: Normal mood, affect and normal mental status examination Skin: No rashes. - Labs CBC & Chem 7: 08/02/20 03:34 08/02/20 03:34 Labs: Abnormal Lab Results - Last 24 Hours (Table) 08/01/20 08/01/20 08/02/20 Range/Units 16:58 21:14 03:16 RBC (4.30-5.90) m/uL Hgb (13.0-17.5) gm/dL Hct (39.0-53.0) % Sodium (137-145) mmol/L BUN (9-20) mg/dL Glucose (74-99) mg/dL POC Glucose (mg/dL) 157 H 150 H 142 H (75-99) mg/dL Calcium (8.4-10.2) mg/dL Magnesium (1.6-2.3) mg/dL 08/02/20 08/02/20 08/02/20 Range/Units 03:34 03:34 03:34 RBC 2.40 L (4.30-5.90) m/uL Hgb 7.2 L (13.0-17.5) gm/dL Hct 22.3 L (39.0-53.0) % Sodium 132 L (137-145) mmol/L BUN 24 H (9-20) mg/dL Glucose 122 H (74-99) mg/dL POC Glucose (mg/dL) (75-99) mg/dL Calcium 8.0 L (8.4-10.2) mg/dL Magnesium 2.5 H (1.6-2.3) mg/dL 08/02/20 08/02/20 Range/Units 07:32 11:49 RBC (4.30-5.90) m/uL Hgb (13.0-17.5) gm/dL Hct (39.0-53.0) % Sodium (137-145) mmol/L BUN (9-20) mg/dL Glucose (74-99) mg/dL POC Glucose (mg/dL) 151 H 129 H (75-99) mg/dL Calcium (8.4-10.2) mg/dL Magnesium (1.6-2.3) mg/dL Assessment and Plan Assessment: Impression: Status post quadruple bypass surgery, postoperative day # 4 Multivessel coronary artery disease as noted on his recent cardiac catheterization. And history of multiple stents placed. History of moderate mitral regurgitation with preserved systolic function. Benign essential hypertension. Type 2 diabetes. Obstructive sleep apnea syndrome. History of nephrolithiasis. Family history of premature coronary artery disease. Benign prostatic hypertrophy. Postoperative blood loss anemia requiring blood transfusion, expected. Hemoglobin today is 6.6, and the patient will receive a unit of packed RBCs. Recommendation: Continue Cardizem for the episode of A. fib/RVR last night. Continue aspirin beta blockers Plavix therapy for dyslipidemia. Patient cannot tolerate statins. Continue incentive spirometry Continue bronchodilators Ambulate GI and DVT prophylaxis We'll continue to follow Time with Patient: Less than 30
--- NOTE | 2020-08-02 12:38 | P.PN ---
Subjective From records This is a very pleasant [address] Christine. Chronic stable medical conditions include diabetes, hypertension, hyperlipidemia, obstructive sleep apnea, coronary artery disease with a history of stent. Patient underwent quadruple coronary bypass. Today-left chest tube be removed today. Oral intake code. Has been walking. Using the incentive spirometry. feeling better.hemoglobin dropped to 6.6. 1 unit of blood given. 08/02/2020 Patient is lying in bed comfortable, no distress, no chest pain or or dyspnea. He is hemodynamically stable he is saturating 98% on 4 L oxygen via nasal cannula. His sugar is controlled. Labs reviewed and are unremarkable. Hemoglobin 7.2, sodium 132. Remains on oral Zithromax, also he is on Plavix and aspirin. Also he is on Lasix. Objective - Vital Signs Vital signs: Vital Signs Temp 98.4 F 08/02/20 08:00 Pulse 77 08/02/20 11:52 Resp 25 H 08/02/20 09:00 BP 134/66 08/02/20 09:00 Pulse Ox 98 08/02/20 09:00 Intake & Output 08/01/20 08/02/20 08/02/20 18:59 06:59 18:59 Intake Total 510 Output Total 5123 575 3508 Balance -790 -750 -1000 Weight 98 kg Intake: Oral 200 Blood Product 310 Rc As-1 Unit 310 [id number] Output: Urine 0920 168 9547 Other: Voiding Method Indwelling Catheter Indwelling Catheter # Voids 0 ABP, PAP, CO, CI - Last Documented Arterial Blood Pressure 126/47 Pulmonary Artery Pressure 28/12 Cardiac Output 6.8 Cardiac Index 3.3 - Exam GENERAL: The patient is alert and oriented x3, not in any acute distress. Well developed, well nourished. HEENT: Pupils are round and equally reacting to light. EOMI. No scleral icterus. No conjunctival pallor. Normocephalic, atraumatic. No pharyngeal erythema. No thyromegaly. -CARDIOVASCULAR: S1 and S2 present. No murmurs, rubs, or gallops. Sternal wound is dry and clean Ade dressing is in place PULMONARY: Chest is clear to auscultation, no wheezing or crackles. ABDOMEN: Soft, nontender, nondistended, normoactive bowel sounds. No palpable organomegaly. MUSCULOSKELETAL: No joint swelling or deformity. EXTREMITIES: No cyanosis, clubbing, or pedal edema. NEUROLOGICAL: Gross neurological examination did not reveal any focal deficits. SKIN: No rashes. no petechiae. - Labs CBC & Chem 7: 08/02/20 03:34 08/02/20 03:34 Labs: Abnormal Lab Results - Last 24 Hours (Table) 08/01/20 08/01/20 08/02/20 Range/Units 16:58 21:14 03:16 RBC (4.30-5.90) m/uL Hgb (13.0-17.5) gm/dL Hct (39.0-53.0) % Sodium (137-145) mmol/L BUN (9-20) mg/dL Glucose (74-99) mg/dL POC Glucose (mg/dL) 157 H 150 H 142 H (75-99) mg/dL Calcium (8.4-10.2) mg/dL Magnesium (1.6-2.3) mg/dL 08/02/20 08/02/20 08/02/20 Range/Units 03:34 03:34 03:34 RBC 2.40 L (4.30-5.90) m/uL Hgb 7.2 L (13.0-17.5) gm/dL Hct 22.3 L (39.0-53.0) % Sodium 132 L (137-145) mmol/L BUN 24 H (9-20) mg/dL Glucose 122 H (74-99) mg/dL POC Glucose (mg/dL) (75-99) mg/dL Calcium 8.0 L (8.4-10.2) mg/dL Magnesium 2.5 H (1.6-2.3) mg/dL 08/02/20 08/02/20 Range/Units 07:32 11:49 RBC (4.30-5.90) m/uL Hgb (13.0-17.5) gm/dL Hct (39.0-53.0) % Sodium (137-145) mmol/L BUN (9-20) mg/dL Glucose (74-99) mg/dL POC Glucose (mg/dL) 151 H 129 H (75-99) mg/dL Calcium (8.4-10.2) mg/dL Magnesium (1.6-2.3) mg/dL Assessment and Plan Assessment: -Quadruple coronary bypass -Acute postprocedure blood loss anemia expected from surgery-being transfused 1 unit of blood today. -Thrombocytopenia, dilutional -Diabetes mellitus type 2 -Hyperlipidemia -Essential hypertension -Obstructive sleep apnea uses CPAP -Coronary artery disease history of stents Plan: This is a pleasant 75 years old male who presents for CABG surgery. Continue with aspirin and Plavix. Continue monitor sugar and insulin. And continue with iron pills and follow-up anemia level Labs and medication were reviewed.. Continue same treatment. Continue with symptomatic treatment. Resume home medication. Monitor lytes and vitals. DVT and GI prophylaxis. Further recommendationsas per clinical course of the patient DVT prophylaxis: Subcutaneous heparin GI Prophylaxis: Ppi Thank you for consulting us
[2020-08-02] MEDS: LOSARTAN 25 MG TAB PO SCH (12:45)
[2020-08-02] MEDS: ACETAMINOPHEN TAB 500 MG TAB PO PRN (17:03)
[2020-08-02 17:23] LABS: Glucose,Whole Blood 132 mg/dL (75-99)
[2020-08-02] MEDS ORDERED: ADENOSINE 3 MG/ML 2 ML VIAL IVP ONE (18:02)
[2020-08-02 20:33] LABS: Glucose,Whole Blood 133 mg/dL (75-99)
[2020-08-02] MEDS: SENNOSIDES-DOCUSATE SODIUM 1 EACH TAB PO SCH (21:37)
[2020-08-02] MEDS: TAMSULOSIN 0.4 MG CAP.ER.24H PO SCH (21:40)
[2020-08-02] MEDS: INSULIN NPH 300 UNIT/3 ML VIAL SQ SCH (21:50)
[2020-08-03 05:07] LABS: HCT 21.5 % (39.0-53.0); HGB 7.1 gm/dL (13.0-17.5); MCH 31.1 pg (25.0-35.0); MCHC 33.1 g/dL (31.0-37.0); MCV 93.9 fL (80.0-100.0); Mean Platelet Volume 9.1; Platelet Count 188 k/uL (150-450); Poikilocytosis Slight; RBC 2.29 m/uL (4.30-5.90); WBC 5.9 k/uL (3.8-10.6)
[2020-08-03] MEDS: INSULIN ASPART (NovoLOG) 100 UNIT/ML VIAL SQ SCH ×5 (05:15→21:30)
[2020-08-03 05:17] LABS: Calcium 8.2 mg/dL (8.4-10.2); Magnesium 2.4 mg/dL (1.6-2.3); Potassium 4.3 mmol/L (3.5-5.1)
--- NOTE | 2020-08-03 07:28 | P.PN ---
Subjective Progress Note Date: 08/03/20 Principal diagnosis: Status post coronary artery bypass grafting his is a very pleasant 75-year-old gentleman who sees Dr. Mcneill in the office on regular basis with a past medical history significant for diabetes and hypertension and dyslipidemia as well as obstructive sleep apnea who was admitted to the hospital yesterday and underwent an elective coronary artery bypass grafting where he received quadruple bypasses with ARELLANO to LAD and left radial artery to OM and reverse SVG to ramus intermedius as well as reverse SVG to PDA. The patient is known to have coronary artery disease and in the past he underwent stenting of the RCA as well as left circumflex but he was experiencing symptoms of chest discomfort and shortness of breath with exertion and he underwent a heart catheterization recently and that revealed severe triple- vessel coronary artery disease. Because of that he was referred for surgery. The patient was seen today August [id number]. This is postoperative operation day #5. Early this morning he did have another longer episode of narrow complex tachycardia it seems to be atrial flutter which was terminated spontaneously. He was asymptomatic during that episode. He was started yesterday on Cardizem which I would suggest to increase to 60 mg by mouth 3 times a day. Continue the rest of the current medical regimen. Continue monitor for arrhythmia. Objective - Vital Signs Vital signs: Vital Signs Temp 98.3 F 08/03/20 04:00 Pulse 70 08/03/20 04:00 Resp 17 08/03/20 04:00 BP 111/68 08/03/20 04:00 Pulse Ox 95 08/03/20 04:00 Intake & Output 08/02/20 08/03/20 08/03/20 18:59 06:59 18:59 Intake Total 300 Output Total 2310 1100 Balance -2009 Weight 98 kg Intake: Oral 300 Output: Urine 2310 1100 Other: Voiding Method Toilet Urinal Urinal # Voids 0 ABP, PAP, CO, CI - Last Documented Arterial Blood Pressure 126/47 Pulmonary Artery Pressure 28/12 Cardiac Output 6.8 Cardiac Index 3.3 - Constitutional General appearance: Present: no acute distress - Respiratory Respiratory: bilateral: diminished - Cardiovascular Rhythm: regular Heart sounds: normal: S1, S2 - Labs CBC & Chem 7: 08/03/20 04:35 08/03/20 04:35 Labs: Abnormal Lab Results - Last 24 Hours (Table) 08/02/20 08/02/20 08/02/20 Range/Units 07:32 11:49 17:22 RBC (4.30-5.90) m/uL Hgb (13.0-17.5) gm/dL Hct (39.0-53.0) % Sodium (137-145) mmol/L BUN (9-20) mg/dL Glucose (74-99) mg/dL POC Glucose (mg/dL) 151 H 129 H 132 H (75-99) mg/dL Calcium (8.4-10.2) mg/dL Magnesium (1.6-2.3) mg/dL 08/02/20 08/03/20 08/03/20 Range/Units 20:32 04:35 04:35 RBC 2.29 L (4.30-5.90) m/uL Hgb 7.1 L (13.0-17.5) gm/dL Hct 21.5 L (39.0-53.0) % Sodium 135 L (137-145) mmol/L BUN 25 H (9-20) mg/dL Glucose 104 H (74-99) mg/dL POC Glucose (mg/dL) 133 H (75-99) mg/dL Calcium 8.2 L (8.4-10.2) mg/dL Magnesium 2.4 H (1.6-2.3) mg/dL Assessment and Plan Assessment: Assessment #1 severe triple-vessel CAD and status post CABG 4 #2 diabetes type 2 #3 hypertension #4 dyslipidemia Plan #1 I would suggest increase the dose of Cardizem #2 continue the rest of the current medical regimen #3 follow-up with the patient
[2020-08-03] MEDS: FERROUS SULFATE 325 MG TAB PO SCH ×2 (07:55→17:26)
[2020-08-03] MEDS: ASCORBIC ACID 500 MG TAB PO SCH ×2 (07:55→17:26)
[2020-08-03] MEDS: PANTOPRAZOLE 40 MG TABLET PO SCH (07:59)
[2020-08-03] MEDS: INSULN ASP PRT/INSULIN ASPART 100 UNIT/ML 10 ML VIAL SQ SCH (07:59)
[2020-08-03] MEDS: IPRATROPIUM-ALBUTEROL 3 ML NEB INHALATION SCH ×4 (08:25→19:41)
[2020-08-03] MEDS: EZETIMIBE 10 MG TAB PO SCH (08:31)
[2020-08-03] MEDS: HEPARIN SODIUM,PORCINE 5,000 UNIT/ML 1 ML VIAL SQ SCH ×2 (08:31→16:29)
[2020-08-03] MEDS: ASPIRIN 325 MG TAB PO SCH (08:31)
[2020-08-03] MEDS: CLOPIDOGREL 75 MG TAB PO SCH (08:31)
[2020-08-03] MEDS: METOPROLOL TARTRATE 50 MG TAB PO SCH ×2 (08:31→21:31)
[2020-08-03] MEDS: FENOFIBRATE 160 MG TAB PO SCH (08:31)
[2020-08-03] MEDS: SERTRALINE 50 MG TAB PO SCH (08:31)
[2020-08-03] MEDS: ACETAMINOPHEN TAB 500 MG TAB PO PRN (08:33)
--- NOTE | 2020-08-03 09:02 | P.PN ---
Subjective Progress Note Date: 08/03/20 Principal diagnosis: Symptomatic multivessel coronary artery disease, preserved systolic function, [id number] mitral valve regurgitation. Previous medical history of coronary artery disease with prior multiple stents placement, hypertension, hyperlipidemia, recent diagnosis of diet controlled diabetes mellitus type 2 with recent hemoglobin A1c of 6.4%, obstructive sleep apnea with home CPAP use, benign prostatic hypertrophy, nephrolithiasis, vertigo, and family history of premature coronary artery disease POD #5 quadruple coronary artery bypass grafting using the left internal mammary artery to left anterior descending coronary artery, the left radial artery from the aorta to the obtuse marginal coronary artery, reverse greater saphenous vein graft from the aorta to the ramus intermedius coronary artery, reverse greater saphenous vein graft from the aorta to the posterior descending coronary artery, endoscopic harvesting of the left radial artery, endoscopic harvesting of the left greater saphenous vein from the groin to the mid lower leg level, intraoper ative graft flow measurement using the Kranemstim system, intraoperative transesophageal echocardiogram and epi-aortic scanning. Postoperative acute blood loss anemia and thrombocytopenia, expected, dilutional Postoperative atrial tachycardia, possible atrial flutter, unexpected The patient is currently sitting up in a recliner in the intensive care unit in no acute distress eating breakfast. States pain is controlled on current medication regimen, denies shortness of breath. Remains in normal sinus rhythm, was in atrial tachycardia possibly atrial flutter with rapid rate yesterday evening which abated on its own without intervention. Patient was noted to have large urine residual of 1250 mL at the time and was straight cathed. No further episodes of atrial tachycardia the rest of the night. Objective - Vital Signs Vital signs: Vital Signs Temp 98.1 F 08/03/20 08:00 Pulse 78 08/03/20 08:41 Resp 17 08/03/20 08:00 BP 121/66 08/03/20 08:00 Pulse Ox 92 L 08/03/20 08:00 Intake & Output 08/02/20 08/03/20 08/03/20 18:59 06:59 18:59 Intake Total 300 Output Total 2310 1100 Balance -2009 Weight 98 kg 96.5 kg Intake: Oral 300 Output: Urine 2310 1100 Other: Voiding Method Toilet Urinal Urinal # Voids 0 ABP, PAP, CO, CI - Last Documented Arterial Blood Pressure 126/47 Pulmonary Artery Pressure 28/12 Cardiac Output 6.8 Cardiac Index 3.3 - Constitutional General appearance: Present: cooperative, no acute distress - Respiratory Details: Lungs sounds diminished bilaterally. Respirations even, nonlabored. Currently on 2 L nasal cannula with oxygen saturation 92%. Able to achieve 1250 mL on his incentive spirometry. Strong productive cough. - Cardiovascular Details: S1, S2 present. Currently regular rate and rhythm, sinus rhythm with occasional PACs on telemetry. Sternum stable. Palpable peripheral pulses bilaterally. Trace generalized edema present. No calf pain or tenderness noted. Heart hugger in place with patient demonstrating appropriate use. Antiembolism stockings, SCDs present. - Gastrointestinal Gastrointestinal Comment(s): Abdomen soft, nontender, nondistended. Active bowel sounds present 4 quadra nts. Tolerating diet. Positive bowel movement. - Genitourinary Genitourinary Comment(s): Continues to void clear, yellow urine. Was straight cathed for 1250 mL residual last night - Integumentary Integumentary Comment(s): Skin is warm and dry with evidence of good perfusion. Anterior chest incision well approximated and covered with dry intact dressing. Left radial artery harvest site well approximated without redness or drainage, good cap refill, patient able to wiggle all fingers and loans consultant appropriately. Left lower extremity EVH site well approximated without redness or drainage - Neurologic Neurologic: Present: CNII-XII intact - Musculoskeletal Musculoskeletal: Present: gait normal, strength equal bilaterally - Psychiatric Psychiatric Comment(s): Flat affect Psychiatric: Present: A&O x's 3, intact judgment & insight - Allied health notes Allied health notes reviewed: nursing - Labs CBC & Chem 7: 08/03/20 04:35 08/03/20 04:35 Labs: Abnormal Lab Results - Last 24 Hours (Table) 08/02/20 08/02/20 08/02/20 Range/Units 11:49 17:22 20:32 RBC (4.30-5.90) m/uL Hgb (13.0-17.5) gm/dL Hct (39.0-53.0) % Sodium (137-145) mmol/L BUN (9-20) mg/dL Glucose (74-99) mg/dL POC Glucose (mg/dL) 129 H 132 H 133 H (75-99) mg/dL Calcium (8.4-10.2) mg/dL Magnesium (1.6-2.3) mg/dL 08/03/20 08/03/20 Range/Units 04:35 04:35 RBC 2.29 L (4.30-5.90) m/uL Hgb 7.1 L (13.0-17.5) gm/dL Hct 21.5 L (39.0-53.0) % Sodium 135 L (137-145) mmol/L BUN 25 H (9-20) mg/dL Glucose 104 H (74-99) mg/dL POC Glucose (mg/dL) (75-99) mg/dL Calcium 8.2 L (8.4-10.2) mg/dL Magnesium 2.4 H (1.6-2.3) mg/dL - Imaging and Cardiology Chest x-ray: image reviewed Assessment and Plan Assessment: 1. Symptomatic multivessel coronary artery disease, status post 4 vessel bypass 2. Preserved systolic function, [id number] mitral valve regurgitation 3. History of coronary artery disease with prior multiple stents placemen 4. Hypertension 5. Hyperlipidemia 6. Newly diagnosed diet controlled diabetes mellitus type 2 with hemoglobin A1c of 6.4% 7. Obstructive sleep apnea with home CPAP use 8. Benign prostatic hypertrophy 9. Family history of premature coronary artery disease 10. Postoperative acute blood loss anemia and thrombocytopenia 11. Postoperative atrial tachycardia, possible atrial flutter Plan: 1. Continue aspirin, zetia (intolerant to statins), lofibra, Plavix, Cozaar, beta cleopatra. Will increase beta cleopatra as tolerated 2. Continue Cardizem for radial artery spasm prophylaxis as well as assistance with heart rate control, will increase to 60 mg every 8 hours. Please do not discontinue CCB without discussing with cardiac surgery. 3. Wean O2 as tolerated. Encourage incentive spirometry use 10 times every hour while awake. Bronchodilators per pulmonology/critical care medicine. 4. Increase activity, ambulate as tolerated. PT/OT/cardiac rehab following 5. Will monitor daily labs and chest x-rays. Electrolyte replacement per protocol. No transfusion today. 6. GI/DVT prophylaxis. 7. Pain control with current medication regimen. 8. Bladder scan every 4 hours, replace Loaiza if greater than 300 mL residual. Continue Flomax. 9. Insulin management per primary care service. Preoperative hemoglobin A1c 6.4% 10. Transfer orders for placed for [facility] cardiac stepdown unit. May transfer when bed available 11. Discharge planning in progress. Anticipate discharge to home with home care soon 12. More recommendations to follow based on patient's based on patient's clinical course. Time with Patient: Greater than 30
--- NOTE | 2020-08-03 09:03 | XR ---
EXAMINATION TYPE: XR chest 1V portable DATE OF EXAM: 08/03/2020 COMPARISON: 08/02/2020 INDICATION: Postop CABG TECHNIQUE: Single frontal view of the chest is obtained. FINDINGS: The heart size is normal. The pulmonary vasculature is normal. Minimal subsegmental atelectasis may be at the right base. Sternotomy wires are in the midline from CABG. IMPRESSION: 1. Minimal subsegmental atelectasis right base
[2020-08-03] MEDS: DILTIAZEM ORAL 60 MG TAB PO SCH ×2 (09:37→16:29)
[2020-08-03] MEDS ORDERED: ALBUMIN HUMAN 5% 250 ML IVPB ONE (10:23)
[2020-08-03 10:24] LABS: Glucose,Whole Blood 132 mg/dL (75-99)
[2020-08-03 12:07] LABS: Glucose,Whole Blood 89 mg/dL (75-99)
[2020-08-03] MEDS: LOSARTAN 25 MG TAB PO SCH (12:41)
--- NOTE | 2020-08-03 12:52 | P.PN ---
Subjective From records This is a very pleasant [address] Christine. Chronic stable medical conditions include diabetes, hypertension, hyperlipidemia, obstructive sleep apnea, coronary artery disease with a history of stent. Patient underwent quadruple coronary bypass. Today-left chest tube be removed today. Oral intake code. Has been walking. Using the incentive spirometry. feeling better.hemoglobin dropped to 6.6. 1 unit of blood given. 08/02/2020 Patient is lying in bed comfortable, no distress, no chest pain or or dyspnea. He is hemodynamically stable he is saturating 98% on 4 L oxygen via nasal cannula. His sugar is controlled. Labs reviewed and are unremarkable. Hemoglobin 7.2, sodium 132. Remains on oral Zithromax, also he is on Plavix and aspirin. Also he is on Lasix. 08/03/2020 Today patient is awake but he has few problems, he had syncope episode when going to the bathroom, his blood pressure was marginal and 250 of albumin is given for him by the surgical team. Cardizem pill 60 mg 3 times a day added al so by surgical team. Also patient has been having urinary retention of 1250 and 800 ml respectively and Loaiza catheter has to be placed back. Patient sugar is controlled however patient is receiving insulin 70:3021 units before breakfast and insulin NPH 10 units at bedtime, I talked the patient and he was to try pills first going to discontinue insulin and start him on Amaryl 2 mg plus insulin sliding scale. Hemoglobin A1c is requested and result is still pending. Hemoglobin 7.1. Creatinine is normal at 1.23, sodium slightly low at 135, potassium is normal at 4.3. Review of systems CONSTITUTIONAL: No fever, no malaise, no fatigue. HEENT: No recent visual problems or hearing problems. Denied any sore throat. CARDIOVASCULAR: No orthopnea, PND, no palpitations, no syncope. PULMONARY: No shortness of breath, no cough, no hemoptysis. GASTROINTESTINAL: No diarrhea, no nausea, no vomiting, no abdominal pain. Normoactive bowel sounds. NEUROLOGICAL: No headaches, no weakness, no numbness. Active Medications Generic Name Dose Route Start Last Admin Trade Name Freq PRN Reason Stop Dose Admin Acetaminophen 1,000 mg 07/31/20 06:41 08/03/20 08:33 Acetaminophen Tab 500 Mg Tab PO 1,000 mg Q6HR PRN Administration Fever and/ or Pain Albuterol/Ipratropium 3 ml 07/29/20 16:04 Ipratropium-Albuterol 3 Ml Neb INHALATION RT-Q2H PRN Shortness Of Breath Or Wheezing Albuterol/Ipratropium 3 ml 07/29/20 21:02 08/03/20 12:01 Ipratropium-Albuterol 3 Ml Neb INHALATION 3 ml RT-QID [place] Administration Ascorbic Acid 500 mg 07/31/20 07:30 08/03/20 07:55 Ascorbic Acid 500 Mg Tab PO 500 mg BID-W/MEALS [place] Administration Aspirin 325 mg 07/30/20 09:00 08/03/20 08:31 Aspirin 325 Mg Tab PO 325 mg DAILY [place] Administration Benzocaine/Menthol 1 each 07/29/20 16:04 Benzocaine/Menthol Lozeng 1 Each Lozenge MUCOUS MEM Q2H PRN Sore Throat Bisacodyl 10 mg 07/30/20 09:00 Bisacodyl 10 Mg Supp RECTAL DAILY PRN Constipation Clopidogrel Bisulfate 75 mg 07/30/20 09:00 08/03/20 08:31 Clopidogrel 75 Mg Tab PO 75 mg DAILY [place] Administration Diltiazem HCl 60 mg 08/03/20 08:00 08/03/20 09:37 Diltiazem Oral 60 Mg Tab PO 60 mg Q8HR [place] Administration Ezetimibe 10 mg 07/30/20 09:00 08/03/20 08:31 Ezetimibe 10 Mg Tab PO 10 mg DAILY [place] Administration Fenofibrate 160 mg 07/30/20 09:00 08/03/20 08:31 Fenofibrate 160 Mg Tab PO 160 mg DAILY [place] Administration Ferrous Sulfate 325 mg 07/31/20 07:30 08/03/20 07:55 Ferrous Sulfate 325 Mg Tab PO 325 mg BID-W/MEALS [facility] Administration Glimepiride 2 mg 08/04/20 07:30 Glimepiride 2 Mg Tab PO AC-BRKFST [facility] Heparin Sodium (Porcine) 5,000 unit 07/29/20 23:00 08/03/20 08:31 Heparin Sodium,Porcine 5,000 Unit/Ml 1 Ml Vial SQ 5,000 unit Q8HR [place] Administration Amiodarone HCl 150 mg/ 103 mls @ 618 mls/hr 07/29/20 16:04 08/02/20 01:01 Dextrose/Water IV 618 mls/hr .Q10M PRN Administration A.FIB/FLUTTER Protocol Amiodarone HCl 360 mg/ 200 mls @ 33.333 mls/hr 07/29/20 16:04 Dextrose/Water IV .Q6H PRN A.FIB/FLUTTER Protocol 1 MG/MIN Amiodarone HCl 300 mg/ 250 mls @ 25 mls/hr 07/29/20 16:04 Dextrose/Water IV .Q10H PRN A.FIB/FLUTTER Protocol 0.5 MG/MIN Insulin Aspart 0 unit 07/31/20 07:42 08/03/20 12:40 Insulin Aspart (Novolog) 100 Unit/Ml Vial SQ Not Given [id number] [facility] Protocol Losartan Potassium 25 mg 08/02/20 12:00 08/03/20 12:41 Losartan 25 Mg Tab PO Not Given DAILY@1200 [place] Magnesium Hydroxide 2,400 mg 07/30/20 09:00 Magnesium Hydroxide 2,400 Mg/10 Ml Cup PO BID PRN Constipation Metoclopramide HCl 10 mg 07/29/20 16:04 Metoclopramide 5 Mg/Ml 2 Ml Vial IVP Q4H PRN Nausea And Vomiting Metoprolol Tartrate 50 mg 07/31/20 09:00 08/03/20 08:31 Metoprolol Tartrate 50 Mg Tab PO 50 mg BID [place] Administration Miscellaneous Information 1 each 07/29/20 16:04 Potassium Replacement Protocol 1 Each Misc MISCELLANE DAILY PRN Per Protocol Protocol Miscellaneous Information 1 each 07/29/20 16:04 Magnesium Replacement Protocol 1 Each Misc MISCELLANE DAILY PRN Per Protocol Protocol Miscellaneous Information 1 each 07/29/20 16:04 Phosphorus Replacement Protoco 1 Each Misc MISCELLANE DAILY PRN Per Protocol Protocol Ondansetron HCl 4 mg 07/29/20 16:04 08/01/20 20:19 Ondansetron 4 Mg/2 Ml Vial IVP 4 mg Q6HR PRN Administration Nausea And Vomiting Pantoprazole Sodium 40 mg 07/30/20 07:30 08/03/20 07:59 Pantoprazole 40 Mg Tablet PO 40 mg AC-BRKFST [place] Administration Senna/Docusate Sodium 2 each 07/30/20 21:00 08/02/20 21:37 Sennosides-Docusate Sodium 1 Each Tab PO 2 each HS [place] Administration Sodium Chloride 10 ml 07/29/20 21:00 08/03/20 08:32 Sodium Chloride 0.9% Flush 10 Ml Syringe IV Not Given BID [place] Tamsulosin HCl 0.4 mg 07/29/20 21:00 08/02/20 21:40 Tamsulosin 0.4 Mg Cap.Er.24h PO 0.4 mg HS [place] Administration Objective - Vital Signs Vital signs: Vital Signs Temp 98.1 F 08/03/20 08:00 Pulse 64 08/03/20 12:30 Resp 19 08/03/20 12:30 BP 103/56 08/03/20 12:30 Pulse Ox 95 08/03/20 12:30 Intake & Output 08/02/20 08/03/20 08/03/20 18:59 06:59 18:59 Intake Total 300 250 Output Total 2310 1100 930 Balance -2009 Weight 98 kg 96.5 kg Intake: Intake, IV Titration 250 Amount Albumin Human 5% 250 ml @ 250 0 mls/hr IVPB .[facility] Rx#:[id number] Oral 300 Output: Urine 2310 1100 930 Other: Voiding Method Toilet Urinal Urinal # Voids 0 ABP, PAP, CO, CI - Last Documented Arterial Blood Pressure 126/47 Pulmonary Artery Pressure 28/12 Cardiac Output 6.8 Cardiac Index 3.3 - Exam GENERAL: The patient is alert and oriented x3, not in any acute distress. Well developed, well nourished. HEENT: Pupils are round and equally reacting to light. EOMI. No scleral icterus. No conjunctival pallor. Normocephalic, atraumatic. No pharyngeal erythema. No thyromegaly. -CARDIOVASCULAR: S1 and S2 present. No murmurs, rubs, or gallops. Sternal wound is dry and clean Ade dressing is in place PULMONARY: Chest is clear to auscultation, no wheezing or crackles. ABDOMEN: Soft, nontender, nondistended, normoactive bowel sounds. No palpable organomegaly. MUSCULOSKELETAL: No joint swelling or deformity. EXTREMITIES: No cyanosis, clubbing, or pedal edema. NEUROLOGICAL: Gross neurological examination did not reveal any focal deficits. SKIN: No rashes. no petechiae. - Labs CBC & Chem 7: 08/03/20 04:35 08/03/20 04:35 Labs: Abnormal Lab Results - Last 24 Hours (Table) 08/02/20 08/02/20 08/03/20 Range/Units 17:22 20:32 04:35 RBC 2.29 L (4.30-5.90) m/uL Hgb 7.1 L (13.0-17.5) gm/dL Hct 21.5 L (39.0-53.0) % Sodium (137-145) mmol/L BUN (9-20) mg/dL Glucose (74-99) mg/dL POC Glucose (mg/dL) 132 H 133 H (75-99) mg/dL Calcium (8.4-10.2) mg/dL Magnesium (1.6-2.3) mg/dL 08/03/20 08/03/20 Range/Units 04:35 10:22 RBC (4.30-5.90) m/uL Hgb (13.0-17.5) gm/dL Hct (39.0-53.0) % Sodium 135 L (137-145) mmol/L BUN 25 H (9-20) mg/dL Glucose 104 H (74-99) mg/dL POC Glucose (mg/dL) 132 H (75-99) mg/dL Calcium 8.2 L (8.4-10.2) mg/dL Magnesium 2.4 H (1.6-2.3) mg/dL Assessment and Plan Assessment: -Quadruple coronary bypass -Syncopal episode, most likely vasovagal -Acute urinary retention, Loaiza catheter was placed back -Acute postprocedure blood loss anemia -Thrombocytopenia, improved -Diabetes mellitus type 2 -Hyperlipidemia -Essential hypertension -Obstructive sleep apnea uses CPAP -Coronary artery disease history of stents Plan: This is a pleasant 75 years old male who presents for CABG surgery. Continue with aspirin and Plavix. Continue monitor sugar and insulin Sliding scale. Stop hemoglobin and 70:30 insulin and start patient on Amaryl. And continue with iron pills and follow-up anemia level Labs and medication were reviewed.. Continue same treatment. Continue with symptomatic treatment. Resume home medication. Monitor lytes and vitals. DVT and GI prophylaxis. Further recommendationsas per clinical course of the patient DVT prophylaxis: Subcutaneous heparin GI Prophylaxis: Ppi Thank you for consulting us
--- NOTE | 2020-08-03 14:09 | P.PN ---
Subjective Progress Note Date: 08/03/20 Principal diagnosis: Status post quadruple coronary artery bypass grafting postoperative day #5 This is a 75-year-old white male primarily a patient of Dr. Cedeño , patient is known to have history of coronary artery disease and multiple stent placements. Patient had stents placed in 1995, 1996, 2005, and 2015. 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 Patient is also known to have history of type 2 diabetes, hypertension, dyslipidemia, benign prostatic hypertrophy, nephrolithiasis, obstructive sleep apnea syndrome, on CPAP, patient was seen recently in the hospital with intermittent episodes of chest pains with exercise, underwent transthoracic echocardiogram on 07/24/20 showed normal LV function, mild concentric hypertrophy, [id number] mitral valve re gurgitation, and his cardiac catheterization showed 95% stenosis in his right coronary artery 99% stenosis in his circumflex coronary artery and 95% stenosis of the proximal left anterior descending coronary artery. Patient underwent elective myocardial revascularization today, postoperatively I saw him as soon as he arrived to the ICU, and he was on mechanical ventilation. His ventilator settings are assist control rate of 18 tidal volume is 500 FiO2 of 100% and PEEP of 5. His initial ABG is pending. Patient is hemodynamically stable, and sedated. Chest x-ray is also pending Patient was reevaluated today on 07/30/20, patient was successfully extubated at 21:25 PM yesterday. Tolerated the extubation well, patient is doing great today. Sitting at a bedside chair, relatively asymptomatic, not requiring any pressors or any inotropes. He is hemodynamically stable, doing fairly well with incentive spirometry achieving over 1000 mL. Chest x-ray showed mostly postoperative atelectasis, no significant unusual findings. CBC is unremarkable hemoglobin is 8, basic metabolic profile and renal profile are normal. Reevaluated today on 07/31/20, patient is postoperative day #2. Patient is doing great, sitting at a bedside chair, relatively asymptomatic, denies any shortness of breath or cough or wheezing. Remains in normal sinus rhythm, hemodynamically stable, not requiring any inotropes or process. Continues to have right internal jugular Cordis, right radial arterial line, mediastinal left and right pleural chest tubes in place. Chest x-ray showed minimal postoperative yunior nges/atelectasis, expected. Hemoglobin is 7.0 WBC count is 7.4. Electrolytes are normal renal profile is normal slight increase in creatinine noted up to 1.08 from 0.89 yesterday Reevaluated today on 08/01/20, patient is postoperative day #3. Didn't sleep much last night, woke up at 3 AM, couldn't sleep again. Patient has been ambulating in the hallway. He is on 2 L nasal cannula, feels generally weak. Hemoglobin is 6.6 today, he is scheduled to receive a unit of packed RBCs for low hemoglobin of 6.6, and that will likely improve his symptoms of weakness and fatigue. Continues to have a chest tube in place, and significant bloody drainage noted in the left sided chest tube. Patient is achieving 1000 mL in his incentive spirometer. He is not requiring any pressors or any inotropes. He is in sinus rhythm heart rate of 107. Chest x-ray showed minimal basilar atelectasis. Patient was unable to void yesterday, and didn't receive straight cathed this morning 1 Reevaluated today on 08/02/20, patient is postoperative day #4. Patient had an episode of atrial flutter last evening, received 2 boluses of amiodarone. And yesterday he received a unit of packed RBCs for low hemoglobin of 6.6. Patient seems to be doing fairly well this morning, feels a bit tired, sitting in a bed side chair. Patient was tearful apparently yesterday and he was started on Zoloft. Electrolytes are normal renal profile is normal hemoglobin is 7.2 this morning. Chest x-ray showed very tiny pleural effusions, and minimal atelectasis. Doubt interstitial edema as noted by the radiologist Patient was reevaluated today on 08/03/20, he was in atrial flutter last night, and it was resolved on its own without any intervention. Patient also developed significant amount of urinary retention requiring straight cathed again. During my evaluation, the patient was in sinus rhythm. However he seems to have intermittent episodes of lightheadedness and presyncope with ambulation, this happened while he was being ambulated to the bathroom. Resolved by resting the patient in bed. Labs today showed margin hemoglobin of 11.1, WBC count is 5.9 units lites are normal BUN is 25 creatinine is 1.23. Chest x-ray showed subsegmental atelectasis/right base Objective - Vital Signs Vital signs: Vital Signs Temp 98.1 F 08/03/20 08:00 Pulse 64 08/03/20 12:30 Resp 19 08/03/20 12:30 BP 103/56 08/03/20 12:30 Pulse Ox 95 08/03/20 12:30 Intake & Output 08/02/20 08/03/20 08/03/20 18:59 06:59 18:59 Intake Total 300 250 Output Total 2310 1100 930 Balance -2009 Weight 98 kg 96.5 kg Intake: Intake, IV Titration 250 Amount Albumin Human 5% 250 ml @ 250 0 mls/hr IVPB .[facility] Rx#:[id number] Oral 300 Output: Urine 2310 1100 930 Other: Voiding Method Toilet Urinal Urinal Urinal # Voids 0 ABP, PAP, CO, CI - Last Documented Arterial Blood Pressure 126/47 Pulmonary Artery Pressure 28/12 Cardiac Output 6.8 Cardiac Index 3.3 - Exam Physical Exam: Revealed 75-year-old white male, on 4 L nasal cannula, in no distress. Head: Atraumatic, normocephalic. HEENT:[Neck is supple.] [No neck masses.] [No thyromegaly.] [No JVD.] Chest: Diminished breath sounds at the bases no crackles or rhonchi or wheezes, Cardiac Exam: [Normal S1 and S2, no S3 gallop, 2/6 systolic murmur thought the precordium, Sternum stable. Abdomen: [Soft, nontender, no megaly, no rebound, no guarding, normal bowel sounds.] Extremities: [No clubbing, no edema, no cyanosis.] Neurological Exam: Alert and oriented 3 focal deficits. Psychiatric: Normal mood, blunt affect and normal mental status examination Skin: No rashes. - Labs CBC & Chem 7: 08/03/20 04:35 08/03/20 04:35 Labs: Abnormal Lab Results - Last 24 Hours (Table) 08/02/20 08/02/20 08/03/20 Range/Units 17:22 20:32 04:35 RBC 2.29 L (4.30-5.90) m/uL Hgb 7.1 L (13.0-17.5) gm/dL Hct 21.5 L (39.0-53.0) % Sodium (137-145) mmol/L BUN (9-20) mg/dL Glucose (74-99) mg/dL POC Glucose (mg/dL) 132 H 133 H (75-99) mg/dL Calcium (8.4-10.2) mg/dL Magnesium (1.6-2.3) mg/dL 08/03/20 08/03/20 Range/Units 04:35 10:22 RBC (4.30-5.90) m/uL Hgb (13.0-17.5) gm/dL Hct (39.0-53.0) % Sodium 135 L (137-145) mmol/L BUN 25 H (9-20) mg/dL Glucose 104 H (74-99) mg/dL POC Glucose (mg/dL) 132 H (75-99) mg/dL Calcium 8.2 L (8.4-10.2) mg/dL Magnesium 2.4 H (1.6-2.3) mg/dL Assessment and Plan Assessment: Impression: Status post quadruple bypass surgery, postoperative day #5 Multivessel coronary artery disease as noted on his recent cardiac catheterization. And history of multiple stents placed. History of moderate mitral regurgitation with preserved systolic function. Benign essential hypertension. Type 2 diabetes. Obstructive sleep apnea syndrome. History of nephrolithiasis. Family history of premature coronary artery disease. Benign prostatic hypertrophy. Postoperative blood loss anemia requiring blood transfusion, expected. Hemoglobin today is 6.6, and the patient will receive a unit of packed RBCs. Recommendation: Continue Cardizem for the episode of A. fib/RVR last night. Continue aspirin beta blockers Plavix therapy for dyslipidemia. Patient cannot tolerate statins. Continue incentive spirometry Continue bronchodilators Ambulate, cautiously GI and DVT prophylaxis We'll continue to follow Time with Patient: Less than 30
[2020-08-03 17:08] LABS: Glucose,Whole Blood 106 mg/dL (75-99)
[2020-08-03 20:47] LABS: Glucose,Whole Blood 129 mg/dL (75-99)
[2020-08-03] MEDS: SENNOSIDES-DOCUSATE SODIUM 1 EACH TAB PO SCH (21:31)
[2020-08-03] MEDS: TAMSULOSIN 0.4 MG CAP.ER.24H PO SCH (21:32)
[2020-08-04] MEDS: DILTIAZEM ORAL 60 MG TAB PO SCH ×4 (00:27→23:03)
[2020-08-04] MEDS: HEPARIN SODIUM,PORCINE 5,000 UNIT/ML 1 ML VIAL SQ SCH ×4 (00:27→23:03)
[2020-08-04] MEDS: INSULIN ASPART (NovoLOG) 100 UNIT/ML VIAL SQ SCH ×5 (01:39→20:30)
[2020-08-04 04:23] LABS: HCT 22.4 % (39.0-53.0); HGB 7.3 gm/dL (13.0-17.5); Hypochromasia Slight; MCH 30.7 pg (25.0-35.0); MCHC 32.6 g/dL (31.0-37.0); MCV 94.2 fL (80.0-100.0); Mean Platelet Volume 8.5; Platelet Count 228 k/uL (150-450); Poikilocytosis Slight; RBC 2.38 m/uL (4.30-5.90); RDW 15.2 % (11.5-15.5)
[2020-08-04 04:33] LABS: Albumin 3.2 g/dL (3.5-5.0); Calcium 8.6 mg/dL (8.4-10.2); Magnesium 2.3 mg/dL (1.6-2.3); Potassium 4.3 mmol/L (3.5-5.1); Total Bilirubin 0.8 mg/dL (0.2-1.3); Total Protein 5.3 g/dL (6.3-8.2)
[2020-08-04 06:43] LABS: Glucose,Whole Blood 111 mg/dL (75-99)
--- NOTE | 2020-08-04 07:59 | P.PN ---
Subjective Progress Note Date: 08/04/20 Principal diagnosis: Symptomatic multivessel coronary artery disease, preserved systolic function, [id number] mitral valve regurgitation. Previous medical history of coronary artery disease with prior multiple stents placement, hypertension, hyperlipidemia, recent diagnosis of diet controlled diabetes mellitus type 2 with recent hemoglobin A1c of 6.4%, obstructive sleep apnea with home CPAP use, benign prostatic hypertrophy, nephrolithiasis, vertigo, and family history of premature coronary artery disease POD #6 quadruple coronary artery bypass grafting using the left internal mammary artery to left anterior descending coronary artery, the left radial artery from the aorta to the obtuse marginal coronary artery, reverse greater saphenous vein graft from the aorta to the ramus intermedius coronary artery, reverse greater saphenous vein graft from the aorta to the posterior descending coronary artery, endoscopic harvesting of the left radial artery, endoscopic harvesting of the left greater saphenous vein from the groin to the mid lower leg level, intraoper ative graft flow measurement using the Medist[employer] system, intraoperative transesophageal echocardiogram and epi-aortic scanning. Postoperative acute blood loss anemia and thrombocytopenia, expected, dilutional Postoperative atrial tachycardia, possible atrial flutter, not atrial fibrillation, unexpected Postoperative syncopal episode, likely vasovagal versus orthostatic, unexpected The patient is currently laying in bed in the intensive care unit in no acute distress. States pain is controlled on current medication regimen, denies shortness of breath. Appears depressed, very worried about continued fast heart rate with any activity. Remains in normal sinus rhythm, no further episodes of atrial tachycardia last night or yesterday afternoon. He did have a syncopal episode after trying to have a bowel movement yesterday when getting up with assistance to go back to bed, likely vasovagal versus orthostatic as systolic blood pressure dropped to the 80s per nursing, heart rate in the 60s at the time, episode lasted 1-2 seconds and he's had no further episodes since. Patient was given 250 mL of albumin with improvement in blood pressure. Patient had urinary retention again for 800 mL and Loaiza was replaced. Objective - Vital Signs Vital signs: Vital Signs Temp 98.4 F 08/04/20 04:00 Pulse 75 08/04/20 06:00 Resp 19 08/04/20 06:00 BP 125/69 08/04/20 06:00 Pulse Ox 95 08/04/20 06:00 Intake & Output 0908/04/20 08/04/20 18:59 06:59 18:59 Intake Total 250 Output Total 1130 1500 Balance -880 -1500 Weight 96.5 kg 103.9 kg Intake: Intake, IV Titration 250 Amount Albumin Human 5% 250 ml @ 250 0 mls/hr IVPB .[facility] Rx#:[id number] Output: Urine 1130 1500 Other: Voiding Method Indwelling Catheter Indwelling Catheter ABP, PAP, CO, CI - Last Documented Arterial Blood Pressure 126/47 Pulmonary Artery Pressure 28/12 Cardiac Output 6.8 Cardiac Index 3.3 - Constitutional General appearance: Present: cooperative, no acute distress - Respiratory Details: Lungs sounds diminished bilaterally. Respirations even, nonlabored. Currently on 2 L nasal cannula with oxygen saturation 94%. Able to achieve 1500 mL on his incentive spirometry. Strong productive cough. - Cardiovascular Details: S1, S2 present. Currently regular rate and rhythm, sinus rhythm with occasional PACs on telemetry. Sternum stable. Palpable peripheral pulses bilaterally. Trace generalized edema present. No calf pain or tenderness noted. Heart hugger in place with patient demonstrating appropriate use. Antiembolism stockings, SCDs present. - Gastrointestinal Gastrointestinal Comment(s): Abdomen soft, nontender, nondistended. Active bowel sounds present 4 quadrants. Tolerating diet. Positive bowel movement. - Genitourinary Genitourinary Comment(s): Loaiza present draining clear, yellow urine. Output in the last 24 hours 1500 mL. - Integumentary Integumentary Comment(s): Skin is warm and dry with evidence of good perfusion. Anterior chest incision well approximated and covered with dry intact dressing. Left radial artery harv est site well approximated without redness or drainage, good cap refill, patient able to wiggle all fingers and compliance analyst appropriately. Left lower extremity EVH site well approximated without redness or drainage - Neurologic Neurologic: Present: CNII-XII intact - Musculoskeletal Musculoskeletal: Present: gait normal, strength equal bilaterally - Psychiatric Psychiatric Comment(s): Flat affect, appears somewhat depressed Psychiatric: Present: A&O x's 3 - Allied health notes Allied health notes reviewed: nursing - Labs CBC & Chem 7: 08/04/20 03:54 08/04/20 03:54 Labs: Abnormal Lab Results - Last 24 Hours (Table) 08/03/20 08/03/20 08/03/20 Range/Units 10:22 17:06 20:46 RBC (4.30-5.90) m/uL Hgb (13.0-17.5) gm/dL Hct (39.0-53.0) % Sodium (137-145) mmol/L Glucose (74-99) mg/dL POC Glucose (mg/dL) 132 H 106 H 129 H (75-99) mg/dL Alkaline Phosphatase (38-126) U/L Total Protein (6.3-8.2) g/dL Albumin (3.5-5.0) g/dL 08/04/20 08/04/20 08/04/20 Range/Units 03:54 03:54 06:41 RBC 2.38 L (4.30-5.90) m/uL Hgb 7.3 L (13.0-17.5) gm/dL Hct 22.4 L (39.0-53.0) % Sodium 133 L (137-145) mmol/L Glucose 102 H (74-99) mg/dL POC Glucose (mg/dL) 111 H (75-99) mg/dL Alkaline Phosphatase 30 L (38-126) U/L Total Protein 5.3 L (6.3-8.2) g/dL Albumin 3.2 L (3.5-5.0) g/dL - Imaging and Cardiology Chest x-ray: image reviewed Assessment and Plan Assessment: 1. Symptomatic multivessel coronary artery disease, status post 4 vessel bypass 2. Preserved systolic function, [id number] mitral valve regurgitation 3. History of coronary artery disease with prior multiple stents placemen 4. Hypertension 5. Hyperlipidemia 6. Newly diagnosed diet controlled diabetes mellitus type 2 with hemoglobin A1c of 6.4% 7. Obstructive sleep apnea with home CPAP use 8. Benign prostatic hypertrophy 9. Family history of premature coronary artery disease 10. Postoperative acute blood loss anemia and thrombocytopenia 11. Postoperative atrial tachycardia, possible atrial flutter 12. Postoperative syncopal event, likely vasovagal versus orthostatic Plan: 1. Continue aspirin, zetia (intolerant to statins), lofibra, Plavix, Cozaar, beta cleopatra. 2. Continue Cardizem for radial artery spasm prophylaxis as well as assistance with heart rate control. Please do not discontinue CCB without discussing with cardiac surgery. 3. Wean O2 as tolerated. Encourage incentive spirometry use 10 times every hour while awake. Bronchodilators per pulmonology/critical care medicine. 4. Increase activity, ambulate as tolerated. PT/OT/cardiac rehab following 5. Will monitor daily labs and chest x-rays. Electrolyte replacement per protocol. No transfusion today. 6. GI/DVT prophylaxis. 7. Pain control with current medication regimen. 8. Continue Flomax. Will consult urology 9. Insulin management per primary care service. Preoperative hemoglobin A1c 6.4%, currently 6.0% 10. More recommendations to follow Time with Patient: Greater than 30
--- NOTE | 2020-08-04 08:26 | XR ---
EXAMINATION TYPE: XR chest 1V portable DATE OF EXAM: 08/04/2020 CLINICAL HISTORY: Difficulty breathing progress study. Postoperative cardiac surgery. TECHNIQUE: Single AP portable upright view of the chest is obtained. COMPARISON: Chest x-ray from one day earlier and older studies. FINDINGS: Post-CABG changes with mediastinal clips and sternal wires redemonstrated.. Persistent mil d cardiomegaly with tiny bilateral pleural effusions and patchy bibasilar atelectasis and/or acute in filtrate. Osseous structures are intact. IMPRESSION: Tiny bilateral pleural effusions and associated patchy bibasilar atelectasis. No signific ant change from one day earlier.
[2020-08-04] MEDS: IPRATROPIUM-ALBUTEROL 3 ML NEB INHALATION SCH ×4 (08:50→21:15)
[2020-08-04] MEDS: FERROUS SULFATE 325 MG TAB PO SCH ×2 (09:00→17:35)
[2020-08-04] MEDS: ASCORBIC ACID 500 MG TAB PO SCH ×2 (09:00→17:35)
[2020-08-04] MEDS: GLIMEPIRIDE 2 MG TAB PO SCH (09:00)
[2020-08-04] MEDS: PANTOPRAZOLE 40 MG TABLET PO SCH (09:00)
[2020-08-04] MEDS: CLOPIDOGREL 75 MG TAB PO SCH (09:01)
[2020-08-04] MEDS: METOPROLOL TARTRATE 50 MG TAB PO SCH ×2 (09:01→20:30)
[2020-08-04] MEDS: ASPIRIN 325 MG TAB PO SCH (09:01)
[2020-08-04] MEDS: FENOFIBRATE 160 MG TAB PO SCH (09:36)
[2020-08-04] MEDS: EZETIMIBE 10 MG TAB PO SCH (09:36)
--- NOTE | 2020-08-04 11:08 | PN ---
PROGRESS NOTE Mr. Cisneros is a 75-year-old male with a known history of coronary artery disease, status post multiple percutaneous revascularization who was found to have severe progressive disease, underwent coronary bypass grafting. He is doing well this point and sent atrial flutter. Continues to be in sinus mechanism. His breathing is stable, he is denying any chest pain. He denies any dizziness. He had a syncopal episode with of bowel movement. He is in sinus mechanism with some of atrial tachycardia. He is feeling tired. He continues to be at this time on aspirin once a day, Plavix 75 mg daily, diltiazem 60 mg 3 times a day, Lasix 80 mg daily, Lofibra, Adderall, losartan 12.5 mg daily, metoprolol tartrate 50 mg twice a day. PHYSICAL EXAMINATION: Blood pressure 125/60 with a heart rate in 70s. LUNGS: With mild decrease in breath sounds, no wheezes. HEART: Regular rate and rhythm, S1, S2. No S3. No rub. ABDOMEN: Soft, nontender. EXTREMITIES: Trace edema. LAB DATA: Revealed hemoglobin of 7.3, BUN and creatinine 20 and 1.05. IMPRESSION: 1. Status post coronary artery bypass grafting. 2. Episode of atrial arrhythmia with atrial flutter, stable. 3. Dizziness and probably orthostatic hypotension with lightheadedness, will change position. 4. History of hypertension. 5. Hyperlipidemia, intolerant to statin. 6. History of diabetes mellitus. RECOMMENDATION: From the cardiac standpoint, will continue present therapy. Patient will be evaluated as an outpatient to receive a benign inhibitor in view of his intolerance to statin. In the meantime, will continue present therapy. If he has further episode of atrial fibrillation or atrial flutter, will need to consider anticoagulation. MMODL / IJN: [id number] /
[2020-08-04 11:57] LABS: Glucose,Whole Blood 119 mg/dL (75-99)
--- NOTE | 2020-08-04 11:59 | PN ---
PROGRESS NOTE PULMONARY/CRITICAL CARE PROGRESS NOTE: DATE OF SERVICE: This is a 75-year-old gentleman who is postop day #6, status post 4-vessel bypass grafting. He has a history of multivessel coronary artery disease based on a recent cardiac catheterization. He also was found to have moderate mitral regurgitation, essential hypertension, type 2 diabetes, and sleep apnea syndrome, among other things. Currently, he is on 2 L nasal cannula. He is not receiving any IV fluids. The patient will be transferred out of the ICU to the general medical floor today. He has no particular complaints. Currently, his vital signs include temperature 92, heart rate 84, respiratory rate 20, blood pressure 131/67 mean 88, and saturations on 2 L of 97%. Appears in no acute distress. HEENT: Examination is grossly unremarkable. Neck is supple full range of motion. No adenopathy. Neck veins are flat. CARDIOVASCULAR: Examination reveals regular rhythm and rate. Heart rate 84 beats per minute. S1, S2 normal. Heart sounds are distant. LUNGS: Reveal mostly clear breath sounds. A few scattered rhonchi. No wheezes or crackles. Breath sounds equal. ABDOMEN: Soft, bowel sounds are heard. EXTREMITIES: Intact. No cyanosis, clubbing, or edema. SKIN: Without rash. NEUROLOGIC: Examination is brief but nonfocal. LABS: Reviewed. White count 6.0, hemoglobin 7.3, hematocrit 22.4, platelet count 328,000, sodium 133, potassium 4.3, chloride is 103, CO2 is 25, anion gap is 5. BUN and creatinine were 20 and 1.05. Alkaline phosphatase is 30, albumin 3.2. Microbiology is negative. Labs are reviewed. Chest x-ray done from August 04, 2020 shows small bilateral effusions and some mild basilar atelectasis. Medications are reviewed. ASSESSMENT: 1. Status post 4-vessel bypass grafting, postoperative day #6. 2. Routine postoperative ventilator management, resolved. 3. Multivessel coronary artery disease. 4. Previous history of multiple stent placements. 5. Moderate mitral regurgitation. 6. Benign essential hypertension. 7. Type 2 diabetes mellitus. 8. Sleep apnea syndrome. 9. History of kidney stones. 10.Family history of premature coronary artery disease. 11.Benign prostatic hypertrophy. 12.Postoperative blood-loss anemia, requiring transfusion. PLAN: The patient is doing well. The patient is on O2 at 2 L. Saturations are 94%-95%. He is not receiving any IV fluids. We want to continue the patient with deep breathing, coughing, clearing of secretions and hourly use of the incentive spirometer. The patient is well enough to be transferred out to the step-down unit. Additional recommendations and suggestions are forthcoming. MMODL / IJN: [id number] /
[2020-08-04] MEDS ORDERED: LOSARTAN 25 MG TAB PO SCH (12:00)
[2020-08-04] MEDS: ACETAMINOPHEN TAB 500 MG TAB PO PRN ×2 (12:08→21:29)
--- NOTE | 2020-08-04 12:16 | P.PN ---
Subjective From records This is a very pleasant [address] Christine. Chronic stable medical conditions include diabetes, hypertension, hyperlipidemia, obstructive sleep apnea, coronary artery disease with a history of stent. Patient underwent quadruple coronary bypass. Today-left chest tube be removed today. Oral intake code. Has been walking. Using the incentive spirometry. feeling better.hemoglobin dropped to 6.6. 1 unit of blood given. 08/02/2020 Patient is lying in bed comfortable, no distress, no chest pain or or dyspnea. He is hemodynamically stable he is saturating 98% on 4 L oxygen via nasal cannula. His sugar is controlled. Labs reviewed and are unremarkable. Hemoglobin 7.2, sodium 132. Remains on oral Zithromax, also he is on Plavix and aspirin. Also he is on Lasix. 08/03/2020 Today patient is awake but he has few problems, he had syncope episode when going to the bathroom, his blood pressure was marginal and 250 of albumin is given for him by the surgical team. Cardizem pill 60 mg 3 times a day added al so by surgical team. Also patient has been having urinary retention of 1250 and 800 ml respectively and Loaiza catheter has to be placed back. Patient sugar is controlled however patient is receiving insulin 70:3021 units before breakfast and insulin NPH 10 units at bedtime, I talked the patient and he was to try pills first going to discontinue insulin and start him on Amaryl 2 mg plus insulin sliding scale. Hemoglobin A1c is requested and result is still pending. Hemoglobin 7.1. Creatinine is normal at 1.23, sodium slightly low at 135, potassium is normal at 4.3. 08/04/2018 Patient is more calm and alert and comfortable today, no more dizziness or syncope today. His blood pressure and vitals are stable. His insulin was stopped yesterday and started on Amaryl this morning, patient sugar today is 111 and 119. Lactic acid is normal 0.7. Chest x-ray is showing tiny bilateral pleural effusion and atelectasis Continue with aspirin and Plavix Patient is transferred to general medical floor today Objective - Vital Signs Vital signs: Vital Signs Temp 98.2 F 08/04/20 08:00 Pulse 84 08/04/20 09:01 Resp 20 08/04/20 09:00 BP 131/67 08/04/20 09:00 Pulse Ox 97 08/04/20 09:00 Intake & Output 08/03/20 08/04/20 08/04/20 18:59 06:59 18:59 Intake Total 250 Output Total 1130 1500 350 Balance -880 -1500 -350 Weight 96.5 kg 103.9 kg Intake: Intake, IV Titration 250 Amount Albumin Human 5% 250 ml @ 250 0 mls/hr IVPB .[facility] Rx#:[id number] Output: Urine 1130 1500 350 Other: Voiding Method Indwelling Catheter Indwelling Catheter Indwelling Catheter ABP, PAP, CO, CI - Last Documented Arterial Blood Pressure 126/47 Pulmonary Artery Pressure 28/12 Cardiac Output 6.8 Cardiac Index 3.3 - Exam GENERAL: The patient is alert and oriented x3, not in any acute distress. Well developed, well nourished. HEENT: Pupils are round and equally reacting to light. EOMI. No scleral icterus. No conjunctival pallor. Normocephalic, atraumatic. No pharyngeal erythema. No t hyromegaly. -CARDIOVASCULAR: S1 and S2 present. No murmurs, rubs, or gallops. Sternal wound is dry and clean Ade dressing is in place PULMONARY: Chest is clear to auscultation, no wheezing or crackles. ABDOMEN: Soft, nontender, nondistended, normoactive bowel sounds. No palpable organomegaly. MUSCULOSKELETAL: No joint swelling or deformity. EXTREMITIES: No cyanosis, clubbing, or pedal edema. NEUROLOGICAL: Gross neurological examination did not reveal any focal deficits. SKIN: No rashes. no petechiae. - Labs CBC & Chem 7: 08/04/20 03:54 08/04/20 03:54 Labs: Abnormal Lab Results - Last 24 Hours (Table) 08/03/20 08/03/20 08/04/20 Range/Units 17:06 20:46 03:54 RBC 2.38 L (4.30-5.90) m/uL Hgb 7.3 L (13.0-17.5) gm/dL Hct 22.4 L (39.0-53.0) % Sodium (137-145) mmol/L Glucose (74-99) mg/dL POC Glucose (mg/dL) 106 H 129 H (75-99) mg/dL Alkaline Phosphatase (38-126) U/L Total Protein (6.3-8.2) g/dL Albumin (3.5-5.0) g/dL 08/04/20 08/04/20 08/04/20 Range/Units 03:54 06:41 11:47 RBC (4.30-5.90) m/uL Hgb (13.0-17.5) gm/dL Hct (39.0-53.0) % Sodium 133 L (137-145) mmol/L Glucose 102 H (74-99) mg/dL POC Glucose (mg/dL) 111 H 119 H (75-99) mg/dL Alkaline Phosphatase 30 L (38-126) U/L Total Protein 5.3 L (6.3-8.2) g/dL Albumin 3.2 L (3.5-5.0) g/dL Assessment and Plan Assessment: -Quadruple coronary bypass -Syncopal episode, most likely vasovagal -Acute urinary retention, Loaiza catheter was placed back -Acute postprocedure blood loss anemia -Thrombocytopenia, improved -Diabetes mellitus type 2 -Hyperlipidemia -Essential hypertension -Obstructive sleep apnea uses CPAP -Coronary artery disease history of stents Plan: This is a pleasant 75 years old male who presents for CABG surgery. Continue with aspirin and Plavix. Continue monitor sugar and insulin Sliding scale. Stop hemoglobin and 70:30 insulin and start patient on Amaryl. And continue with iron pills and follow-up anemia level Labs and medication were reviewed.. Continue same treatment. Continue with symptomatic treatment. Resume home medication. Monitor lytes and vitals. DVT and GI prophylaxis. Further recommendationsas per clinical course of the patient DVT prophylaxis: Subcutaneous heparin GI Prophylaxis: Ppi Thank you for consulting us
--- NOTE | 2020-08-04 12:26 | P.GSCN ---
History of Present Illness Consult date: 08/04/20 History of present illness: An 75-year-old gentleman in the hospital with a quadruple coronary bypass graft. The patient had a vasovagal response in the postoperative period that prolong his ICU care. He has had postoperative urinary retention and for this reason we are asked see the patient. Patient stated that early on postoperatively he is voiding well but after the vasovagal symptoms he has had urinary retention. The patient does have chronic outlet obstruction and is on Flomax 0.4 daily by from [place]. He has seen a urologist in [place] for stones in the past. He states that he has somewhat of a bashful bladder in that he cannot void easily at the doctor's office or in public. He is comfortable at present. The hypotensive episode has cleared. Review of Systems All systems: negative - Constitutional Denies fever, Denies weight loss - EENT Eyes: denies blurred vision Ears, nose, mouth and throat: Denies dysphagia - Cardiovascular Denies chest pain, Denies shortness of breath - Respiratory Denies cough, Denies 7 - Gastrointestinal Reports as per HPI - Genitourinary Denies dysuria, Denies hematuria - Integumentary Denies rash, Denies unusual bruising - Neurological Denies headaches, Denies syncope - Hematologic/Lymphatic Denies easy bleeding, Denies easy bruising Past Medical History Past Medical History: Coronary Artery Disease (CAD), Chest Pain / Angina, Diabetes Mellitus, Hyperlipidemia, Hypertension, Prostate Disorder, Renal Disease, Sleep Apnea/CPAP/BIPAP Additional Past Medical History / Comment(s): HX OF KIDNEY STONES, INNER EAR IMBALANCE, STATES HX OF " occasional BURNING FEELING to his chest with exercise and is associated with some shortness of breath", DM type 2 DIET CONTROL History of Any Multi-Drug Resistant Organisms: None Reported Past Surgical History: Heart Catheterization With Stent, Orthopedic Surgery Additional Past Surgical History / Comment(s): GANGLION CYST X3 RT WRIST, RIGHT ELBOW SURG, angioplasty and total 8 stents, RIGHT KNEE-ARTHROSCOPIC, , hemorrhoid surgery, COLONOSCOPY, recent cardiac cath. Past Anesthesia/Blood Transfusion Reactions: Motion Sickness Date of Last Stent Placement:: 04/2016 with stent placement to his OM 2, circumflex coronary artery & OM1 Smoking Status: Never smoker - Past Family History Mother Family Medical History: Coronary Artery Disease (CAD) (Early onset coronary art pelon disease, CABG surgery in her early 50s.) Additional Family Medical History / Comment(s): ALZHEIMERS Father Family Medical History: Cancer Additional Family Medical History / Comment(s): bone and lung Medications and Allergies Home Medications Medication Instructions Recorded Confirmed Type Losartan Potassium [Cozaar] 50 mg PO DAILY 11/20/15 07/29/20 History Metoprolol Tartrate [Lopressor] 75 mg PO BID 11/20/15 07/29/20 History Ubidecarenone [Co Q-10] 200 mg PO DAILY 11/20/15 07/29/20 History amLODIPine [Norvasc] 10 mg PO DAILY 11/20/15 07/29/20 History Aspirin EC [Ecotrin Low Dose] 81 mg PO DAILY 04/13/16 07/29/20 History Nitroglycerin Sl Tabs [Nitrostat] 0.4 mg SUBLINGUAL Q5M PRN #25 tab 04/16/16 07/29/20 Rx Tamsulosin [Flomax] 0.4 mg PO HS 01/18/17 07/29/20 History Ezetimibe [Zetia] 10 mg PO DAILY 08/08/19 07/29/20 History Furosemide [Lasix] 20 mg PO DAILY 08/08/19 07/29/20 History Potassium Chloride [Klor-Con 10] 10 meq PO HS 08/08/19 07/29/20 History Fenofibrate Nanocrystallized 145 mg PO DAILY 07/21/20 07/29/20 History [Fenofibrate] Psyllium Husk [Metamucil] 0.8 gm PO BID 07/21/20 07/29/20 History Isosorbide Mononitrate ER [Imdur] 30 mg PO DAILY 07/28/20 07/29/20 History Allergies Allergy/AdvReac Type Severity Reaction Status Date / Time naproxen sodium [From Aleve] Allergy Severe Anaphylaxis Verified 07/29/20 06:33 Penicillins Allergy Unknown Rash/Hives Verified 07/29/20 06:33 rosuvastatin [From Crestor] Allergy Rash/Hives Verified 07/29/20 06:33 Surgical - Exam Vital Signs Temp Pulse Resp BP Pulse Ox 97.3 F L 63 16 151/91 98 07/29/20 06:09 07/29/20 06:09 07/29/20 06:09 07/29/20 06:09 07/29/20 06:09 - General well developed, well nourished, no distress - Eyes PERRL - ENT no hearing loss - Neck no masses - Respiratory normal expansion, normal respiratory effort - Abdomen Abdomen: soft, non tender - Genitourinary Circumcised phallus with indwelling catheter and clear urine. Rectal deferred as done recently by his primary care small soft and benign normal penis with no external lesions, testicles present - Integumentary no rash, no growths - Neurologic normal coordination, normal sensation - Musculoskeletal normal posture - Psychiatric oriented to time, oriented to person, oriented to place, speech is normal, memory intact Results - Labs 08/04/20 03:54 08/04/20 03:54 Abnormal Lab Results - Last 24 Hours (Table) 08/03/20 08/03/20 08/04/20 Range/Units 17:06 20:46 03:54 RBC 2.38 L (4.30-5.90) m/uL Hgb 7.3 L (13.0-17.5) gm/dL Hct 22.4 L (39.0-53.0) % Sodium (137-145) mmol/L Glucose (74-99) mg/dL POC Glucose (mg/dL) 106 H 129 H (75-99) mg/dL Alkaline Phosphatase (38-126) U/L Total Protein (6.3-8.2) g/dL Albumin (3.5-5.0) g/dL 08/04/20 08/04/20 08/04/20 Range/Units 03:54 06:41 11:47 RBC (4.30-5.90) m/uL Hgb (13.0-17.5) gm/dL Hct (39.0-53.0) % Sodium 133 L (137-145) mmol/L Glucose 102 H (74-99) mg/dL POC Glucose (mg/dL) 111 H 119 H (75-99) mg/dL Alkaline Phosphatase 30 L (38-126) U/L Total Protein 5.3 L (6.3-8.2) g/dL Albumin 3.2 L (3.5-5.0) g/dL Diabetes panel 08/03/20 08/04/20 Range/Units 04:35 03:54 Sodium 133 L (137-145) mmol/L Potassium 4.3 (3.5-5.1) mmol/L Chloride 103 (98-107) mmol/L Carbon Dioxide 25 (22-30) mmol/L BUN 20 (9-20) mg/dL Creatinine 1.05 (0.66-1.25) mg/dL Glucose 102 H (74-99) mg/dL Hemoglobin A1c 6.0 (4.0-6.0) % Calcium 8.6 (8.4-10.2) mg/dL AST 20 (17-59) U/L ALT 10 (4-49) U/L Alkaline Phosphatase 30 L (38-126) U/L Total Protein 5.3 L (6.3-8.2) g/dL Albumin 3.2 L (3.5-5.0) g/dL Calcium panel 08/04/20 Range/Units 03:54 Calcium 8.6 (8.4-10.2) mg/dL Albumin 3.2 L (3.5-5.0) g/dL Pituitary panel 08/04/20 Range/Units 03:54 Sodium 133 L (137-145) mmol/L Potassium 4.3 (3.5-5.1) mmol/L Chloride 103 (98-107) mmol/L Carbon Dioxide 25 (22-30) mmol/L BUN 20 (9-20) mg/dL Creatinine 1.05 (0.66-1.25) mg/dL Glucose 102 H (74-99) mg/dL Calcium 8.6 (8.4-10.2) mg/dL Adrenal panel 08/04/20 Range/Units 03:54 Sodium 133 L (137-145) mmol/L Potassium 4.3 (3.5-5.1) mmol/L Chloride 103 (98-107) mmol/L Carbon Dioxide 25 (22-30) mmol/L BUN 20 (9-20) mg/dL Creatinine 1.05 (0.66-1.25) mg/dL Glucose 102 H (74-99) mg/dL Calcium 8.6 (8.4-10.2) mg/dL Total Bilirubin 0.8 (0.2-1.3) mg/dL AST 20 (17-59) U/L ALT 10 (4-49) U/L Alkaline Phosphatase 30 L (38-126) U/L Total Protein 5.3 L (6.3-8.2) g/dL Albumin 3.2 L (3.5-5.0) g/dL Assessment and Plan Assessment: Impression: Postoperative urinary retention. Preoperative BPH. Status post coronary bypass graft. Non insulin dependent diabetes. Vasovagal syndrome Recommendations: The urine retention is probably related to the hypotensive episode as well as his BPH and bashful bladder. If the hypotension returns I would discontinue the Flomax as I question how much it is making a difference in his voiding. Otherwise if he continues to recuperate from his medical issues I would is continue the Loaiza 24 hours prior to urinate for a voiding trial. We'll follow patient with you.
[2020-08-04] MEDS: KETOROLAC 15 MG/ML 1 ML VIAL IVP SCH (12:52)
[2020-08-04 16:03] LABS: Glucose,Whole Blood 108 mg/dL (75-99)
[2020-08-04 16:41] LABS: Glucose,Whole Blood 87 mg/dL (75-99)
[2020-08-04 20:22] LABS: Glucose,Whole Blood 152 mg/dL (75-99)
[2020-08-04] MEDS: SENNOSIDES-DOCUSATE SODIUM 1 EACH TAB PO SCH (20:30)
[2020-08-04] MEDS: TAMSULOSIN 0.4 MG CAP.ER.24H PO SCH (20:30)
[2020-08-05 02:07] LABS: Glucose,Whole Blood 98 mg/dL (75-99)
[2020-08-05] MEDS: INSULIN ASPART (NovoLOG) 100 UNIT/ML VIAL SQ SCH ×5 (02:18→20:25)
[2020-08-05 06:13] LABS: Glucose,Whole Blood 107 mg/dL (75-99)
[2020-08-05] MEDS: PANTOPRAZOLE 40 MG TABLET PO SCH (06:21)
[2020-08-05] MEDS: GLIMEPIRIDE 2 MG TAB PO SCH (06:21)
[2020-08-05] MEDS: ASCORBIC ACID 500 MG TAB PO SCH ×2 (06:21→16:57)
[2020-08-05] MEDS: FERROUS SULFATE 325 MG TAB PO SCH ×2 (06:21→16:57)
--- NOTE | 2020-08-05 07:38 | P.PN ---
Subjective Progress Note Date: 08/05/20 the patient was seen for urine retention. Most likely this is situational related to his hypotension and immobility. He has a bashful bladder. The catheter can be removed 24 hours prior to discharge for a voiding trial. He should be seen in our office for follow-up. If he is unable to urinate he would go home with a catheter if he is able to void then I still would like to see him. Objective - Vital Signs Vital signs: Vital Signs Temp 98.4 F 08/05/20 04:00 Pulse 89 08/05/20 04:00 Resp 19 08/05/20 04:00 BP 109/64 08/05/20 04:00 Pulse Ox 94 L 08/05/20 04:00 Intake & Output 08/04/20 08/05/20 08/05/20 18:59 06:59 18:59 Intake Total 480 100 Output Total 850 630 Balance -370 -530 Weight 99.9 kg Intake: Oral 480 100 Output: Urine 850 630 Other: Voiding Method Indwelling Catheter Indwelling Catheter # Voids 1 ABP, PAP, CO, CI - Last Documented Arterial Blood Pressure 126/47 Pulmonary Artery Pressure 03/11 Cardiac Output 6.8 Cardiac Index 3.3 - Labs CBC & Chem 7: 08/04/20 03:54 08/04/20 03:54 Labs: Abnormal Lab Results - Last 24 Hours (Table) 08/04/20 08/04/20 08/04/20 Range/Units 11:47 16:01 20:21 POC Glucose (mg/dL) 119 H 108 H 152 H (75-99) mg/dL 08/05/20 Range/Units 06:12 POC Glucose (mg/dL) 107 H (75-99) mg/dL
[2020-08-05] MEDS: IPRATROPIUM-ALBUTEROL 3 ML NEB INHALATION SCH ×4 (08:01→19:44)
--- NOTE | 2020-08-05 08:44 | P.PN ---
Subjective Progress Note Date: 08/05/20 Principal diagnosis: Symptomatic multivessel coronary artery disease, preserved systolic function, [id number] mitral valve regurgitation. Past medical history significant for coronary artery disease with prior multiple stents placement in 1995, 1996, 2005 and 2015, hypertension, hyperlipidemia, recent diagnosis of diabetes mellitus type 2, diet-controlled with recent hemoglobin A1c of 6.4%, benign prostatic hypertrophy, history of nephrolithiasis, history of elevated BUN and creatinine with a BUN preoperatively of 24 and creatinine 1.28, vertigo, obstructive sleep apnea with home CPAP use, family history of early onset coronary artery disease with his mother having a coronary artery bypass grafting surgery in her 50s. POD #7 quadruple coronary artery bypass grafting using the left internal mammary artery to left anterior descending coronary artery, the left radial artery from the aorta to the obtuse marginal coronary artery, a reverse greater saphenous vein graft from the aorta to the ramus intermedius coronary artery, and a reverse greater saphenous vein graft from the aorta to the posterior descending coronary artery. Endoscopic harvesting of the left radial artery. Endoscopic harvesting of the left greater saphenous vein. Intraoperative graft flow measurement using the [employer]coaster[employer] system. Intraoperative transesophageal echocardiogram and epi-aortic scanning. Postoperative acute blood loss anemia and thrombocytopenia, an expected outcome due to hemodilution and cardiopulmonary bypass. Postoperative atrial tachycardia, possible atrial flutter, not atrial fibrillation, unexpected. Postoperative syncopal episode, likely vasovagal versus orthostatic, unexpected. Postoperative urinary retention, possibly related to vasovagal and immobility, unexpected. The patient was seen in follow-up today 08/05/2020 at his bedside on the cardiac stepdown unit. Currently he is sitting up to the bedside chair, he is awake, alert and oriented 3 and is in no acute distress. Denies any complaints of pain or shortness of breath at this time. He is a flat affect, although he reports he feels better today than he did yesterday. Loaiza catheter remains in place for postoperative urinary retention, followed by urology. He reports that he ambulated in the cardiac stepdown unit hallway 3 times yesterday with minimal assistance from nursing staff. Remote telemetry showing normal sinus rhythm with occasional PAC heart rate 85 BPM. Oxygen saturations are 96% on 2 L nasal cannula and he is achieving 2000 mL on his incentive spirometry. Tolerating oral intake, and he reports that he had a bowel movement this morning. No further complaints of syncope. Objective - Vital Signs Vital signs: Vital Signs Temp 98.4 F 08/05/20 04:00 Pulse 89 08/05/20 04:00 Resp 19 08/05/20 04:00 BP 109/64 08/05/20 04:00 Pulse Ox 94 L 08/05/20 04:00 Intake & Output 08/04/20 08/05/20 08/05/20 18:59 06:59 18:59 Intake Total 480 100 Output Total 850 630 Balance -370 -530 Weight 99.9 kg Intake: Oral 480 100 Output: Urine 850 630 Other: Voiding Method Indwelling Catheter Indwelling Catheter # Voids 1 ABP, PAP, CO, CI - Last Documented Arterial Blood Pressure 126/47 Pulmonary Artery Pressure 28/12 Cardiac Output 6.8 Cardiac Index 3.3 - Constitutional General appearance: Present: cooperative, no acute distress, obese - EENT Eyes: Present: PERRLA, dentition normal, normal appearance. Absent: scleral icterus ENT: Present: hearing grossly normal - Neck Details: Neck is supple, no JVD, no lymphadenopathy. - Respiratory Details: Lung sounds essentially clear to his bilateral upper lobes, diminished to his bilateral bases with few scattered crackles to his left lower lobe. No wheezes or rhonchi. Respirations are symmetrical and nonlabored. Oxygen saturation is 96% on 2 L nasal cannula and he is achieving 2000 mL on his incentive spirometry. - Cardiovascular Details: Regular rhythm and rate. S1 and S2 present, negative for S3, gallop or murmur. Sternum is stable. Heart hugger is in place and he is demonstrating appropriate use. Remote telemetry showing normal sinus rhythm with occasional PACs heart rate 85 BPM. No edema present. Palpable ulnar pulses to his left arm. Knee- high MELISSA hose and sequential compression devices in place to his bilateral lower extremities. - Gastrointestinal Gastrointestinal Comment(s): Abdomen is soft, nontender and nondistended. Active bowel sounds present in all 4 abdominal quadrants. No guarding or rigidity. Tolerating oral intake. Bowel movement this a.m. - Genitourinary Genitourinary Comment(s): Loaiza catheter for postoperative urinary retention and accurate I's and O's. Draining clear yellow urine, 550 mL output in the last 8 hours. - Integumentary Integumentary Comment(s): Skin is warm and dry. No clubbing or cyanosis is present. Midline sternal incision is clean, dry and approximated. No drainage or redness is present. Exofin dressing is clean, dry and place. Left radial artery harvest sites are clean, dry and approximated. No drainage or redness is present. Left lower extremity EVH site is clean, dry and approximated. No drainage or redness is p resent. Left lower extremity GORAN drain site with scant serosanguineous drainage. - Neurologic Neurologic: Present: CNII-XII intact - Musculoskeletal Musculoskeletal: Present: gait normal, generalized weakness, strength equal bilaterally - Psychiatric Psychiatric: Present: A&O x's 3, appropriate affect, intact judgment & insight - Allied health notes Allied health notes reviewed: nursing - Labs CBC & Chem 7: 08/04/20 03:54 08/04/20 03:54 Labs: Abnormal Lab Results - Last 24 Hours (Table) 08/04/20 08/04/20 08/04/20 Range/Units 11:47 16:01 20:21 POC Glucose (mg/dL) 119 H 108 H 152 H (75-99) mg/dL 08/05/20 Range/Units 06:12 POC Glucose (mg/dL) 107 H (75-99) mg/dL - Imaging and Cardiology Chest x-ray: image reviewed Assessment and Plan Assessment: 1. Symptomatic multivessel coronary artery disease, status post four-vessel CABG 2. Mild to moderate mitral valve regurgitation, Preserved systolic function 3. Hypertension 4. History of coronary artery disease with prior multiple stent placement in 1995, 1996, 2005 and in April 2016 5. Hyperlipidemia 6. Recently diagnosed diabetes mellitus type 2, diet-controlled and preoperative hemoglobin A1c of 6.4% 7. History of preoperative elevation of his BUN and creatinine, on 07/12/2020 BUN 24, creatinine 1.28 8. Obstructive sleep apnea with home CPAP use 9. History of nephrolithiasis 10. Family history of early onset coronary artery disease with his mother having a coronary artery bypass grafting surgery in her early 50s 11. History of vertigo 12. Benign prostatic hypertrophy 13. Postoperative acute blood loss anemia and thrombocytopenia 14. Postoperative atrial tachycardia, possible atrial flutter 15. Postoperative syncopal event, likely vasovagal versus orthostatic Plan: 1. Continue aspirin, zetia (intolerance to statins), lofibra, Plavix, and beta cleopatra. 2. Continue Cardizem for radial artery spasm prophylaxis as well as assistance with heart rate control. Please do not discontinue Cardizem without discussing with cardiac surgery. 3. Encourage incentive spirometry use 10 times every hour while awake. Bronchodilators per pulmonology/critical care medicine. 4. Increase activity, ambulate as tolerated. PT/OT/cardiac rehab following. 5. Will monitor daily labs and chest x-rays. Electrolyte replacement per protocol. No transfusion today. 6. GI/DVT prophylaxis. 7. Pain control with current medication regimen. 8. Continue Flomax. Urology consult noted and appreciated. We will discontinue his Loaiza catheter today and monitor for urinary retention. Bladder scan every 6 hours and when necessary postvoid residual. 9. Insulin management per primary care service. Preoperative hemoglobin A1c 6.4%, currently 6.0% 10. Discharge planning is in place, anticipate discharge home and within the next 24 hours. 11. More recommendations to follow based on patient's clinical course. Time with Patient: Greater than 30
[2020-08-05 08:45] LABS: HCT 24.2 % (39.0-53.0); HGB 7.8 gm/dL (13.0-17.5); Hypochromasia Slight; MCH 31.2 pg (25.0-35.0); MCHC 32.3 g/dL (31.0-37.0); MCV 96.6 fL (80.0-100.0); Mean Platelet Volume 8.5; Platelet Count 261 k/uL (150-450); Poikilocytosis Slight; RDW 15.2 % (11.5-15.5); WBC 6.4 k/uL (3.8-10.6)
[2020-08-05] MEDS: EZETIMIBE 10 MG TAB PO SCH (08:47)
[2020-08-05] MEDS: ASPIRIN 325 MG TAB PO SCH (08:47)
[2020-08-05] MEDS: DILTIAZEM ORAL 60 MG TAB PO SCH ×3 (08:47→23:13)
[2020-08-05] MEDS: HEPARIN SODIUM,PORCINE 5,000 UNIT/ML 1 ML VIAL SQ SCH ×3 (08:48→23:13)
[2020-08-05] MEDS: METOPROLOL TARTRATE 50 MG TAB PO SCH ×2 (08:48→19:43)
[2020-08-05] MEDS: CLOPIDOGREL 75 MG TAB PO SCH (08:48)
[2020-08-05] MEDS: FENOFIBRATE 160 MG TAB PO SCH (08:48)
--- NOTE | 2020-08-05 08:58 | P.PN ---
Subjective From records This is a very pleasant [address] Christine. Chronic stable medical conditions include diabetes, hypertension, hyperlipidemia, obstructive sleep apnea, coronary artery disease with a history of stent. Patient underwent quadruple coronary bypass. Today-left chest tube be removed today. Oral intake code. Has been walking. Using the incentive spirometry. feeling better.hemoglobin dropped to 6.6. 1 unit of blood given. 08/02/2020 Patient is lying in bed comfortable, no distress, no chest pain or or dyspnea. He is hemodynamically stable he is saturating 98% on 4 L oxygen via nasal cannula. His sugar is controlled. Labs reviewed and are unremarkable. Hemoglobin 7.2, sodium 132. Remains on oral Zithromax, also he is on Plavix and aspirin. Also he is on Lasix. 08/03/2020 Today patient is awake but he has few problems, he had syncope episode when going to the bathroom, his blood pressure was marginal and 250 of albumin is given for him by the surgical team. Cardizem pill 60 mg 3 times a day added al so by surgical team. Also patient has been having urinary retention of 1250 and 800 ml respectively and Loaiza catheter has to be placed back. Patient sugar is controlled however patient is receiving insulin 70:3021 units before breakfast and insulin NPH 10 units at bedtime, I talked the patient and he was to try pills first going to discontinue insulin and start him on Amaryl 2 mg plus insulin sliding scale. Hemoglobin A1c is requested and result is still pending. Hemoglobin 7.1. Creatinine is normal at 1.23, sodium slightly low at 135, potassium is normal at 4.3. 08/04/2020 Patient is more calm and alert and comfortable today, no more dizziness or syncope today. His blood pressure and vitals are stable. His insulin was stopped yesterday and started on Amaryl this morning, patient sugar today is 111 and 119. Lactic acid is normal 0.7. Chest x-ray is showing tiny bilateral pleural effusion and atelectasis Continue with aspirin and Plavix Patient is transferred to general medical floor today 08/05/2020 Patient is awake, comfortable, no chest pain or dyspnea. He is hemodynamically stable. Labs are stable. Glucose is better controlled ranging 87-152, he was started on Amaryl 2 mg, patient encouraged to eat more, also patient is counseled about hypoglycemia since his sugar is low normal. Probably will lower his Amaryl from 2 down to 1 mg tomorrow. Patient is on aspirin and Plavix. Neurologist already evaluated the patient and recommended discontinuing Loaiza catheter 24 hours prior to discharge for voiding trial and then follow-up with urologist as an outpatient Objective - Vital Signs Vital signs: Vital Signs Temp 98.4 F 08/05/20 04:00 Pulse 88 08/05/20 08:14 Resp 19 08/05/20 04:00 BP 109/64 08/05/20 04:00 Pulse Ox 94 L 08/05/20 04:00 Intake & Output 08/04/20 08/05/20 08/05/20 18:59 06:59 18:59 Intake Total 480 100 200 Output Total 850 630 Balance -370 -530 200 Weight 99.9 kg Intake: Oral 480 100 200 Output: Urine 850 630 Other: Voiding Method Indwelling Catheter Indwelling Catheter # Voids 1 ABP, PAP, CO, CI - Last Documented Arterial Blood Pressure 126/47 Pulmonary Artery Pressure 28/12 Cardiac Output 6.8 Cardiac Index 3.3 - Exam GENERAL: The patient is alert and oriented x3, not in any acute distress. Well developed, well nourished. HEENT: Pupils are round and equally reacting to light. EOMI. No scleral icterus. No conjunctival pallor. Normocephalic, atraumatic. No pharyngeal erythema. No thyromegaly. -CARDIOVASCULAR: S1 and S2 present. No murmurs, rubs, or gallops. Sternal wound is dry and clean Ade dressing is in place PULMONARY: Chest is clear to auscultation, no wheezing or crackles. ABDOMEN: Soft, nontender, nondistended, normoactive bowel sounds. No palpable organomegaly. MUSCULOSKELETAL: No joint swelling or deformity. EXTREMITIES: No cyanosis, clubbing, or pedal edema. NEUROLOGICAL: Gross neurological examination did not reveal any focal deficits. SKIN: No rashes. no petechiae. - Labs CBC & Chem 7: 08/05/20 08:12 08/04/20 03:54 Labs: Abnormal Lab Results - Last 24 Hours (Table) 08/04/20 08/04/20 08/04/20 Range/Units 11:47 16:01 20:21 RBC (4.30-5.90) m/uL Hgb (13.0-17.5) gm/dL Hct (39.0-53.0) % POC Glucose (mg/dL) 119 H 108 H 152 H (75-99) mg/dL 08/05/20 08/05/20 Range/Units 06:12 08:12 RBC 2.50 L (4.30-5.90) m/uL Hgb 7.8 L (13.0-17.5) gm/dL Hct 24.2 L (39.0-53.0) % POC Glucose (mg/dL) 107 H (75-99) mg/dL Assessment and Plan Assessment: -Quadruple coronary bypass -Syncopal episode, most likely vasovagal -Acute urinary retention, Loaiza catheter was placed back -Acute postprocedure blood loss anemia -Thrombocytopenia, improved -Diabetes mellitus type 2, with hyperglycemia -Hyperlipidemia -Essential hypertension -Obstructive sleep apnea uses CPAP -Coronary artery disease history of stents Plan: This is a pleasant 75 years old male who presents for CABG surgery. Continue with aspirin and Plavix. Continue monitor sugar and insulin Sliding scale. Stop hemoglobin and 70:30 insulin and start patient on Amaryl. And continue with iron pills and follow-up anemia level Labs and medication were reviewed.. Continue same treatment. Continue with symptomatic treatment. Resume home medication. Monitor lytes and vitals. DVT and GI prophylaxis. Further recommendationsas per clinical course of the patient DVT prophylaxis: Subcutaneous heparin GI Prophylaxis: Ppi Thank you for consulting us
[2020-08-05 09:12] LABS: Calcium 8.8 mg/dL (8.4-10.2); Potassium 4.3 mmol/L (3.5-5.1)
--- NOTE | 2020-08-05 09:21 | XR ---
EXAMINATION TYPE: XR chest 2V DATE OF EXAM: 08/05/2020 COMPARISON: 08/04/2020 INDICATION: Post CABG TECHNIQUE: Frontal and lateral views of the chest are obtained. FINDINGS: The heart size is normal. The pulmonary vasculature is normal. Mild infiltrate is silhouetting the left heart border. Atelectasis should be considered. Pneumonia is within the differential. Follow-up is recommended. A minimal right pleural effusion is evident. IMPRESSION: 1. Mild infiltrate within the lingula. Correlate for atelectasis or developing pneumonia. 2. Minimal right pleural effusion
--- NOTE | 2020-08-05 10:53 | PN ---
PROGRESS NOTE Mr. Cisneros is a 75-year-old male status post coronary artery bypass grafting who had episode of atrial flutter, but continued to be in sinus mechanism. At this time, he is feeling well, feeling stronger today. He denies any chest pain. No dizziness or palpitation. He has ambulated. He denies any nausea or vomiting. He had urinary tract retention and an indwelling Loaiza catheter has been placed. He has been seen by Dr. Salgado. He is continues to be at this time on aspirin once a day, Plavix 75 mg daily, diltiazem 60 mg q.8 hours, fenofibrate, Zetia 10 mg daily, metoprolol tartrate 50 mg twice a day and Flomax 0.4 mg daily. PHYSICAL EXAMINATION: Blood pressure 112/50 with a heart rate in the 80s. LUNGS: Clear. HEART: Regular rate and rhythm S1, S2. No S3. No rub appreciated. Systolic murmur at the apex. ABDOMEN: Soft. Nontender. EXTREMITIES: No significant edema. LAB DATA: Revealed hemoglobin of 7.8. IMPRESSION: 1. Status post coronary artery bypass grafting stable. 2. Paroxysmal atrial fibrillation staying in sinus mechanism. 3. Hypertension. 4. Hyperlipidemia, intolerant to statin. 5. Diabetes mellitus. RECOMMENDATION: We will continue to increase his activity. If he is stable, I would expect he should be able to be discharged home tomorrow. He will be evaluated as an outpatient to receive Praluent for his hyperlipidemia. Depending on his progress, further recommendation will be made. MMODL / IJN: [id number] /
[2020-08-05 12:04] LABS: Glucose,Whole Blood 105 mg/dL (75-99)
--- NOTE | 2020-08-05 14:14 | P.PN ---
Subjective Progress Note Date: 08/05/20 Principal diagnosis: Symptomatic multivessel coronary artery disease On 08/05/2020 patient seen in follow-up on selective care unit, today is postoperative day #7, status post coronary artery bypass grafting 4, using the ARELLANO to LAD, left radial artery to the obtuse marginal, reverse greater saphenous vein graft from the aorta to the ramus intermedius, and a reverse greater saphenous vein graft to the aorta to the posterior descending coronary artery. Vein harvesting from the left radial artery was done endoscopically. Patient is doing well today, she is working on incentive spirometer, he is achieving 2000 mL on the today, he is currently on room air pulse ox of 90%, hemodynamically stable, he remains in sinus rhythm, with a controlled rate, afebrile, no worsening dyspnea, lung sounds reveal some diminished breath sounds at the bases, and some limited crackles, no rhonchi or wheezing. Today's chest x-ray has been reviewed showing mild infiltrate within the lingula, likely related to atelectasis, and minimal right pleural effusion. he has been tolerating ambulation, patient was seen by urology for urinary retention, was started on Flomax, Loaiza catheter was discontinued today, patient is being monitored for any signs of retention. His affect is flat, patient is cooperative, fairly pleasant. Objective - Vital Signs Vital signs: Vital Signs Temp 97.1 F L 08/05/20 12:43 Pulse 68 08/05/20 12:43 Resp 18 08/05/20 12:43 BP 110/59 08/05/20 12:43 Pulse Ox 98 08/05/20 12:43 Intake & Output 08/04/20 08/05/20 08/05/20 18:59 06:59 18:59 Intake Total 480 100 200 Output Total 850 630 500 Balance -370 -530 -300 Weight 99.9 kg Intake: Oral 480 100 200 Output: Urine 850 630 500 Uretheral (Loaiza) 100 Other: Voiding Method Indwelling Catheter Indwelling Catheter Indwelling Catheter # Voids 1 ABP, PAP, CO, CI - Last Documented Arterial Blood Pressure 126/47 Pulmonary Artery Pressure 28/12 Cardiac Output 6.8 Cardiac Index 3.3 - Exam GENERAL EXAM: Alert, pleasant, 75-year-old white male, on room air, and the pulse ox of 98%, comfortable in no apparent distress. HEAD: Normocephalic/atraumatic. EYES: Normal reaction of pupils, equal size. Conjunctiva pink, sclera white. NOSE: Clear with pink turbinates. THROAT: No erythema or exudates. NECK: No masses, no JVD, no thyroid enlargement, no adenopathy. CHEST: No chest wall deformity. Symmetrical expansion. Midsternal incision covered with a surgical dressing, clean dry and intact, chest tube sites are clean dry and intact LUNGS: Equal air entry with minimal basilar crackles, but no wheeze, rhonchi or dullness. CVS: Regular rate and rhythm, normal S1 and S2, no gallops, no murmurs, no rubs ABDOMEN: Soft, nontender. No hepatosplenomegaly, normal bowel sounds, no guarding or rigidity. EXTREMITIES: No clubbing, no edema, no cyanosis, 2+ pulses and upper and lower extremities. MUSCULOSKELETAL: Muscle strength and tone normal. SPINE: No scoliosis or deformity SKIN: Left radial incision is clean dry and intact covered with a dressing, CENTRAL NERVOUS SYSTEM: Alert and oriented -3. No focal deficits, tone is normal in all 4 extremities. PSYCHIATRIC: Alert and oriented -3. Appropriate affect. Intact judgment and insight. - Labs CBC & Chem 7: 08/05/20 08:12 08/05/20 08:12 Labs: Abnormal Lab Results - Last 24 Hours (Table) 08/04/20 08/04/20 08/05/20 Range/Units 16:01 20:21 06:12 RBC (4.30-5.90) m/uL Hgb (13.0-17.5) gm/dL Hct (39.0-53.0) % Sodium (137-145) mmol/L BUN (9-20) mg/dL Glucose (74-99) mg/dL POC Glucose (mg/dL) 108 H 152 H 107 H (75-99) mg/dL 08/05/20 08/05/20 08/05/20 Range/Units 08:12 08:12 11:52 RBC 2.50 L (4.30-5.90) m/uL Hgb 7.8 L (13.0-17.5) gm/dL Hct 24.2 L (39.0-53.0) % Sodium 134 L (137-145) mmol/L BUN 23 H (9-20) mg/dL Glucose 146 H (74-99) mg/dL POC Glucose (mg/dL) 105 H (75-99) mg/dL Assessment and Plan Plan: Assessment: Status post quadruple bypass surgery, postoperative day #7 Multivessel coronary artery disease as noted on his recent cardiac catheterization. And history of multiple stents placed. History of moderate mitral regurgitation with preserved systolic function. Benign essential hypertension. Type 2 diabetes. Obstructive sleep apnea syndrome. History of nephrolithiasis. Family history of premature coronary artery disease. Benign prostatic hypertrophy. Postoperative blood loss anemia requiring blood transfusion, expected. Hemoglobin today is 6.6, and the patient will receive a unit of packed RBCs. Urinary retention, urology is following, Flomax was started Plan: Patient is doing well, remains in sinus rhythm, hemodynamically stable, he is tolerating ambulation, he is on room air, did a chest x-ray has been reviewed showing some lingual or atelectasis, and small right pleural effusion, no difficulty breathing, patient maintaining stable saturations, incisions clean dry and intact, possible discharge home in the next 24-48 hours, we'll continue to follow with cardiothoracic surgery and cardiology I performed a history & physical examination of the patient and discussed their management with my nurse practitioner, Delmy Giang. I reviewed the nurse practitioner's note and agree with the documented findings and plan of care. Lung sounds are positive for diminished breath sounds. The findings and the impression was discussed with the patient. I attest to the documentation by the nurse practitioner. Time with Patient: Less than 30
[2020-08-05 17:00] LABS: Glucose,Whole Blood 101 mg/dL (75-99)
[2020-08-05] MEDS: SENNOSIDES-DOCUSATE SODIUM 1 EACH TAB PO SCH (19:43)
[2020-08-05] MEDS: ACETAMINOPHEN TAB 500 MG TAB PO PRN (19:43)
[2020-08-05] MEDS: TAMSULOSIN 0.4 MG CAP.ER.24H PO SCH (19:43)
[2020-08-05 20:10] LABS: Glucose,Whole Blood 131 mg/dL (75-99)
[2020-08-05 22:30] LABS: Appearance,Urine Clear (Clear); Bilirubin,Urine Negative (Negative); Blood,Urine Negative (Negative); Color,Urine Yellow; Glucose,Urine (UA) Negative (Negative); Ketones,Urine Negative (Negative); Leukocyte Esterase,Urine Negative (Negative); Nitrite,Urine Negative (Negative); PH, Urine 6.5 (5.0-8.0); Protein,Urine Negative (Negative); Specific Gravity,Urine 1.018 (1.001-1.035)
[2020-08-06 02:15] LABS: Glucose,Whole Blood 101 mg/dL (75-99)
[2020-08-06] MEDS: INSULIN ASPART (NovoLOG) 100 UNIT/ML VIAL SQ SCH ×3 (03:05→12:08)
[2020-08-06 05:31] LABS: HCT 24.2 % (39.0-53.0); HGB 7.9 gm/dL (13.0-17.5); Hypochromasia Slight; MCH 31.3 pg (25.0-35.0); MCHC 32.7 g/dL (31.0-37.0); MCV 95.8 fL (80.0-100.0); Mean Platelet Volume 8.9; Platelet Count 266 k/uL (150-450); Poikilocytosis Slight; RBC 2.53 m/uL (4.30-5.90); RDW 15.3 % (11.5-15.5); WBC 6.9 k/uL (3.8-10.6)
[2020-08-06 05:47] LABS: Calcium 8.5 mg/dL (8.4-10.2); Magnesium 2.2 mg/dL (1.6-2.3); Potassium 4.2 mmol/L (3.5-5.1)
[2020-08-06] MEDS: PANTOPRAZOLE 40 MG TABLET PO SCH (06:06)
[2020-08-06] MEDS: ASCORBIC ACID 500 MG TAB PO SCH (06:06)
[2020-08-06] MEDS: FERROUS SULFATE 325 MG TAB PO SCH (06:06)
[2020-08-06 06:16] LABS: Glucose,Whole Blood 120 mg/dL (75-99)
[2020-08-06] MEDS ORDERED: GLIMEPIRIDE 1 MG TAB PO SCH ×2 (07:30)
--- NOTE | 2020-08-06 08:00 | XR ---
EXAMINATION TYPE: XR chest 1V portable DATE OF EXAM: 08/06/2020 CLINICAL HISTORY: Difficulty breathing progress study. Postoperative CABG progress study. TECHNIQUE: Single AP portable upright view of the chest is obtained. COMPARISON: Chest x-ray from one day earlier and older studies. FINDINGS: Post-CABG changes with mediastinal clips and sternal wires redemonstrated.. Persistent mil d cardiomegaly with increased left basilar markings. No significant pleural effusion or pneumothorax seen bilaterally. Osseous structures remaining intact. IMPRESSION: Patchy left basilar acute atelectasis and/or infiltrate. No significant change from one d ay earlier.
[2020-08-06] MEDS: IPRATROPIUM-ALBUTEROL 3 ML NEB INHALATION SCH ×2 (08:48→11:59)
--- NOTE | 2020-08-06 08:54 | P.PN ---
Subjective From records This is a very pleasant [address] Christine. Chronic stable medical conditions include diabetes, hypertension, hyperlipidemia, obstructive sleep apnea, coronary artery disease with a history of stent. Patient underwent quadruple coronary bypass. Today-left chest tube be removed today. Oral intake code. Has been walking. Using the incentive spirometry. feeling better.hemoglobin dropped to 6.6. 1 unit of blood given. 08/02/2020 Patient is lying in bed comfortable, no distress, no chest pain or or dyspnea. He is hemodynamically stable he is saturating 98% on 4 L oxygen via nasal cannula. His sugar is controlled. Labs reviewed and are unremarkable. Hemoglobin 7.2, sodium 132. Remains on oral Zithromax, also he is on Plavix and aspirin. Also he is on Lasix. 08/03/2020 Today patient is awake but he has few problems, he had syncope episode when going to the bathroom, his blood pressure was marginal and 250 of albumin is given for him by the surgical team. Cardizem pill 60 mg 3 times a day added al so by surgical team. Also patient has been having urinary retention of 1250 and 800 ml respectively and Loaiza catheter has to be placed back. Patient sugar is controlled however patient is receiving insulin 70:3021 units before breakfast and insulin NPH 10 units at bedtime, I talked the patient and he was to try pills first going to discontinue insulin and start him on Amaryl 2 mg plus insulin sliding scale. Hemoglobin A1c is requested and result is still pending. Hemoglobin 7.1. Creatinine is normal at 1.23, sodium slightly low at 135, potassium is normal at 4.3. 08/04/2020 Patient is more calm and alert and comfortable today, no more dizziness or syncope today. His blood pressure and vitals are stable. His insulin was stopped yesterday and started on Amaryl this morning, patient sugar today is 111 and 119. Lactic acid is normal 0.7. Chest x-ray is showing tiny bilateral pleural effusion and atelectasis Continue with aspirin and Plavix Patient is transferred to general medical floor today 08/05/2020 Patient is awake, comfortable, no chest pain or dyspnea. He is hemodynamically stable. Labs are stable. Glucose is better controlled ranging 87-152, he was started on Amaryl 2 mg, patient encouraged to eat more, also patient is counseled about hypoglycemia since his sugar is low normal. Probably will lower his Amaryl from 2 down to 1 mg tomorrow. Patient is on aspirin and Plavix. Neurologist already evaluated the patient and recommended discontinuing Loaiza catheter 24 hours prior to discharge for voiding trial and then follow-up with urologist as an outpatient 08/06/2020 Earlier this morning he got dizziness and presyncope after he had a bowel movement while he was in the restroom, however he did not pass out and he was helped back to the bed. Patient feels nauseated this morning however he denies chest pain or dyspnea, his alert awake and alert and oriented 3. No other complaint. Vitas looks stable. We got to check his orthostatic vitals. Glucose is controlled however because of nausea and he did not eat his breakfast well with lowered his glimepiride from 2 down to 1 mg. Labs looks stable. Continue with aspirin and Plavix. Objective - Vital Signs Vital signs: Vital Signs Temp 98.1 F 08/06/20 04:00 Pulse 85 08/06/20 04:00 Resp 19 08/06/20 04:00 BP 118/60 08/06/20 04:00 Pulse Ox 96 08/06/20 04:00 Intake & Output 08/05/20 08/06/20 08/06/20 18:59 06:59 18:59 Intake Total 300 300 Output Total 1614 350 Balance -1314 -50 Weight 92.5 kg Intake: Oral 300 300 Output: Urine 1600 350 Uretheral (Loaiza) 100 Post Void Residual 14 Other: Voiding Method Indwelling Catheter Toilet # Voids 1 1 # Bowel Movements 2 ABP, PAP, CO, CI - Last Documented Arterial Blood Pressure 126/47 Pulmonary Artery Pressure 28/12 Cardiac Output 6.8 Cardiac Index 3.3 - Exam GENERAL: The patient is alert and oriented x3, not in any acute distress. Well developed, well nourished. HEENT: Pupils are round and equally reacting to light. EOMI. No scleral icterus. No conjunctival pallor. Normocephalic, atraumatic. No pharyngeal erythema. No th yromegaly. -CARDIOVASCULAR: S1 and S2 present. No murmurs, rubs, or gallops. Sternal wound is dry and clean Ade dressing is in place PULMONARY: Chest is clear to auscultation, no wheezing or crackles. ABDOMEN: Soft, nontender, nondistended, normoactive bowel sounds. No palpable organomegaly. MUSCULOSKELETAL: No joint swelling or deformity. EXTREMITIES: No cyanosis, clubbing, or pedal edema. NEUROLOGICAL: Gross neurological examination did not reveal any focal deficits. SKIN: No rashes. no petechiae. - Labs CBC & Chem 7: 08/06/20 05:10 08/06/20 05:10 Labs: Abnormal Lab Results - Last 24 Hours (Table) 08/05/20 08/05/20 08/05/20 Range/Units 08:12 11:52 16:58 RBC (4.30-5.90) m/uL Hgb (13.0-17.5) gm/dL Hct (39.0-53.0) % Sodium 134 L (137-145) mmol/L BUN 23 H (9-20) mg/dL Glucose 146 H (74-99) mg/dL POC Glucose (mg/dL) 105 H 101 H (75-99) mg/dL 08/05/20 08/06/20 08/06/20 Range/Units 20:08 02:13 05:10 RBC 2.53 L (4.30-5.90) m/uL Hgb 7.9 L (13.0-17.5) gm/dL Hct 24.2 L (39.0-53.0) % Sodium (137-145) mmol/L BUN (9-20) mg/dL Glucose (74-99) mg/dL POC Glucose (mg/dL) 131 H 101 H (75-99) mg/dL 08/06/20 08/06/20 Range/Units 05:10 05:55 RBC (4.30-5.90) m/uL Hgb (13.0-17.5) gm/dL Hct (39.0-53.0) % Sodium 135 L (137-145) mmol/L BUN 21 H (9-20) mg/dL Glucose 113 H (74-99) mg/dL POC Glucose (mg/dL) 120 H (75-99) mg/dL Assessment and Plan Assessment: -Quadruple coronary bypass -Syncopal episode, most likely vasovagal -Acute urinary retention, Loaiza catheter was placed back -Acute postprocedure blood loss anemia -Thrombocytopenia, improved -Diabetes mellitus type 2, with hyperglycemia -Hyperlipidemia -Essential hypertension -Obstructive sleep apnea uses CPAP -Coronary artery disease history of stents Plan: This is a pleasant 75 years old male who presents for CABG surgery. Continue with aspirin and Plavix. Continue monitor sugar and insulin Sliding scale. Stop hemoglobin and 70:30 insulin and start patient on Amaryl. And continue with iron pills and follow-up anemia level Labs and medication were reviewed.. Continue same treatment. Continue with s ymptomatic treatment. Resume home medication. Monitor lytes and vitals. DVT and GI prophylaxis. Further recommendationsas per clinical course of the patient DVT prophylaxis: Subcutaneous heparin GI Prophylaxis: Ppi Thank you for consulting us
--- NOTE | 2020-08-06 09:12 | P.PN ---
Subjective Progress Note Date: 08/06/20 Principal diagnosis: Symptomatic multivessel coronary artery disease, preserved systolic function, [id number] mitral valve regurgitation. Previous medical history of coronary artery disease with prior multiple stents placement, hypertension, hyperlipidemia, recent diagnosis of diet controlled diabetes mellitus type 2 with recent hemoglobin A1c of 6.4%, obstructive sleep apnea with home CPAP use, benign prostatic hypertrophy, nephrolithiasis, vertigo, and family history of premature coronary artery disease POD #8 quadruple coronary artery bypass grafting using the left internal mammary artery to left anterior descending coronary artery, the left radial artery from the aorta to the obtuse marginal coronary artery, reverse greater saphenous vein graft from the aorta to the ramus intermedius coronary artery, reverse greater saphenous vein graft from the aorta to the posterior descending coronary artery, endoscopic harvesting of the left radial artery, endoscopic harvesting of the left greater saphenous vein from the groin to the mid lower leg level, intraoper ative graft flow measurement using the Medistim system, intraoperative transesophageal echocardiogram and epi-aortic scanning. Postoperative acute blood loss anemia and thrombocytopenia, expected, dilutional Postoperative atrial tachycardia, possible atrial flutter, not atrial fibrillation, unexpected Postoperative syncopal episode, likely vasovagal versus orthostatic, unexpected Postoperative urinary retention, possibly related to vasovagal response and immobility, unexpected The patient is currently sitting up in a recliner in the cardiac stepdown unit in no acute distress. He did have another episode in the middle the night where he felt dizzy and diaphoretic after getting up to go to the bathroom, vital signs were stable as well as blood sugar. This morning I ambulated him to and from the bathroom, he never lost consciousness, did complain of some dizziness when standing at the sink to wash his hands although he kept closing his eyes, upon return to chair felt somewhat better. Patient appears to lack confidence in his ability to go to and from the bathroom, and does express concerns when he gets home. Orthostatic vital signs to be taken, although heart monitor was ashley g watched by me when he was ambulating and his heart rate was in the 90s pre- bathroom, 100-106 while up walking. Post void residual was 29 mL after voiding 800 mL. The patient was seen by Dr. Shields this morning as well. Objective - Vital Signs Vital signs: Vital Signs Temp 98.1 F 09/30/20 04:00 Pulse 85 08/06/20 04:00 Resp 19 08/06/20 04:00 BP 118/60 08/06/20 04:00 Pulse Ox 96 08/06/20 04:00 Intake & Output 08/05/20 08/06/20 08/06/20 18:59 06:59 18:59 Intake Total 300 300 Output Total 1614 350 800 Balance -1314 -50 -800 Weight 92.5 kg Intake: Oral 300 300 Output: Urine 1600 350 800 Uretheral (Loaiza) 100 Post Void Residual 14 Other: Voiding Method Indwelling Catheter Toilet # Voids 1 1 # Bowel Movements 2 ABP, PAP, CO, CI - Last Documented Arterial Blood Pressure 126/47 Pulmonary Artery Pressure 28/12 Cardiac Output 6.8 Cardiac Index 3.3 - Constitutional General appearance: Present: cooperative, no acute distress - Respiratory Details: Lungs sounds diminished bilaterally. Respirations even, nonlabored. Currently on room air with oxygen saturation 96%. Able to achieve 8402-4979 mL on his incentive spirometry. Strong productive cough. - Cardiovascular Details: S1, S2 present. Currently regular rate and rhythm, sinus rhythm with occasional PACs on telemetry. Sternum stable. Palpable peripheral pulses bilaterally. No edema present. No calf pain or tenderness noted. Heart hugger in place with patient demonstrating appropriate use. Antiembolism stockings, SCDs present. - Gastrointestinal Gastrointestinal Comment(s): Abdomen soft, nontender, nondistended. Active bowel sounds present 4 quadrants. Tolerating diet. Positive bowel movement. - Genitourinary Genitourinary Comment(s): Continues to void clear, yellow urine. Minimal residual - Integumentary Integumentary Comment(s): Skin is warm and dry with evidence of good perfusion. Anterior chest incision well approximated and covered with dry intact dressing. Left radial artery harvest site well approximated without redness or drainage, good cap refill, patient able to wiggle all fingers and clinical business analyst appropriately. Left lower extremity EVH site well approximated without redness or drainage - Neurologic Neurologic: Present: CNII-XII intact - Musculoskeletal Musculoskeletal: Present: gait normal, strength equal bilaterally - Psychiatric Psychiatric Comment(s): Flat affect Psychiatric: Present: A&O x's 3, intact judgment & insight - Allied health notes Allied health notes reviewed: nursing - Labs CBC & Chem 7: 08/06/20 05:10 08/06/20 05:10 Labs: Abnormal Lab Results - Last 24 Hours (Table) 08/05/20 08/05/20 08/05/20 Range/Units 08:12 11:52 16:58 RBC (4.30-5.90) m/uL Hgb (13.0-17.5) gm/dL Hct (39.0-53.0) % Sodium 134 L (137-145) mmol/L BUN 23 H (9-20) mg/dL Glucose 146 H (74-99) mg/dL POC Glucose (mg/dL) 105 H 101 H (75-99) mg/dL 08/05/20 08/06/20 08/06/20 Range/Units 20:08 02:13 05:10 RBC 2.53 L (4.30-5.90) m/uL Hgb 7.9 L (13.0-17.5) gm/dL Hct 24.2 L (39.0-53.0) % Sodium (137-145) mmol/L BUN (9-20) mg/dL Glucose (74-99) mg/dL POC Glucose (mg/dL) 131 H 101 H (75-99) mg/dL 08/06/20 08/06/20 Range/Units 05:10 05:55 RBC (4.30-5.90) m/uL Hgb (13.0-17.5) gm/dL Hct (39.0-53.0) % Sodium 135 L (137-145) mmol/L BUN 21 H (9-20) mg/dL Glucose 113 H (74-99) mg/dL POC Glucose (mg/dL) 120 H (75-99) mg/dL - Imaging and Cardiology Chest x-ray: report reviewed, image reviewed Assessment and Plan Assessment: 1. Symptomatic multivessel coronary artery disease, status post 4 vessel bypass 2. Preserved systolic function, [id number] mitral valve regurgitation 3. History of coronary artery disease with prior multiple stents placemen 4. Hypertension 5. Hyperlipidemia 6. Newly diagnosed diet controlled diabetes mellitus type 2 with hemoglobin A1c of 6.4% 7. Obstructive sleep apnea with home CPAP use 8. Benign prostatic hypertrophy 9. Family history of premature coronary artery disease 10. Postoperative acute blood loss anemia and thrombocytopenia 11. Postoperative atrial tachycardia, possible atrial flutter 12. Postoperative syncopal event, likely vasovagal versus orthostatic 13. Postoperative urinary retention Plan: 1. Continue aspirin, zetia (intolerant to statins), lofibra, Plavix, beta cleopatra. 2. Continue Cardizem for radial artery spasm prophylaxis as well as assistance with heart rate control. Please do not discontinue CCB without discussing with cardiac surgery. 3. Encourage incentive spirometry use 10 times every hour while awake. Bronchodilators per pulmonology/critical care medicine. 4. Increase activity, ambulate as tolerated. PT/OT/cardiac rehab following 5. Will monitor daily labs and chest x-rays. Electrolyte replacement per protocol. 6. GI/DVT prophylaxis. 7. Pain control with current medication regimen. 8. Continue Flomax. 9. Diabetic management per primary care service. Preoperative hemoglobin A1c 6.4%, currently 6.0% 10. Discharge planning in progress. Anticipate discharge home with home care today 11. Follow-up appointments made and placed on discharge plan Time with Patient: Greater than 30
[2020-08-06] MEDS: HEPARIN SODIUM,PORCINE 5,000 UNIT/ML 1 ML VIAL SQ SCH (09:32)
[2020-08-06] MEDS: FENOFIBRATE 160 MG TAB PO SCH (09:32)
[2020-08-06] MEDS: ASPIRIN 325 MG TAB PO SCH (09:32)
[2020-08-06] MEDS: EZETIMIBE 10 MG TAB PO SCH (09:32)
[2020-08-06] MEDS: DILTIAZEM ORAL 60 MG TAB PO SCH (09:32)
[2020-08-06] MEDS: CLOPIDOGREL 75 MG TAB PO SCH (09:32)
[2020-08-06] MEDS: METOPROLOL TARTRATE 50 MG TAB PO SCH (10:28)
[2020-08-06 10:48] VITALS: BMI 31.0
[2020-08-06 11:30] LABS: Glucose,Whole Blood 103 mg/dL (75-99)
--- NOTE | 2020-08-06 12:37 | PN ---
PROGRESS NOTE Mr. Cisneros is a 75-year-old male who has underwent coronary bypass grafting. He had episode of paroxysmal atrial fibrillation yesterday, went to the bathroom and apparently had an episode of dizziness and hypotension. He is feeling better today. He denies any chest pain, his breathing is stable. He denies any dizziness, palpitation. He denies any nausea. He continues to be on aspirin once a day, Plavix 75 mg daily, diltiazem 60 mg q.8 hours, Zetia 10 mg daily, fenofibrate, metoprolol tartrate 50 mg twice a day, Flomax 0.4 mg daily. PHYSICAL EXAMINATION: Blood pressure 118/60 with a heart rate in the 80s. LUNGS: A few crackles at the bases, no wheezes. HEART: Regular rate and rhythm, S1, S2. No S3. No rub. ABDOMEN: Soft, nontender. EXTREMITIES: No significant edema. LAB DATA: Revealed hemoglobin 7.9. BUN and creatinine 21 and 1.04. IMPRESSION: 1. Status post coronary artery bypass grafting. 2. Paroxysmal atrial fibrillation, remains in sinus mechanism. 3. Episode of orthostatic hypotension. 4. Hyperlipidemia, intolerant to statin. 5. History of diabetes mellitus. RECOMMENDATION: From the cardiac standpoint, will check his orthostatic blood pressure, increase his level of activity. If his pressure is stable and he remains stable, I would expect he should be able to be discharged home soon and followed as an outpatient. KELLEY / GENIE: [id number] /
[2020-08-06 13:22] VITALS: BP 110/60; PULSE 73; RESP 15; TEMP 98
--- NOTE | 2020-08-06 14:00 | P.DS ---
Providers Date of admission: 07/29/20 05:34 Expected date of discharge: 08/06/20 Attending physician: Rylan Shields Consults: 07/29/20 16:04 Consult Physician Routine Consulting Provider: Say Calderón Consult Reason/Comments: Translator Consult: post cardiac surgery Do you want consulting provider notified?: Yes Consult Physician Routine Consulting Provider: Rigoberto Ray Consult Reason/Comments: med mgmt; [facility] patient Do you want consulting provider notified?: Yes Consult Physician Routine Consulting Provider: Ruben Grier Consult Reason/Comments: [employer]head Stock Clerk Consult: post cardiac surgery Do you want consulting provider notified?: Yes 08/04/20 09:35 Consult Physician Routine Consulting Provider: Arturo Salgado Consult Reason/Comments: urine retention Do you want consulting provider notified?: Yes Primary care physician: Boni Aguirre [facility] Course: FINAL DIAGNOSIS: 1. Symptomatic multivessel coronary artery disease 2. Preserved systolic function, mild to moderate mitral valve regurgitation 3. History of coronary artery disease with multiple prior stent placement 4. Hypertension 5. Hyperlipidemia 6. Recent diagnosis of diet controlled diabetes mellitus type 2 with hemoglobin A1c 6.4% 7. Obstructive sleep apnea with home CPAP use 8. Benign prostatic hypertrophy 9. History of vertigo 10. Family history of premature coronary artery disease 11. Postoperative acute blood loss anemia, thrombocytopenia 12. Postoperative atrial tachycardia, possibly atrial flutter, not atrial fibrillation 13. Postoperative syncopal episode, likely vasovagal 14. Postoperatively urinary retention PRINCIPAL PROCEDURE: 1. Quadruple coronary artery bypass grafting using the left internal mammary artery to the left anterior descending coronary artery, the left radial artery from the aorta to the obtuse marginal coronary artery, reverse greater saphenous vein graft from aorta to the ramus intermedius coronary artery, reverse greater saphenous vein graft from aorta to the posterior descending coronary artery 2. Endoscopic harvesting of the left radial artery 3. Endoscopic harvesting of the left greater saphenous vein from the groin to the mid lower leg level 4. Intraoperative graft flow measurements using the [employer] system 5. Intraoperative transesophageal echocardiogram and epi-aortic scanning HISTORY OF PRESENT ILLNESS: This is a 75-year-old gentleman who follows on an outpatient basis with Dr. Contreras for primary care and Dr. Mcneill for cardiology. Recently he had been experiencing burning sensation to his chest with exercise associated with shortness of breath which he had experienced in the past with his coronary artery disease. He also noticed pitting edema to his bilateral lower extremities and was initiated on oral Lasix. He was evaluated by Dr. Mcneill and recommended to undergo echocardiogram and heart catheterization. His echo demonstrated normal systolic function with ejection fraction 55%, mild to moderate mitral valve regurgitation, and mild tricuspid valve regurgitation. Heart catheterization demonstrated left main coronary artery stenosis 20%, 95% stenosis to the right coronary artery, 99% stenosis to the circumflex coronary artery, and 95% stenosis to the proximal left anterior descending coronary artery. Consultation was placed to Dr. Logan from cardiothoracic surgery. He was recommended to undergo coronary artery bypass surgery. The usual perioperative course was discussed in detail with the patient and his family, all risks and benefits were explained, all questions were answered, and consent was obtained to proceed with surgery. The patient was discharged to home on maximal medical therapy to return as an outpatient for surgery at the earliest possible date with Dr. Shields. HOSPITAL COURSE: The patient was brought to the hospital on 07/29/2020, taken to the preoperative area, prepared in the usual fashion, and subsequently taken to the operating room where Dr. Shields performed 4 vessel CABG. Upon completion of surgery the patient was transferred to the cardiovascular intensive care unit where he was recovered, monitored hemodynamically, and where he progressed to cardiac rehabilitation phase 1. He was extubated, all lines, tubes, and drips were discontinued when appropriate. He did experience acute blood loss anemia requiring a transfusion of 1 unit packed red blood cells, postoperative atrial tachycardia with syncopal episode requiring adjustments of his medications, and postoperative urinary retention with prolonged hung catheter use. He was eventually deemed stable and he was transferred to [facility] cardiac stepdown unit for further monitoring and rehabilitation. His oxygen was titrated down, he continued to work with physical and occupational therapy, he was tolerating oral diet, his pain was controlled without narcotics, and he was ready to be discharged to home with [facility] on postoperative day #8. He received written and verbal instruction regarding his medications, activity restrictions, signs and symptoms requiring physician notification, and follow-up appointments. COMPLICATIONS: The patient experienced postoperative blood loss anemia, atrial tachycardia, syncope, and urinary retention, all treated accordingly. Patient Condition at Discharge: Stable Plan - Discharge Summary Discharge Rx Participant: No New Discharge Prescriptions: New Glimepiride [Amaryl] 1 mg PO AC-BRKFST #30 tab Aspirin 325 mg PO DAILY #30 tab Diltiazem Oral [Cardizem*] 60 mg PO Q8HR #120 tab Ferrous Sulfate [Iron (65 MG Elemental)] 325 mg PO BID-W/MEALS #60 tab Clopidogrel [Plavix] 75 mg PO DAILY #30 tab Pantoprazole [Protonix] 40 mg PO AC-BRKFST #30 tablet.dr Acetaminophen Tab [Tylenol] 1,000 mg PO Q6HR PRN tab PRN Reason: Fever And/ Or Pain Ascorbic Acid [Vitamin C] 500 mg PO BID-W/MEALS #60 tab Continue Ubidecarenone [Co Q-10] 200 mg PO DAILY Tamsulosin [Flomax] 0.4 mg PO HS Ezetimibe [Zetia] 10 mg PO DAILY Psyllium Husk [Metamucil] 0.8 gm PO BID Fenofibrate Nanocrystallized [Fenofibrate] 145 mg PO DAILY Changed Metoprolol Tartrate [Lopressor] 50 mg PO BID #60 tab Discontinued amLODIPine [Norvasc] 10 mg PO DAILY Losartan Potassium [Cozaar] 50 mg PO DAILY Aspirin EC [Ecotrin Low Dose] 81 mg PO DAILY Nitroglycerin Sl Tabs [Nitrostat] 0.4 mg SUBLINGUAL Q5M PRN #25 tab PRN Reason: Chest Pain Potassium Chloride [Klor-Con 10] 10 meq PO HS Furosemide [Lasix] 20 mg PO DAILY Isosorbide Mononitrate ER [Imdur] 30 mg PO DAILY Discharge Medication List Ubidecarenone [Co Q-10] 200 mg PO DAILY 11/20/15 [History] Tamsulosin [Flomax] 0.4 mg PO HS 01/18/17 [History] Ezetimibe [Zetia] 10 mg PO DAILY 08/08/19 [History] Fenofibrate Nanocrystallized [Fenofibrate] 145 mg PO DAILY 07/21/20 [History] Psyllium Husk [Metamucil] 0.8 gm PO BID 07/21/20 [History] Acetaminophen Tab [Tylenol] 1,000 mg PO Q6HR PRN tab 08/06/20 [Rx] Ascorbic Acid [Vitamin C] 500 mg PO BID-W/MEALS #60 tab 08/06/20 [Rx] Aspirin 325 mg PO DAILY #30 tab 08/06/20 [Rx] Clopidogrel [Plavix] 75 mg PO DAILY #30 tab 08/06/20 [Rx] Diltiazem Oral [Cardizem*] 60 mg PO Q8HR #120 tab 08/06/20 [Rx] Ferrous Sulfate [Iron (65 MG Elemental)] 325 mg PO BID-W/MEALS #60 tab 08/06/20 [Rx] Glimepiride [Amaryl] 1 mg PO AC-BRKFST #30 tab 08/06/20 [Rx] Metoprolol Tartrate [Lopressor] 50 mg PO BID #60 tab 08/06/20 [Rx] Pantoprazole [Protonix] 40 mg PO AC-BRKFST #30 tablet. 08/06/20 [Rx] Follow up Appointment(s)/Referral(s): Say Calderón MD [STAFF PHYSICIAN] - 08/12/20 2:15 pm Lucretia Olguin NPC [Nurse Practitioner] - 08/12/20 1:45 pm (Please come to surgeon's office at [address] [facility] [address] in [facility] (behind the hospital) for appointment) Tyrone Mcneill MD [STAFF PHYSICIAN] - (Should be seen in 1-2 weeks, office will call with appointment) [facility] ,Cardiac [NON-STAFF] - 4 Weeks (You will receive a phone call approximated 4-6 weeks post surgery for cardiac rehab evaluation) Rylan Shields MD [STAFF PHYSICIAN] - 08/29/20 10:15 am Boni Contreras DO [Primary Care Provider] - 08/14/20 11:15 am [facility], [NON-STAFF] - 1-2 Days Arturo Salgado MD [STAFF PHYSICIAN] - 1 Week (Urologist) Ambulatory/Diagnostic Orders: Complete Blood Count w/diff [LAB.AMB] Time Frame: 3 Days, Location: None Selected Comprehensive Metabolic Panel [LAB.AMB] Time Frame: 3 Days, Location: None Selected Activity/Diet/Wound Care/Special Instructions: DISCHARGE INSTRUCTIONS: 1. No driving for 4 weeks, or until physician gives their ok. 2. The patient should sleep in their own bed, no medical bed needed. 3. Stairs are not an issue. If the bedroom is upstairs, it is advised that the patient go up at night and down in the morning for the first week. Go slowly, using handrail and take 1 step at a time. 4. MELISSA hose are to be worn for 30 days or until physician discontinues. 5. Heart hugger is to be worn 100% of the time until physician discontinues.(except when showering) 6. No lifting, pushing, or pulling more than 10 pounds for 12 weeks. The physician will advise of any restriction changes. 7. The patient is expected to continue the prescribed walking program. 8. Continue pain control per as needed orders. 9. Continue with incentive spirometry and splinting/heart hugger until otherwise directed by the physician. 10. Must shower daily using liquid antibacterial soap and a separate white washcloth for each individual incision. 11. Routine sternal incision care. No powders, lotions, ointments on incisions. No dressings are necessary on incisions unless they are draining. Dermabond tape is to remain on sternal incision until surgeon follow-up. 12. Please call surgeon/DESIGN SPECIALIST for temp greater than 101 F or purulent drainage from incisions. 13. All prescriptions given by surgeon for 30 days. Refills need to be filled through meat press operator/primary care physician. 14. A Red armband has been placed on the patient. It should be worn for 30 days post surgery and will be removed by the cardiac surgeons. If an ER visit is necessary, please make sure the number on the Red armband is called. 15. You have been referred to and are expected to begin Cardiac Rehab in approximately 4-6 weeks. HOME HEALTH SERVICES TO PROVIDE: RN SKILLED HOME CARE SERVICES FOR POST-OP SURGICAL PATIENTS WITH THE FOLLOWING: Coronary Artery Bypass Surgery (CABG), Mitral Valve Replacement/Repair ( MVR), Aortic Valve Replacement/Repair (AVR) RN TO CONTINUE EDUCATION FROM ``ROAD TO A HEALTH HEART PATIENT EDUCATION MANUAL (GIVEN TO PATIENT IN THE HOSPITAL) MEDICATION RECONCILIATION WITH EDUCATION NEEDED ON FIRST HOME VISIT EMPHASIZE IMPORTANCE OF WEARING BREAST SUPPORT/HEART HUGGER ENCOURAGE USE OF INCENTIVE SPIROMETER 10 X EVERY HOUR WHILE AWAKE ENCOURAGE UTILIZATION OF LOWER EXTREMITY COMPRESSION STOCKINGS/MELISSA HOSE and ELEVATE LEGS ABOVE LEVEL OF HEART WHILE AT REST. ENCOURAGE AMBULATION 3-5x/day INCREASING TOLERATES, WHILE AVOIDING EXTREMES IN TEMPERATURE FREQUENCY: RN TO OPEN THE PATIENT WITHIN 24 HOURS OF DISCHARGE FROM THE HOSPITAL WITH [place] [facility] [place]ISIT 2-3 X A WEEK FOR 4 WEEKS ESTABLISHED BY PATIENT NEEDS. LABORATORY: CBC, CMP TO BE DRAWN ON THE THIRD DAY HOME, (RAN STAT) FAX RESULTS TO [phone]. TELEHEALTH PARAMETERS: WEIGHT: NOTIFY MD OF WEIGHT GAIN OF 2 LBS IN 24 HOURS OR 5 LBS IN ONE WEEK HR: NOTIFY MD OF HR <55 BPM OR HR>100 BPM BP: NOTIFY MD IF BP <90/55 OR BP>140/100 O2 SAT: NOTIFY MD IF PO2<93% ON ROOM AIR SEND TELEHEALTH REPORT TO RAG CUTTING MACHINE OPERATOR AND CARDIOVASCULAR SURGEON THE FIRST WEEK OF CARE AND THEN BI-WEEKLY. PLEASE ADDITIONALLY COMMUNICATE ANY ABNORMALS AND NEW FINDINGS TO THE SURGEONS OFFICE. For any questions or concerns please call enterprise systems engineer Lucretia @ or Rudi @ Discharge Disposition: HOME WITH HOME HEALTH SERVICES
--- NOTE | 2020-08-06 14:56 | P.PN ---
Subjective Progress Note Date: 08/06/20 Principal diagnosis: Symptomatic multivessel coronary artery disease, status post coronary artery bypass grafting 4 The patient is seen today 08/06/2020 in follow-up on the selective care unit. He is currently sitting up in a chair at the bedside. Awake and alert in no acute distress. No worsening shortness of breath, cough or congestion. This is postoperative day #8 previous coronary artery bypass grafting 4 utilizing a ARELLANO to the LAD, left radial artery to obtuse marginal, reverse pain from the aorta to the radius intermedius, and a reverse saphenous vein graft to the aorta to the PDA. He continues to work well with the incentive spirometer. Continue O2 saturations in the 90s on room air. White count 6.9. Hemoglobin 7.9. Sodium 135. Potassium 4.2. Creatinine 1.04. Objective - Vital Signs Vital signs: Vital Signs Temp 98.0 F 08/06/20 12:00 Pulse 73 08/06/20 12:00 Resp 15 08/06/20 12:00 BP 110/60 08/06/20 12:00 Pulse Ox 95 08/06/20 07:45 Intake & Output 08/05/20 08/06/20 08/06/20 18:59 06:59 18:59 Intake Total 300 300 Output Total 1614 350 800 Balance -1314 -50 -800 Weight 92.5 kg 92.5 kg Intake: Oral 300 300 Output: Urine 1600 350 800 Uretheral (Loaiza) 100 Post Void Residual 14 Other: Voiding Method Indwelling Catheter Toilet Toilet # Voids 1 1 # Bowel Movements 2 ABP, PAP, CO, CI - Last Documented Arterial Blood Pressure 126/47 Pulmonary Artery Pressure 28/12 Cardiac Output 6.8 Cardiac Index 3.3 - Exam GENERAL EXAM: Alert, pleasant, 75-year-old male patient, on room air, and the pulse ox of 95%, comfortable in no apparent distress. HEAD: Normocephalic/atraumatic. EYES: Normal reaction of pupils, equal size. Conjunctiva pink, sclera white. NOSE: Clear with pink turbinates. THROAT: No erythema or exudates. NECK: No masses, no JVD, no thyroid enlargement, no adenopathy. CHEST: No chest wall deformity. Symmetrical expansion. Midsternal incision covered with a surgical dressing, clean dry and intact, chest tube sites are clean dry and intact LUNGS: Equal air entry with minimal basilar crackles, but no wheeze, rhonchi or dullness. CVS: Regular rate and rhythm, normal S1 and S2, no gallops, no murmurs, no rubs ABDOMEN: Soft, nontender. No hepatosplenomegaly, normal bowel sounds, no guarding or rigidity. EXTREMITIES: No clubbing, no edema, no cyanosis, 2+ pulses and upper and lower extremities. MUSCULOSKELETAL: Muscle strength and tone normal. SPINE: No scoliosis or deformity SKIN: Left radial incision is clean dry and intact covered with a dressing, CENTRAL NERVOUS SYSTEM: No focal deficits, tone is normal in all 4 extremities. PSYCHIATRIC: Alert and oriented -3. Appropriate affect. Intact judgment and insight. - Labs CBC & Chem 7: 08/06/20 05:10 08/06/20 05:10 Labs: Abnormal Lab Results - Last 24 Hours (Table) 08/05/20 08/05/20 08/06/20 Range/Units 16:58 20:08 02:13 RBC (4.30-5.90) m/uL Hgb (13.0-17.5) gm/dL Hct (39.0-53.0) % Sodium (137-145) mmol/L BUN (9-20) mg/dL Glucose (74-99) mg/dL POC Glucose (mg/dL) 101 H 131 H 101 H (75-99) mg/dL 08/06/20 08/06/20 08/06/20 Range/Units 05:10 05:10 05:55 RBC 2.53 L (4.30-5.90) m/uL Hgb 7.9 L (13.0-17.5) gm/dL Hct 24.2 L (39.0-53.0) % Sodium 135 L (137-145) mmol/L BUN 21 H (9-20) mg/dL Glucose 113 H (74-99) mg/dL POC Glucose (mg/dL) 120 H (75-99) mg/dL 08/06/20 Range/Units 11:28 RBC (4.30-5.90) m/uL Hgb (13.0-17.5) gm/dL Hct (39.0-53.0) % Sodium (137-145) mmol/L BUN (9-20) mg/dL Glucose (74-99) mg/dL POC Glucose (mg/dL) 103 H (75-99) mg/dL Assessment and Plan Assessment: Status post quadruple bypass surgery, postoperative day #8 Multivessel coronary artery disease as noted on his recent cardiac catheterization. And history of multiple stents placed. History of moderate mitral regurgitation with preserved systolic function. Benign essential hypertension. Type 2 diabetes. Obstructive sleep apnea syndrome. History of nephrolithiasis . Family history of premature coronary artery disease. Benign prostatic hypertrophy. Postoperative blood loss anemia requiring blood transfusion, expected. Hemoglobin today is 6.6, and the patient will receive a unit of packed RBCs. Urinary retention, urology is following, Flomax was started Plan: The patient was seen and evaluated by Dr. Yadira Molina from the pulmonary and critical care standpoint Follow-up in our office in 1-2 weeks' time We will repeat a chest x-ray then I, the cosigning physician, performed a history & physical examination of the patient. Lungs sounds with basilar crackles left greater than right. Maintaining good O2 saturations in the 90s on room air. I discussed the assessment and plan of care with my nurse practitioner, Tori Dillon. I attest to the above note as dictated by her.
[2020-08-07] MEDS ORDERED: GLIMEPIRIDE 1 MG TAB PO SCH (07:30)
== END 2020-08-06 13:53 | disposition home health service (06) | DRG 236 ==
LOC: EDSTATUS 08:00 → 2ORMAIN 07-29 05:34 → 2SICU 07-29 16:00 → 3SCARD 08-04 09:56 → 3NCARDOBS 08-05 21:07 → 3SCARD 08-05 21:07
PROVIDERS: ADMIT Surgery; ATTEND Surgery
PROC: 02100Z9 Bypass Coronary Artery, One Artery from Left Internal Mammary, Open Approach (ICD-10-PCS; principal; 2020-07-29 08:00)
PROC: 02100AW Bypass Coronary Artery, One Artery from Aorta with Autologous Arterial Tissue, Open Approach (ICD-10-PCS; principal; 2020-07-29 08:00)
PROC: 06BQ4ZZ Excision of Left Saphenous Vein, Percutaneous Endoscopic Approach (ICD-10-PCS; principal; 2020-07-29 08:00)
PROC: 021109W Bypass Coronary Artery, Two Arteries from Aorta with Autologous Venous Tissue, Open Approach (ICD-10-PCS; principal; 2020-07-29 08:00)
PROC: 03BC4ZZ Excision of Left Radial Artery, Percutaneous Endoscopic Approach (ICD-10-PCS; principal; 2020-07-29 08:00)
PROC: 5A1221Z Performance of Cardiac Output, Continuous (ICD-10-PCS; principal; 2020-07-29 08:00)
PROC: 30233N1 Transfusion of Nonautologous Red Blood Cells into Peripheral Vein, Percutaneous Approach (ICD-10-PCS; 2020-08-01)
DX: I25.10 Atherosclerotic heart disease of native coronary artery without angina pectoris (principal); D62 Acute posthemorrhagic anemia; I48.92 Unspecified atrial flutter; I97.190 Other postprocedural cardiac functional disturbances following cardiac surgery; I47.1 Supraventricular tachycardia; D69.6 Thrombocytopenia, unspecified; I11.9 Hypertensive heart disease without heart failure; I48.0 Paroxysmal atrial fibrillation; E11.65 Type 2 diabetes mellitus with hyperglycemia; N99.89 Other postprocedural complications and disorders of genitourinary system; G47.33 Obstructive sleep apnea (adult) (pediatric); R33.8 Other retention of urine; E66.9 Obesity, unspecified; E78.5 Hyperlipidemia, unspecified; I95.1 Orthostatic hypotension; K59.00 Constipation, unspecified; N40.1 Benign prostatic hyperplasia with lower urinary tract symptoms; R60.0 Localized edema; I08.1 Rheumatic disorders of both mitral and tricuspid valves; Z68.33 Body mass index [BMI] 33.0-33.9, adult; Z71.3 Dietary counseling and surveillance; Z79.899 Other long term (current) drug therapy; Z79.82 Long term (current) use of aspirin; Z87.442 Personal history of urinary calculi; Z98.890 Other specified postprocedural states; Z95.5 Presence of coronary angioplasty implant and graft; Z88.6 Allergy status to analgesic agent; Z88.0 Allergy status to penicillin; Z88.8 Allergy status to other drugs, medicaments and biological substances; Z82.49 Family history of ischemic heart disease and other diseases of the circulatory system; Z82.0 Family history of epilepsy and other diseases of the nervous system; Z80.1 Family history of malignant neoplasm of trachea, bronchus and lung; Z80.8 Family history of malignant neoplasm of other organs or systems
CPT/HCPCS: 71045; 71046; 80048; 80053; 81003; 82330; 82805; 83036; 83605; 83735; 84132; 85025; 85027; 85520; 85610; 85730; 86850; 86891; 86900; 86901; 86920; 94002; 94640

== ENCOUNTER → 2020-08-16 | Outpatient (CLI) | payer MEDICARE ==
--- NOTE | 2020-08-16 08:17 | XR ---
EXAMINATION TYPE: XR chest 2V DATE OF EXAM: 08/16/2020 COMPARISON: 08/06/2020 TECHNIQUE: PA and lateral views submitted. HISTORY: Pain and cough. FINDINGS: Heart is enlarged and there is postoperative change. There are small bilateral effusions. No pneumoth orax. Left lower lobe subsegmental consolidation. Mild coarsened interstitium. Hypertrophic and degen erative change of the spine. IMPRESSION: 1. Cardiomegaly correlate for mild venous congestion otherwise consider interstitial pneumonitis. Sma ll bilateral pleural effusions and basilar infiltrate.
== END | disposition home or self-care (01) ==
LOC: RADXRMAIN 07:49
PROVIDERS: ATTEND Surgery
DX: J90 Pleural effusion, not elsewhere classified (principal); I51.7 Cardiomegaly; R91.8 Other nonspecific abnormal finding of lung field
CPT/HCPCS: 71046

== ENCOUNTER 2020-08-24 09:54 | Emergency (ER) | payer MEDICARE ==
[2020-08-24 10:02] VITALS: RESP 18
[2020-08-24] MEDS ORDERED: RX INFO: IV CONTRAST WAS GIVEN 1 EACH MISC MISCELLANE PRN (10:14)
--- NOTE | 2020-08-24 10:20 | ED ---
General Adult HPI - General Chief complaint: Shortness of Breath Stated complaint: SOB Time Seen by Provider: 08/24/20 10:02 Source: patient Mode of arrival: ambulatory Limitations: no limitations - History of Present Illness Initial comments: Dictation was produced using [employer] dictation software. please excuse any grammatical, word or spelling errors. This patient was cared for during a federal and state declared state of emergency secondary to Covid 19 Chief Complaint: 75-year-old male presents with draining chest surgical site History of Present Illness: 75-year-old male he is approximately 4 weeks status post CABG procedure. Over the last 3-4 days patient has been noting drainage from his sternal wound. He contacted his cardiothoracic surgical team and was told to come to the emergency department. I did receive a call from Lucretia, mid- level provider who works with patient's primary surgeon Dr. Shields that patient would be coming through the emergency department. Patient states he's noted drainage. He denies any constitutional symptoms. States he's been recovering well at home. He denies any shortness of breath. Lastly patient had an episode where he had nonproductive cough and mild throat discomfort however the symptoms have abated. He thinks that they're secondary to his ALLERGIES. The ROS documented in this emergency department record has been reviewed and confirmed by me. Those systems with pertinent positive or negative responses have been documented in the HPI. All other systems are other negative and/or noncontributory. PHYSICAL EXAM: General Impression: Alert and oriented x3, not in acute distress HEENT: Normocephalic atraumatic, extra-ocular movements intact, pupils equal and reactive to light bilaterally, mucous membranes moist. Cardiovascular: Heart regular rate and rhythm Chest: Able to complete full sentences, no retractions, no tachypnea, mostly to auscultation bilaterally, there is what appears to be purulent drainage from the inferior portion of patient's CABG wound, most of the wound superiorly appears well-healed Abdomen: abdomen soft, non-tender, non-distended, no organomegaly Musculoskeletal: Pulses present and equal in all extremities, no peripheral edema Motor: no focal deficits noted Neurological: CN II-XII grossly intact, no focal motor or sensory deficits noted Skin: Intact with no visualized rashes Psych: Normal affect and mood ED course: 75-year-old male presents with drainage from CABG wound. Signs upon arrival are within acceptable limits. Patient's well-appearing. He is smiling and no acute distress at bedside. Lucretia Olguin, nurse practitioner that works with cardiothoracic surgery team was at bedside and evaluated patient. CT of the chest shows fluid collection under the sternotomy mid to lower section. Laboratory evaluation shows no leukocytosis. Hemoglobin stable at 10.8. Coag panel is negative. Metabolic panel shows non-gap acidosis. CRP is elevated at 35.6. EKG interpretation: Ventricular rate 77, right bundle branch block, sinus rhythm, DC interval 150, QRS 124, QTC 479. No DC prolongation, no QTC prolongation, no ST or T-wave changes noted.s. Overall, this EKG is unremarkable - Related Data Home Medications Medication Instructions Recorded Confirmed Ubidecarenone [Co Q-10] 200 mg PO DAILY 11/20/15 08/24/20 Tamsulosin [Flomax] 0.4 mg PO HS 01/18/17 08/24/20 Ezetimibe [Zetia] 10 mg PO DAILY 08/08/19 08/24/20 Fenofibrate Nanocrystallized 145 mg PO DAILY 07/21/20 08/24/20 [Fenofibrate] Psyllium Husk [Metamucil] 0.8 gm PO BID 07/21/20 08/24/20 Fluticasone Propionate [Flonase 1 spray EA NOSTRIL BID PRN 08/24/20 08/24/20 Allergy Relief] Ibuprofen [Motrin Ib] 400 mg PO HS PRN 08/24/20 08/24/20 guaiFENesin [Mucinex] 600 mg PO Q12H PRN 08/24/20 08/24/20 Previous Rx's Medication Instructions Recorded Acetaminophen Tab [Tylenol] 1,000 mg PO Q6HR PRN tab 08/06/20 Ascorbic Acid [Vitamin C] 500 mg PO BID-W/MEALS #60 tab 08/06/20 Aspirin 325 mg PO DAILY #30 tab 08/06/20 Clopidogrel [Plavix] 75 mg PO DAILY #30 tab 08/06/20 Diltiazem Oral [Cardizem*] 60 mg PO Q8HR #120 tab 08/06/20 Ferrous Sulfate [Iron (65 MG 325 mg PO BID-W/MEALS #60 tab 08/06/20 Elemental)] Glimepiride [Amaryl] 1 mg PO AC-BRKFST #30 tab 08/06/20 Metoprolol Tartrate [Lopressor] 50 mg PO BID #60 tab 08/06/20 Pantoprazole [Protonix] 40 mg PO AC-BRKFST #30 tablet. 08/06/20 Cephalexin [Keflex] 500 mg PO Q6HR 7 Days #28 cap 08/22/20 Furosemide [Lasix] 40 mg PO DAILY #30 tablet 08/24/20 Allergies Allergy/AdvReac Type Severity Reaction Status Date / Time naproxen sodium [From Aleve] Allergy Severe Anaphylaxis Verified 08/24/20 10:03 Penicillins Allergy Unknown Rash/Hives Verified 08/24/20 10:03 rosuvastatin [From Crestor] Allergy Rash/Hives Verified 08/24/20 10:03 Review of Systems ROS Statement: Those systems with pertinent positive or pertinent negative responses have been documented in the HPI. ROS Other: All systems not noted in ROS Statement are negative. Past Medical History Past Medical History: Coronary Artery Disease (CAD), Chest Pain / Angina, Diabetes Mellitus, Hyperlipidemia, Hypertension, Prostate Disorder, Renal Disease, Sleep Apnea/CPAP/BIPAP Additional Past Medical History / Comment(s): HX OF KIDNEY STONES, INNER EAR IMBALANCE, STATES HX OF " occasional BURNING FEELING to his chest with exercise and is associated with some shortness of breath", DM type 2 DIET CONTROL History of Any Multi-Drug Resistant Organisms: None Reported Past Surgical History: Heart Catheterization With Stent, Orthopedic Surgery Additional Past Surgical History / Comment(s): GANGLION CYST X3 RT WRIST, RIGHT ELBOW SURG, angioplasty and total 8 stents, RIGHT KNEE-ARTHROSCOPIC, , hemorrhoid surgery, COLONOSCOPY, recent cardiac cath. quad bypass jul 2020 Past Anesthesia/Blood Transfusion Reactions: Motion Sickness Date of Last Stent Placement:: 04/2016 with stent placement to his OM 2, circumflex coronary artery & OM1 Past Psychological History: No Psychological Hx Reported Smoking Status: Never smoker Past Alcohol Use History: Occasional Past Drug Use History: None Reported - Past Family History Mother Family Medical History: Coronary Artery Disease (CAD) (Early onset coronary artery disease, CABG surgery in her early 50s.) Additional Family Medical History / Comment(s): ALZHEIMERS Father Family Medical History: Cancer Additional Family Medical History / Comment(s): bone and lung General Exam Limitations: no limitations Course Vital Signs 08/24/20 08/24/20 09:55 14:15 Temperature 97.7 F 98.2 F Pulse Rate 79 87 Respiratory 18 18 Rate Blood Pressure 112/67 131/86 O2 Sat by Pulse 98 97 Oximetry Medical Decision Making - Medical Decision Making Patient was evaluated by nurse practitioner Lucretia Olguin and primary cardiothoracic surgeon Dr. Shields. Cardiothoracic team recommended discharge of patient. Patient was given outpatient follow-up with cardiac thoracic surgery and primary care physician per instructions by cardio thoracic team - Lab Data Result diagrams: 08/24/20 10:22 08/24/20 10:22 Lab Results 08/24/20 08/24/20 08/24/20 Range/Units 10: 10: 10:22 WBC 6.6 (3.8-10.6) k/uL RBC 3.76 L (4.30-5.90) m/uL Hgb 10.8 L (13.0-17.5) gm/dL Hct 35.7 L (39.0-53.0) % MCV 94.9 (80.0-100.0) fL MCH 28.7 (25.0-35.0) pg MCHC 30.2 L (31.0-37.0) g/dL RDW 15.5 (11.5-15.5) % Plt Count 380 (150-450) k/uL Neutrophils % 76 % Lymphocytes % 11 % Monocytes % 8 % Eosinophils % 3 % Basophils % 1 % Neutrophils # 5.0 (1.3-7.7) k/uL Lymphocytes # 0.7 L (1.0-4.8) k/uL Monocytes # 0.5 (0-1.0) k/uL Eosinophils # 0.2 (0-0.7) k/uL Basophils # 0.0 (0-0.2) k/uL Hypochromasia Marked Poikilocytosis Slight PT 11.4 (9.0-12.0) sec INR 1.1 (<1.2) APTT 23.8 (22.0-30.0) sec Sodium 138 (137-145) mmol/L Potassium 4.2 (3.5-5.1) mmol/L Chloride 107 (98-107) mmol/L Carbon Dioxide 20 L (22-30) mmol/L Anion Gap 11 mmol/L BUN 15 (9-20) mg/dL Creatinine 1.08 (0.66-1.25) mg/dL Est GFR (CKD-EPI)AfAm 78 (>60 ml/min/1.73 sqM) Est GFR (CKD-EPI)NonAf 68 (>60 ml/min/1.73 sqM) Glucose 98 (74-99) mg/dL Plasma Lactic Acid Junaid (0.7-2.0) mmol/L Calcium 9.6 (8.4-10.2) mg/dL Magnesium 2.3 (1.6-2.3) mg/dL Total Bilirubin 0.9 (0.2-1.3) mg/dL AST 21 (17-59) U/L ALT 9 (4-49) U/L Alkaline Phosphatase 49 (38-126) U/L Troponin I (0.000-0.034) ng/mL C-Reactive Protein 35.6 H (<10.0) mg/L NT-Pro-B Natriuret Pep pg/mL Total Protein 6.7 (6.3-8.2) g/dL Albumin 4.2 (3.5-5.0) g/dL 08/24/20 08/24/20 08/24/20 Range/Units 10:22 10:22 10:22 WBC (3.8-10.6) k/uL RBC (4.30-5.90) m/uL Hgb (13.0-17.5) gm/dL Hct (39.0-53.0) % MCV (80.0-100.0) fL MCH (25.0-35.0) pg MCHC (31.0-37.0) g/dL RDW (11.5-15.5) % Plt Count (150-450) k/uL Neutrophils % % Lymphocytes % % Monocytes % % Eosinophils % % Basophils % % Neutrophils # (1.3-7.7) k/uL Lymphocytes # (1.0-4.8) k/uL Monocytes # (0-1.0) k/uL Eosinophils # (0-0.7) k/uL Basophils # (0-0.2) k/uL Hypochromasia Poikilocytosis PT (9.0-12.0) sec INR (<1.2) APTT (22.0-30.0) sec Sodium (137-145) mmol/L Potassium (3.5-5.1) mmol/L Chloride (98-107) mmol/L Carbon Dioxide (22-30) mmol/L Anion Gap mmol/L BUN (9-20) mg/dL Creatinine (0.66-1.25) mg/dL Est GFR (CKD-EPI)AfAm (>60 ml/min/1.73 sqM) Est GFR (CKD-EPI)NonAf (>60 ml/min/1.73 sqM) Glucose (74-99) mg/dL Plasma Lactic Acid Junaid 1.5 (0.7-2.0) mmol/L Calcium (8.4-10.2) mg/dL Magnesium (1.6-2.3) mg/dL Total Bilirubin (0.2-1.3) mg/dL AST (17-59) U/L ALT (4-49) U/L Alkaline Phosphatase (38-126) U/L Troponin I <0.012 (0.000-0.034) ng/mL C-Reactive Protein (<10.0) mg/L NT-Pro-B Natriuret Pep 433 pg/mL Total Protein (6.3-8.2) g/dL Albumin (3.5-5.0) g/dL Disposition Clinical Impression: Drainage from surgical wound Disposition: HOME SELF-CARE Condition: Fair Prescriptions: Furosemide [Lasix] 40 mg PO DAILY #30 tablet Is patient prescribed a controlled substance at d/c from ED?: No Referrals: Lucretia Olguin, CARMEN [Nurse Practitioner] - 08/25/20 (will call tomorrow morning with appointment time) Boni Contreras DO [Primary Care Provider] - 1-2 days Time of Disposition: 11:55
[2020-08-24 10:46] LABS: INR 1.1 (<1.2); Partial Thromboplastin Time 23.8 sec (22.0-30.0); Prothrombin Time 11.4 sec (9.0-12.0)
[2020-08-24 10:49] LABS: Albumin 4.2 g/dL (3.5-5.0); Basophils % (A) 1 %; C Reactive Protein 35.6 mg/L (<10.0); Calcium 9.6 mg/dL (8.4-10.2); Eosinophils # (A) 0.2 k/uL (0-0.7); Eosinophils % (A) 3 %; HCT 35.7 % (39.0-53.0); HGB 10.8 gm/dL (13.0-17.5); Hypochromasia Marked; Lymphocytes # (A) 0.7 k/uL (1.0-4.8); Lymphocytes % (A) 11 %; MCH 28.7 pg (25.0-35.0); MCHC 30.2 g/dL (31.0-37.0); MCV 94.9 fL (80.0-100.0); Magnesium 2.3 mg/dL (1.6-2.3); Mean Platelet Volume 8.3; Monocytes # (A) 0.5 k/uL (0-1.0); Monocytes % (A) 8 %; Neutrophils % (A) 76 %; Platelet Count 380 k/uL (150-450); Poikilocytosis Slight; Potassium 4.2 mmol/L (3.5-5.1); RBC 3.76 m/uL (4.30-5.90); RDW 15.5 % (11.5-15.5); Total Bilirubin 0.9 mg/dL (0.2-1.3); Total Protein 6.7 g/dL (6.3-8.2); WBC 6.6 k/uL (3.8-10.6)
--- NOTE | 2020-08-24 12:11 | CT ---
EXAMINATION TYPE: CT chest w con DATE OF EXAM: 08/24/2020 COMPARISON: Radiograph 08/16/2023 HISTORY: 75-year-old male status post CABG, Surgical site drainage TECHNIQUE: Contiguous axial scanning of the chest after the administration of 100 ml mL of Isovue 300 . Coronal/sagittal reconstructions performed. CT DLP: 505.7mGycm. Automatic exposure control utilized for a dose reduction. FINDINGS: Median sternotomy wires are present. Nonhealed sternotomy. The wires remain intact. Streak and beam h ardening artifact is exacerbated by patient movement Difficult to exclude a fluid collection within the subcutaneous adipose layer overlying the sternotom y measuring 1.8 cm wide and 4.7 cm craniocaudal. Heart upper limits of normal in size. Conventional arch vessel branching anatomy. Small to moderate bilateral effusions. Diffuse breathing motion artifact limits assessment of the priscilla gs. Small hiatal hernia. Partially visualized cyst within the medial right kidney measuring up to 3.5 cm. Bones: Mild degenerative change of the right shoulder. 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 IMPRESSION: 1. Very limited exam as the patient was breathing during the study. This exacerbates the metal artifa ct relating to the sternotomy fixation. 2. Suggestion of a possible 4.7 cm craniocaudal by 1.8 cm wide fluid collection located in the subcut aneous adipose layer overlying the mid to lower sternotomy. 3. [id number] bilateral pleural effusions. Assessment of the lung parenchyma limited due to th e breathing.
[2020-08-24 14:23] VITALS: BP 131/86; PULSE 87; TEMP 98.2
== END 2020-08-24 14:32 | disposition home or self-care (01) ==
LOC: EC 09:54
DX: T81.89XA Other complications of procedures, not elsewhere classified, initial encounter (principal); I25.119 Atherosclerotic heart disease of native coronary artery with unspecified angina pectoris; E11.9 Type 2 diabetes mellitus without complications; I10 Essential (primary) hypertension; E78.5 Hyperlipidemia, unspecified; G47.30 Sleep apnea, unspecified; Z79.82 Long term (current) use of aspirin; Z79.02 Long term (current) use of antithrombotics/antiplatelets; Z79.84 Long term (current) use of oral hypoglycemic drugs; Z79.899 Other long term (current) drug therapy; Z88.0 Allergy status to penicillin; Z88.6 Allergy status to analgesic agent; Z88.8 Allergy status to other drugs, medicaments and biological substances; Z99.89 Dependence on other enabling machines and devices; Z95.1 Presence of aortocoronary bypass graft
CPT/HCPCS: 36415; 93005; 83880; 80053; 83605; 83735; 84484; 85025; 85610; 85730; 86140; 87040; 87070; 87205; 71260; 99285; Q9967

== ENCOUNTER 2020-09-07 15:05 | Emergency (ER) | payer MEDICARE ==
[2020-09-07 15:16] VITALS: RESP 18
[2020-09-07] MEDS ORDERED: SODIUM CHLORIDE 0.9% 500 ML 500 ML IV STA (15:34)
--- NOTE | 2020-09-07 15:45 | ED ---
General Adult HPI - General Chief complaint: Syncope Stated complaint: syncope Time Seen by Provider: 09/07/20 15:17 Source: patient, family, RN notes reviewed, old records reviewed Mode of arrival: wheelchair Limitations: no limitations - History of Present Illness Initial comments: 75-year-old male presenting after a syncopal episode, head trauma. Patient had open-heart surgery nd quadruple bypass on August 02. He's had some dizzy spells on and off since that time. Additionally has been dealing with a nonhealing incisional wound and drainage and has completed a 10 day course of Keflex. He states he's had a very poor appetite however he has been attending increase his intake. He's had no vomiting, no diarrhea, he has been constipated. Denies fever. He states he's had chest pain at the site of surgery which is been treated with Tylenol. Patient had stood to check on something in the kitchen and became dizzy, fell striking the right side of his head. He is on aspirin and Plavix currently. He states he was only momentarily unconscious. Denies focal numbness or weakness. - Related Data Home Medications Medication Instructions Recorded Confirmed Ubidecarenone [Co Q-10] 200 mg PO DAILY 11/20/15 08/24/20 Tamsulosin [Flomax] 0.4 mg PO HS 01/18/17 08/24/20 Ezetimibe [Zetia] 10 mg PO DAILY 08/08/19 08/24/20 Fenofibrate Nanocrystallized 145 mg PO DAILY 07/21/20 08/24/20 [Fenofibrate] Psyllium Husk [Metamucil] 0.8 gm PO BID 07/21/20 08/24/20 Fluticasone Propionate [Flonase 1 spray EA NOSTRIL BID PRN 08/24/20 08/24/20 Allergy Relief] Ibuprofen [Motrin Ib] 400 mg PO HS PRN 08/24/20 08/24/20 guaiFENesin [Mucinex] 600 mg PO Q12H PRN 08/24/20 08/24/20 Previous Rx's Medication Instructions Recorded Acetaminophen Tab [Tylenol] 1,000 mg PO Q6HR PRN tab 08/06/20 Ascorbic Acid [Vitamin C] 500 mg PO BID-W/MEALS #60 tab 08/06/20 Aspirin 325 mg PO DAILY #30 tab 08/06/20 Clopidogrel [Plavix] 75 mg PO DAILY #30 tab 08/06/20 Diltiazem Oral [Cardizem*] 60 mg PO Q8HR #120 tab 08/06/20 Ferrous Sulfate [Iron (65 MG 325 mg PO BID-W/MEALS #60 tab 08/06/20 Elemental)] Glimepiride [Amaryl] 1 mg PO AC-BRKFST #30 tab 08/06/20 Metoprolol Tartrate [Lopressor] 50 mg PO BID #60 tab 08/06/20 Pantoprazole [Protonix] 40 mg PO AC-BRKFST #30 tablet. 08/06/20 Cephalexin [Keflex] 500 mg PO Q6HR 7 Days #28 cap 08/22/20 Furosemide [Lasix] 40 mg PO DAILY #30 tablet 08/24/20 Allergies Allergy/AdvReac Type Severity Reaction Status Date / Time naproxen sodium [From Aleve] Allergy Severe Anaphylaxis Verified 09/07/20 15:16 Penicillins Allergy Unknown Rash/Hives Verified 09/07/20 15:16 rosuvastatin [From Crestor] Allergy Rash/Hives Verified 09/07/20 15:16 Review of Systems ROS Statement: Those systems with pertinent positive or pertinent negative responses have been documented in the HPI. ROS Other: All systems not noted in ROS Statement are negative. Past Medical History Past Medical History: Coronary Artery Disease (CAD), Chest Pain / Angina, Diabetes Mellitus, Hyperlipidemia, Hypertension, Prostate Disorder, Renal Disease, Sleep Apnea/CPAP/BIPAP Additional Past Medical History / Comment(s): HX OF KIDNEY STONES, INNER EAR IMBALANCE, STATES HX OF " occasional BURNING FEELING to his chest with exercise and is associated with some shortness of breath", DM type 2 DIET CONTROL History of Any Multi-Drug Resistant Organisms: None Reported Past Surgical History: Coronary Bypass/CABG, Heart Catheterization With Stent, Orthopedic Surgery Additional Past Surgical History / Comment(s): GANGLION CYST X3 RT WRIST, RIGHT ELBOW SURG, angioplasty and total 8 stents, RIGHT KNEE-ARTHROSCOPIC, , hemorrhoid surgery, COLONOSCOPY, recent cardiac cath. quad bypass jul 2020 Past Anesthesia/Blood Transfusion Reactions: Motion Sickness Date of Last Stent Placement:: 04/2016 with stent placement to his OM 2, circumflex coronary artery & OM1 Past Psychological History: No Psychological Hx Reported Smoking Status: Never smoker Past Alcohol Use History: Occasional Past Drug Use History: None Reported - Past Family History Mother Family Medical History: Coronary Artery Disease (CAD) (Early onset coronary artery disease, CABG surgery in her early 50s.) Additional Family Medical History / Comment(s): ALZHEIMERS Father Family Medical History: Cancer Additional Family Medical History / Comment(s): bone and lung General Exam Limitations: no limitations General appearance: alert, in no apparent distress Head exam: Present: normocephalic, other (superficial abrasion right frontal) Eye exam: Present: normal appearance, PERRL ENT exam: Present: normal exam Neck exam: Present: normal inspection. Absent: tenderness, meningismus Respiratory exam: Present: normal lung sounds bilaterally, other (incisional dehiscence with some purulent Drainage.). Absent: respiratory distress, wheezes Cardiovascular Exam: Present: regular rate, normal rhythm GI/Abdominal exam: Present: soft. Absent: distended, tenderness Extremities exam: Present: normal inspection, normal capillary refill Neurological exam: Present: alert, oriented X3, CN II-XII intact. Absent: motor sensory deficit Psychiatric exam: Present: normal affect, normal mood Skin exam: Present: warm, dry, intact. Absent: cyanosis, diaphoretic Course Vital Signs 09/07/20 09/07/20 15:10 16:40 Temperature 97.9 F Pulse Rate 69 70 Respiratory 18 18 Rate Blood Pressure 103/60 128/76 O2 Sat by Pulse 99 97 Oximetry - Reevaluation(s) Reevaluation #1: 09/07/20 17:20 case discussed with Rudi leavitt for cardiothoracic surgery. Patient clear for outpatient follow-up. EKG Findings - EKG Comments: EKG Findings:: EKG: Normal sinus rhythm, right bundle branch block, rate of 68 FL interval 148, QRS duration 126, QTC 457 Medical Decision Making - Medical Decision Making 75-year-old presenting with near syncope, fall, minor head injury. Head CT is negative for intracranial hemorrhage, cervical spine negative for fracture subluxation, chest x-ray showing nearly completely resolved bilateral effusions. No acute findings. Patient hasmuch improved hemoglobin. He has normal white lites, mild AKA I of 1.44 creatinine. I did give 500 mL bolus per patient's vital signs remained stable. His EKG is sinus and unchanged from prior. Patient has good outpatient follow-up he will continue to increase his oral intake and hydration. - Lab Data Result diagrams: 09/07/20 15:55 09/07/20 15:55 Lab Results 09/07/20 09/07/20 09/07/20 Range/Units 15:55 15:55 15:55 WBC 9.3 (3.8-10.6) k/uL RBC 4.29 L (4.30-5.90) m/uL Hgb 12.5 L (13.0-17.5) gm/dL Hct 39.5 (39.0-53.0) % MCV 92.1 (80.0-100.0) fL MCH 29.3 (25.0-35.0) pg MCHC 31.8 (31.0-37.0) g/dL RDW 15.5 (11.5-15.5) % Plt Count 295 (150-450) k/uL Neutrophils % 86 % Lymphocytes % 5 % Monocytes % 6 % Eosinophils % 2 % Basophils % 1 % Neutrophils # 7.9 H (1.3-7.7) k/uL Lymphocytes # 0.5 L (1.0-4.8) k/uL Monocytes # 0.6 (0-1.0) k/uL Eosinophils # 0.1 (0-0.7) k/uL Basophils # 0.1 (0-0.2) k/uL Hypochromasia Slight PT 10.7 (9.0-12.0) sec INR 1.0 (<1.2) APTT 22.2 (22.0-30.0) sec Sodium 138 (137-145) mmol/L Potassium 4.1 (3.5-5.1) mmol/L Chloride 99 (98-107) mmol/L Carbon Dioxide 29 (22-30) mmol/L Anion Gap 10 mmol/L BUN 26 H (9-20) mg/dL Creatinine 1.44 H (0.66-1.25) mg/dL Est GFR (CKD-EPI)AfAm 55 (>60 ml/min/1.73 sqM) Est GFR (CKD-EPI)NonAf 48 (>60 ml/min/1.73 sqM) Glucose 79 (74-99) mg/dL Calcium 9.7 (8.4-10.2) mg/dL Magnesium 2.3 (1.6-2.3) mg/dL Total Bilirubin 0.8 (0.2-1.3) mg/dL AST 19 (17-59) U/L ALT 8 (4-49) U/L Alkaline Phosphatase 45 (38-126) U/L Troponin I (0.000-0.034) ng/mL Total Protein 7.1 (6.3-8.2) g/dL Albumin 4.4 (3.5-5.0) g/dL 09/07/20 Range/Units 15:55 WBC (3.8-10.6) k/uL RBC (4.30-5.90) m/uL Hgb (13.0-17.5) gm/dL Hct (39.0-53.0) % MCV (80.0-100.0) fL MCH (25.0-35.0) pg MCHC (31.0-37.0) g/dL RDW (11.5-15.5) % Plt Count (150-450) k/uL Neutrophils % % Lymphocytes % % Monocytes % % Eosinophils % % Basophils % % Neutrophils # (1.3-7.7) k/uL Lymphocytes # (1.0-4.8) k/uL Monocytes # (0-1.0) k/uL Eosinophils # (0-0.7) k/uL Basophils # (0-0.2) k/uL Hypochromasia PT (9.0-12.0) sec INR (<1.2) APTT (22.0-30.0) sec Sodium (137-145) mmol/L Potassium (3.5-5.1) mmol/L Chloride (98-107) mmol/L Carbon Dioxide (22-30) mmol/L Anion Gap mmol/L BUN (9-20) mg/dL Creatinine (0.66-1.25) mg/dL Est GFR (CKD-EPI)AfAm (>60 ml/min/1.73 sqM) Est GFR (CKD-EPI)NonAf (>60 ml/min/1.73 sqM) Glucose (74-99) mg/dL Calcium (8.4-10.2) mg/dL Magnesium (1.6-2.3) mg/dL Total Bilirubin (0.2-1.3) mg/dL AST (17-59) U/L ALT (4-49) U/L Alkaline Phosphatase (38-126) U/L Troponin I <0.012 (0.000-0.034) ng/mL Total Protein (6.3-8.2) g/dL Albumin (3.5-5.0) g/dL Disposition Clinical Impression: Dehydration, Syncope, Drainage from surgical wound Disposition: HOME SELF-CARE Condition: Fair Instructions (If sedation given, give patient instructions): Dehydration (ED), Syncope (ED) Is patient prescribed a controlled substance at d/c from ED?: No Referrals: Rylan Shields MD [STAFF PHYSICIAN] - 1-2 days Time of Disposition: 17:22
[2020-09-07 16:38] LABS: Basophils # (A) 0.1 k/uL (0-0.2); Basophils % (A) 1 %; Eosinophils # (A) 0.1 k/uL (0-0.7); Eosinophils % (A) 2 %; HCT 39.5 % (39.0-53.0); HGB 12.5 gm/dL (13.0-17.5); Hypochromasia Slight; Lymphocytes # (A) 0.5 k/uL (1.0-4.8); Lymphocytes % (A) 5 %; MCH 29.3 pg (25.0-35.0); MCHC 31.8 g/dL (31.0-37.0); MCV 92.1 fL (80.0-100.0); Mean Platelet Volume 8.2; Monocytes # (A) 0.6 k/uL (0-1.0); Monocytes % (A) 6 %; Neutrophils # (A) 7.9 k/uL (1.3-7.7); Neutrophils % (A) 86 %; Platelet Count 295 k/uL (150-450); RBC 4.29 m/uL (4.30-5.90); RDW 15.5 % (11.5-15.5); WBC 9.3 k/uL (3.8-10.6)
[2020-09-07 16:47] LABS: Partial Thromboplastin Time 22.2 sec (22.0-30.0); Prothrombin Time 10.7 sec (9.0-12.0)
[2020-09-07 16:48] LABS: Albumin 4.4 g/dL (3.5-5.0); Calcium 9.7 mg/dL (8.4-10.2); Magnesium 2.3 mg/dL (1.6-2.3); Potassium 4.1 mmol/L (3.5-5.1); Total Bilirubin 0.8 mg/dL (0.2-1.3); Total Protein 7.1 g/dL (6.3-8.2)
--- NOTE | 2020-09-07 17:06 | XR ---
EXAMINATION TYPE: XR chest 2V DATE OF EXAM: 09/07/2020 COMPARISON: Prior chest x-ray August 16, 2020. Prior CT chest August 24, 2020. HISTORY: Syncope and weakness. Recent CABG. TECHNIQUE: Frontal and lateral views of the chest are obtained. FINDINGS: Post-CABG changes with mediastinal clips and sternal wires 22 is redemonstrated. Persisten t small to tiny left greater than right pleural effusions improved from prior. Mild chronic parenchy mal change without new suspicious focal airspace opacity or pneumothorax. The cardiac silhouette size remains within normal limits. The osseous structures are intact. IMPRESSION: Small to tiny left greater than right pleural effusions improved from prior. No new foca l infiltrate.
--- NOTE | 2020-09-07 17:08 | CT ---
EXAMINATION TYPE: CT brain bishnu bravo DATE OF EXAM: 09/07/2020 COMPARISON: NONE HISTORY: Syncope. Right supraorbital abrasion after injury. Neck pain. CT DLP: 1443.3 mGycm. Automated Exposure Control for Dose Reduction was Utilized. TECHNIQUE: CT scan of the head and cervical spine are performed without contrast. FINDINGS: There is no acute intracranial hemorrhage or midline shift identified. Diffuse ventricula r and sulcal prominence. Some low attenuation in the white matter. The calvarium is intact. The glob es are intact and the visualized sinuses are clear. Cervical spine is visualized in its entirety from C1 through upper thoracic levels and demonstrates s traightened alignment without evidence of acute fracture or dislocation. Prevertebral soft tissue ap pears within normal limits. The C1-C2 articulation is within normal limits on the coronal images. V ertebral body heights are maintained. Moderate disc space narrowing and spurring C5-C6 level. Moderat e anterior spurring C6-C7 level. Posterior spur disc complex effaces the anterior thecal sac at C5-C6 level. Multilevel left-sided uncovertebral facet degenerative changes on axial images graded C2-C3 t hrough the C4-C5 levels. Lung apices show no pneumothorax. IMPRESSION: 1. There is no acute fracture or dislocation evident in the cervical spine. 2. No acute intracranial hemorrhage or midline shift is seen. [id number] diffuse cerebral atrop hy and mild chronic small vessel ischemic change.
[2020-09-07 17:40] VITALS: BP 134/81; PULSE 71; TEMP 98.5
== END 2020-09-07 17:36 | disposition home or self-care (01) ==
LOC: EC 15:05
DX: E86.0 Dehydration (principal); R55 Syncope and collapse; T81.89XA Other complications of procedures, not elsewhere classified, initial encounter; I25.119 Atherosclerotic heart disease of native coronary artery with unspecified angina pectoris; I10 Essential (primary) hypertension; E11.9 Type 2 diabetes mellitus without complications; E78.5 Hyperlipidemia, unspecified; G47.30 Sleep apnea, unspecified; Z79.899 Other long term (current) drug therapy; Z88.0 Allergy status to penicillin; Z88.8 Allergy status to other drugs, medicaments and biological substances; Z88.6 Allergy status to analgesic agent; Z99.89 Dependence on other enabling machines and devices; Z95.5 Presence of coronary angioplasty implant and graft; Z79.02 Long term (current) use of antithrombotics/antiplatelets; Z79.82 Long term (current) use of aspirin; Z95.1 Presence of aortocoronary bypass graft
CPT/HCPCS: 70450; 71046; 72125; 80053; 83735; 84484; 85025; 85610; 85730; 93005; 99285

== ENCOUNTER 2020-09-20 13:59 | Emergency (ER) | payer MEDICARE ==
[2020-09-20 14:19] VITALS: TEMP 97.9
[2020-09-20] MEDS ORDERED: SODIUM CHLORIDE 0.9% 1,000 ML IV STA (14:38)
--- NOTE | 2020-09-20 14:38 | ED ---
General Adult HPI - General Chief complaint: Neuro Symptoms/Deficit Stated complaint: Slurred speach, altered mental status Time Seen by Provider: 09/20/20 14:25 Source: patient, RN notes reviewed Mode of arrival: ambulatory Limitations: no limitations - History of Present Illness Initial comments: Patient is a pleasant 75-year-old male presenting to the emergency Department with episode of garbled speech. Episode occurred around noon. Symptoms lasted around 5 minutes and resolved.o history of similar symptoms previously. Speech was more garbled rather than slurred as described by the . Patient did not feel confused. No weakness. Patient did fall and have a head injury 1 week ago. Patient did have head CT done at that time that was reported as normal. Patient also hadopen-heart surgery 2 months ago and still has a wound VAC in the sternal region. - Related Data Home Medications Medication Instructions Recorded Confirmed Ubidecarenone [Co Q-10] 200 mg PO DAILY 11/20/15 08/24/20 Tamsulosin [Flomax] 0.4 mg PO HS 01/18/17 08/24/20 Ezetimibe [Zetia] 10 mg PO DAILY 08/08/19 08/24/20 Fenofibrate Nanocrystallized 145 mg PO DAILY 07/21/20 08/24/20 [Fenofibrate] Psyllium Husk [Metamucil] 0.8 gm PO BID 07/21/20 08/24/20 Fluticasone Propionate [Flonase 1 spray EA NOSTRIL BID PRN 08/24/20 08/24/20 Allergy Relief] Ibuprofen [Motrin Ib] 400 mg PO HS PRN 08/24/20 08/24/20 guaiFENesin [Mucinex] 600 mg PO Q12H PRN 08/24/20 08/24/20 Previous Rx's Medication Instructions Recorded Acetaminophen Tab [Tylenol] 1,000 mg PO Q6HR PRN tab 08/06/20 Ascorbic Acid [Vitamin C] 500 mg PO BID-W/MEALS #60 tab 08/06/20 Aspirin 325 mg PO DAILY #30 tab 08/06/20 Clopidogrel [Plavix] 75 mg PO DAILY #30 tab 08/06/20 Diltiazem Oral [Cardizem*] 60 mg PO Q8HR #120 tab 08/06/20 Ferrous Sulfate [Iron (65 MG 325 mg PO BID-W/MEALS #60 tab 08/06/20 Elemental)] Glimepiride [Amaryl] 1 mg PO AC-BRKFST #30 tab 08/06/20 Metoprolol Tartrate [Lopressor] 50 mg PO BID #60 tab 08/06/20 Pantoprazole [Protonix] 40 mg PO AC-BRKFST #30 tablet. 08/06/20 Cephalexin [Keflex] 500 mg PO Q6HR 7 Days #28 cap 08/22/20 Furosemide [Lasix] 40 mg PO DAILY #30 tablet 08/24/20 Allergies Allergy/AdvReac Type Severity Reaction Status Date / Time naproxen sodium [From Aleve] Allergy Severe Anaphylaxis Verified 09/20/20 14:19 Penicillins Allergy Unknown Rash/Hives Verified 09/20/20 14:19 rosuvastatin [From Crestor] Allergy Rash/Hives Verified 09/20/20 14:19 Review of Systems ROS Statement: Those systems with pertinent positive or pertinent negative responses have been documented in the HPI. ROS Other: All systems not noted in ROS Statement are negative. Constitutional: Denies: fever Eyes: Denies: eye pain ENT: Denies: ear pain Respiratory: Denies: cough Cardiovascular: Denies: chest pain Endocrine: Denies: fatigue Gastrointestinal: Denies: abdominal pain Genitourinary: Denies: dysuria Musculoskeletal: Denies: back pain Skin: Denies: rash Neurological: Reports: as per HPI. Denies: headache, weakness, confusion Past Medical History Past Medical History: Coronary Artery Disease (CAD), Chest Pain / Angina, Diabetes Mellitus, Hyperlipidemia, Hypertension, Prostate Disorder, Renal Disease, Sleep Apnea/CPAP/BIPAP Additional Past Medical History / Comment(s): HX OF KIDNEY STONES, INNER EAR IMBALANCE, STATES HX OF " occasional BURNING FEELING to his chest with exercise and is associated with some shortness of breath", DM type 2 DIET CONTROL History of Any Multi-Drug Resistant Organisms: None Reported Past Surgical History: Coronary Bypass/CABG, Heart Catheterization With Stent, Orthopedic Surgery Additional Past Surgical History / Comment(s): GANGLION CYST X3 RT WRIST, RIGHT ELBOW SURG, angioplasty and total 8 stents, RIGHT KNEE-ARTHROSCOPIC, , hemorrhoid surgery, COLONOSCOPY, recent cardiac cath. quad bypass jul 2020 Past Anesthesia/Blood Transfusion Reactions: Motion Sickness Date of Last Stent Placement:: 04/2016 with stent placement to his OM 2, circumflex coronary artery & OM1 Past Psychological History: No Psychological Hx Reported Smoking Status: Never smoker Past Alcohol Use History: Occasional Past Drug Use History: None Reported - Past Family History Mother Family Medical History: Coronary Artery Disease (CAD) (Early onset coronary artery disease, CABG surgery in her early 50s.) Additional Family Medical History / Comment(s): ALZHEIMERS Father Family Medical History: Cancer Additional Family Medical History / Comment(s): bone and lung General Exam Limitations: no limitations General appearance: alert, in no apparent distress Head exam: Present: normocephalic, other (minimal healing abrasion above the right eyebrow) Eye exam: Present: normal appearance, PERRL, EOMI. Absent: nystagmus ENT exam: Present: normal oropharynx Neck exam: Present: normal inspection Respiratory exam: Present: normal lung sounds bilaterally Cardiovascular Exam: Present: regular rate, normal rhythm GI/Abdominal exam: Present: soft. Absent: tenderness Extremities exam: Present: normal inspection Neurological exam: Present: alert, oriented X3, CN II-XII intact. Absent: motor sensory deficit Expanded Neurological exam: Present: protecting the airway Patient oriented to: Present: person, place, time Speech: Present: fluid speech Cranial nerves: EOM's Intact: Normal Sensory exam: Upper Extremity Light Touch: Normal, Lower Extremity Light Touch: Normal Motor strength exam: RUE: 5, LUE: 5, RLE: 5, LLE: 5 Eye Response: (4) open spontaneously Motor Response: (6) obeys commands Verbal Response: (5) oriented Psychiatric exam: Present: normal affect, normal mood Skin exam: Present: normal color Course Vital Signs 09/20/20 09/20/20 09/20/20 14:16 14:50 16:27 Temperature 97.9 F Pulse Rate 74 64 86 Respiratory 20 18 16 Rate Blood Pressure 128/74 129/74 117/77 O2 Sat by Pulse 98 100 98 Oximetry - Reevaluation(s) Reevaluation #1: 09/20/20 14:38 code stroke has been called. Patient is not a TPA candidate secondary to resolution of symptoms EKG Findings - EKG Comments: EKG Findings:: normal sinus rhythm 72. RI 136. QRS 126. QT 464. QTC 508. Normal axis. Right bundle branch block. Inferior Q waves. No acute ST change. Medical Decision Making - Medical Decision Making case was earlier discussed with Dr. Lackey who is in agreement that patient is not a TPA candidate. He is agreeable with transfer to [facility]. patient reevaluated and resting comfortably in bed, remained symptom free at this time. Patient and family updated on results and plan. Case was discussed with Dr. henderson at [facility], who will accept transfer. - Lab Data Result diagrams: 09/20/20 14:55 09/20/20 14:55 Lab Results 09/20/20 09/20/20 09/20/20 Range/Units 14:55 14:55 14:55 WBC 10.0 (3.8-10.6) k/uL RBC 4.24 L (4.30-5.90) m/uL Hgb 12.0 L (13.0-17.5) gm/dL Hct 37.6 L (39.0-53.0) % MCV 88.6 (80.0-100.0) fL MCH 28.2 (25.0-35.0) pg MCHC 31.8 (31.0-37.0) g/dL RDW 15.9 H (11.5-15.5) % Plt Count 249 (150-450) k/uL MPV 8.8 Neutrophils % 88 % Lymphocytes % 6 % Monocytes % 4 % Eosinophils % 1 % Basophils % 0 % Neutrophils # 8.8 H (1.3-7.7) k/uL Lymphocytes # 0.6 L (1.0-4.8) k/uL Monocytes # 0.4 (0-1.0) k/uL Eosinophils # 0.1 (0-0.7) k/uL Basophils # 0.0 (0-0.2) k/uL Hypochromasia Slight PT 10.7 (9.0-12.0) sec INR 1.0 (<1.2) APTT 22.6 (22.0-30.0) sec Sodium 139 (137-145) mmol/L Potassium 3.7 (3.5-5.1) mmol/L Chloride 104 (98-107) mmol/L Carbon Dioxide 27 (22-30) mmol/L Anion Gap 8 mmol/L BUN 24 H (9-20) mg/dL Creatinine 1.28 H (0.66-1.25) mg/dL Est GFR (CKD-EPI)AfAm 64 (>60 ml/min/1.73 sqM) Est GFR (CKD-EPI)NonAf 55 (>60 ml/min/1.73 sqM) Glucose 72 L (74-99) mg/dL Calcium 9.6 (8.4-10.2) mg/dL Total Bilirubin 0.4 (0.2-1.3) mg/dL AST 22 (17-59) U/L ALT 8 (4-49) U/L Alkaline Phosphatase 40 (38-126) U/L Total Protein 6.8 (6.3-8.2) g/dL Albumin 4.3 (3.5-5.0) g/dL - Radiology Data Radiology results: report reviewed (computed tomography scan of the brain shows atrophy unchanged, no acute cranial abnormality. CT angiosof the head and neck shows 30% stenosis distal left internal carotid artery.), image reviewed (chest x-ray shows small effusion or reaction lung bases. No heart failure.) Disposition Clinical Impression: Transient cerebral ischemia Disposition: OTHER INSTITUTION NOT DEFINED Is patient prescribed a controlled substance at d/c from ED?: No Referrals: Boni Contreras DO [Primary Care Provider] - 1-2 days Time of Disposition: 16:53 - Out of Hospital Transfer - Req. Specs Out of Hospital Transfer - Requested Specifics: Other Emergency Center
[2020-09-20 15:03] LABS: Basophils % (A) 0 %; Eosinophils # (A) 0.1 k/uL (0-0.7); Eosinophils % (A) 1 %; HCT 37.6 % (39.0-53.0); Hypochromasia Slight; Lymphocytes # (A) 0.6 k/uL (1.0-4.8); Lymphocytes % (A) 6 %; MCH 28.2 pg (25.0-35.0); MCHC 31.8 g/dL (31.0-37.0); MCV 88.6 fL (80.0-100.0); Mean Platelet Volume 8.8; Monocytes # (A) 0.4 k/uL (0-1.0); Monocytes % (A) 4 %; Neutrophils # (A) 8.8 k/uL (1.3-7.7); Neutrophils % (A) 88 %; Platelet Count 249 k/uL (150-450); RBC 4.24 m/uL (4.30-5.90); RDW 15.9 % (11.5-15.5)
[2020-09-20 15:11] LABS: Partial Thromboplastin Time 22.6 sec (22.0-30.0); Prothrombin Time 10.7 sec (9.0-12.0)
--- NOTE | 2020-09-20 15:11 | CT ---
EXAMINATION TYPE: CT brain wo con for TPA DATE OF EXAM: 09/20/2020 COMPARISON: 09/07/2020 HISTORY: Neuro deficits, acute, stroke suspected. No contrast CT DLP: 1136.8 mGycm Automated exposure control for dose reduction was used. There is mild cerebral atrophy. There is no mass effect nor midline shift. There is no sign of intrac ranial hemorrhage. Calvarium is intact. Skull base is intact. IMPRESSION: Mild atrophy unchanged. No acute intracranial abnormality.
[2020-09-20 15:22] LABS: Albumin 4.3 g/dL (3.5-5.0); Calcium 9.6 mg/dL (8.4-10.2); Potassium 3.7 mmol/L (3.5-5.1); Total Bilirubin 0.4 mg/dL (0.2-1.3); Total Protein 6.8 g/dL (6.3-8.2)
--- NOTE | 2020-09-20 15:46 | CT ---
EXAMINATION TYPE: CT angio head neck DATE OF EXAM: 09/20/2020 COMPARISON: None HISTORY: Stroke suspected CT DLP: 556.5 mGycm Automated exposure control for dose reduction was used. CONTRAST: Performed with IV Contrast, patient injected with 65 mL of Isovue 370. There are 3-D post processed images. Images obtained from the aortic arch to the vertex of the brain. FINDINGS: There is normal branching pattern of the great vessels on the aortic arch. There is bilateral arteria l flow in the subclavian arteries. There is arterial flow in the common internal and external carotid arteries bilaterally. There is minimal plaque formation at the carotid artery bifurcations and less than 5% stenosis. There is arterial flow in both vertebral arteries which are fairly symmetric. There is no evidence of carotid or vertebral artery aneurysm or dissection. There is some plaque formation and 30% stenosis of the distal left internal carotid artery at the level of the skull base. There is arterial flow in the anterior middle and posterior cerebral arteries. There is normal contra st opacification of the venous sinuses. There is arterial flow in the vertebrobasilar artery system. I see no evidence of intracranial aneurysm or neovascularity. There is no mass effect. There is no ev idence of intracranial arterial stenosis. IMPRESSION: No intracranial angiographic abnormality. 30% stenosis due to plaque formation in the distal left internal carotid artery at the skull base. No evidence of any significant stenosis at the carotid artery bifurcations.
--- NOTE | 2020-09-20 16:06 | XR ---
EXAMINATION TYPE: XR chest 2V DATE OF EXAM: 09/20/2020 COMPARISON: 09/07/2020 HISTORY: Altered mental status. Slurred speech. TECHNIQUE: FINDINGS: Heart is normal. Lungs are clear of consolidation. There is slight blunting of the costophr enic angles. There is no heart failure. There are no hilar masses. Thoracic aorta is atheromatous. Th ere are sternal wires. IMPRESSION: Small pleural effusions or pleural reaction at the lung bases unchanged. No heart failure seen. Normal heart.
[2020-09-20 16:28] VITALS: PULSE 86; RESP 16
[2020-09-20 18:46] VITALS: BP 139/79
== END 2020-09-20 18:59 | disposition other institution (70) ==
LOC: EC 13:59
DX: G45.9 Transient cerebral ischemic attack, unspecified (principal); E78.5 Hyperlipidemia, unspecified; G47.30 Sleep apnea, unspecified; Z79.899 Other long term (current) drug therapy; Z88.0 Allergy status to penicillin; Z88.6 Allergy status to analgesic agent; Z88.8 Allergy status to other drugs, medicaments and biological substances; Z95.1 Presence of aortocoronary bypass graft; Z95.5 Presence of coronary angioplasty implant and graft; Z99.89 Dependence on other enabling machines and devices
CPT/HCPCS: 36415; 93005; 80053; 85025; 85610; 85730; 71046; 70496; 70450; 70498; 99285; Q9967

== ENCOUNTER 2021-04-15 08:44 | Inpatient (IN) | payer MEDICARE ==
--- NOTE | 2021-04-15 09:08 | ED ---
Chest Pain HPI - General Chief Complaint: Chest Pain Stated Complaint: Chest pain Time Seen by Provider: 04/15/21 08:55 Source: patient, RN notes reviewed Mode of arrival: ambulatory Limitations: no limitations - History of Present Illness Initial Comments: This is a 76-year-old male with a history of cardiac disease with a total of 8 stents and a quadruple bypass who states he is just finished his cardiac rehab when he noticed that he was having exercise intolerance when using a treadmill. He started developing burning type pain in his lungs he states his normal exercise tolerance had been decreased the last day of his rehab. He states 3 days ago he started developing intermittent episodes retrosternal chest discomfort he states it feels like burning lungs when he runs too fast finger child. He states this morning he had recurrence of this pain was 8/10 severity I did resolve with nitroglycerin. He currently is asymptomatic and pain-free. 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 Mcneill at 10:30 this morning. MD Complaint: chest pain - Related Data Home Medications Medication Instructions Recorded Confirmed Tamsulosin [Flomax] 0.4 mg PO DAILY@1800 01/18/17 04/15/21 Ezetimibe [Zetia] 10 mg PO DAILY@0600 08/08/19 04/15/21 Psyllium Husk [Metamucil] 0.4 gm PO BID@0600,1800 07/21/20 04/15/21 Ibuprofen [Motrin Ib] 400 mg PO HS PRN 08/24/20 04/15/21 Aspirin 81 mg PO DAILY@0600 04/15/21 04/15/21 Clopidogrel [Plavix] 75 mg PO DAILY@0600 04/15/21 04/15/21 Diltiazem Oral [Cardizem*] 60 mg PO TID@0600,1400,2200 04/15/21 04/15/21 Evolocumab [Repatha Sureclick] 140 mg SQ Q14D 04/15/21 04/15/21 Glimepiride [Amaryl] 1 mg PO DAILY@0600 04/15/21 04/15/21 Metoprolol Tartrate [Lopressor] 50 mg PO BID@0900,1800 04/15/21 04/15/21 Pantoprazole [Protonix] 40 mg PO DAILY@0600 PRN 04/15/21 04/15/21 Previous Rx's Medication Instructions Recorded Acetaminophen Tab [Tylenol] 1,000 mg PO Q6HR PRN tab 08/06/20 Allergies Allergy/AdvReac Type Severity Reaction Status Date / Time naproxen sodium [From Aleve] Allergy Severe Anaphylaxis Verified 04/15/21 08:45 Penicillins Allergy Unknown Rash/Hives Verified 04/15/21 08:45 rosuvastatin [From Crestor] Allergy Rash/Hives Verified 04/15/21 08:45 Review of Systems ROS Statement: Those systems with pertinent positive or pertinent negative responses have been documented in the HPI. ROS Other: All systems not noted in ROS Statement are negative. EKG Findings - EKG Results: EKG: interpreted by FRANKID, sinus rhythm (Sinus bradycardia rate of 55. Interval 146 QRS 124 QT/QTC 460/440 red bundle-branch block pattern no acute ST-T wave changes seen at this time) Past Medical History Past Medical History: Coronary Artery Disease (CAD), Chest Pain / Angina, Diabetes Mellitus, Hyperlipidemia, Hypertension, Prostate Disorder, Renal Disease, Sleep Apnea/CPAP/BIPAP Additional Past Medical History / Comment(s): HX OF KIDNEY STONES, INNER EAR IMBALANCE, STATES HX OF " occasional BURNING FEELING to his chest with exercise and is associated with some shortness of breath", DM type 2 DIET CONTROL History of Any Multi-Drug Resistant Organisms: None Reported Past Surgical History: Coronary Bypass/CABG, Heart Catheterization With Stent, Orthopedic Surgery Additional Past Surgical History / Comment(s): GANGLION CYST X3 RT WRIST, RIGHT ELBOW SURG, angioplasty and total 8 stents, RIGHT KNEE-ARTHROSCOPIC, , hemorrhoid surgery, COLONOSCOPY, recent cardiac cath. quad bypass jul 2020 Past Anesthesia/Blood Transfusion Reactions: Motion Sickness Date of Last Stent Placement:: 04/2016 with stent placement to his OM 2, circumflex coronary artery & OM1 Past Psychological History: No Psychological Hx Reported Smoking Status: Never smoker Past Alcohol Use History: Occasional Past Drug Use History: None Reported - Past Family History Mother Family Medical History: Coronary Artery Disease (CAD) (Early onset coronary artery disease, CABG surgery in her early 50s.) Additional Family Medical History / Comment(s): ALZHEIMERS Father Family Medical History: Cancer Additional Family Medical History / Comment(s): bone and lung General Exam - General Exam Comments Initial Comments: This is a well-developed well-nourished awake alert oriented 3 male Limitations: no limitations General appearance: alert, in no apparent distress Head exam: Present: atraumatic, normocephalic, normal inspection Eye exam: Present: normal appearance, PERRL, EOMI. Absent: scleral icterus, conjunctival injection, periorbital swelling ENT exam: Present: normal exam, mucous membranes moist Neck exam: Present: normal inspection. Absent: tenderness, meningismus, lymphadenopathy Respiratory exam: Present: normal lung sounds bilaterally. Absent: respiratory distress, wheezes, rales, rhonchi, stridor Cardiovascular Exam: Present: regular rate, normal rhythm, normal heart sounds. Absent: systolic murmur, diastolic murmur, rubs, gallop, clicks GI/Abdominal exam: Present: soft, normal bowel sounds. Absent: distended, t enderness, guarding, rebound, rigid Extremities exam: Present: normal inspection, full ROM, normal capillary refill. Absent: tenderness, pedal edema, joint swelling, calf tenderness Back exam: Present: normal inspection Neurological exam: Present: alert, oriented X3, CN II-XII intact Psychiatric exam: Present: normal affect, normal mood Skin exam: Present: warm, dry, intact, normal color. Absent: rash Course Vital Signs 04/15/21 04/15/21 08:45 11:15 Temperature 97.5 F L Pulse Rate 62 51 L Respiratory 18 18 Rate Blood Pressure 146/78 141/79 O2 Sat by Pulse 98 98 Oximetry - Reevaluation(s) Reevaluation #1: 04/15/21 11:18 The patient did have recurring chest pain and did require heparin and nitro paste. No further pain afterwards Chest Pain MDM - MDM Imaging no acute findings I did discuss findings with the patient's patient will be admitted the case is discussed with Dr. Cory Donahue will be consulted Critical Care Time Critical Care Time: Yes Total Critical Care Time: 32 Critical Care Time: Critical care time includes initial presentation with history physical labs x- rays multiple reevaluation the patient review old charting discussed with the patient family regarding findings discussed with the main physician admission orders documentation the above Disposition Clinical Impression: Unstable angina pectoris, Chest pain Disposition: ADMITTED IP TO THIS [facility] Condition: Stable Referrals: Boni Contreras DO [Primary Care Provider] - 1-2 days
--- NOTE | 2021-04-15 09:18 | XR ---
EXAMINATION TYPE: XR chest 2V DATE OF EXAM: 04/15/2021 COMPARISON: Chest x-ray September 20, 2020 HISTORY: Chest pain today. TECHNIQUE: Frontal and lateral views of the chest are obtained. FINDINGS: There is mild chronic parenchymal changes without suspicious focal air space opacity, pleu ral effusion, or pneumothorax seen. Post-CABG changes with mediastinal clips and sternal wires is re demonstrated. The cardiac silhouette size is stable and within normal limits. The osseous structure s are demineralized. IMPRESSION: Chronic changes without acute pulmonary process.
[2021-04-15 09:29] LABS: Basophils % (A) 1 %; Eosinophils # (A) 0.2 k/uL (0-0.7); Eosinophils % (A) 3 %; HCT 47.7 % (39.0-53.0); HGB 16.4 gm/dL (13.0-17.5); Lymphocytes # (A) 0.7 k/uL (1.0-4.8); Lymphocytes % (A) 13 %; MCH 30.6 pg (25.0-35.0); MCHC 34.3 g/dL (31.0-37.0); MCV 89.2 fL (80.0-100.0); Mean Platelet Volume 8.7; Monocytes # (A) 0.4 k/uL (0-1.0); Monocytes % (A) 7 %; Neutrophils # (A) 4.1 k/uL (1.3-7.7); Neutrophils % (A) 75 %; Platelet Count 144 k/uL (150-450); RBC 5.35 m/uL (4.30-5.90); RDW 15.6 % (11.5-15.5); WBC 5.5 k/uL (3.8-10.6)
[2021-04-15] MEDS ORDERED: NITROGLYCERIN OINT 1 INCH/GM PACKET TOPICAL STA (09:32)
[2021-04-15] MEDS ORDERED: HEPARIN SODIUM 1,000 UN/ML (10ML VL) IV ONE (09:32)
[2021-04-15] MEDS ORDERED: HEPARIN SODIUM 1,000 UN/ML (10ML VL) IV PRN (09:32)
[2021-04-15 09:34] LABS: Partial Thromboplastin Time 23.2 sec (22.0-30.0); Prothrombin Time 10.4 sec (9.0-12.0)
[2021-04-15 09:36] LABS: ALT 12 U/L (4-49); AST 20 U/L (17-59); African American GFR (CKD) >90 (>60 ml/min/1.73 sqM); Albumin 4.3 g/dL (3.5-5.0); Alkaline Phosphatase 67 U/L (38-126); Anion Gap 8 mmol/L; Blood Urea Nitrogen 17 mg/dL (9-20); Calcium 9.2 mg/dL (8.4-10.2); Carbon Dioxide 24 mmol/L (22-30); Chloride 108 mmol/L (98-107); Creatine Kinase 70 U/L (55-170); Glucose 118 mg/dL (74-99); Magnesium 1.9 mg/dL (1.6-2.3); Non-African American GFR(CKD) 86 (>60 ml/min/1.73 sqM); Potassium 4.2 mmol/L (3.5-5.1); Sodium 140 mmol/L (137-145); Total Bilirubin 0.5 mg/dL (0.2-1.3); Total Protein 6.5 g/dL (6.3-8.2)
[2021-04-15] MEDS: HEPARIN SOD,PORK IN 0.45% NACL 25,000 UNIT in 0.45% NACL 1 250ML.BAG IV SCH (10:10)
[2021-04-15] MEDS ORDERED: NITROGLYCERIN SL TABS 0.4 MG TAB SUBLINGUAL PRN ×2 (11:20→21:41)
[2021-04-15] MEDS ORDERED: IBUPROFEN 400 MG TAB PO PRN (11:22)
[2021-04-15] MEDS ORDERED: ACETAMINOPHEN TAB 500 MG TAB PO PRN (11:22)
[2021-04-15] MEDS ORDERED: NON FORMULARY DRUG (Evolocumab [Repatha Sureclick] 140 MG/ML Pen.Injctr) SQ SCH (11:30)
[2021-04-15] MEDS: SODIUM CHLORIDE 0.9% 1,000 ML IV SCH ×2 (11:41→23:06)
[2021-04-15] MEDS ORDERED: NITROGLYCERIN OINT 1 INCH/GM PACKET TOPICAL SCH (12:00)
[2021-04-15] MEDS: DILTIAZEM ORAL 60 MG TAB PO SCH ×2 (16:13→23:06)
[2021-04-15] MEDS ORDERED: NITROGLYCERIN-D5W PMX 50 MG in DEXTROSE/WATER 1 250ML.BAG IV SCH (16:30)
--- NOTE | 2021-04-15 17:08 | P.HPIM ---
History of Present Illness H&P Date: 04/15/21 Chief Complaint: Chest burning History of presenting complaint: This is a very pleasant [address] Christine. 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 Since his coronary bypass patient has been doing well rather active. 4 days ago patient started noticing a burning sensation in the chest. More prominent. He is occasionally had that but normal goes away. It became more persistent 4 days ago. It did radiate to his neck and ears. No shortness of breath no dizziness nor lightheadedness no perspiration or tightness. Symptoms became more persistent now. Especially with activity. He did take a nitro the pain got better. Patient is scheduled to see Dr. Mcneill in the office this morning but because of the symptom decided to come to the ER. Admitted with unstable angina. Review of systems: GEN.: None EYES: None HEENT: None NECK: None RESPIRATORY: None CARDIOVASCULAR: As above GASTROINTESTINAL: None GENITOURINARY: None MUSCULOSKELETAL: Joint pains LYMPHATICS: None HEMATOLOGICAL: None PSYCHIATRY: None NEUROLOGICAL: As above Social history: Does not smoke. Alcohol occasionally. . Employed. Physical examination: VITAL SIGNS: 97.5, 51, 18, 141/79, 98% room air GENERAL: BMI 28, reclining in bed, not in distress EYES: Pupils equal. Conjunctiva normal. HEENT: External appearance of nose and ears normal, oral cavity grossly normal. NECK: JVD not raised; masses not palpable. HEART: First and second heart sounds are normal; no edema. LUNGS: Respiratory rate increased, decreased breath sounds. ABDOMEN: Soft, nontender, liver spleen not palpable, no masses palpable. PSYCH: Alert and oriented x3; mood and affect normal. NEUROLOGICAL: Cranial nerves grossly intact; no facial asymmetry, power and sensation grossly intact, no nystagmus. LYMPHATICS: No lymph nodes palpable in the axilla and neck INVESTIGATIONS, reviewed in the clinical context: WBC 5.5 hemoglobin 16.4 platelets 144 potassium 4.2 creatinine 0.86 Troponin I less than 0.012, 0.034, 0.230 Coronavirus [PCR] not detected EKG tracing right bundle-branch block, sinus rhythm Chest x-ray film personally reviewed by me-normal sinus rhythm, borderline cardiomegaly Assessment and plan: -Acute non-Q wave [place] Patient presents with progressive anginal symptoms over last 5 days. Responding to nitroglycerin. Troponin that started to peek. Patient on IV heparin. Will need a cardiac catheterization. Cardiology consulted. On Lopressor, aspirin Plavix. -Coronary artery disease with Quadruple coronary bypass in July 2020 Patient on Zetia, Plavix, aspirin, Lopressor, Cardizem -BPH Continue Flomax -Diabetes mellitus type 2, on oral hypoglycemic Follow Accu-Cheks with sliding scale insulin. Hold Amaryl -Hyperlipidemia Onset zeTia -Essential hypertension On Cardizem, Lopressor -Obstructive sleep apnea uses CPAP -IV heparin monitoring Care was discussed with the patient. Cardiology informed. Patient will need a cardiac catheterization. Home medications reviewed and resume. Follow Accu- Cheks Past Medical History Past Medical History: Coronary Artery Disease (CAD), Chest Pain / Angina, Diabetes Mellitus, Hyperlipidemia, Hypertension, Prostate Disorder, Renal Disease, Sleep Apnea/CPAP/BIPAP, Syncope Additional Past Medical History / Comment(s): NIDDM type II-diet controlled now, nephrolithiasis, JOSELIN with CPap use, tinnitis bilaterally, vertigo, BPH History of Any Multi-Drug Resistant Organisms: None Reported Past Surgical History: Coronary Bypass/CABG, Heart Catheterization, Heart Catheterization With Stent, Orthopedic Surgery Additional Past Surgical History / Comment(s): PCI with a total of 8 stents, 2019 CABG 4 vessel, TTT, R shoulder rotator cuff repair, R wrist cyst removed x3, R elbow surgery d/t tennis elbow, R knee arthroscopy, lithotripsy, colonoscopies, hemorrhoidectomy. Past Anesthesia/Blood Transfusion Reactions: Motion Sickness Date of Last Stent Placement:: 04/2016 Smoking Status: Never smoker - Past Family History Mother Family Medical History: Coronary Artery Disease (CAD), Dementia Additional Family Medical History / Comment(s): CABG in her early 50s Father Family Medical History: Cancer Additional Family Medical History / Comment(s): bone and lung Medications and Allergies Home Medications Medication Instructions Recorded Confirmed Type Tamsulosin [Flomax] 0.4 mg PO DAILY@1800 01/18/17 04/15/21 History Ezetimibe [Zetia] 10 mg PO DAILY@0600 08/08/19 04/15/21 History Psyllium Husk [Metamucil] 0.4 gm PO BID@0600,1800 07/21/20 04/15/21 History Acetaminophen Tab [Tylenol] 1,000 mg PO Q6HR PRN tab 08/06/20 04/15/21 Rx Ibuprofen [Motrin Ib] 400 mg PO HS PRN 08/24/20 04/15/21 History Aspirin 81 mg PO DAILY@0600 04/15/21 04/15/21 History Clopidogrel [Plavix] 75 mg PO DAILY@0600 04/15/21 04/15/21 History Diltiazem Oral [Cardizem*] 60 mg PO TID@0600,1400,2200 04/15/21 04/15/21 History Evolocumab [Repatha Sureclick] 140 mg SQ Q14D 04/15/21 04/15/21 History Glimepiride [Amaryl] 1 mg PO DAILY@00 04/15/21 04/15/21 History Metoprolol Tartrate [Lopressor] 50 mg PO BID@0900,1800 04/15/21 04/15/21 History Pantoprazole [Protonix] 40 mg PO DAILY@0600 PRN 04/15/21 04/15/21 History Allergies Allergy/AdvReac Type Severity Reaction Status Date / Time naproxen sodium [From Aleve] Allergy Severe Anaphylaxis Verified 04/15/21 08:45 Penicillins Allergy Unknown Rash/Hives Verified 04/15/21 08:45 rosuvastatin [From Crestor] Allergy Rash/Hives Verified 04/15/21 08:45 Physical Exam Vitals: Vital Signs Temp Pulse Resp BP Pulse Ox 04/15/21 16:00 55 L 18 146/90 99 04/15/21 15:00 53 L 16 133/74 99 04/15/21 14:00 53 L 18 122/67 98 04/15/21 13:00 56 L 16 144/84 99 04/15/21 12:00 53 L 18 138/79 98 04/15/21 11:15 51 L 18 141/79 98 04/15/21 11:00 49 L 18 131/73 98 04/15/21 10:00 54 L 18 142/74 96 04/15/21 09:04 66 15 98 04/15/21 08:45 97.5 F L 62 18 146/78 98 Intake and Output 04/15/21 04/15/21 04/15/21 06:59 14:59 22:59 Intake Total 66 Balance 66 Intake: Intake, IV Titration 66 Amount Heparin Sod,Pork in 0.45% 66 NaCl 25,000 unit In 0.45 % NaCl 1 250ml.bag @ 11. 789 UNITS/KG/HR 10 mls/hr IV .Q24H [facility] Rx#: [id number] Other: Weight 84.822 kg Results CBC & Chem 7: 04/15/21 08:56 04/15/21 08:56 Labs: Abnormal Lab Results - Last 24 Hours (Table) 04/15/21 04/15/21 04/15/21 Range/Units 08:56 08:56 14:54 RDW 15.6 H (11.5-15.5) % Plt Count 144 L (150-450) k/uL Lymphocytes # 0.7 L (1.0-4.8) k/uL APTT (22.0-30.0) sec Chloride 108 H (98-107) mmol/L Glucose 118 H (74-99) mg/dL Troponin I 0.230 H* (0.000-0.034) ng/mL 04/15/21 Range/Units 14:54 RDW (11.5-15.5) % Plt Count (150-450) k/uL Lymphocytes # (1.0-4.8) k/uL APTT 39.6 H (22.0-30.0) sec Chloride (98-107) mmol/L Glucose (74-99) mg/dL Troponin I (0.000-0.034) ng/mL Thrombosis Risk Factor Assmnt - Choose All That Apply Any of the Below Risk Factors Present?: Yes Each Factor Represents 1 point: Obesity (BMI >25) Other Risk Factors: Yes Each Risk Factor Represents 2 Points: Age 61-74 years Other congenital or acquired thrombophilia - If yes, enter type in comment: No Thrombosis Risk Factor Assessment Total Risk Factor Score: 3 Thrombosis Risk Factor Assessment Level: Moderate Risk
[2021-04-15] MEDS: NITROGLYCERIN OINT 1 INCH/GM PACKET TOPICAL SCH ×2 (17:16→23:08)
[2021-04-15] MEDS: INSULIN ASPART (NovoLOG) 100 UNIT/ML VIAL SQ SCH ×2 (17:56→20:24)
[2021-04-15] MEDS ORDERED: VERAPAMIL 2.5 MG/ML 2 ML AMP ONE (18:07)
[2021-04-15] MEDS ORDERED: fentaNYL (PF) 50 MCG/ML 2 ML AMP ONE (18:07)
[2021-04-15] MEDS ORDERED: LIDOCAINE 1% INJ 10MG/ML (20 ML MDV) ONE (18:07)
[2021-04-15] MEDS ORDERED: IV FLUID CONTINUATION 800 ML IV ONE (18:19)
--- NOTE | 2021-04-15 18:26 | P.CRDCN ---
History of Present Illness History of present illness: HISTORY OF PRESENTING ILLNESS This is a pleasant 76-year-old with past medical history significant for coronary artery disease status post numerous stenting in the past as well as CABG in July 2020 With ARELLANO to LAD, left radial to obtuse marginal, SVG to ramus and SVG to PDA, mild to moderate mitral regurgitation, preserved ejection fraction, hypertension, hyperlipidemia. Patient normally follows in the office with Dr. Mcneill. Patient states he only recently finished his cardiac rehab and had been doing very well since his bypass. Unfortunately this morning after marichuy ing his to the doctor's office he started developing chest pressure sensation which felt like a burning sensation similar to his prior angina. This has been going off and on since 3 days ago however this occurred at rest and was more persistent and therefore he took a nitro with mild improvement. In the emergency department he eventually became chest pain-free however the chest pain recurred despite nitroglycerin patch and extra nitroglycerin tablets. Patient's troponins were noted to be 0.012, 0.03, 0.23, 0.4 and given persistent chest pain discussion was made regarding heart catheterization and patient was agreeable. Blood work remarkable for creatinine 0.8, hemoglobin 16.4, platelets 144. REVIEW OF SYSTEMS At the time of my exam: CONSTITUTIONAL: Denies fever or chills. CARDIOVASCULAR: + chest pain, no shortness of breath, orthopnea, PND or palpitations. RESPIRATORY: Denies cough. GASTROINTESTINAL: Denies abdominal pain, diarrhea, constipation, nausea or vomit ing. MUSCULOSKELETAL: Denies myalgias. NEUROLOGIC: Denies numbness, tingling or weakness. ENDOCRINE: Denies fatigue, weight change, polydipsia or polyurina. GENITOURINARY: Denies burning, hematuria or urgency with micturation. HEMATOLOGIC: Denies history of anemia or bleeding. PHYSICAL EXAMINATION Vital signs reviewed. CONSTITUTIONAL: No apparent distress. HEENT: Head is normocephalic. Pupils are equal, round. Sclerae anicteric. Mucous membranes of the mouth are moist. No JVD. No carotid bruit. CHEST EXAMINATION: Lungs are clear to auscultation. No chest wall tenderness is noted on palpation or with deep breathing. HEART EXAMINATION: Regular rate and rhythm. S1, S2 heard. No murmurs, gallops or rub. ABDOMEN: Soft, nontender. Positive bowel sounds. EXTREMITIES: 2+ peripheral pulses, no lower extremity edema and no calf tenderness. NEUROLOGIC EXAMINATION: Patient is awake, alert and oriented x3. ASSESSMENT 1. Non-STEMI with persistent chest pain 2. Coronary artery disease status post CABG and stenting in the past 3. Hypertension 4. Hyperlipidemia 5. Mild to moderate mitral regurgitation PLAN Patient still having ongoing chest pain despite antianginals. Patient also not ed to have increase in troponins and therefore discussion was made regarding urgent heart catheterization. Patient is agreeable. Further recommendations to follow. Past Medical History Past Medical History: Coronary Artery Disease (CAD), Chest Pain / Angina, Diabetes Mellitus, Hyperlipidemia, Hypertension, Prostate Disorder, Renal Disease, Sleep Apnea/CPAP/BIPAP, Syncope Additional Past Medical History / Comment(s): NIDDM type II-diet controlled now, nephrolithiasis, JOSELIN with CPap use, tinnitis bilaterally, vertigo, BPH History of Any Multi-Drug Resistant Organisms: None Reported Past Surgical History: Coronary Bypass/CABG, Heart Catheterization, Heart Catheterization With Stent, Orthopedic Surgery Additional Past Surgical History / Comment(s): PCI with a total of 8 stents, 2020 CABG 4 vessel, TTT, R shoulder rotator cuff repair, R wrist cyst removed x3, R elbow surgery d/t tennis elbow, R knee arthroscopy, lithotripsy, colonoscopies, hemorrhoidectomy. Past Anesthesia/Blood Transfusion Reactions: Motion Sickness Date of Last Stent Placement:: 04/2016 Smoking Status: Never smoker - Past Family History Mother Family Medical History: Coronary Artery Disease (CAD), Dementia Additional Family Medical History / Comment(s): CABG in her early 50s Father Family Medical History: Cancer Additional Family Medical History / Comment(s): bone and lung Medications and Allergies Home Medications Medication Instructions Recorded Confirmed Type Tamsulosin [Flomax] 0.4 mg PO DAILY@1800 01/18/17 04/15/21 History Ezetimibe [Zetia] 10 mg PO DAILY@0600 08/08/19 04/15/21 History Psyllium Husk [Metamucil] 0.4 gm PO BID@0600,1800 07/21/20 04/15/21 History Acetaminophen Tab [Tylenol] 1,000 mg PO Q6HR PRN tab 08/06/20 04/15/21 Rx Ibuprofen [Motrin Ib] 400 mg PO HS PRN 08/24/20 04/15/21 History Aspirin 81 mg PO DAILY@00 04/15/21 04/15/21 History Clopidogrel [Plavix] 75 mg PO DAILY@59904/15/21 04/15/21 History Diltiazem Oral [Cardizem*] 60 mg PO TID@0600,1400,2200 04/15/21 04/15/21 History Evolocumab [Repatha Sureclick] 140 mg SQ Q14D 04/15/21 04/15/21 History Glimepiride [Amaryl] 1 mg PO DAILY@00 04/15/21 04/15/21 History Metoprolol Tartrate [Lopressor] 50 mg PO BID@0900,1800 04/15/21 04/15/21 History Pantoprazole [Protonix] 40 mg PO DAILY@0600 PRN 04/15/21 04/15/21 History Allergies Allergy/AdvReac Type Severity Reaction Status Date / Time naproxen sodium [From Aleve] Allergy Severe Anaphylaxis Verified 04/15/21 08:45 Penicillins Allergy Unknown Rash/Hives Verified 04/15/21 08:45 rosuvastatin [From Crestor] Allergy Rash/Hives Verified 04/15/21 08:45 Physical Exam Vitals: Vital Signs Temp Pulse Resp BP Pulse Ox 04/15/21 17:32 80 18 138/70 98 04/15/21 17:26 72 18 159/78 04/15/21 16:00 55 L 18 146/90 99 04/15/21 15:00 53 L 16 133/74 99 04/15/21 14:00 53 L 18 122/67 98 04/15/21 13:00 56 L 16 144/84 99 04/15/21 12:00 53 L 18 138/79 98 04/15/21 11:15 51 L 18 141/79 98 04/15/21 11:00 49 L 18 131/73 98 04/15/21 10:00 54 L 18 142/74 96 04/15/21 09:04 66 15 98 04/15/21 08:45 97.5 F L 62 18 146/78 98 Intake and Output 04/15/21 04/15/21 04/15/21 06:59 14:59 22:59 Intake Total 66 Balance 66 Intake: Intake, IV Titration 66 Amount Heparin Sod,Pork in 0.45% 66 NaCl 25,000 unit In 0.45 % NaCl 1 250ml.bag @ 11. 789 UNITS/KG/HR 10 mls/hr IV .Q24H [facility] Rx#: [id number] Other: Weight 84.822 kg Results 04/15/21 08:56 04/15/21 08:56 Cardiac Enzymes 04/15/21 04/15/21 04/15/21 Range/Units 08:56 08:56 11:53 AST 20 (17-59) U/L Troponin I <0.012 0.034 (0.000-0.034) ng/mL 04/15/21 04/15/21 Range/Units 14:54 17:16 AST (17-59) U/L Troponin I 0.230 H* 0.423 H* (0.000-0.034) ng/mL Coagulation 04/15/21 04/15/21 Range/Units 08:56 14:54 PT 10.4 (9.0-12.0) sec APTT 23.2 39.6 H (22.0-30.0) sec CBC 04/15/21 Range/Units 08:56 WBC 5.5 (3.8-10.6) k/uL RBC 5.35 (4.30-5.90) m/uL Hgb 16.4 (13.0-17.5) gm/dL Hct 47.7 (39.0-53.0) % Plt Count 144 L (150-450) k/uL Comprehensive Metabolic Panel 04/15/21 Range/Units 08:56 Sodium 140 (137-145) mmol/L Potassium 4.2 (3.5-5.1) mmol/L Chloride 108 H (98-107) mmol/L Carbon Dioxide 24 (22-30) mmol/L BUN 17 (9-20) mg/dL Creatinine 0.86 (0.66-1.25) mg/dL Glucose 118 H (74-99) mg/dL Calcium 9.2 (8.4-10.2) mg/dL AST 20 (17-59) U/L ALT 12 (4-49) U/L Alkaline Phosphatase 67 (38-126) U/L Total Protein 6.5 (6.3-8.2) g/dL Albumin 4.3 (3.5-5.0) g/dL Current Medications Generic Name Dose Route Start Last Admin Trade Name Freq PRN Reason Stop Dose Admin Acetaminophen 1,000 mg 04/15/21 11:22 Acetaminophen Tab 500 Mg Tab PO Q6HR PRN Fever and/ or Pain Aspirin 325 mg 04/16/21 09:00 Aspirin 325 Mg Tab PO DAILY [facility] Clopidogrel Bisulfate 75 mg 04/16/21 06:00 Clopidogrel 75 Mg Tab PO DAILY@0600 [facility] Diltiazem HCl 60 mg 04/15/21 14:00 04/15/21 16:13 Diltiazem Oral 60 Mg Tab PO Not Given TID@0600,1400,2200 [facility] Ezetimibe 10 mg 04/16/21 06:00 Ezetimibe 10 Mg Tab PO DAILY@0600 [facility] Glimepiride 1 mg 04/16/21 06:00 Glimepiride 1 Mg Tab PO DAILY@0600 [facility] Heparin Sodium (Porcine) 0 unit 04/15/21 09:32 04/15/21 16:48 Heparin Sodium 1,000 Un/Ml (10ml Vl) IV 2,120 unit PER PROTOCOL PRN Administration Low PTT Protocol Heparin Sodium/Sodium Chloride 250 mls @ 10 mls/hr 04/15/21 09:45 04/15/21 16:46 25,000 unit/ Sodium Chloride IV 13.789 units/kg/hr .Q24H [facility] 11.696 mls/hr Titration Protocol 11.789 UNITS/KG/HR Sodium Chloride 1,000 mls @ 20 mls/hr 04/15/21 11:30 04/15/21 11:41 Saline 0.9% IV 20 mls/hr .Q24H [facility] Administration Ibuprofen 400 mg 04/15/21 11:22 Ibuprofen 400 Mg Tab PO HS PRN Pain or Fever > 100.5 Insulin Aspart 0 unit 04/15/21 17:30 04/15/21 17:56 Insulin Aspart (Novolog) 100 Unit/Ml Vial SQ Not Given ACHS [facility] Protocol Metoprolol Tartrate 50 mg 04/15/21 18:00 Metoprolol Tartrate 50 Mg Tab PO BID@0900,1800 [facility] Nitroglycerin 0.4 mg 04/15/21 11:20 04/15/21 17:28 Nitroglycerin Sl Tabs 0.4 Mg Tab SUBLINGUAL 0.4 mg Q5M PRN Administration Chest Pain Nitroglycerin 1 inch 04/15/21 18:00 04/15/21 17:16 Nitroglycerin Oint 1 Inch/Gm Packet TOPICAL 1 inch Q6HR [facility] Administration Non-Formulary Medication 140 mg 04/15/21 11:30 04/15/21 13:01 Evolocumab [Jaspal Friend] SQ Not Given Q14D [facility] Pantoprazole Sodium 40 mg 04/16/21 06:00 Pantoprazole 40 Mg Tablet PO DAILY@0600 PRN GERD Psyllium Hydrophilic Mucilloid 6 gm 04/15/21 18:00 Psyllium Husk 100% 6 Gm Packet PO BID@0600,1800 [facility] Tamsulosin HCl 0.4 mg 04/15/21 18:00 Tamsulosin 0.4 Mg Cap.Er.24h PO DAILY@1800 [facility] Intake and Output 04/15/21 04/15/21 04/15/21 06:59 14:59 22:59 Intake Total 66 Balance 66 Intake: Intake, IV Titration 66 Amount Heparin Sod,Pork in 0.45% 66 NaCl 25,000 unit In 0.45 % NaCl 1 250ml.bag @ 11. 789 UNITS/KG/HR 10 mls/hr IV .Q24H [facility] Rx#: [id number] Other: Weight 84.822 kg Patient Weight 04/16/21 06:59 Weight 84.822 kg 04/15/21 08:56 04/15/21 08:56
[2021-04-15] MEDS ORDERED: MIDAZOLAM 2 MG/2 ML VIAL IV ONE (18:29)
[2021-04-15] MEDS ORDERED: fentaNYL (PF) 50 MCG/ML 2 ML AMP IV ONE (18:29)
[2021-04-15] MEDS ORDERED: LIDOCAINE 1% INJ 10MG/ML (20 ML MDV) SQ ONE (18:30)
[2021-04-15] MEDS ORDERED: IOPAMIDOL-370 125ML BTL INJ ONE (18:46)
[2021-04-15] MEDS ORDERED: HEPARIN SODIUM 1,000 UN/ML (10ML VL) ONE (18:52)
[2021-04-15] MEDS: HEPARIN SODIUM 1,000 UN/ML (10ML VL) IV ONE ×2 (18:53→19:46)
[2021-04-15] MEDS: NITROGLYCERIN 1000MCG/10ML SYRINGE INTRACORON ONE ×4 (19:15→19:41)
[2021-04-15] MEDS ORDERED: IOPAMIDOL-370 100ML BTL INJ ONE ×2 (19:29→19:49)
[2021-04-15] MEDS: PSYLLIUM HUSK 100% 6 GM PACKET PO SCH (20:23)
[2021-04-15] MEDS: METOPROLOL TARTRATE 50 MG TAB PO SCH (20:31)
[2021-04-15] MEDS: TAMSULOSIN 0.4 MG CAP.ER.24H PO SCH (20:31)
[2021-04-15 20:45] LABS: Glucose,Whole Blood 87 mg/dL (75-99)
[2021-04-15] MEDS ORDERED: ZOLPIDEM 5 MG TAB PO PRN (21:41)
[2021-04-15] MEDS ORDERED: ATROPINE SULFATE 0.1 MG/ML 10ML SYRINGE IV PRN (21:41)
[2021-04-15] MEDS ORDERED: RX INFO: IV CONTRAST WAS GIVEN 1 EACH MISC MISCELLANE PRN (21:41)
[2021-04-15] MEDS ORDERED: MAG HYDROX/AL HYDROX/SIMETH 30 ML CUP PO PRN (21:41)
--- NOTE | 2021-04-15 21:41 | P.PRCINT ---
Percutaneous Coronary Int. - Percutaneous Coronary Intervention Percutaneous Coronary Intervention: PROCEDURES PERFORMED: Left heart catheterization, bilateral coronary angiography, SVG to ramus, SVG to PDA, ARELLANO to LAD and left radial to OM angiography. PCI SVG to PDA with a 2.25 x 12mm Xience NILAY, PCI of SVG to ramus with a 2.5 x 15mm Xience NILAY, Angioseal closure INDICATION: NSTEMI HISTORY: This is a pleasant 76-year-old with past medical history significant for coronary artery disease status post numerous stenting in the past as well as CABG in July 2020 With ARELLANO to LAD, left radial to obtuse marginal, SVG to ramus and SVG to PDA, mild to moderate mitral regurgitation, preserved ejection fraction, hypertension, hyperlipidemia. He has been having new onset of chest pressure similar to his prior angina and therefore came to ER. He was noted to have increasing troponins and persistent off and on chest pain despite nitro and therefore recommendation was for urgent LHC. CONSENT:I have discussed the risks, benefits and alternative therapies for the above-mentioned procedure and for both sedation/analgesia as well as necessary blood product administration, if indicated, as they pertain to this patient. The patient has indicated understanding and acceptance of the risks and procedures discussed. PROCEDURE: After the risks, benefits and alternatives of the above mentioned procedure explained in detail with the patient, informed consent was obtained. Patient was taken to the catheterization lab and prepped and draped in usual fashion. 1% lidocaine was used to anesthetize the right femoral area. A 6- [place] sheath was placed in the right femoral artery using modified Seldinger technique and micropuncture technique. Left coronary angiography was performed with a 6-[place] JL 4.0 catheter and right coronary angiography was performed with a 6-[place] JR4 catheter in various views. The 6 [place] JR4 catheter was inserted into the left ventricle and pressure measurements were obtained. SVG to ramus, left radial to OM, ARELLANO to LAD angiography were performed with the 6Fr FR4 catheter. SVG to PDA angiography was performed with a 6Fr multipurpose catheter. Patient was noted to have obstructive disease of the SVG to PDA and to ramus and unclear of the culprit and therefore the decision was made to attempt for PCI of both if contrast and radiation allowed. Heparin was given for an ACT greater than 250. The SVG to PDA was engaged with a 6Fr multipurpose 1 guide catheter. A 0.014 BMW wire was easily placed in the distal PDA. There was not adequate distal room for a filter and the vessel was noted to be small in caliber. The lesion was predilated with a 2.0 x 12mm balloon. The lesion appeared to be entirely within the SVG and therefore the decision was made to stent only the SVG portion to allow possible intervention of the marshall RCA if needed in the future. The PDA more proximal to the anastamosis appeared to have an 80% stenosis and there was some tenting of the marshall more proximal PDA portion from the anastamosis. Therefore a 2.25 x 12mm Xience NILAY was deployed in the distal SVG to PDA. The wire was pulled and final angiograms were performed. Pre intervention there was a 90% SVG to PDA stenosis and SUZIE 3 flow and post intervention there was 0% stenosis with no dissection and SUZIE 3 flow. Next a 6Fr AL 1.0 guide was used to engage the SVG to ramus. A 0.014 BMW wire was placed in the distal ramus. Predilation was performed with a 2.0 x 12mm balloon. Next a 2.5 x 15mm Xience NILAY was placed in the mid SVG to ramus. No filter was used secondary to the small caliber of the vessel. The wire was pulled and final angiograms were performed. Preintervention there was SUZIE 3 flows with 85% stenosis and post intervention there was < 10% stenosis with SUZIE 3 flow and no dissection. A right femoral angiogram was performed which showed anatomy adequate for closure. A 6Fr Angioseal was placed with hemostasis achieved. The patient tolerated the procedure well. Patient was transported back to the post catheterization holding area in stable condition. Conscious Sedation: Patient was monitored under the direct supervision of vision of myself for conscious sedation using Versed and fentanyl for a total duration of 81 minutes HEMODYNAMICS: Ao: 144/78 LV: 142/2, LVEDP 13mmHg SELECTIVE CORONARY ARTERIOGRAPHY: LEFT MAIN: The left main is a large caliber vessel which trifurcates into the LAD, ramus and circumflex. There is mild diffuse 20% stenosis. LEFT ANTERIOR DESCENDING CORONARY ARTERY: LAD is a large caliber vessel which wraps around to the apex. There is diffuse 30-40% proximal stenosis and a mid LAD 60-70% stenosis with competitive flow of the distal LAD with the ARELLANO. RAMUS INTERMEDIUS: The ramus is a small caliber vessel with a proximal 90% stenosis. LEFT CIRCUMFLEX CORONARY ARTERY: Left circumflex is a moderate caliber vessel with mild luminal irregularities. OM1 is moderate caliber and has 100% proximal stenosis. OM2 is small caliber and has a proximal stent with 30-40% instent stenosis. RIGHT CORONARY ARTERY: The right coronary artery is a moderate caliber vessel which gives off a PDA and PLV branch and is the dominant vessel. There is diffuse heavily calcified proximal to mid RCA 50-70% stenosis with previous stenting of this area. There is mainly flow into the PLV with only a trickle of competitive flow seen into the PDA from the marshall RCA. There is an 80-90% stenosis of the ostial PDA. SVG to PDA: There is a distal 90% stenosis just prior to the anastamosis with the PDA. There is small amount of tenting of the marshall PDA more proximal to the anastamosis however mild back filling of the PLV with some collaterals to the PLV. The PDA otherwise only had mild luminal irregularities. SVG to ramus: The SVG to ramus has mid 85% SVG stenosis and otherwise no significant stenosis. Left radial to OM1: Left radial to OM1 is widely patent. ARELLANO to LAD: ARELLANO to LAD is widely patent. FINAL IMPRESSION: 1. CAD as described above with relatively unchanged marshall CAD from previous cath and new SVG to ramus 85% stenosis and SVG to PDA 90% stenosis, s/p successful PCI SVG to PDA with a 2.25 x 12mm Xience NILAY, PCI of SVG to ramus with a 2.5 x 15mm Xience NILAY 2. [place] CAD including 60-70% LAD, 90% ramus, diffuse proximal to mid 50-70% RCA, 90% ostial PDA 3. Patent ARELLANO to LAD and left radial to OM1 4. Normal left sided filling pressures 5. NSTEMI PLAN: 1. Aggressive risk factor modification per most recent ACC/AHA guidelines. 2. Continue dual antiplatelets for 12 months.
[2021-04-16] MEDS ORDERED: PANTOPRAZOLE 40 MG TABLET PO PRN (06:00)
[2021-04-16] MEDS: NITROGLYCERIN OINT 1 INCH/GM PACKET TOPICAL SCH ×2 (06:01→10:49)
[2021-04-16] MEDS: PSYLLIUM HUSK 100% 6 GM PACKET PO SCH ×2 (06:01→17:12)
[2021-04-16] MEDS: INSULIN ASPART (NovoLOG) 100 UNIT/ML VIAL SQ SCH ×4 (06:02→20:09)
[2021-04-16 06:05] LABS: Glucose,Whole Blood 101 mg/dL (75-99)
[2021-04-16] MEDS: GLIMEPIRIDE 1 MG TAB PO SCH (06:10)
[2021-04-16] MEDS: EZETIMIBE 10 MG TAB PO SCH (06:10)
[2021-04-16] MEDS: DILTIAZEM ORAL 60 MG TAB PO SCH ×3 (06:10→21:28)
[2021-04-16] MEDS: CLOPIDOGREL 75 MG TAB PO SCH (06:10)
[2021-04-16] MEDS: METOPROLOL TARTRATE 50 MG TAB PO SCH ×2 (08:29→17:12)
[2021-04-16] MEDS: HEPARIN SOD,PORK IN 0.45% NACL 25,000 UNIT in 0.45% NACL 1 250ML.BAG IV SCH (08:30)
[2021-04-16] MEDS ORDERED: ASPIRIN 325 MG TAB PO SCH (09:00)
[2021-04-16] MEDS: SODIUM CHLORIDE 0.9% 1,000 ML IV SCH ×3 (09:59→23:27)
[2021-04-16 10:39] LABS: African American GFR (CKD) >90 (>60 ml/min/1.73 sqM); Non-African American GFR(CKD) 78 (>60 ml/min/1.73 sqM)
[2021-04-16 10:56] VITALS: BMI 28.0
[2021-04-16 11:53] LABS: Glucose,Whole Blood 84 mg/dL (75-99)
--- NOTE | 2021-04-16 13:36 | P.PN ---
Subjective Progress Note Date: 04/16/21 HISTORY OF PRESENT ILLNESS: This is a pleasant 76-year-old with past medical history significant for coronary artery disease status post numerous stenting in the past as well as CAB G in July 2020 With ARELLANO to LAD, left radial to obtuse marginal, SVG to ramus and SVG to PDA, mild to moderate mitral regurgitation, preserved ejection fraction, hypertension, hyperlipidemia. Patient normally follows in the office with Dr. Mcneill. Patient states he only recently finished his cardiac rehab and had been doing very well since his bypass. Unfortunately this morning after taking his to the doctor's office he started developing chest pressure sensation which felt like a burning sensation similar to his prior angina. This has been going off and on since 3 days ago however this occurred at rest and was more persistent and therefore he took a nitro with mild improvement. In the emergency department he eventually became chest pain-free however the chest pain recurred despite nitroglycerin patch and extra nitroglycerin tablets. Patient's troponins were noted to be 0.012, 0.03, 0.23, 0.4 and given persistent chest pain discussion was made regarding heart catheterization and patient was agreeable. Blood work remarkable for creatinine 0.8, hemoglobin 16.4, platelets 144. 04/16/2021 Patient underwent cardiac catheterization yesterday with Dr. Oglesby with PCI to SVG to PDA and SVG to ramus. Patient denies any further chest pain or pressure. Denies shortness of breath. Vital signs remain stable. PHYSICAL EXAM: VITAL SIGNS: Reviewed. GENERAL: Well-developed in no acute distress. NECK: Supple. No JVD or thyromegaly LUNGS: Respirations even and unlabored. Lungs essentially clear to auscultation bilaterally. HEART: Regular rate and rhythm. S1 and S2 heard. EXTREMITIES: Normal range of motion. No clubbing or cyanosis. Peripheral pulses intact. No lower extremity edema. Femoral cath site with pulse present and no hematoma noted. ASSESSMENT: Non-STEMI s/p PCI of SVG to PDA and SVG to ramus Coronary artery disease with previous CABG and previous stenting Hypertension Hyperlipidemia Ltvt-ur-jiejqnwz mitral regurgitation PLAN: Continue current cardiac medications Continue dual antiplatelet therapy with aspirin and plavix Continue treatment for hyperlipidemia with Repatha Increase activity as tolerated Anticipate discharge home tomorrow if patient remains stable. Follow up with Dr. Mcneill Nurse practitioner note has been reviewed by physician. Signing provider agrees with the documented findings, assessment, and plan of care. Objective - Vital Signs Vital signs: Vital Signs Temp 98.2 F 04/16/21 08:00 Pulse 52 L 04/16/21 11:10 Resp 18 04/16/21 11:10 BP 130/72 04/16/21 11:10 Pulse Ox 96 04/16/21 11:10 Intake & Output 04/15/21 04/16/21 04/16/21 18:59 06:59 18:59 Intake Total 737 912 2205 Balance 179 313 0472 Weight 84.822 kg 85 kg 85 kg Intake: IV 500 Intake, IV Titration 66 150 1125 Amount Heparin Sod,Pork in 0.45% 66 NaCl 25,000 unit In 0.45 % NaCl 1 250ml.bag @ 11. 789 UNITS/KG/HR 10 mls/hr IV .Q24H [place] Rx#: [id number] Sodium Chloride 0.9% 1, 150 1125 000 ml @ 75 mls/hr IV . [id number] [place] Rx#:[id number] Oral 240 Other: Voiding Method Urinal # Voids 1 2 - Labs CBC & Chem 7: 04/15/21 08:56 04/16/21 09:10 Labs: Abnormal Lab Results - Last 24 Hours (Table) 04/15/21 04/15/21 04/15/21 Range/Units 14:54 14:54 17:16 APTT 39.6 H (22.0-30.0) sec POC Glucose (mg/dL) (75-99) mg/dL Troponin I 0.230 H* 0.423 H* (0.000-0.034) ng/mL 04/15/21 04/16/21 Range/Units 22:17 06:04 APTT (22.0-30.0) sec POC Glucose (mg/dL) 101 H (75-99) mg/dL Troponin I 2.290 H* (0.000-0.034) ng/mL
--- NOTE | 2021-04-16 16:30 | P.PN ---
Progress Note - Text Progress Note Date: 04/16/21 Chief Complaint: Chest burning History of presenting complaint: This is a very pleasant [address] Christine. Chronic stable medical conditions include diabetes, hypertension, hyperlipidemia, obstructive sleep apnea, coronary artery disease with coronary bypass July 2020 patient follows with his automotive glass specialist Dr. Mcneill. Since his coronary bypass patient has been doing well rather active. 4 days ago patient started noticing a burning sensation in the chest. More prominent. He is occasionally had that but normal goes away. It became more persistent 4 days ago. It did radiate to his neck and ears. No shortness of breath no dizziness nor lightheadedness no perspiration or tightness. Symptoms became more persistent now. Especially with activity. He did take a nitro the pain got better. Patient is scheduled to see Dr. Mcneill in the office this morning but because of the symptom decided to come to the ER. Admitted with acute non-Q-wave RI Today: Yesterday evening patient taken for cardiac catheterization and placement of 2 stents. This morning laying in bed. Has been up in the hallway. No chest pain no shortness of breath. Oral intake is good. Feels better. Review of systems: Was done for constitutional, cardiovascular, GI, pulmonary. relevant finding as above Active Medications Acetaminophen (Acetaminophen Tab 500 Mg Tab) 1,000 mg PO Q6HR PRN PRN Reason: Fever and/ or Pain Al Hydroxide/Mg Hydroxide (Mag Hydrox/Al Hydrox/Simeth 30 Ml Cup) 30 ml PO Q4HR PRN PRN Reason: Heartburn Aspirin (Aspirin 81 Mg) 81 mg PO DAILY [facility] Atropine Sulfate (Atropine Sulfate 0.1 Mg/Ml 10ml Syringe) 0.5 mg IV ONCE PRN PRN Reason: Symptomatic Bradycardia Clopidogrel Bisulfate (Clopidogrel 75 Mg Tab) 75 mg PO DAILY@0600 [facility] Last Admin: 04/16/21 06:10 Dose: 75 mg Documented by: Diltiazem HCl (Diltiazem Oral 60 Mg Tab) 60 mg PO TID@0600,1400,2200 [facility] Last Admin: 04/16/21 13:57 Dose: 60 mg Documented by: Ezetimibe (Ezetimibe 10 Mg Tab) 10 mg PO DAILY@0600 [facility] Last Admin: 04/16/21 06:10 Dose: 10 mg Documented by: Glimepiride (Glimepiride 1 Mg Tab) 1 mg PO DAILY@0600 [facility] Last Admin: 04/16/21 06:10 Dose: 1 mg Documented by: Heparin Sodium (Porcine) (Heparin Sodium 1,000 Un/Ml (10ml Vl)) 0 unit IV PER PROTOCOL PRN; Protocol PRN Reason: Low PTT Last Admin: 04/15/21 16:48 Dose: 2,120 unit Documented by: Sodium Chloride (Saline 0.9%) 1,000 mls @ 20 mls/hr IV .Q24H [facility] Last Admin: 04/16/21 09:59 Dose: Not Given Documented by: Sodium Chloride (Saline 0.9%) 1,000 mls @ 75 mls/hr IV .[id number] [facility] Last Admin: 04/16/21 11:11 Dose: 75 mls/hr Documented by: Ibuprofen (Ibuprofen 400 Mg Tab) 400 mg PO HS PRN PRN Reason: Pain or Fever > 100.5 Insulin Aspart (Insulin Aspart (Novolog) 100 Unit/Ml Vial) 0 unit SQ ACHS [facility]; Protocol Last Admin: 04/16/21 11:55 Dose: Not Given Documented by: Metoprolol Tartrate (Metoprolol Tartrate 50 Mg Tab) 50 mg PO BID@0900,1800 [facility] Last Admin: 04/16/21 08:29 Dose: 50 mg Documented by: Miscellaneous Information (Rx Info: Iv Contrast Was Given 1 Each Misc) 1 each MISCELLANE DAILY PRN PRN Reason: Per Protocol Stop: 04/17/21 21:41 Nitroglycerin (Nitroglycerin Sl Tabs 0.4 Mg Tab) 0.4 mg SUBLINGUAL Q5M PRN PRN Reason: Chest Pain Last Admin: 04/15/21 17:28 Dose: 0.4 mg Documented by: Nitroglycerin (Nitroglycerin Sl Tabs 0.4 Mg Tab) 0.4 mg SUBLINGUAL Q5M PRN PRN Reason: Chest Pain Non-Formulary Medication (Evolocumab [Repatha Sureclick]) 140 mg SQ Q14D [facility] Last Admin: 04/15/21 13:01 Dose: Not Given Documented by: Pantoprazole Sodium (Pantoprazole 40 Mg Tablet) 40 mg PO DAILY@0600 PRN PRN Reason: GERD Psyllium Hydrophilic Mucilloid (Psyllium Husk 100% 6 Gm Packet) 6 gm PO BID@0600,1800 [facility] Last Admin: 04/16/21 06:01 Dose: Not Given Documented by: Tamsulosin HCl (Tamsulosin 0.4 Mg Cap.Er.24h) 0.4 mg PO DAILY@1800 [facility] Last Admin: 04/15/21 20:31 Dose: 0.4 mg Documented by: Zolpidem Tartrate (Zolpidem 5 Mg Tab) 5 mg PO HS PRN PRN Reason: Insomnia Social history: Does not smoke. Alcohol occasionally. . Employed. Physical examination: VITAL SIGNS: 98.2, 62, 16, 101/61, 98% room air GENERAL: Sitting up in a chair. His comfortable EYES: Pupils equal. Conjunctiva normal. NECK: JVD not raised; masses not palpable. HEART: First and second heart sounds are normal; no edema. LUNGS: Respiratory rate increased, decreased breath sounds. ABDOMEN: Soft, nontender, liver spleen not palpable, no masses palpable. PSYCH: Alert and oriented x3; mood and affect normal. INVESTIGATIONS, reviewed in the clinical context: WBC 5.5 hemoglobin 16.4 platelets 144 potassium 4.2 creatinine 0.86 Troponin I less than 0.012, 0.034, 0.230, 2.2 Coronavirus [PCR] not detected EKG tracing right bundle-branch block, sinus rhythm Chest x-ray film personally reviewed by me-normal sinus rhythm, borderline cardiomegaly Assessment and plan: -Acute non-Q wave RI On Lopressor, aspirin Plavix. 2 stents placed -Coronary artery disease with Quadruple coronary bypass in July 2020 Patient on Zetia, Plavix, aspirin, Lopressor, Cardizem -BPH Continue Flomax -Diabetes mellitus type 2, on oral hypoglycemic Follow Accu-Cheks with sliding scale insulin. Hold Amaryl -Hyperlipidemia Onset zeTia -Essential hypertension On Cardizem, Lopressor -Obstructive sleep apnea uses CPAP -IV heparin monitoring Care was discussed with the patient. Increase activity. Follow-up with cardiology
[2021-04-16 16:53] LABS: Glucose,Whole Blood 97 mg/dL (75-99)
[2021-04-16] MEDS: TAMSULOSIN 0.4 MG CAP.ER.24H PO SCH (17:12)
[2021-04-16 18:52] LABS: Chol/HDL Ratio 2.69; LDL Cholesterol,Calculated 22.2 mg/dL (0.0-131.0); VLDL Calculation 38.8 mg/dL (5.00-40.00)
[2021-04-16 20:09] LABS: Glucose,Whole Blood 129 mg/dL (75-99)
[2021-04-17] MEDS: CLOPIDOGREL 75 MG TAB PO SCH (06:24)
[2021-04-17] MEDS: DILTIAZEM ORAL 60 MG TAB PO SCH ×2 (06:24→13:03)
[2021-04-17] MEDS: GLIMEPIRIDE 1 MG TAB PO SCH (06:24)
[2021-04-17] MEDS: EZETIMIBE 10 MG TAB PO SCH (06:24)
[2021-04-17] MEDS: INSULIN ASPART (NovoLOG) 100 UNIT/ML VIAL SQ SCH ×2 (06:25→12:25)
[2021-04-17] MEDS: PSYLLIUM HUSK 100% 6 GM PACKET PO SCH (06:25)
[2021-04-17 06:30] LABS: Glucose,Whole Blood 97 mg/dL (75-99)
[2021-04-17] MEDS ORDERED: ASPIRIN 81 MG PO SCH (09:00)
[2021-04-17 09:32] VITALS: RESP 16; TEMP 98.5
[2021-04-17] MEDS: METOPROLOL TARTRATE 50 MG TAB PO SCH (09:36)
--- NOTE | 2021-04-17 10:47 | P.PN ---
Subjective Progress Note Date: 04/17/21 HISTORY OF PRESENT ILLNESS: This is a pleasant 76-year-old with past medical history significant for coronary artery disease status post numerous stenting in the past as well as CAB G in July 2020 With ARELLANO to LAD, left radial to obtuse marginal, SVG to ramus and SVG to PDA, mild to moderate mitral regurgitation, preserved ejection fraction, hypertension, hyperlipidemia. Patient normally follows in the office with Dr. Mcneill. Patient states he only recently finished his cardiac rehab and had been doing very well since his bypass. Unfortunately this morning after taking his to the doctor's office he started developing chest pressure sensation which felt like a burning sensation similar to his prior angina. This has been going off and on since 3 days ago however this occurred at rest and was more persistent and therefore he took a nitro with mild improvement. In the emergency department he eventually became chest pain-free however the chest pain recurred despite nitroglycerin patch and extra nitroglycerin tablets. Patient's troponins were noted to be 0.012, 0.03, 0.23, 0.4 and given persistent chest pain discussion was made regarding heart catheterization and patient was agreeable. Blood work remarkable for creatinine 0.8, hemoglobin 16.4, platelets 144. 04/16/2021 Patient underwent cardiac catheterization yesterday with Dr. Oglesby with PCI to SVG to PDA and SVG to ramus. Patient denies any further chest pain or pressure. Denies shortness of breath. Vital signs remain stable. 04/17/2021 Patient is s/p PCI with Dr. Oglesby. Patient denies chest pain or pressure. Denies shortness of breath. He has been ambulating in the hallway without difficulty. Vital signs stable. PHYSICAL EXAM: VITAL SIGNS: Reviewed. GENERAL: Well-developed in no acute distress. NECK: Supple. No JVD or thyromegaly LUNGS: Respirations even and unlabored. Lungs essentially clear to auscultation bilaterally. HEART: Regular rate and rhythm. S1 and S2 heard. EXTREMITIES: Normal range of motion. No clubbing or cyanosis. Peripheral pulses intact. No lower extremity edema. Femoral cath site with pulse present and no hematoma noted. ASSESSMENT: Non-STEMI s/p PCI of SVG to PDA and SVG to ramus Coronary artery disease with previous CABG and previous stenting Hypertension Hyperlipidemia Iqsr-vj-rephynhs mitral regurgitation PLAN: Continue current cardiac medications Continue dual antiplatelet therapy with aspirin and plavix Continue treatment for hyperlipidemia with Repatha Increase activity as tolerated Stable for discharge home today from a cardiac standpoint. Follow up with Dr. Mcneill Nurse practitioner note has been reviewed by physician. Signing provider agrees with the documented findings, assessment, and plan of care. Objective - Vital Signs Vital signs: Vital Signs Temp 98.5 F 04/17/21 09:31 Pulse 60 04/17/21 09:31 Resp 16 04/17/21 09:31 BP 146/70 04/17/21 09:31 Pulse Ox 97 04/17/21 09:31 Intake & Output 04/16/21 04/17/21 04/17/21 18:59 06:59 18:59 Intake Total 1845 600 118 Balance 1845 600 118 Weight 85 kg 84.5 kg Intake: Intake, IV Titration 1125 600 Amount Sodium Chloride 0.9% 1, 1125 600 000 ml @ 75 mls/hr IV . [id number] [place] Rx#:[id number] Oral 720 118 Other: Voiding Method Urinal # Voids 2 1 - Labs CBC & Chem 7: 04/15/21 08:56 04/16/21 09:10 Labs: Abnormal Lab Results - Last 24 Hours (Table) 04/16/21 04/16/21 Range/Units 09:10 20:07 POC Glucose (mg/dL) 129 H (75-99) mg/dL Triglycerides 194.0 H (0.0-149.0) mg/dL HDL Cholesterol 36.0 L (40.0-60.0) mg/dL
[2021-04-17 11:32] VITALS: BP 129/67; PULSE 50
[2021-04-17 12:13] LABS: Glucose,Whole Blood 88 mg/dL (75-99)
--- NOTE | 2021-04-17 18:17 | ECHOF ---
Referral Reason:NSTEMI, LV Function MEASUREMENTS -------- HEIGHT: 172.7 cm WEIGHT: 84.8 kg BP: 130/72 RVIDd: 3.9 cm (< 3.3) IVSd: 1.3 cm (0.6 - 1.1) LVIDd: 4.4 cm (3.9 - 5.3) LVPWd: 1.5 cm (0.6 - 1.1) IVSs: 1.9 cm LVIDs: 3.0 cm LVPWs: 1.7 cm LAESV Index (A-L): 34.48 ml/m Ao Diam: 3.5 cm (2.0 - 3.7) AV Cusp: 2.2 cm (1.5 - 2.6) LA Diam: 4.6 cm (2.7 - 3.8) MV EXCURSION: 22.213 mm (> 18.000) MV EF SLOPE: 102 mm/s (70 - 150) EPSS: 0.3 cm MV E Gerard: 0.85 m/s MV DecT: 212 ms MV A Gerard: 0.44 m/s MV E/A Ratio: 1.92 RAP: 5.00 mmHg RVSP: 30.69 mmHg FINDINGS -------- Sinus rhythm. This was a technically difficult study with suboptimal apical views. The left ventricular size is normal. There is mild concentric left ventricular hypertrophy. Overa ll left ventricular systolic function is mildly impaired with, an EF between 45 - 50 %. Septal wall motion is delayed and consistent with prior cardiac surgery. The right ventricle is mild to moderately enlarged. LA is moderately dilated 34-39 ml/m2 The right atrium is mildly enlarged. Lumason used Interatrial and interventricular septum intact. There is no evidence of aortic regurgitation. There is no evidence of aortic stenosis. Elmk-rt-cuhapxyy mitral regurgitation is present. Mild tricuspid regurgitation present. There is no evidence of pulmonary hypertension. The right v entricular systolic pressure, as measured by Doppler, is 30.69mmHg. There is no pulmonic regurgitation present. The aortic root size is normal. IVC Not well visulized. There is no pericardial effusion. CONCLUSIONS -------- 1. The left ventricular size is normal. 2. There is mild concentric left ventricular hypertrophy. 3. Overall left ventricular systolic function is mildly impaired with, an EF between 45 - 50 %. 4. The right ventricle is mild to moderately enlarged. 5. LA is moderately dilated 34-39 ml/m2 6. The right atrium is mildly enlarged. 7. Otwn-nf-yhdurpop mitral regurgitation is present. 8. Mild tricuspid regurgitation present. DINING SERVICE INSPECTOR: Vonnie Cassidy RDCS
--- NOTE | 2021-04-17 20:51 | P.DS ---
Providers Date of admission: 04/15/21 11:21 Expected date of discharge: 04/17/21 Attending physician: Rigoberto Ray Consults: 04/15/21 11:21 Consult Physician Urgent Consulting Provider: Ruben Grier Consult Reason/Comments: Chest pain, unstable angina Do you want consulting provider notified?: Yes 04/15/21 21:41 Consult Physician Routine Consulting Provider: [facility] Consult Reason/Comments: Post Interventional patient Do you want consulting provider notified?: Already Contacted Primary care physician: Boni Aguirre [facility] Course: Chief Complaint: Chest burning History of presenting complaint: This is a very pleasant [address] Contreras. Chronic stable medical conditions include diabetes, hypertension, hyperlipidemia, obstructive sleep apnea, coronary artery disease with coronary bypass July 2020 patient follows with his tent assembler Dr. Mcneill. Since his coronary bypass patient has been doing well rather active. 4 days ago patient started noticing a burning sensation in the chest. More prominent. He is occasionally had that but normal goes away. It became more persistent 4 days ago. It did radiate to his neck and ears. No shortness of breath no dizziness nor lightheadedness no perspiration or tightness. Symptoms became more persistent now. Especially with activity. He did take a nitro the pain got better. Patient is scheduled to see Dr. Mcneill in the office this morning but because of the symptom decided to come to the ER. Admitted with acute non-Q-wave HI cardiac catheterization : placement of 2 stents. More detail and cardiology notes Today: No chest pain or shortness of breath. Up and about. Care was discussed with the patient. Questions answered. Cleared by cardiac surgery for discharge. Consultation: Dr. Oglesby from cardiology Social history: Does not smoke. Alcohol occasionally. . Employed. Physical examination: VITAL SIGNS: Weight 8.5, 60, 16, 129/67, 97% room air GENERAL: comfortable EYES: Pupils equal. Conjunctiva normal. NECK: JVD not raised; masses not palpable. HEART: First and second heart sounds are normal; no edema. LUNGS: Respiratory rate increased, decreased breath sounds. ABDOMEN: Soft, nontender, liver spleen not palpable, no masses palpable. PSYCH: Alert and oriented x3; mood and affect normal. INVESTIGATIONS, reviewed in the clinical context: 2-D echocardiogram: Mild concentric LVH. EF 45-50%. Ocou-tr-anxoivyf mitral regurgitation WBC 5.5 hemoglobin 16.4 platelets 144 potassium 4.2 creatinine 0.86 Troponin I less than 0.012, 0.034, 0.230, 2.2 Coronavirus [PCR] not detected EKG tracing right bundle-branch block, sinus rhythm Chest x-ray film personally reviewed by me-normal sinus rhythm, borderline cardiomegaly Assessment and plan: -Acute non-Q wave HI On Lopressor, aspirin Plavix. 2 stents placed -Coronary artery disease with Quadruple coronary bypass in July 2020. 2 stents placed on the current admission Patient on Zetia, Plavix, aspirin, Lopressor, Cardizem -BPH Continue Flomax -Diabetes mellitus type 2, on oral hypoglycemic Resume home medications -Hyperlipidemia Onset zeTia -Essential hypertension On Cardizem, Lopressor -Obstructive sleep apnea uses CPAP -IV heparin monitoring Discontinued Disposition: Home Patient Condition at Discharge: Stable Plan - Discharge Summary Discharge Rx Participant: No New Discharge Prescriptions: New Nitroglycerin Sl Tabs [Nitrostat] 0.4 mg SUBLINGUAL Q5M PRN #25 tab PRN Reason: Angina Continue Tamsulosin [Flomax] 0.4 mg PO DAILY@1800 Ezetimibe [Zetia] 10 mg PO DAILY@0600 Psyllium Husk [Metamucil] 0.4 gm PO BID@0600,1800 Acetaminophen Tab [Tylenol] 1,000 mg PO Q6HR PRN tab PRN Reason: Fever And/ Or Pain Clopidogrel [Plavix] 75 mg PO DAILY@0600 Diltiazem Oral [Cardizem*] 60 mg PO TID@0600,1400,2200 Glimepiride [Amaryl] 1 mg PO DAILY@0600 Pantoprazole [Protonix] 40 mg PO DAILY@0600 PRN PRN Reason: GERD Aspirin 81 mg PO DAILY@0600 Metoprolol Tartrate [Lopressor] 50 mg PO BID@0900,1800 Evolocumab [Repatha Sureclick] 140 mg SQ Q14D Discontinued Ibuprofen [Motrin Ib] 400 mg PO HS PRN PRN Reason: Pain Or Fever > 100.5 Discharge Medication List Tamsulosin [Flomax] 0.4 mg PO DAILY@1800 01/18/17 [History] Ezetimibe [Zetia] 10 mg PO DAILY@0600 08/08/19 [History] Psyllium Husk [Metamucil] 0.4 gm PO BID@0600,1800 07/21/20 [History] Acetaminophen Tab [Tylenol] 1,000 mg PO Q6HR PRN tab 08/06/20 [Rx] Aspirin 81 mg PO DAILY@0600 04/15/21 [History] Clopidogrel [Plavix] 75 mg PO DAILY@0600 04/15/21 [History] Diltiazem Oral [Cardizem*] 60 mg PO TID@0600,1400,2200 04/15/21 [History] Evolocumab [Repatha Sureclick] 140 mg SQ Q14D 04/15/21 [History] Glimepiride [Amaryl] 1 mg PO DAILY@0604/15/21 [History] Metoprolol Tartrate [Lopressor] 50 mg PO BID@0900,1800 04/15/21 [History] Pantoprazole [Protonix] 40 mg PO DAILY@0600 PRN 04/15/21 [History] Nitroglycerin Sl Tabs [Nitrostat] 0.4 mg SUBLINGUAL Q5M PRN #25 tab 04/17/21 [Rx] Follow up Appointment(s)/Referral(s): Tyrone Mcneill MD [Family Provider] - 1 Week (Cardiology office will call you with appointment date & time. ) Boni Contreras DO [Primary Care Provider] - 1-2 days Patient Instructions/Handouts: *Surgery [facility] - After Heart Catheterization - Wardrobe Attendant Instructions Discharge Disposition: HOME SELF-CARE
== END 2021-04-17 13:15 | disposition home or self-care (01) | DRG 247 ==
LOC: EC 08:44 → 6NMEDSUR 11:21 → 3SCARD 16:28 → OBSVTOIN 04-17 07:21 → UNDODISOB 04-17 13:15
PROVIDERS: ADMIT Hospitalist; ATTEND Hospitalist
PROC: B2131ZZ Fluoroscopy of Multiple Coronary Artery Bypass Grafts using Low Osmolar Contrast (ICD-10-PCS; principal; 2021-04-15 17:48)
PROC: B2111ZZ Fluoroscopy of Multiple Coronary Arteries using Low Osmolar Contrast (ICD-10-PCS; principal; 2021-04-15 17:48)
PROC: 027135Z Dilation of Coronary Artery, Two Arteries with Two Drug-eluting Intraluminal Devices, Percutaneous Approach (ICD-10-PCS; principal; 2021-04-15 17:48)
PROC: B41F1ZZ Fluoroscopy of Right Lower Extremity Arteries using Low Osmolar Contrast (ICD-10-PCS; principal; 2021-04-15 17:48)
PROC: 4A023N7 Measurement of Cardiac Sampling and Pressure, Left Heart, Percutaneous Approach (ICD-10-PCS; principal; 2021-04-15 17:48)
DX: I21.4 Non-ST elevation (NSTEMI) myocardial infarction (principal); E11.9 Type 2 diabetes mellitus without complications; I25.710 Atherosclerosis of autologous vein coronary artery bypass graft(s) with unstable angina pectoris; Z20.822 Contact with and (suspected) exposure to COVID-19; I10 Essential (primary) hypertension; E78.5 Hyperlipidemia, unspecified; I34.0 Nonrheumatic mitral (valve) insufficiency; Z79.82 Long term (current) use of aspirin; Z79.02 Long term (current) use of antithrombotics/antiplatelets; Z79.84 Long term (current) use of oral hypoglycemic drugs; Z79.899 Other long term (current) drug therapy; G47.33 Obstructive sleep apnea (adult) (pediatric); N40.0 Benign prostatic hyperplasia without lower urinary tract symptoms; Z95.1 Presence of aortocoronary bypass graft; Z87.442 Personal history of urinary calculi; Z87.19 Personal history of other diseases of the digestive system; Z87.39 Personal history of other diseases of the musculoskeletal system and connective tissue; Z95.5 Presence of coronary angioplasty implant and graft; Z98.890 Other specified postprocedural states; Z88.6 Allergy status to analgesic agent; Z88.0 Allergy status to penicillin; Z88.8 Allergy status to other drugs, medicaments and biological substances; Z82.49 Family history of ischemic heart disease and other diseases of the circulatory system; Z81.8 Family history of other mental and behavioral disorders; Z80.1 Family history of malignant neoplasm of trachea, bronchus and lung; Z80.8 Family history of malignant neoplasm of other organs or systems
CPT/HCPCS: 36415; 71046; 80053; 80061; 82550; 82565; 83735; 83880; 84484; 85025; 85610; 85730; 87635; 93005; 93306; 93459; 96374; 99285

== ENCOUNTER → 2022-09-08 | Outpatient (CLI) | payer MEDICARE ==
[2022-09-08 14:34] LABS: HCT 44.9 % (39.6-50.0); HGB 15.3 g/dL (13.0-17.0); MCH 31.7 pg (27.0-32.0); MCHC 34.1 g/dL (32.0-37.0); Mean Platelet Volume 11.5 fL (9.5-12.2); NRBC Per 100 WBC 0 /100 WBCS (0.0-0.0); Platelet Count 194 X 10*3/uL (140-440); RBC 4.83 X 10*6/uL (4.40-5.60); RDW 13.6 % (11.5-14.5); WBC 5.61 X 10*3/uL (4.50-10.00)
== END | disposition home or self-care (01) ==
LOC: LABWHC1 10:15
PROVIDERS: ATTEND Nurse Practitioner Adult Health
DX: I48.0 Paroxysmal atrial fibrillation (principal)
CPT/HCPCS: 36415; 84443; 85027

== ENCOUNTER 2023-02-01 21:41 | Emergency (ER) | payer MEDICARE ==
[2023-02-01 21:56] VITALS: BP 142/72; PULSE 64; RESP 22; TEMP 98.2
[2023-02-01 22:27] LABS: Basophils % (A) 1 %; Eosinophils # (A) 0.2 k/uL (0-0.7); Eosinophils % (A) 3 %; HGB 15.3 gm/dL (13.0-17.5); Lymphocytes # (A) 0.9 k/uL (1.0-4.8); Lymphocytes % (A) 15 %; MCH 33.2 pg (25.0-35.0); MCHC 34.7 g/dL (31.0-37.0); MCV 95.6 fL (80.0-100.0); Mean Platelet Volume 8.7; Monocytes # (A) 0.5 k/uL (0-1.0); Monocytes % (A) 7 %; Neutrophils # (A) 4.6 k/uL (1.3-7.7); Neutrophils % (A) 73 %; Platelet Count 181 k/uL (150-450); RDW 14.4 % (11.5-15.5); WBC 6.3 k/uL (3.8-10.6)
[2023-02-01 22:38] LABS: Albumin 4.3 g/dL (3.5-5.0); Calcium 9.2 mg/dL (8.4-10.2); Potassium 4.1 mmol/L (3.5-5.1); Total Bilirubin 0.8 mg/dL (0.2-1.3); Total Protein 6.5 g/dL (6.3-8.2)
--- NOTE | 2023-02-01 22:42 | ED ---
General Adult HPI - General Chief complaint: Shortness of Breath Stated complaint: SOB Time Seen by Provider: 02/01/23 22:17 Source: patient, RN notes reviewed, old records reviewed Mode of arrival: ambulatory Limitations: no limitations - History of Present Illness Initial comments: 78 yo female presenting for intermittent dyspnea. History of CAD status post coronary bypass and multiple stents. Patient had contacted the carding utility tender who recommended the patient be seen in the emergency department if his symptoms persisted. His symptoms have been present for the past 2 weeks on and off with exertion. No chest pain. No palpitations. He has been taking a dose of Lasix as needed which is prescribed by his carding utility tender. - Related Data Home Medications Medication Instructions Recorded Confirmed Tamsulosin [Flomax] 0.4 mg PO DAILY@1800 01/18/17 04/15/21 Ezetimibe [Zetia] 10 mg PO DAILY@0600 08/08/19 04/15/21 Psyllium Husk [Metamucil] 0.4 gm PO BID@0600,1800 07/21/20 04/15/21 Aspirin 81 mg PO DAILY@0600 04/15/21 04/15/21 Clopidogrel [Plavix] 75 mg PO DAILY@0600 04/15/21 04/15/21 Diltiazem Oral [Cardizem*] 60 mg PO TID@0600,1400,2200 04/15/21 04/15/21 Evolocumab [Repatha Sureclick] 140 mg SQ Q14D 04/15/21 04/15/21 Glimepiride [Amaryl] 1 mg PO DAILY@0600 04/15/21 04/15/21 Metoprolol Tartrate [Lopressor] 50 mg PO BID@0900,1800 04/15/21 04/15/21 Pantoprazole [Protonix] 40 mg PO DAILY@0600 PRN 04/15/21 04/15/21 Previous Rx's Medication Instructions Recorded Acetaminophen Tab [Tylenol] 1,000 mg PO Q6HR PRN tab 08/06/20 Nitroglycerin Sl Tabs [Nitrostat] 0.4 mg SUBLINGUAL Q5M PRN #25 tab 04/17/21 Allergies Allergy/AdvReac Type Severity Reaction Status Date / Time naproxen sodium [From Aleve] Allergy Severe Anaphylaxis Verified 02/01/23 21:56 Penicillins Allergy Unknown Rash/Hives Verified 02/01/23 21:56 rosuvastatin [From Crestor] Allergy Rash/Hives Verified 02/01/23 21:56 Review of Systems ROS Statement: Those systems with pertinent positive or pertinent negative responses have been documented in the HPI. ROS Other: All systems not noted in ROS Statement are negative. Past Medical History Past Medical History: Coronary Artery Disease (CAD), Chest Pain / Angina, Diabetes Mellitus, Hyperlipidemia, Hypertension, Prostate Disorder, Renal Disease, Sleep Apnea/CPAP/BIPAP, Syncope Additional Past Medical History / Comment(s): NIDDM type II-diet controlled now, nephrolithiasis, JOSELIN with CPap use, tinnitis bilaterally, vertigo, BPH History of Any Multi-Drug Resistant Organisms: None Reported Past Surgical History: Coronary Bypass/CABG, Heart Catheterization, Heart Catheterization With Stent, Orthopedic Surgery Additional Past Surgical History / Comment(s): PCI with a total of 8 stents, 2019 CABG 4 vessel, TTT, R shoulder rotator cuff repair, R wrist cyst removed x3, R elbow surgery d/t tennis elbow, R knee arthroscopy, lithotripsy, colonoscopies, hemorrhoidectomy. Past Anesthesia/Blood Transfusion Reactions: Motion Sickness Date of Last Stent Placement:: 04/2016 Past Psychological History: No Psychological Hx Reported Smoking Status: Never smoker Past Alcohol Use History: None Reported Past Drug Use History: None Reported - Past Family History Mother Family Medical History: Coronary Artery Disease (CAD), Dementia Additional Family Medical History / Comment(s): CABG in her early 50s Father Family Medical History: Cancer Additional Family Medical History / Comment(s): bone and lung General Exam Limitations: no limitations General appearance: alert, in no apparent distress Head exam: Present: atraumatic, normocephalic Eye exam: Present: normal appearance, PERRL ENT exam: Present: normal exam Neck exam: Present: normal inspection. Absent: tenderness, meningismus Respiratory exam: Present: normal lung sounds bilaterally. Absent: respiratory distress, wheezes, rales Cardiovascular Exam: Present: regular rate, normal rhythm GI/Abdominal exam: Present: soft. Absent: distended, tenderness Extremities exam: Present: normal inspection. Absent: pedal edema, calf tenderness Neurological exam: Present: alert, oriented X3, CN II-XII intact. Absent: motor sensory deficit Psychiatric exam: Present: normal affect, normal mood Skin exam: Present: warm, dry, intact. Absent: cyanosis, diaphoretic Course Vital Signs 02/01/23 21:53 Temperature 98.2 F Pulse Rate 64 Respiratory 22 Rate Blood Pressure 142/72 O2 Sat by Pulse 96 Oximetry EKG Findings - EKG Comments: EKG Findings:: Artifact in V1 and V2 limiting assessment sinus rhythm with a rate of 58, normal PA interval similar QRS morphology compared to prior EKG in April 2021. Right bundle-branch block. Medical Decision Making - Medical Decision Making Was pt. sent in by a medical professional or institution (, PA, TEAM GUIDE, urgent care, hospital, or alf...) When possible be specific @ -Sent in by carding utility tender Did you speak to anyone other than the patient for history (EMS, parent, family, police, friend...)? What history was obtained from this source @ -No Did you review nursing and triage notes (agree or disagree)? Why? @ -I reviewed and agree with nursing and triage notes Were old charts reviewed (outside hosp., previous admission, EMS record, old EKG, old radiological studies, urgent care reports/EKG's, alf records)? Report findings @ -Reviewed previous EKG, previous laboratory testing Differential Diagnosis (chest pain, altered mental status, abdominal pain women, abdominal pain men, vaginal bleeding, weakness, fever, dyspnea, syncope, headache, dizziness, GI bleed, back pain, seizure, CVA, palpatations, mental health, musculoskeletal)? @ -Differential Dyspnea: Coronary syndrome, arrhythmia, tamponade, asthma, COPD, pulmonary embolism, pneumonia, pneumothorax, pulmonary effusion, anaphylaxis, diabetic ketoacidosis, flailed chest, pulmonary contusion, diaphragmatic rupture, anemia, neuromuscular, this is not meant to be an all-inclusive list. EKG interpreted by me (3pts min.). @ -As above X-rays interpreted by me (1pt min.). @ -Chest x-ray reviewed by myself, no focal pneumonia, no pneumothorax, no pulmonary edema CT interpreted by me (1pt min.). @ -None done U/S interpreted by me (1pt. min.). @ -None done What testing was considered but not performed or refused? (CT, X-rays, U/S, jonathan akers)? Why? @ -None What meds were considered but not given or refused? Why? @ -None Did you discuss the management of the patient with other professionals (professionals i.e. , PA, TEAM GUIDE, lab, RT, psych nurse, health and social care teacher, correctional supervisor lieutenant, teacher, weapons electrical engineering officer, employment evaluator/case manager)? Give summary @ -No Was smoking cessation discussed for >3mins.? @ -No Was critical care preformed (if so, how long)? @ -No Were there social determinants of health that impacted care today? How? (Homelessness, low income, unemployed, alcoholism, drug addiction, transportation, low edu. Level, literacy, decrease access to med. care, assisted, rehab)? @ -No Was there de-escalation of care discussed even if they declined (Discuss DNR or withdrawal of care, Hospice)? DNR status @ -No What co-morbidities impacted this encounter? (DM, HTN, Smoking, COPD, CAD, Cancer, CVA, ARF, Chemo, Hep., AIDS, mental health diagnosis, sleep apnea, morbid obesity)? @ -CAD Was patient admitted / discharged? Hospital course, mention meds given and route, prescriptions, significant lab abnormalities, going to OR and other pertinent info. @ -78-year-old male presenting for evaluation of occasional intermittent dyspnea over the past 2 weeks. No chest pain. EKG is stable compared to baseline. Chest x-ray is clear. He has a normal CBC, normal CMP, negative troponin, negative BMP. Patient reassured. He does have an appointment with his carding utility tender in 2 days. He's given strict return parameters. Undiagnosed new problem with uncertain prognosis? @ -No Drug Therapy requiring intensive monitoring for toxicity (Heparin, Nitro, Insulin, Cardizem)? @ -No Were any procedures done? @ -No Diagnosis/symptom? @ -Dyspnea Acute, or Chronic, or Acute on Chronic? @ -Acute Uncomplicated (without systemic symptoms) or Complicated (systemic symptoms)? @ -Uncomplicated Side effects of treatment? @ -No Exacerbation, Progression, or Severe Exacerbation? @ -No - Lab Data Result diagrams: 02/01/23 22:10 02/01/23 22:10 Lab Results 02/01/23 02/01/23 02/01/23 Range/Units 22:10 22:10 22:10 WBC 6.3 (3.8-10.6) k/uL RBC 4.60 (4.30-5.90) m/uL Hgb 15.3 (13.0-17.5) gm/dL Hct 44.0 (39.0-53.0) % MCV 95.6 (80.0-100.0) fL MCH 33.2 (25.0-35.0) pg MCHC 34.7 (31.0-37.0) g/dL RDW 14.4 (11.5-15.5) % Plt Count 181 (150-450) k/uL MPV 8.7 Neutrophils % 73 % Lymphocytes % 15 % Monocytes % 7 % Eosinophils % 3 % Basophils % 1 % Neutrophils # 4.6 (1.3-7.7) k/uL Lymphocytes # 0.9 L (1.0-4.8) k/uL Monocytes # 0.5 (0-1.0) k/uL Eosinophils # 0.2 (0-0.7) k/uL Basophils # 0.0 (0-0.2) k/uL PT 12.4 H (9.0-12.0) sec INR 1.2 H (<1.2) APTT 29.4 (22.0-30.0) sec Sodium 138 (137-145) mmol/L Potassium 4.1 (3.5-5.1) mmol/L Chloride 103 (98-107) mmol/L Carbon Dioxide 26 (22-30) mmol/L Anion Gap 9 mmol/L BUN 25 H (9-20) mg/dL Creatinine 1.52 H (0.66-1.25) mg/dL Est GFR (CKD-EPI)AfAm 51 (>60 ml/min/1.73 sqM) Est GFR (CKD-EPI)NonAf 44 (>60 ml/min/1.73 sqM) Glucose 147 H (74-99) mg/dL Calcium 9.2 (8.4-10.2) mg/dL Total Bilirubin 0.8 (0.2-1.3) mg/dL AST 24 (17-59) U/L ALT 22 (4-49) U/L Alkaline Phosphatase 38 (38-126) U/L Troponin I (0.000-0.034) ng/mL NT-Pro-B Natriuret Pep pg/mL Total Protein 6.5 (6.3-8.2) g/dL Albumin 4.3 (3.5-5.0) g/dL 02/01/23 02/01/23 Range/Units 22:10 22:10 WBC (3.8-10.6) k/uL RBC (4.30-5.90) m/uL Hgb (13.0-17.5) gm/dL Hct (39.0-53.0) % MCV (80.0-100.0) fL MCH (25.0-35.0) pg MCHC (31.0-37.0) g/dL RDW (11.5-15.5) % Plt Count (150-450) k/uL MPV Neutrophils % % Lymphocytes % % Monocytes % % Eosinophils % % Basophils % % Neutrophils # (1.3-7.7) k/uL Lymphocytes # (1.0-4.8) k/uL Monocytes # (0-1.0) k/uL Eosinophils # (0-0.7) k/uL Basophils # (0-0.2) k/uL PT (9.0-12.0) sec INR (<1.2) APTT (22.0-30.0) sec Sodium (137-145) mmol/L Potassium (3.5-5.1) mmol/L Chloride (98-107) mmol/L Carbon Dioxide (22-30) mmol/L Anion Gap mmol/L BUN (9-20) mg/dL Creatinine (0.66-1.25) mg/dL Est GFR (CKD-EPI)AfAm (>60 ml/min/1.73 sqM) Est GFR (CKD-EPI)NonAf (>60 ml/min/1.73 sqM) Glucose (74-99) mg/dL Calcium (8.4-10.2) mg/dL Total Bilirubin (0.2-1.3) mg/dL AST (17-59) U/L ALT (4-49) U/L Alkaline Phosphatase (38-126) U/L Troponin I <0.012 (0.000-0.034) ng/mL NT-Pro-B Natriuret Pep 101 pg/mL Total Protein (6.3-8.2) g/dL Albumin (3.5-5.0) g/dL Disposition Clinical Impression: Dyspnea Disposition: HOME SELF-CARE Condition: Good Instructions (If sedation given, give patient instructions): Dyspnea (ED) Is patient prescribed a controlled substance at d/c from ED?: No Referrals: Boni Contreras DO [Primary Care Provider] - 1-2 days Time of Disposition: 23:42
--- NOTE | 2023-02-01 22:54 | XR ---
EXAMINATION TYPE: XR chest 2V DATE OF EXAM: 02/01/2023 COMPARISON: 04/15/2021 HISTORY: Short of breath TECHNIQUE: 2 views FINDINGS: Heart and mediastinum are normal. Lungs are clear. Diaphragm is normal. Thoracic aorta is a theromatous. There are sternal wires. No pleural effusion. Bony thorax is intact. IMPRESSION: No active cardiopulmonary disease. No change.
[2023-02-01 23:03] LABS: INR 1.2 (<1.2); Partial Thromboplastin Time 29.4 sec (22.0-30.0); Prothrombin Time 12.4 sec (9.0-12.0)
== END 2023-02-01 23:59 | disposition home or self-care (01) ==
LOC: EC 21:41
DX: R06.00 Dyspnea, unspecified (principal); I25.10 Atherosclerotic heart disease of native coronary artery without angina pectoris; E11.9 Type 2 diabetes mellitus without complications; I10 Essential (primary) hypertension; G47.30 Sleep apnea, unspecified; Z79.84 Long term (current) use of oral hypoglycemic drugs; Z79.899 Other long term (current) drug therapy; Z79.82 Long term (current) use of aspirin; Z88.0 Allergy status to penicillin; Z88.6 Allergy status to analgesic agent; Z79.02 Long term (current) use of antithrombotics/antiplatelets
CPT/HCPCS: 36415; 71046; 80053; 83880; 84484; 85025; 85610; 85730; 93005; 99285

== ENCOUNTER 2023-05-24 12:35 | Observation (INO) | payer MEDICARE ==
[2023-05-24] MEDS ORDERED: ASPIRIN 81 MG PO STA (13:04)
--- NOTE | 2023-05-24 13:11 | ED ---
General Adult HPI - General Chief complaint: Chest Pain Stated complaint: L Upper Chest pain, had Quad Bypass 07/2020 Time Seen by Provider: 05/24/23 12:54 Source: patient, RN notes reviewed Mode of arrival: wheelchair Limitations: no limitations - History of Present Illness Initial comments: Patient is a pleasant 78-year-old male presenting to the emergency department with concerns with chest discomfort. Onset of symptoms was prior to arrival. Discomfort was mild and short lasting. Discomfort felt like sharp or tightness. Patient had mild associated dyspnea. No nausea. No diaphoresis. Patient does have previous history of 13 stents and bypass. Patient currently symptom-free. - Related Data Home Medications Medication Instructions Recorded Confirmed Tamsulosin [Flomax] 0.4 mg PO DAILY@1800 01/18/17 04/15/21 Ezetimibe [Zetia] 10 mg PO DAILY@0600 08/08/19 04/15/21 Psyllium Husk [Metamucil] 0.4 gm PO BID@0600,1800 07/21/20 04/15/21 Aspirin 81 mg PO DAILY@0600 04/15/21 04/15/21 Clopidogrel [Plavix] 75 mg PO DAILY@0600 04/15/21 04/15/21 Diltiazem Oral [Cardizem*] 60 mg PO TID@0600,1400,2200 04/15/21 04/15/21 Evolocumab [Repatha Sureclick] 140 mg SQ Q14D 04/15/21 04/15/21 Glimepiride [Amaryl] 1 mg PO DAILY@0600 04/15/21 04/15/21 Metoprolol Tartrate [Lopressor] 50 mg PO BID@0900,1800 04/15/21 04/15/21 Pantoprazole [Protonix] 40 mg PO DAILY@0600 PRN 04/15/21 04/15/21 Previous Rx's Medication Instructions Recorded Acetaminophen Tab [Tylenol] 1,000 mg PO Q6HR PRN tab 08/06/20 Nitroglycerin Sl Tabs [Nitrostat] 0.4 mg SUBLINGUAL Q5M PRN #25 tab 04/17/21 Allergies Allergy/AdvReac Type Severity Reaction Status Date / Time naproxen sodium [From Aleve] Allergy Severe Anaphylaxis Verified 05/24/23 12:52 Penicillins Allergy Unknown Rash/Hives Verified 05/24/23 12:52 rosuvastatin [From Crestor] Allergy Rash/Hives Verified 05/24/23 12:52 Review of Systems ROS Statement: Those systems with pertinent positive or pertinent negative responses have been documented in the HPI. ROS Other: All systems not noted in ROS Statement are negative. Constitutional: Denies: fever Eyes: Denies: eye pain ENT: Denies: ear pain Respiratory: Reports: as per HPI Cardiovascular: Reports: as per HPI, chest pain Endocrine: Denies: fatigue Gastrointestinal: Denies: abdominal pain Genitourinary: Denies: dysuria Musculoskeletal: Denies: back pain Skin: Denies: rash Neurological: Denies: weakness Past Medical History Past Medical History: Coronary Artery Disease (CAD), Chest Pain / Angina, Diabetes Mellitus, Hyperlipidemia, Hypertension, Prostate Disorder, Renal Disease, Sleep Apnea/CPAP/BIPAP, Syncope Additional Past Medical History / Comment(s): NIDDM type II-diet controlled now, nephrolithiasis, JOSELIN with CPap use, tinnitis bilaterally, vertigo, BPH History of Any Multi-Drug Resistant Organisms: None Reported Past Surgical History: Coronary Bypass/CABG, Heart Catheterization, Heart Catheterization With Stent, Orthopedic Surgery Additional Past Surgical History / Comment(s): PCI with a total of 8 stents, 2020 CABG 4 vessel, TTT, R shoulder rotator cuff repair, R wrist cyst removed x3, R elbow surgery d/t tennis elbow, R knee arthroscopy, lithotripsy, colonoscopies, hemorrhoidectomy. Past Anesthesia/Blood Transfusion Reactions: Motion Sickness Date of Last Stent Placement:: 04/2016 Past Psychological History: No Psychological Hx Reported Smoking Status: Never smoker Past Alcohol Use History: None Reported Past Drug Use History: None Reported - Past Family History Mother Family Medical History: Coronary Artery Disease (CAD), Dementia Additional Family Medical History / Comment(s): CABG in her early 50s Father Family Medical History: Cancer Additional Family Medical History / Comment(s): bone and lung General Exam Limitations: no limitations General appearance: alert, in no apparent distress Head exam: Present: normocephalic Eye exam: Present: normal appearance Neck exam: Present: normal inspection Respiratory exam: Present: normal lung sounds bilaterally Cardiovascular Exam: Present: regular rate, normal rhythm Expanded Peripheral pulses: 2+: Radial (R), Radial (L), Dorsalis Pedis (R), Dorsalis Ped is (L) GI/Abdominal exam: Present: soft. Absent: distended, tenderness Extremities exam: Present: normal inspection. Absent: pedal edema, calf tende rness Neurological exam: Present: alert Psychiatric exam: Present: normal affect, normal mood Skin exam: Present: normal color Course Vital Signs 05/24/23 12:50 Temperature 98.1 F Pulse Rate 63 Respiratory 18 Rate Blood Pressure 163/76 O2 Sat by Pulse 99 Oximetry EKG Findings - EKG Results: EKG: interpreted by ERMD (Left axis. Right bundle branch block.), sinus rhythm, normal ST/T Medical Decision Making - Medical Decision Making Was pt. sent in by a medical professional or institution (, PA, POWERPLANT OPERATOR, urgent care, hospital, or assisted...) When possible be specific @ -No Did you speak to anyone other than the patient for history (EMS, parent, family, police, friend...)? What history was obtained from this source @ -No Did you review nursing and triage notes (agree or disagree)? Why? @ -I reviewed and agree with nursing and triage notes Were old charts reviewed (outside hosp., previous admission, EMS record, old EKG, old radiological studies, urgent care reports/EKG's, assisted records)? Report findings @ -Old EKG reviewed Differential Diagnosis (chest pain, altered mental status, abdominal pain women, abdominal pain men, vaginal bleeding, weakness, fever, dyspnea, syncope, headache, dizziness, GI bleed, back pain, seizure, CVA, palpatations, mental health, musculoskeletal)? @ -Differential Chest Pain: Stable Angina, Unstable Angina, STEMI, NSTEMI Aortic Dissection, Pneumothorax, Musculoskeletal, Esophageal Spasm GERD, Cholecystitis, Pancreatitis, Zoster, this is not meant to be an all-inclusive list. EKG interpreted by me (3pts min.). @ -As above X-rays interpreted by me (1pt min.). @ -Chest x-ray shows atelectasis CT interpreted by me (1pt min.). @ -None done U/S interpreted by me (1pt. min.). @ -None done What testing was considered but not performed or refused? (CT, X-rays, U/S, labs)? Why? @ -None What meds were considered but not given or refused? Why? @ -None Did you discuss the management of the patient with other professionals (pr ofessionals i.e. , PA, POWERPLANT OPERATOR, lab, RT, psych nurse, social secretary, school program director, teacher, career services officer, case repairer)? Give summary @ -Case discussed with Dr. Pelaez, covering Dr. Ray, who will admit covering Dr. De Oliveira Was smoking cessation discussed for >3mins.? @ -No Was critical care preformed (if so, how long)? @ -No Were there social determinants of health that impacted care today? How? (Homelessness, low income, unemployed, alcoholism, drug addiction, transportation, low edu. Level, literacy, decrease access to med. care, fpc, rehab)? @ -No Was there de-escalation of care discussed even if they declined (Discuss DNR or withdrawal of care, Hospice)? DNR status @ -No What co-morbidities impacted this encounter? (DM, HTN, Smoking, COPD, CAD, Cancer, CVA, ARF, Chemo, Hep., AIDS, mental health diagnosis, sleep apnea, morbid obesity)? @ -None Was patient admitted / discharged? Hospital course, mention meds given and route, prescriptions, significant lab abnormalities, going to OR and other pertinent info. @ -Patient reevaluated and resting comfortably in bed. Patient symptom free at this time. Patient will be admitted for cardiac. Orders written. Undiagnosed new problem with uncertain prognosis? @ -No Drug Therapy requiring intensive monitoring for toxicity (Heparin, Nitro, Insulin, Cardizem)? @ -No Were any procedures done? @ -No Diagnosis/symptom? @ -Chest pain Acute, or Chronic, or Acute on Chronic? @ -Acute Uncomplicated (without systemic symptoms) or Complicated (systemic symptoms)? @ -default Side effects of treatment? @ -No Exacerbation, Progression, or Severe Exacerbation? @ -No Poses a threat to life or bodily function? How? (Chest pain, [place], NM, pneumonia, PE, COPD, DKA, ARF, appy, cholecystitis, CVA, Diverticulitis, Homicidal, Suicidal, threat to staff... and all critical care pts) @ -No - Lab Data Result diagrams: 05/24/23 13:10 05/24/23 13:10 Lab Results 0705/24/23 05/24/23 Range/Units 13:10 13:10 13:10 WBC 4.4 (3.8-10.6) k/uL RBC 4.85 (4.30-5.90) m/uL Hgb 15.6 (13.0-17.5) gm/dL Hct 45.9 (39.0-53.0) % MCV 94.7 (80.0-100.0) fL MCH 32.1 (25.0-35.0) pg MCHC 33.9 (31.0-37.0) g/dL RDW 14.9 (11.5-15.5) % Plt Count 171 (150-450) k/uL MPV 8.8 Neutrophils % 66 % Lymphocytes % 17 % Monocytes % 9 % Eosinophils % 5 % Basophils % 1 % Neutrophils # 2.9 (1.3-7.7) k/uL Lymphocytes # 0.7 L (1.0-4.8) k/uL Monocytes # 0.4 (0-1.0) k/uL Eosinophils # 0.2 (0-0.7) k/uL Basophils # 0.0 (0-0.2) k/uL PT 10.5 (9.0-12.0) sec INR 1.0 (<1.2) APTT 26.4 (22.0-30.0) sec D-Dimer 0.26 (<0.60) mg/L FEU Sodium 137 (137-145) mmol/L Potassium 4.4 (3.5-5.1) mmol/L Chloride 106 (98-107) mmol/L Carbon Dioxide 22 (22-30) mmol/L Anion Gap 9 mmol/L BUN 21 H (9-20) mg/dL Creatinine 1.12 (0.66-1.25) mg/dL Est GFR (CKD-EPI)AfAm 74 (>60 ml/min/1.73 sqM) Est GFR (CKD-EPI)NonAf 64 (>60 ml/min/1.73 sqM) Glucose 98 (74-99) mg/dL Calcium 8.9 (8.4-10.2) mg/dL Magnesium 2.2 (1.6-2.3) mg/dL Total Bilirubin 0.7 (0.2-1.3) mg/dL AST 23 (17-59) U/L ALT 17 (4-49) U/L Alkaline Phosphatase 47 (38-126) U/L Troponin I (0.000-0.034) ng/mL Total Protein 7.1 (6.3-8.2) g/dL Albumin 4.5 (3.5-5.0) g/dL 05/24/23 Range/Units 13:10 WBC (3.8-10.6) k/uL RBC (4.30-5.90) m/uL Hgb (13.0-17.5) gm/dL Hct (39.0-53.0) % MCV (80.0-100.0) fL MCH (25.0-35.0) pg MCHC (31.0-37.0) g/dL RDW (11.5-15.5) % Plt Count (150-450) k/uL MPV Neutrophils % % Lymphocytes % % Monocytes % % Eosinophils % % Basophils % % Neutrophils # (1.3-7.7) k/uL Lymphocytes # (1.0-4.8) k/uL Monocytes # (0-1.0) k/uL Eosinophils # (0-0.7) k/uL Basophils # (0-0.2) k/uL PT (9.0-12.0) sec INR (<1.2) APTT (22.0-30.0) sec D-Dimer (<0.60) mg/L FEU Sodium (137-145) mmol/L Potassium (3.5-5.1) mmol/L Chloride (98-107) mmol/L Carbon Dioxide (22-30) mmol/L Anion Gap mmol/L BUN (9-20) mg/dL Creatinine (0.66-1.25) mg/dL Est GFR (CKD-EPI)AfAm (>60 ml/min/1.73 sqM) Est GFR (CKD-EPI)NonAf (>60 ml/min/1.73 sqM) Glucose (74-99) mg/dL Calcium (8.4-10.2) mg/dL Magnesium (1.6-2.3) mg/dL Total Bilirubin (0.2-1.3) mg/dL AST (17-59) U/L ALT (4-49) U/L Alkaline Phosphatase (38-126) U/L Troponin I <0.012 (0.000-0.034) ng/mL Total Protein (6.3-8.2) g/dL Albumin (3.5-5.0) g/dL Disposition Clinical Impression: Chest pain Disposition: ADMITTED IP TO THIS HOSP Is patient prescribed a controlled substance at d/c from ED?: No Referrals: Boni Contreras DO [Primary Care Provider] - 1-2 days Time of Disposition: 14:35
[2023-05-24 13:34] LABS: Basophils % (A) 1 %; Eosinophils # (A) 0.2 k/uL (0-0.7); Eosinophils % (A) 5 %; HCT 45.9 % (39.0-53.0); HGB 15.6 gm/dL (13.0-17.5); Lymphocytes # (A) 0.7 k/uL (1.0-4.8); Lymphocytes % (A) 17 %; MCH 32.1 pg (25.0-35.0); MCHC 33.9 g/dL (31.0-37.0); MCV 94.7 fL (80.0-100.0); Mean Platelet Volume 8.8; Monocytes # (A) 0.4 k/uL (0-1.0); Monocytes % (A) 9 %; Neutrophils # (A) 2.9 k/uL (1.3-7.7); Neutrophils % (A) 66 %; Platelet Count 171 k/uL (150-450); RBC 4.85 m/uL (4.30-5.90); RDW 14.9 % (11.5-15.5); WBC 4.4 k/uL (3.8-10.6)
[2023-05-24 13:48] LABS: Partial Thromboplastin Time 26.4 sec (22.0-30.0); Prothrombin Time 10.5 sec (9.0-12.0)
[2023-05-24 13:49] LABS: ALT 17 U/L (4-49); AST 23 U/L (17-59); African American GFR (CKD) 74 (>60 ml/min/1.73 sqM); Albumin 4.5 g/dL (3.5-5.0); Alkaline Phosphatase 47 U/L (38-126); Anion Gap 9 mmol/L; Blood Urea Nitrogen 21 mg/dL (9-20); Calcium 8.9 mg/dL (8.4-10.2); Carbon Dioxide 22 mmol/L (22-30); Chloride 106 mmol/L (98-107); Glucose 98 mg/dL (74-99); Magnesium 2.2 mg/dL (1.6-2.3); Non-African American GFR(CKD) 64 (>60 ml/min/1.73 sqM); Potassium 4.4 mmol/L (3.5-5.1); Sodium 137 mmol/L (137-145); Total Bilirubin 0.7 mg/dL (0.2-1.3); Total Protein 7.1 g/dL (6.3-8.2)
--- NOTE | 2023-05-24 13:52 | XR ---
EXAMINATION TYPE: XR chest 2V DATE OF EXAM: 05/24/2023 COMPARISON: 01/24/2023 INDICATION: Chest pain TECHNIQUE: Frontal and lateral views of the chest are obtained. FINDINGS: The heart size is normal. The pulmonary vasculature is normal. There is some mild linear opacity at the right costophrenic angle may be some streaky atelectasis. Merle ngs otherwise appear clear. Sternotomy wires are present from prior CABG.. IMPRESSION: 1. Mild streaky atelectasis right lung base
[2023-05-24] MEDS ORDERED: NITROGLYCERIN SL TABS 0.4 MG TAB SUBLINGUAL PRN ×2 (14:35→15:20)
[2023-05-24] MEDS: NITROGLYCERIN OINT 1 INCH/GM PACKET TOPICAL SCH ×2 (14:58→18:02)
[2023-05-24] MEDS ORDERED: FUROSEMIDE 20 MG TAB PO PRN (15:20)
[2023-05-24] MEDS ORDERED: LOSARTAN 50 MG TAB PO SCH (18:00)
[2023-05-24] MEDS ORDERED: RIVAROXABAN 20 MG TAB PO SCH (18:00)
[2023-05-24] MEDS ORDERED: CYCLOBENZAPRINE 5 MG TAB PO SCH (18:00)
[2023-05-24] MEDS ORDERED: TAMSULOSIN 0.4 MG CAP.ER.24H PO SCH (18:00)
[2023-05-24] MEDS: hydrALAZINE HCL 25 MG TAB PO SCH (18:01)
[2023-05-24] MEDS: METOPROLOL TARTRATE 50 MG TAB PO SCH (18:02)
[2023-05-25] MEDS: NITROGLYCERIN OINT 1 INCH/GM PACKET TOPICAL SCH ×2 (01:24→05:02)
[2023-05-25] MEDS ORDERED: AMIODARONE 200 MG TAB PO SCH (04:00)
[2023-05-25] MEDS ORDERED: ASPIRIN 81 MG PO SCH (04:00)
[2023-05-25] MEDS ORDERED: DILTIAZEM CD 120 MG CAP.ER.24H PO SCH (04:00)
[2023-05-25 04:35] VITALS: RESP 16
[2023-05-25] MEDS: hydrALAZINE HCL 25 MG TAB PO SCH (05:01)
[2023-05-25] MEDS: EZETIMIBE 10 MG TAB PO SCH (05:01)
[2023-05-25 08:14] VITALS: BP 98/56; PULSE 72; TEMP 97.3
[2023-05-25] MEDS ORDERED: ISOSORBIDE MONONITRATE ER 30 MG TAB.ER.24H PO SCH (09:00)
[2023-05-25] MEDS ORDERED: ASPIRIN 325 MG TAB PO SCH (09:00)
[2023-05-25] MEDS: METOPROLOL TARTRATE 50 MG TAB PO SCH (09:28)
[2023-05-25 09:42] LABS: Chol/HDL Ratio 2.77 Ratio; LDL Cholesterol,Calculated 20.6 mg/dL (0.0-131.0)
--- NOTE | 2023-05-25 13:24 | P.CRDCN ---
History of Present Illness History of present illness: HISTORY OF PRESENT ILLNESS: This is a 78-year-old male with a past medical history significant for coronary artery disease with previous CABG and stenting, hypertension, hyperlipidemia, and diabetes. Patient follows in the office with Dr. Mcneill. We have been asked to see the patient in consultation for chest pain. Patient examined at the bedside. 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 He states that he was feeling in his normal state of health in the morning. Around 12:30 in the afternoon he was getting ready to leave when he felt a pain in his chest. He describes it as a lightening bolt in his chest. He also reports the tip of his tongue and lip or tingling. He states this episode only lasted 10-20 seconds. She states she did not take any sublingual nitro. He states he has had no recurrence of these symptoms. At the time of examination, the patient denies chest pain or pressure. He denies shortness of breath. The patient did have a recent nuclear stress test revealing partially reversible apical lateral defect consistent with stress-induced ischemia likely in the left circumflex territory. Medical management was recommended at that time per Dr. Mcneill. * EKG reveals sinus bradycardia with right bundle branch block. No signs of acute ischemia. * Chest xray mild streaky atelectasis right lung base. * Laboratory data: W BC 4.4. Hemoglobin 15.6. Platelet count 171. D-dimer 0.26. Sodium 137. Potassium 4.4. BUN 21. Creatinine 1.12. Troponin negative 3 * Current home cardiac medications include Lasix 20 mg daily as needed, aspirin 81 mg daily, Xarelto 20 mg daily, hydralazine 25 mg twice a day, losartan 50 mg daily, Cardizem 120 mg daily, metoprolol tartrate 50 mg twice a day, amiodarone 200 mg daily, Zetia 10 mg daily, and Repatha 140mg subcu Q14 days * Most recent echocardiogram obtained in the cardiology office in February 2023 revealed normal ejection fraction, mild TR, mild MR * Cardiac catheterization history: April 2021 with stenting of SVG to PDA and SVG to ramus * Patient underwent 4 vessel CABG in 2019 with ARELLANO to LAD, radialOM1, SVG-RI, SVG-RCA REVIEW OF SYSTEMS: At the time of my exam: CONSTITUTIONAL: Denies fever or chills. HEENT: Denies blurred vision, vision changes, or eye pain. Denies hemoptysis CARDIOVASCULAR: Denies chest pain. Denies orthopnea. Denies PND. Denies palpitations RESPIRATORY: Denies shortness of breath. GASTROINTESTINAL: Denies abdominal pain. Denies nausea or vomiting. HEMATOLOGIC: Denies bleeding disorders. GENITOURINARY: Denies any blood in urine. SKIN: Denies pruitis. Denies rash. PHYSICAL EXAM: VITAL SIGNS: Reviewed. GENERAL: Well-developed in no acute distress. HEENT: Head is normocephalic. Pupils are equal, round. Sclerae anicteric. Mucous membranes of the mouth are moist. Neck supple. No JVD or thyromegaly LUNGS: Respirations even and unlabored. Lungs essentially clear to auscultation bilaterally. HEART: Regular rate and rhythm. S1 and S2 heard. ABDOMEN: Soft. Nondistended. Nontender. EXTREMITIES: Normal range of motion. No clubbing or cyanosis. Peripheral pulses intact. No lower extremity edema NEUROLOGIC: Awake and alert. Oriented x 3. ASSESSMENT: Chest pain, atypical, troponin negative 3 Coronary artery disease with previous CABG and stenting Recent abnormal nuclear stress test, being treated medically Hypertension Hyperlipidemia Diabetes PLAN: An acute coronary event has been ruled out Resume home cardiac medications Add IMDUR 30 mg daily Patient is stable for discharge home today from a cardiac standpoint He is to follow up on an outpatient basis with Dr. Mcneill Nurse practitioner note has been reviewed by physician. Signing provider agrees with the documented findings, assessment, and plan of care. Dr. Leigh's Addendum Atypical chest pain. Troponin and EKG are negative and not suggestive of acute ischemia. Rule out of ACS CAD with prior history of 4 vessel CABG and multiple PCI. Recent nuclear stress test from 04/2023 showed reversible apical ischemia which was decided to be treated medically by primary continuous vulcanizing machine operator I agree with his current plan of treating residual cardiac ischemia with medical management. He is on good medical regimen. I will add Imdur 30 mg daily for angina. Follow-up outpatient with Dr. Mcneill I have personally seen and examined the patient. I have personally performed all the components of medical care documented above including formulating the assessment and plan. I have personally reviewed the relevant labs, imaging and other diagnostics. I have discussed this in detail with my PERSONNEL AND PAYROLL TECHNICIAN who has helped me with this documentation. I have carefully reviewed this document before fi nalizing. Total time spent reviewing medical chart, examining patient, counselling patient and documentation 45 mins Thank you for letting cardiology team participating in this patient's care. Dr. Andrew Leigh MD Cardiovascular Disease Past Medical History Past Medical History: Coronary Artery Disease (CAD), Chest Pain / Angina, Diabetes Mellitus, Hyperlipidemia, Hypertension, Prostate Disorder, Renal Disease, Sleep Apnea/CPAP/BIPAP, Syncope Additional Past Medical History / Comment(s): NIDDM type II-diet controlled now, nephrolithiasis, JOSELIN with CPap use, tinnitis bilaterally, vertigo, BPH History of Any Multi-Drug Resistant Organisms: None Reported Past Surgical History: Coronary Bypass/CABG, Heart Catheterization, Heart Catheterization With Stent, Orthopedic Surgery Additional Past Surgical History / Comment(s): PCI with a total of 8 stents, 2019 CABG 4 vessel, TTT, R shoulder rotator cuff repair, R wrist cyst removed x3, R elbow surgery d/t tennis elbow, R knee arthroscopy, lithotripsy, colonoscopies, hemorrhoidectomy. Past Anesthesia/Blood Transfusion Reactions: Motion Sickness Date of Last Stent Placement:: 04/2016 Past Psychological History: No Psychological Hx Reported Smoking Status: Never smoker Past Alcohol Use History: None Reported Past Drug Use History: None Reported - Past Family History Mother Family Medical History: Coronary Artery Disease (CAD), Dementia Additional Family Medical History / Comment(s): CABG in her early 50s Father Family Medical History: Cancer Additional Family Medical History / Comment(s): bone and lung Medications and Allergies Home Medications Medication Instructions Recorded Confirmed Type Tamsulosin [Flomax] 0.4 mg PO DAILY@1800 01/18/17 05/24/23 History Ezetimibe [Zetia] 10 mg PO DAILY@0600 08/08/19 05/24/23 History Psyllium Husk [Metamucil] 0.8 gm PO BID@0400,1800 07/21/20 05/24/23 History Evolocumab [Repatha Sureclick] 140 mg SQ Q14D 04/15/21 05/24/23 History Metoprolol Tartrate [Lopressor] 50 mg PO BID@0400,1800 04/15/21 05/24/23 History Amiodarone [Cordarone] 200 mg PO DAILY@0400 07/18/23 07/18/23 History Aspirin EC [Ecotrin Low Dose] 81 mg PO DAILY@0 05/24/23 05/24/23 History Cyclobenzaprine [Flexeril] 5 mg PO DAILY@179905/24/23 05/24/23 History Furosemide [Lasix] 20 mg PO DAILY PRN 05/24/23 05/24/23 History Losartan [Cozaar] 50 mg PO DAILY@179905/24/23 05/24/23 History Rivaroxaban [Xarelto] 20 mg PO DAILY@179905/24/23 05/24/23 History dilTIAZem HCL [dilTIAZem HCL 24Hr 120 mg PO DAILY@39905/24/23 05/24/23 History ER (Xr)] hydrALAZINE HCL [Apresoline] 25 mg PO BID@0400,1800 05/24/23 05/24/23 History Isosorbide Mononitrate ER [Imdur] 30 mg PO DAILY #90 tab 05/25/23 Rx Nitroglycerin Sl Tabs [Nitrostat] 0.4 mg SUBLINGUAL Q5M PRN #100 tab 05/25/23 Rx Allergies Allergy/AdvReac Type Severity Reaction Status Date / Time naproxen sodium [From Aleve] Allergy Severe Anaphylaxis Verified 05/24/23 14:58 Penicillins Allergy Unknown Rash/Hives Verified 05/24/23 14:58 rosuvastatin [From Crestor] Allergy Rash/Hives Verified 05/24/23 14:58 Physical Exam Vitals: Vital Signs Temp Pulse Pulse Resp BP BP Pulse Ox 05/25/23 08:01 95 05/25/23 07:00 97.3 F L 72 16 98/56 97 05/25/23 03:25 97.7 F 66 16 145/70 95 05/25/23 02:00 67 05/24/23 22:00 55 L 18 05/24/23 18:54 97.8 F 55 L 16 133/70 96 05/24/23 16:10 98.4 F 52 L 16 162/90 99 05/24/23 15:30 97.4 F L 05/24/23 15:00 52 L 19 159/85 98 05/24/23 14:20 56 L 147/76 95 05/24/23 12:50 98.1 F 63 18 163/76 99 Intake and Output 05/24/23 05/25/23 05/25/23 22:59 06:59 14:59 Intake Total 75 Balance 75 Intake: Oral 75 Other: Voiding Method Toilet # Voids 2 2 Results 05/24/23 13:10 05/24/23 13:10 Cardiac Enzymes 05/24/23 05/24/23 05/24/23 Range/Units 13:10 13:10 15:12 AST 23 (17-59) U/L Troponin I <0.012 <0.012 (0.000-0.034) ng/mL 05/24/23 Range/Units 20:34 AST (17-59) U/L Troponin I <0.012 (0.000-0.034) ng/mL Coagulation 05/24/23 Range/Units 13:10 PT 10.5 (9.0-12.0) sec APTT 26.4 (22.0-30.0) sec CBC 05/24/23 Range/Units 13:10 WBC 4.4 (3.8-10.6) k/uL RBC 4.85 (4.30-5.90) m/uL Hgb 15.6 (13.0-17.5) gm/dL Hct 45.9 (39.0-53.0) % Plt Count 171 (150-450) k/uL Comprehensive Metabolic Panel 05/24/23 Range/Units 13:10 Sodium 137 (137-145) mmol/L Potassium 4.4 (3.5-5.1) mmol/L Chloride 106 (98-107) mmol/L Carbon Dioxide 22 (22-30) mmol/L BUN 21 H (9-20) mg/dL Creatinine 1.12 (0.66-1.25) mg/dL Glucose 98 (74-99) mg/dL Calcium 8.9 (8.4-10.2) mg/dL AST 23 (17-59) U/L ALT 17 (4-49) U/L Alkaline Phosphatase 47 (38-126) U/L Total Protein 7.1 (6.3-8.2) g/dL Albumin 4.5 (3.5-5.0) g/dL Current Medications Generic Name Dose Route Start Last Admin Trade Name Freq PRN Reason Stop Dose Admin Amiodarone HCl 200 mg 05/25/23 04:00 05/25/23 05:01 Amiodarone 200 Mg Tab PO 200 mg DAILY@0400 [facility] Administration Aspirin 81 mg 05/25/23 04:00 05/25/23 05:02 Aspirin 81 Mg PO 81 mg DAILY@0400 [facility] Administration Cyclobenzaprine HCl 5 mg 05/24/23 18:00 05/24/23 17:53 Cyclobenzaprine 5 Mg Tab PO 5 mg DAILY@1800 [facility] Administration Diltiazem HCl 120 mg 05/25/23 04:00 05/25/23 05:01 Diltiazem Cd 120 Mg Cap.Er.24h PO 120 mg DAILY@0400 [facility] Administration Ezetimibe 10 mg 05/25/23 06:00 05/25/23 05:01 Ezetimibe 10 Mg Tab PO 10 mg DAILY@0600 [facility] Administration Furosemide 20 mg 05/24/23 15:20 Furosemide 20 Mg Tab PO DAILY PRN Edema Hydralazine HCl 25 mg 05/24/23 18:00 05/25/23 05:01 Hydralazine Hcl 25 Mg Tab PO 25 mg BID@0400,1800 [facility] Administration Losartan Potassium 50 mg 05/24/23 18:00 05/24/23 17:52 Losartan 50 Mg Tab PO 50 mg DAILY@1800 [facility] Administration Metoprolol Tartrate 50 mg 05/24/23 18:00 05/24/23 18:02 Metoprolol Tartrate 50 Mg Tab PO 50 mg BID@0400,1800 [facility] Administration Nitroglycerin 0.4 mg 05/24/23 14:35 Nitroglycerin Sl Tabs 0.4 Mg Tab SUBLINGUAL Q5M PRN Chest Pain Rivaroxaban 20 mg 05/24/23 18:00 05/24/23 17:56 Rivaroxaban 20 Mg Tab PO 20 mg DAILY@1800 [facility] Administration Protocol Tamsulosin HCl 0.4 mg 05/24/23 18:00 05/24/23 17:52 Tamsulosin 0.4 Mg Cap.Er.24h PO 0.4 mg DAILY@1800 [facility] Administration Intake and Output 05/24/23 05/25/23 05/25/23 22:59 06:59 14:59 Intake Total 75 Balance 75 Intake: Oral 75 Other: Voiding Method Toilet # Voids 2 2 05/24/23 13:10 05/24/23 13:10
== END 2023-05-25 15:22 | disposition home or self-care (01) ==
LOC: EC 12:35 → 6NMEDSUR 14:37
PROVIDERS: ADMIT Internal Medicine; ATTEND Internal Medicine
DX: R07.89 Other chest pain (principal); I25.10 Atherosclerotic heart disease of native coronary artery without angina pectoris; E11.9 Type 2 diabetes mellitus without complications; E78.5 Hyperlipidemia, unspecified; I10 Essential (primary) hypertension; G47.33 Obstructive sleep apnea (adult) (pediatric); N40.0 Benign prostatic hyperplasia without lower urinary tract symptoms; Z95.5 Presence of coronary angioplasty implant and graft; Z79.899 Other long term (current) drug therapy; Z79.82 Long term (current) use of aspirin; Z79.02 Long term (current) use of antithrombotics/antiplatelets; Z79.84 Long term (current) use of oral hypoglycemic drugs; Z88.0 Allergy status to penicillin; Z82.49 Family history of ischemic heart disease and other diseases of the circulatory system
CPT/HCPCS: 99285; 36415; 94760; 93005; 85379; 80061; 80053; 83735; 84484; 85025; 85610; 85730; 71046; G0378 ×2

== ENCOUNTER → 2024-04-21 | Outpatient (CLI) | payer MEDICARE ==
[2024-04-21 13:16] LABS: ALT 17 U/L (10-49); AST 16 U/L (14-35); Albumin 4.4 g/dL (3.8-4.9); Albumin/Globulin Ratio 2.32 Ratio (1.60-3.17); Alkaline Phosphatase 40 U/L (41-126); BUN/Creat Ratio 22.82 Ratio (12.00-20.00); Blood Urea Nitrogen 25.1 mg/dL (9.0-27.0); Calcium 8.9 mg/dL (8.7-10.3); Carbon Dioxide 22.1 mmol/L (21.6-31.8); Chloride 107 mmol/L (96-109); Chol/HDL Ratio 2.71 Ratio; Globulin 1.9 g/dL (1.6-3.3); Glucose 110 mg/dL (70-110); Potassium 4.2 mmol/L (3.5-5.5); Sodium 142 mmol/L (135-145); Total Bilirubin 0.5 mg/dL (0.3-1.2); Total Protein 6.3 g/dL (6.2-8.2)
== END | disposition home or self-care (01) ==
LOC: LABWHC1 07:48
PROVIDERS: ATTEND Internal Medicine Interventional Cardiology
DX: E78.2 Mixed hyperlipidemia (principal)
CPT/HCPCS: 36415; 80053; 80061

== ENCOUNTER 2024-05-25 21:36 | Emergency (ER) | payer MEDICARE ==
[2024-05-25] MEDS: FLUORESCEIN STRIPS 1 MG STRIP RIGHT EYE ONE (22:14)
[2024-05-25] MEDS: PROPARACAINE 0.5% OPHTH DROPS 15 ML BTL RIGHT EYE STA (22:14)
--- NOTE | 2024-05-25 22:14 | ED ---
Eye Problem HPI - General Chief complaint: Eye Problems Stated complaint: BLURRY VISION Time Seen by Provider: 05/25/24 21:56 Source: patient, RN notes reviewed Mode of arrival: ambulatory Limitations: no limitations - History of Present Illness Initial comments: 79-year-old male with history of diabetes mellitus, hyperlipidemia, hypertension, and CAD presenting with right eye vision changes x 2 hours. Patient states he suddenly began to experience visual changes in the periphery of the right eye, describing them as "worms". He experienced these "lines" in his peripheral right vision for about 30 minutes, then started to experience a "curtain coming down" on the right eye. This lasted only a moment and since then he has blurry vision in his entire right eye. States left eye is normal. He has never had this before. - Related Data Home Medications Medication Instructions Recorded Confirmed Tamsulosin [Flomax] 0.4 mg PO DAILY@1800 01/18/17 05/24/23 Ezetimibe [Zetia] 10 mg PO DAILY@0600 08/08/19 05/24/23 Psyllium Husk [Metamucil] 0.8 gm PO BID@0400,1800 07/21/20 05/24/23 Evolocumab [Repatha Sureclick] 140 mg SQ Q14D 04/15/21 05/24/23 Metoprolol Tartrate [Lopressor] 50 mg PO BID@0400,1800 04/15/21 05/24/23 Amiodarone [Cordarone] 200 mg PO DAILY@0400 05/24/23 05/24/23 Aspirin EC [Ecotrin Low Dose] 81 mg PO DAILY@0400 05/24/23 05/24/23 Cyclobenzaprine [Flexeril] 5 mg PO DAILY@1800 05/24/23 05/24/23 Furosemide [Lasix] 20 mg PO DAILY PRN 05/24/23 05/24/23 Losartan [Cozaar] 50 mg PO DAILY@1800 05/24/23 05/24/23 Rivaroxaban [Xarelto] 20 mg PO DAILY@1800 05/24/23 05/24/23 dilTIAZem HCL [dilTIAZem HCL 24Hr 120 mg PO DAILY@0400 05/24/23 05/24/23 ER (Xr)] hydrALAZINE HCL [Apresoline] 25 mg PO BID@0400,1800 05/24/23 05/24/23 Previous Rx's Medication Instructions Recorded Isosorbide Mononitrate ER [Imdur] 30 mg PO DAILY #90 tab 05/25/23 Nitroglycerin Sl Tabs [Nitrostat] 0.4 mg SUBLINGUAL Q5M PRN #100 tab 05/25/23 Allergies Allergy/AdvReac Type Severity Reaction Status Date / Time naproxen sodium [From Aleve] Allergy Severe Anaphylaxis Verified 05/25/24 21:55 Penicillins Allergy Unknown Rash/Hives Verified 05/25/24 21:55 rosuvastatin [From Crestor] Allergy Rash/Hives Verified 05/25/24 21:55 Review of Systems ROS Statement: Those systems with pertinent positive or pertinent negative responses have been documented in the HPI. ROS Other: All systems not noted in ROS Statement are negative. Past Medical History Past Medical History: Coronary Artery Disease (CAD), Chest Pain / Angina, Diabetes Mellitus, Hyperlipidemia, Hypertension, Prostate Disorder, Renal Disease, Sleep Apnea/CPAP/BIPAP, Syncope Additional Past Medical History / Comment(s): NIDDM type II-diet controlled now, nephrolithiasis, JOSELIN with CPap use, tinnitis bilaterally, vertigo, BPH History of Any Multi-Drug Resistant Organisms: None Reported Past Surgical History: Coronary Bypass/CABG, Heart Catheterization, Heart Catheterization With Stent, Orthopedic Surgery Additional Past Surgical History / Comment(s): PCI with a total of 8 stents, 2019 CABG 4 vessel, TTT, R shoulder rotator cuff repair, R wrist cyst removed x3, R elbow surgery d/t tennis elbow, R knee arthroscopy, lithotripsy, colonoscopies, hemorrhoidectomy. Past Anesthesia/Blood Transfusion Reactions: Motion Sickness Date of Last Stent Placement:: 04/2016 Past Psychological History: No Psychological Hx Reported Smoking Status: Never smoker Past Alcohol Use History: None Reported Past Drug Use History: None Reported - Past Family History Mother Family Medical History: Coronary Artery Disease (CAD), Dementia Additional Family Medical History / Comment(s): CABG in her early 50s Father Family Medical History: Cancer Additional Family Medical History / Comment(s): bone and lung General Exam Limitations: no limitations General appearance: alert, in no apparent distress Head exam: Present: atraumatic, normocephalic, normal inspection Eye exam: Present: normal appearance, PERRL, EOMI, other (Intraocular pressure 13, fluorescein stain negative, or visual acuity right 20/200, left 20/40. Ultrasound performed with Dr. Bhat which did not show definitive retinal detachment). Absent: scleral icterus, conjunctival injection, periorbital swelling Pupils: Present: normal accommodation ENT exam: Present: normal exam, mucous membranes moist Neurological exam: Present: alert, oriented X3 Psychiatric exam: Present: normal affect, normal mood Skin exam: Present: warm, dry, intact, normal color. Absent: rash Course Vital Signs 05/25/24 05/26/24 21:52 00:12 Temperature 98 F 97.6 F Pulse Rate 59 L 52 L Respiratory 18 14 Rate Blood Pressure 155/81 146/78 O2 Sat by Pulse 96 95 Oximetry Medical Decision Making - Medical Decision Making Was pt. sent in by a medical professional or institution (, PA, MILLED LUMBER GRADER, urgent care, hospital, or detention...) When possible be specific @ -No Did you speak to anyone other than the patient for history (EMS, parent, family, police, friend...)? What history was obtained from this source @ -No Did you review nursing and triage notes (agree or disagree)? Why? @ -I reviewed and agree with nursing and triage notes Were old charts reviewed (outside hosp., previous admission, EMS record, old EKG, old radiological studies, urgent care reports/EKG's, detention records)? Report findings @ -No old charts were reviewed Differential Diagnosis (chest pain, altered mental status, abdominal pain women, abdominal pain men, vaginal bleeding, weakness, fever, dyspnea, syncope, headache, dizziness, GI bleed, back pain, seizure, CVA, palpatations, mental health, musculoskeletal)? @ -Retinal detachment, retinal hemorrhage, cataracts, conjunctivitis, glaucoma EKG interpreted by me (3pts min.). @ -None X-rays interpreted by me (1pt min.). @ -None done CT interpreted by me (1pt min.). @ -None done U/S interpreted by me (1pt. min.). @ -None done What testing was considered but not performed or refused? (CT, X-rays, U/S, labs)? Why? @ -None What meds were considered but not given or refused? Why? @ -None Did you discuss the management of the patient with other professionals (professionals i.e. DrJanine, PA, MILLED LUMBER GRADER, lab, RT, psych nurse, social media director, radiology aide, teacher, community development officer, correctional case records supervisor)? Give summary @ -I spoke with Dr. Hood regarding this case who recommended patient is transferred to a different facility with ophthalmology services. I then spoke with Dr. Elena Carranza microelectronics engineer from [facility] who accepts transfer at this time for possible retinal detachment. Was smoking cessation discussed for >3mins.? @ -No Was critical care preformed (if so, how long)? @ -No Were there social determinants of health that impacted care today? How? (Homelessness, low income, unemployed, alcoholism, drug addiction, transportation, low edu. Level, literacy, decrease access to med. care, intermediate, rehab)? @ -No Was there de-escalation of care discussed even if they declined (Discuss DNR or withdrawal of care, Hospice)? DNR status @ -No What co-morbidities impacted this encounter? (DM, HTN, Smoking, COPD, CAD, Cancer, CVA, ARF, Chemo, Hep., AIDS, mental health diagnosis, sleep apnea, morbid obesity)? @ -DM Was patient admitted / discharged? Hospital course, mention meds given and route, prescriptions, significant lab abnormalities, going to OR and other pertinent info. @ -Patient was transferred to [facility]. Patient was seen and evaluated for right eye vision changes x 2 hours. Patient began to experience floaters in his peripheral vision, then had a sensation as though a curtain was coming down on his eye, and since then has had blurriness in all of right eye. Visual acuity is 20/200 on right eye, 20/40 on left eye. Intraocular pressure is 13, fluorescein stain is negative. Ultrasound performed with Dr. Bhat which did not show definitive retinal detachment. I spoke with Dr. Hood regarding this case he recommended patient is transferred to a different facility with ophthalmology services at this time I then spoke with Dr. Elena Carranza microelectronics engineer from [facility] who accepts transfer at this time for possible retinal detachment. Patient is agreeable to this plan. Patient was transferred at 1235 via EMS. Case was discussed with my ED attending Dr. Bhat Undiagnosed new problem with uncertain prognosis? @ -No Drug Therapy requiring intensive monitoring for toxicity (Heparin, Nitro, Insulin, Cardizem)? @ -No Were any procedures done? @ -No Diagnosis/symptom? @ -Vision changes of right eye, rule out retinal detachment Acute, or Chronic, or Acute on Chronic? @ -Acute Uncomplicated (without systemic symptoms) or Complicated (systemic symptoms)? @ -Uncomplicated Side effects of treatment? @ -No Exacerbation, Progression, or Severe Exacerbation? @ -No Poses a threat to life or bodily function? How? (Chest pain, [place], [place], pneumonia, PE, COPD, DKA, ARF, appy, cholecystitis, CVA, Diverticulitis, Homicidal, Suicidal, threat to staff... and all critical care pts) @ -Yes Disposition Clinical Impression: Blurring, right eye Disposition: OTHER INSTITUTION NOT DEFINED Referrals: Aleksandra Barrera MD [Primary Care Provider] - 1-2 days Time of Disposition: 01:03 - Out of Hospital Transfer - Req. Specs Out of Hospital Transfer - Requested Specifics: Other Emergency Center ([facility] emergency center)
[2024-05-26 00:13] VITALS: BP 146/78; PULSE 52; RESP 14; TEMP 97.6
== END 2024-05-26 00:53 | disposition other institution (70) ==
LOC: EC 21:36
DX: H53.131 Sudden visual loss, right eye (principal); Z88.0 Allergy status to penicillin; Z88.8 Allergy status to other drugs, medicaments and biological substances
CPT/HCPCS: 99284

== ENCOUNTER 2024-10-27 10:47 | Emergency (ER) | payer MEDICARE ==
[2024-10-27 10:55] VITALS: RESP 18
--- NOTE | 2024-10-27 11:18 | ED ---
Lower Extremity Injury HPI - General Chief Complaint: Extremity Injury, Lower Stated Complaint: fall/groin pain Time Seen by Provider: 10/27/24 11:16 Source: patient, family (), RN notes reviewed Mode of arrival: ambulatory Limitations: no limitations - History of Present Illness Initial Comments: 79-year-old male presented to ER for evaluation of right groin pain. Patient states yesterday he was walking on an icy sidewalk when his right leg slipped to the side. He denies actually falling, head injury or loss of consciousness. Patient does take blood thinners due to triple bypass. He states since then he has been having difficulty with ambulation including getting off the toilet or sitting on his couch due to the right groin pain. He has taken prescribed Flexeril and Tylenol arthritis with relief. He also has been icing the area. Patient denies any paresthesias. He states it is painful to lift his leg off of the bed. No other injuries or complaints. Patient denies any bowel or bladder incontinence, saddle paresthesias, fevers. - Related Data Home Medications Medication Instructions Recorded Confirmed Tamsulosin [Flomax] 0.4 mg PO DAILY@1800 01/18/17 05/24/23 Ezetimibe [Zetia] 10 mg PO DAILY@0600 08/08/19 05/24/23 Psyllium Husk [Metamucil] 0.8 gm PO BID@0400,1800 07/21/20 05/24/23 Evolocumab [Repatha Sureclick] 140 mg SQ Q14D 04/15/21 05/24/23 Metoprolol Tartrate [Lopressor] 50 mg PO BID@0400,1800 04/15/21 05/24/23 Amiodarone [Cordarone] 200 mg PO DAILY@0400 05/24/23 05/24/23 Aspirin EC [Ecotrin Low Dose] 81 mg PO DAILY@0400 05/24/23 05/24/23 Cyclobenzaprine [Flexeril] 5 mg PO DAILY@1800 05/24/23 05/24/23 Furosemide [Lasix] 20 mg PO DAILY PRN 05/24/23 05/24/23 Losartan [Cozaar] 50 mg PO DAILY@1800 05/24/23 05/24/23 Rivaroxaban [Xarelto] 20 mg PO DAILY@1800 05/24/23 05/24/23 dilTIAZem HCL [dilTIAZem HCL 24Hr 120 mg PO DAILY@0400 05/24/23 05/24/23 ER (Xr)] hydrALAZINE HCL [Apresoline] 25 mg PO BID@0400,1800 05/24/23 05/24/23 Previous Rx's Medication Instructions Recorded Isosorbide Mononitrate ER [Imdur] 30 mg PO DAILY #90 tab 05/25/23 Nitroglycerin Sl Tabs [Nitrostat] 0.4 mg SUBLINGUAL Q5M PRN #100 tab 05/25/23 Allergies Allergy/AdvReac Type Severity Reaction Status Date / Time naproxen sodium [From Aleve] Allergy Severe Anaphylaxis Verified 10/27/24 10:49 Penicillins Allergy Unknown Rash/Hives Verified 10/27/24 10:49 rosuvastatin [From Crestor] Allergy Rash/Hives Verified 10/27/24 10:49 Review of Systems ROS Statement: Those systems with pertinent positive or pertinent negative responses have been documented in the HPI. ROS Other: All systems not noted in ROS Statement are negative. Past Medical History Past Medical History: Coronary Artery Disease (CAD), Chest Pain / Angina, Diabetes Mellitus, Hyperlipidemia, Hypertension, Prostate Disorder, Renal Disease, Sleep Apnea/CPAP/BIPAP, Syncope Additional Past Medical History / Comment(s): NIDDM type II-diet controlled now, nephrolithiasis, JOSELIN with CPap use, tinnitis bilaterally, vertigo, BPH History of Any Multi-Drug Resistant Organisms: None Reported Past Surgical History: Coronary Bypass/CABG, Heart Catheterization, Heart Catheterization With Stent, Orthopedic Surgery Additional Past Surgical History / Comment(s): PCI with a total of 8 stents, 2019 CABG 4 vessel, TTT, R shoulder rotator cuff repair, R wrist cyst removed x3, R elbow surgery d/t tennis elbow, R knee arthroscopy, lithotripsy, colonoscopies, hemorrhoidectomy. Past Anesthesia/Blood Transfusion Reactions: Motion Sickness Date of Last Stent Placement:: 04/2016 Past Psychological History: No Psychological Hx Reported Smoking Status: Never smoker Past Alcohol Use History: None Reported Past Drug Use History: None Reported - Past Family History Mother Family Medical History: Coronary Artery Disease (CAD), Dementia Additional Family Medical History / Comment(s): CABG in her early 50s Father Family Medical History: Cancer Additional Family Medical History / Comment(s): bone and lung General Exam Limitations: no limitations General appearance: alert, in no apparent distress Respiratory exam: Present: normal lung sounds bilaterally. Absent: respiratory distress, wheezes, rales, rhonchi, stridor Cardiovascular Exam: Present: regular rate, normal rhythm, normal heart sounds. Absent: systolic murmur, diastolic murmur, rubs, gallop, clicks Extremities exam: Present: normal inspection, other (2+ right DP and PT pulse. No pain with internal/external rotation of the hip. Negative leg roll right. Pain with active range of motion) Back exam: Present: normal inspection Neurological exam: Present: alert, oriented X3, CN II-XII intact Skin exam: Present: warm, dry, intact, normal color. Absent: rash Course Vital Signs 10/27/24 10/27/24 10:50 12:42 Temperature 97.7 F 97.9 F Pulse Rate 56 L 68 Respiratory 18 18 Rate Blood Pressure 139/75 154/81 O2 Sat by Pulse 96 97 Oximetry Medical Decision Making - Medical Decision Making Was pt. sent in by a medical professional or institution (Dr. PA, LANDSCAPE ARCHITECT [employer] PLANNER, urgent care, hospital, or halfway...) When possible be specific @ -No Did you speak to anyone other than the patient for history (EMS, parent, family, police, friend...)? What history was obtained from this source @ -No Did you review nursing and triage notes (agree or disagree)? Why? @ -I reviewed and agree with nursing and triage notes Were old charts reviewed (outside hosp., previous admission, EMS record, old EKG, old radiological studies, urgent care reports/EKG's, halfway records)? Report findings @ -No old charts were reviewed Differential Diagnosis (chest pain, altered mental status, abdominal pain women, abdominal pain men, vaginal bleeding, weakness, fever, dyspnea, syncope, headache, dizziness, GI bleed, back pain, seizure, CVA, palpatations, mental health, musculoskeletal)? @ -Differential Musculoskeletal: Muscular strain, contusion, ligament sprain, fracture, arthritis, septic arthritis, bursitis, cellulitis, muscle spasm, nerve compression, DVT, arterial occlusion, herpes zoster, electrolyte abnormality, tumor.... This is not meant to be in all inclusive list EKG interpreted by me (3pts min.). @ -None done X-rays interpreted by me (1pt min.). @ -Right hip AP pelvis x-ray interpreted me negative for acute fractures or dislocations. CT interpreted by me (1pt min.). @ -None done U/S interpreted by me (1pt. min.). @ -None done What testing was considered but not performed or refused? (CT, X-rays, U/S, labs)? Why? @ -None What meds were considered but not given or refused? Why? @ -Patient refused analgesic medications. Did you discuss the management of the patient with other professionals (professionals i.e. , PA, LANDSCAPE ARCHITECT [employer] PLANNER, lab, RT, psych nurse, geriatric social worker, fans clerk, teacher, tourist information officer, correctional casework specialist)? Give summary @ -No Was smoking cessation discussed for >3mins.? @ -No Was critical care preformed (if so, how long)? @ -No Were there social determinants of health that impacted care today? How? (Homelessness, low income, unemployed, alcoholism, drug addiction, transportation, low edu. Level, literacy, decrease access to med. care, longterm, rehab)? @ -No Was there de-escalation of care discussed even if they declined (Discuss DNR or withdrawal of care, Hospice)? DNR status @ -No What co-morbidities impacted this encounter? (DM, HTN, Smoking, COPD, CAD, Cancer, CVA, ARF, Chemo, Hep., AIDS, mental health diagnosis, sleep apnea, morbid obesity)? @ -Obese Was patient admitted / discharged? Hospital course, mention meds given and route, prescriptions, significant lab abnormalities, going to OR and other pertinent info. @ -Discharge. 79-year-old male presented to the ER for evaluation of right groin pain status post slip on ice. History and physical exam completed. Vitals within normal limits. Patient is neurovascularly intact. There is no focal bony tenderness. No overlying skin changes. Right hip AP pelvis x-rays interpreted by me obtained negative for acute fractures or dislocations. Patient refused analgesic medications. Upon reevaluation, patient resting comfortably exam room no signs of acute distress. Results discussed with patient, all questions answered. Pain believed to be musculoskeletal in nature. I instructed patient to take Flexeril, as prescribed, and [id number] Tylenol for symptom control outpatient. Strict return parameters discussed. Patient discharged in stable condition with follow-up to PCP. Patient verbally expressed understanding and agreement with care plan. Case discussed with ED attending, Dr. Sahu. Undiagnosed new problem with uncertain prognosis? @ -No Drug Therapy requiring intensive monitoring for toxicity (Heparin, Nitro, Insulin, Cardizem)? @ -No Were any procedures done? @ -No Diagnosis/symptom? @ -Muscle strain Acute, or Chronic, or Acute on Chronic? @ -Acute Uncomplicated (without systemic symptoms) or Complicated (systemic symptoms)? @ -Uncomplicated Side effects of treatment? @ -No Exacerbation, Progression, or Severe Exacerbation? @ -No Poses a threat to life or bodily function? How? (Chest pain, [place], [place], pneumonia, PE, COPD, DKA, ARF, appy, cholecystitis, CVA, Diverticulitis, Homicidal, Crowder icidal, threat to staff... and all critical care pts) @ -No - Radiology Data Radiology results: report reviewed, image reviewed Disposition Clinical Impression: Muscle strain Disposition: HOME SELF-CARE Condition: Stable Instructions (If sedation given, give patient instructions): Muscle Strain (ED) Additional Instructions: Follow-up with PCP. Continue taking prescribed Flexeril. I also recommend Tylenol. Return to the ER for any new or worsening concerns. Is patient prescribed a controlled substance at d/c from ED?: No Referrals: Aleksandra Barrera MD [Primary Care Provider] - 1-2 days Time of Disposition: 12:35
--- NOTE | 2024-10-27 11:59 | XR ---
EXAMINATION TYPE: XR Hip RT and AP Pelvis DATE OF EXAM: 10/27/2024 11:26 AM COMPARISON: None CLINICAL INDICATION: Male, 79 years old with history of slipped on ice; PHH, pain TECHNIQUE: XR Hip RT and AP Pelvis; hip was examined in the frontal and lateral projections and a AP pelvis. FINDINGS: No evidence for acute process, joint dislocation or significant soft tissue swelling. Osteo phyte formation of the superior acetabulum of the hip. There is mild joint space narrowing. IMPRESSION: 1. No evidence for acute process. 2. Mild hip osteoarthrosis. [facility], , 10/27/2024 11:56 AM
[2024-10-27 12:44] VITALS: BP 154/81; PULSE 68; TEMP 97.9
== END 2024-10-27 12:44 | disposition home or self-care (01) ==
LOC: EC 10:47
DX: S39.011A Strain of muscle, fascia and tendon of abdomen, initial encounter (principal); Z88.0 Allergy status to penicillin; Z88.6 Allergy status to analgesic agent; Z88.8 Allergy status to other drugs, medicaments and biological substances; Y93.29 Activity, other involving ice and snow
CPT/HCPCS: 73502; 99283

== ENCOUNTER 2025-05-01 08:25 | Day surgery (SDC) | payer MEDICARE ==
[2025-04-30 13:01] VITALS: BMI 31.1
[2025-05-01] MEDS: IV FLUID CONTINUATION 1,000 ML IV ONE (08:40)
[2025-05-01 08:43] VITALS: TEMP 97.2
[2025-05-01 08:57] LABS: Glucose,Whole Blood 128 mg/dL (70-110)
[2025-05-01] MEDS: LACTATED RINGERS 1,000 ML IV SCH (09:02)
--- NOTE | 2025-05-01 09:05 | P.GSHP ---
History of Present Illness H&P Date: 05/01/25 CHIEF COMPLAINT: Colon screen HISTORY OF PRESENT ILLNESS: The patient is a 80-year-old male who presents for colon screen. Lower endoscopy was offered for further evaluation and management. PAST MEDICAL HISTORY: Please see list. PAST SURGICAL HISTORY: Please see list. MEDICATIONS: Please see list. ALLERGIES: Please see list. SOCIAL HISTORY: No illicit drug use FAMILY HISTORY: No reports of Crohn disease or ulcerative colitis. REVIEW OF ORGAN SYSTEMS: CONSTITUTIONAL: No reports of fevers or chills. PHYSICAL EXAM: VITAL SIGNS: Stable GENERAL: Well-developed pleasant in no acute distress. HEENT: No scleral icterus. Extraocular movements grossly intact. Moist buccal mucosa. NECK: Supple without lymphadenopathy. CHEST: Unlabored respirations. Equal bilateral excursions. CARDIOVASCULAR: Regular rate and rhythm. Distal 2+ pulses. ABDOMEN: Soft, nontender, nondistended. MUSCULOSKELETAL: No clubbing, cyanosis, or edema. ASSESSMENT: 1. Colon screen. PLAN: 1. Recommend proceeding with a lower endoscopy Past Medical History Past Medical History: Coronary Artery Disease (CAD), Chest Pain / Angina, Hyperlipidemia, Hypertension, Prostate Disorder, Renal Disease, Sleep Apnea/CPAP/BIPAP, Syncope Additional Past Medical History / Comment(s): Past history of NIDDM type II-diet controlled now, nephrolithiasis, JOSELIN with CPap use, tinnitis bilaterally, vertigo, BPH, neuropathia B/L legs, hernia, hemmorroids, knee pain History of Any Multi-Drug Resistant Organisms: None Reported Past Surgical History: Coronary Bypass/CABG, Heart Catheterization, Heart Catheterization With Stent, Orthopedic Surgery Additional Past Surgical History / Comment(s): PCI with a total of 13 stents, Jul 2020 CABG 4 vessel, had 2 stents in bypass graft in Oct 2020. TTT, R shoulder rotator cuff repair 2017, R wrist cyst removed x3, R elbow surgery d/t tennis elbow, R knee arthroscopy, lithotripsy, colonoscopies, hemorrhoidectomy. Cortisone injections in R knee. Past Anesthesia/Blood Transfusion Reactions: No Reported Reaction, Motion Sickness Additional Past Anesthesia/Blood Transfusion Reaction / Comment(s): No hx of blood transfusion; hx of vertigo, loosing balance. Date of Last Stent Placement:: 10/2020 Smoking Status: Never smoker - Past Family History Mother Family Medical History: Coronary Artery Disease (CAD), Dementia Additional Family Medical History / Comment(s): CABG in her early 50s Father Family Medical History: Cancer Additional Family Medical History / Comment(s): bone and lung Medications and Allergies Home Medications Medication Instructions Recorded Confirmed Type Tamsulosin [Flomax] 0.4 mg PO DAILY@1800 01/18/17 05/01/25 History Ezetimibe [Zetia] 10 mg PO DAILY@0600 08/08/19 05/01/25 History Psyllium Husk [Metamucil] 0.8 gm PO BID@0400,1800 07/21/20 05/01/25 History Evolocumab [Repatha Sureclick] 140 mg SQ Q14D 04/15/21 05/01/25 History Metoprolol Tartrate [Lopressor] 50 mg PO BID@0400,1800 04/15/21 05/01/25 History Amiodarone [Cordarone] 200 mg PO DAILY@0400 05/24/23 05/01/25 History Aspirin EC [Ecotrin Low Dose] 81 mg PO DAILY@0400 05/24/23 05/01/25 History Cyclobenzaprine [Flexeril] 5 mg PO DAILY@1800 05/24/23 05/01/25 History Losartan [Cozaar] 50 mg PO DAILY@1800 05/24/23 05/01/25 History Rivaroxaban [Xarelto] 20 mg PO DAILY@1800 05/24/23 05/01/25 History dilTIAZem HCL [dilTIAZem HCL 24Hr 120 mg PO DAILY@0400 05/24/23 05/01/25 History ER (Xr)] hydrALAZINE HCL [Apresoline] 25 mg PO BID@0400,1800 05/24/23 05/01/25 History Isosorbide Mononitrate ER [Imdur] 30 mg PO DAILY #90 tab 05/25/23 05/01/25 Rx Nitroglycerin Sl Tabs [Nitrostat] 0.4 mg SUBLINGUAL Q5M PRN #100 tab 05/25/23 05/01/25 Rx Neurx-Tf Supplement 1 dose PO BID 04/30/25 05/01/25 History Allergies Allergy/AdvReac Type Severity Reaction Status Date / Time naproxen sodium [From Aleve] Allergy Severe Anaphylaxis Verified 05/01/25 08:37 Penicillins Allergy Unknown Rash/Hives Verified 05/01/25 08:37 rosuvastatin [From Crestor] Allergy Rash/Hives Verified 05/01/25 08:37 Surgical - Exam Vital Signs Temp Pulse Resp BP Pulse Ox 97.2 F L 60 18 129/76 98 05/01/25 08:37 05/01/25 08:37 05/01/25 08:37 05/01/25 08:37 05/01/25 08:37 Results - Labs Abnormal Lab Results - Last 24 Hours (Table) 05/01/25 Range/Units 08:56 POC Glucose (mg/dL) 128 H (70-110) mg/dL
[2025-05-01] MEDS ORDERED: PROPOFOL 10 MG/ML 20 ML VIAL IV ONE (09:34)
--- NOTE | 2025-05-01 10:22 | P.PCN ---
Date of Procedure: 05/01/25 Description of Procedure: PREOPERATIVE DIAGNOSIS: Personal history of colon polyps Chronic anticoagulant use Colonoscopy screening. POSTOPERATIVE DIAGNOSIS: Colonoscopy screening. Severe sigmoid diverticulosis Constipation OPERATION: Colonoscopy to the cecum, ileocecal valve and appendiceal orifice. SURGEON: Carolyn Pan MD. ANESTHESIA: MAC. INDICATIONS: The patient is a 80-year-old male who presents personal history of colon polyps. Last colonoscopy 5 years ago. Benefits and risks were described and informed consent was obtained. DESCRIPTION OF PROCEDURE: The patient had undergone Sutab prep. The patient had been brought into the operating room and laid in the left lateral decubitus position. After adequate intravenous sedation, the rectum was examined with 2% lidocaine jelly. External hemorrhoids were encountered. The rectal tone was within normal limits. No lesions were palpated in the rectal vault. An Olympus colonoscope was advanced until the cecum, ileocecal valve and appendiceal orifice were clearly viewed. The prep was poor. Moderate sigmoid diverticulosis with scattered diverticulosis was encountered. No large polyps over 2 cm colonic polyps were found. No evidence of focal colitis was found. Retroflexion of the scope demonstrated grade 3 internal hemorrhoids without active bleeding or inflammation. The colon was desufflated. The patient had tolerated the procedure well. Withdrawal time was over 6 minutes. FINDINGS: Aronchick preparation quality scale 4 (1-5) Internal hemorrhoids, grade 3 External prolapsed hemorrhoids, grade 3 No arteriovenous malformations. No adenomatous polyps, over 2 cm. Limited colonoscopy due to poor prep Abdominal pressure used to advance scope due to the redundant sigmoid colon RECOMMENDATIONS: Lower endoscopy in 2 to 3 years, 2026 due to poor prep. Will need prolonged prep and lactulose. Plan - Discharge Summary Discharge Rx Participant: No New Discharge Prescriptions: New Lactulose [Cephulac] 30 ml PO BID PRN #500 ml PRN Reason: Constipation Continue Tamsulosin [Flomax] 0.4 mg PO DAILY@1800 Ezetimibe [Zetia] 10 mg PO DAILY@0600 Psyllium Husk [Metamucil] 0.8 gm PO BID@0400,1800 Aspirin EC [Ecotrin Low Dose] 81 mg PO DAILY@0400 Nitroglycerin Sl Tabs [Nitrostat] 0.4 mg SUBLINGUAL Q5M PRN #100 tab PRN Reason: Chest Pain Neurx-Tf Supplement 1 dose PO BID Metoprolol Tartrate [Lopressor] 50 mg PO BID@0400,1800 Evolocumab [Repatha Sureclick] 140 mg SQ Q14D Cyclobenzaprine [Flexeril] 5 mg PO DAILY@1800 Amiodarone [Cordarone] 200 mg PO DAILY@0400 Rivaroxaban [Xarelto] 20 mg PO DAILY@1800 hydrALAZINE HCL [Apresoline] 25 mg PO BID@0400,1800 Losartan [Cozaar] 50 mg PO DAILY@1800 dilTIAZem HCL [dilTIAZem HCL 24Hr ER (Xr)] 120 mg PO DAILY@0400 Isosorbide Mononitrate ER [Imdur] 30 mg PO DAILY #90 tab Discharge Medication List Tamsulosin [Flomax] 0.4 mg PO DAILY@1800 01/18/17 [History] Ezetimibe [Zetia] 10 mg PO DAILY@0600 08/08/19 [History] Psyllium Husk [Metamucil] 0.8 gm PO BID@0400,1800 07/21/20 [History] Evolocumab [Repatha Sureclick] 140 mg SQ Q14D 04/15/21 [History] Metoprolol Tartrate [Lopressor] 50 mg PO BID@0400,1800 04/15/21 [History] Amiodarone [Cordarone] 200 mg PO DAILY@04005/24/23 [History] Aspirin EC [Ecotrin Low Dose] 81 mg PO DAILY@39905/24/23 [History] Cyclobenzaprine [Flexeril] 5 mg PO DAILY@179905/24/23 [History] Losartan [Cozaar] 50 mg PO DAILY@179905/24/23 [History] Rivaroxaban [Xarelto] 20 mg PO DAILY@179905/24/23 [History] dilTIAZem HCL [dilTIAZem HCL 24Hr ER (Xr)] 120 mg PO DAILY@39905/24/23 [History] hydrALAZINE HCL [Apresoline] 25 mg PO BID@0400,1800 05/24/23 [History] Isosorbide Mononitrate ER [Imdur] 30 mg PO DAILY #90 tab 05/25/23 [Rx] Nitroglycerin Sl Tabs [Nitrostat] 0.4 mg SUBLINGUAL Q5M PRN #100 tab 05/25/23 [Rx] Neurx-Tf Supplement 1 dose PO BID 04/30/25 [History] Lactulose [Cephulac] 30 ml PO BID PRN #500 ml 05/01/25 [Rx] Follow up Appointment(s)/Referral(s): Carolyn Pan MD [STAFF PHYSICIAN] - 05/14/25 1:30 pm Patient Instructions/Handouts: *Surgery [facility] - (Anesthesia) Discharge Instructions Outpatient Surgery, Diverticulosis (ED), Diverticulosis Diet (GEN), Colonoscopy (DC) Activity/Diet/Wound Care/Special Instructions: Repeat colonoscopy in 3 years, 2027. Will require prolonged bowel prep 2 to 3 days. Stop blood thinner today Discharge Disposition: HOME SELF-CARE
[2025-05-01 10:28] VITALS: BP 112/76; PULSE 52; RESP 18
== END 2025-05-01 11:09 | disposition home or self-care (01) ==
LOC: ORWHC2ENDO 08:25
PROVIDERS: ATTEND Surgery Plastic and Reconstructive Surgery
DX: Z12.11 Encounter for screening for malignant neoplasm of colon (principal); K57.30 Diverticulosis of large intestine without perforation or abscess without bleeding; K64.2 Third degree hemorrhoids; I25.10 Atherosclerotic heart disease of native coronary artery without angina pectoris; E78.5 Hyperlipidemia, unspecified; I10 Essential (primary) hypertension; E11.9 Type 2 diabetes mellitus without complications; G47.33 Obstructive sleep apnea (adult) (pediatric); Z87.442 Personal history of urinary calculi; Z95.1 Presence of aortocoronary bypass graft; Z82.49 Family history of ischemic heart disease and other diseases of the circulatory system; Z86.0100 Personal history of colon polyps, unspecified; Z89.211 Acquired absence of right upper limb below elbow; Z89.231 Acquired absence of right shoulder; Z89.521 Acquired absence of right knee; Z88.6 Allergy status to analgesic agent; Z88.0 Allergy status to penicillin; Z79.82 Long term (current) use of aspirin; Z79.01 Long term (current) use of anticoagulants; Z79.899 Other long term (current) drug therapy
CPT/HCPCS: J2704; G0105